=== PATIENT | female | born 1965 | race Caucasian/White ===

== ENCOUNTER 2018-08-29 08:05 | Day surgery (SDC) | payer OTHER ==
--- OUTSIDE RECORDS SUMMARY | 2018-08-29 08:08 | XMS REPORT ---
:1965 [facility] Address [address] [place] [address] Care Team Providers Name Role Phone Unavailable Unavailable Unavailable Problems This patient has no known problems. Allergies, Adverse Reactions, Alerts This patient has no known allergies or adverse reactions. Medications This patient has no known medications.
--- OUTSIDE RECORDS SUMMARY | 2018-08-29 08:09 | XMS REPORT ---
:1965 Author Organization [employer] Care Team Providers Name Role Phone BryantPoli Provider Role Unavailable Allergies, Adverse Reactions, Alerts Substance Reaction Event Type PCN Info Not Available Drug Allergy Iodine Info Not Available Drug Allergy Clarithromycin Info Not Available Drug Allergy Ampicillin Info Not Available Drug Allergy Problems Problem Type Condition Code Onset Dates Condition Status Problem Primary osteoarthritis of left hip M16.12 Active Problem Primary osteoarthritis of right M17.11 Active knee Assessment Primary osteoarthritis of left hip M16.12 Active Assessment Primary osteoarthritis of right M17.11 Active knee Assessment Pain of left hip joint M25.552 Active Assessment Pain, joint, knee, right M25.561 Active Medications Medication Code Code Instructions Start End Status Dosage System Date Date Lisinopril ND 66742645171 5 MG Orally Mar 04, Active 1 tablet Once a day 2018 Metformin HCl ND 27974763110 500 MG Orally Mar 04, Active 1 tablet Once a day 2019 with a meal baclofen ND 61581103757 10mg PO TID Mar 04, Active / tab 2019 T[address]enol [address] [facility] 36712541875 300-30 MG Active 1 tablet as Codeine #3 Orally every 6 needed hrs Levothyroxine NDC 10969998228 75 MCG Orally Mar 04, Active 1 tablet on Sodium Once a day 2019 an empty stomach in the morning Xultophy ND 35890214055 100-3.6 Mar 04, Active as directed UNIT-MG/ML 2019 Subcutaneous VESIcare ND 44919566446 5 MG Orally Mar 04, Active 1 tablet Once a day 2019 Mobic ND 78081608672 7.5 MG Orally Mar 24, Apr 23, Active 1 tablet Once a day 2018 2019 Duloxetine HCl ND 55327079452 60 MG Orally Mar 04, Active 1 capsule Once a day 2019 Gabapentin NDC 49383341168 600 MG Orally Mar 04, Active 1 tablet Once a day 2019 Levothyroxine NDC 42933285164 75 MCG Orally Mar 04, Active 1 tablet on Sodium Once a day 2019 an empty stomach in the morning Ibuprofen ND 96717036340 800 MG Orally Mar 04, Active 1 tablet po Three times a 2019 prn pain day Simvastatin ND 40884248046 40 MG Orally Mar 04, Active 1 tablet in Once a day 2018 the evening Results No Known Results Summary Purpose eClinicalWorks Submission
--- OUTSIDE RECORDS SUMMARY | 2018-08-29 08:09 | XMS REPORT ---
:1965 Author Organization [employer] Care Team Providers Name Role Phone Poli Bryant Provider Role Unavailable Allergies, Adverse Reactions, Alerts Substance Reaction Event Type PCN Info Not Available Drug Allergy Iodine Info Not Available Drug Allergy Clarithromycin Info Not Available Drug Allergy Ampicillin Info Not Available Drug Allergy Problems Problem Type Condition Code Onset Dates Condition Status Assessment Pain, joint, shoulder, left M25.512 Active Assessment Other closed nondisplaced fracture S42.295A Active of proximal end of left humerus, initial encounter Medications Medication Code Code Instructions Start End Status Dosage System Date Date baclofen ND 04446811303 10mg PO TID Mar 04, Active 03/02 tab 2019 Tylenol with ND 46654013129 300-30 MG Mar 04, Active 1 tablet as Codeine #3 Orally every 6 2019 needed hrs Levothyroxine NDC 15997554515 75 MCG Orally Mar 04, Active 1 tablet on Sodium Once a day 2019 an empty stomach in the morning Simvastatin NDC 86235744452 40 MG Orally Mar 04, Active 1 tablet in Once a day 2019 the evening Levothyroxine NDC 90461187144 75 MCG Orally Mar 04, Active 1 tablet on Sodium Once a day 2019 an empty stomach in the morning Metformin HCl ND 93317111830 500 MG Orally Mar 04, Active 1 tablet Once a day 2019 with a meal Duloxetine HCl ND 77289982798 60 MG Orally Mar 04, Active 1 capsule Once a day 2019 Ibuprofen ND 86525656477 800 MG Orally Mar 04, Active 1 tablet po Three times a 2019 prn pain day Gabapentin NDC 67083413383 600 MG Orally Mar 04, Active 1 tablet Once a day 2019 VESIcare NDC 92155042332 5 MG Orally Mar 04, Active 1 tablet Once a day 2019 Xultophy ND 81852113262 100-3.6 Mar 04, Active as directed UNIT-MG/ML 2018 Subcutaneous Lisinopril NDC 46952444666 5 MG Orally Mar 04, Active 1 tablet Once a day 2019 Results No Known Results Summary Purpose eClinicalWorks Submission
--- OUTSIDE RECORDS SUMMARY | 2018-08-29 08:09 | XMS REPORT ---
:1965 Author Organization [employer] Care Team Providers Name Role Phone Poli Bryant Provider Role Unavailable Allergies No Known Allergies Problems No Known Problems Medications No Known Medications Results No Known Results Summary Purpose eClinicalWorks Submission
--- OUTSIDE RECORDS SUMMARY | 2018-08-29 08:09 | XMS REPORT ---
[...] osteoarthritis of right M17.11 Active knee Assessment Other nondisplaced fracture of S42.295D Active upper end of left humerus, subsequent encounter for fracture with routine healing Assessment Pain in joint of left shoulder M25.512 Active Assessment Primary osteoarthritis of right M17.11 Active knee Medications Medication Code Code Instructions Start End Status Dosage System Date Date Levothyroxine [facility] 13976166806 75 MCG Orally Mar 04, Active 1 tablet on Sodium Once a day 2019 an empty stomach in the morning baclofen ND 53393013338 10mg PO TID Mar 04, Active 1/2 tab 2019 Lisinopril ND 56776804856 5 MG Orally Mar 04, Active 1 tablet Once a day 2019 Xultophy ND 74894385782 100-3.6 Mar 04, Active as directed UNIT-MG/ML 2019 Subcutaneous Ibuprofen ND 81490640621 800 MG Orally Mar 04, Active 1 tablet po Three times a 2019 prn pain day Gabapentin ND 05365682253 600 MG Orally Mar 04, Active 1 tablet Once a day 2019 Metformin HCl ND 75093110783 500 MG Orally Mar 04, Active 1 tablet Once a day 2019 with a meal Simvastatin ND 89011601399 40 MG Orally Mar 04, Active 1 tablet in Once a day 2019 the evening VESIcare ND 31024571715 5 MG Orally Mar 04, Active 1 tablet Once a day 2019 Duloxetine HCl ND 74099757004 60 MG Orally Mar 04, Active 1 capsule Once a day 2019 Results No Known Results Summary Purpose eClinicalWorks Submission
--- OUTSIDE RECORDS SUMMARY | 2018-08-29 08:09 | XMS REPORT ---
[...] M16.12 Active Problem Primary osteoarthritis of right knee M17.11 Active Assessment Primary osteoarthritis of right knee M17.11 Active Medications Medication Code Code Instructions Start End Date Status Dosage System Date Mobic [facility] 16496668759 7.5 MG Orally April Active 1 tablet Once a day 2018 Gabapentin ND 29407923071 600 MG Orally Mar 04, Active 1 tablet Once a day 2018 Levothyroxine ND 23054427086 75 MCG Orally Mar 04, Active 1 tablet Sodium Once a day 2019 on an empty stomach in the morning Lisinopril ND 07145469520 5 MG Orally Mar 04, Active 1 tablet Once a day 2019 baclofen ND 47736469030 10mg PO TID Mar 04, Active 1/2 tab 2019 Duloxetine HCl ND 93842498998 60 MG Orally Mar 04, Active 1 capsule Once a day 2018 VESIcare ND 43193639056 5 MG Orally Mar 04, Active 1 tablet Once a day 2019 Simvastatin ND 69266267844 40 MG Orally Mar 04, Active 1 tablet Once a day 2019 in the evening Metformin HCl ND 96854088128 500 MG Orally Mar 04, Active 1 tablet Once a day 2019 with a meal Xultophy ND 94097842550 100-3.6 Mar 04, Active as UNIT-MG/ML 2019 directed Subcutaneous Ibuprofen ND 93750392059 800 MG Orally Mar 04, Active 1 tablet Three times a 2019 po prn day pain Results No Known Results Summary Purpose eClinicalWorks Submission
--- OUTSIDE RECORDS SUMMARY | 2018-08-29 08:09 | XMS REPORT ---
[...] Start End Status Dosage System Date Date Gabapentin ND 98418746191 600 MG Orally Mar 04, Active 1 tablet Once a day 2018 Duloxetine HCl ND 17412166323 60 MG Orally Mar 04, Active 1 capsule Once a day 2019 VESIcare ND 41477554417 5 MG Orally Mar 04, Active 1 tablet Once a day 2019 Simvastatin ND 32698171609 40 MG Orally Mar 04, Active 1 tablet in Once a day 2019 the evening Levothyroxine ND 40732779638 75 MCG Orally Mar 04, Active 1 tablet on Sodium Once a day 2019 an empty stomach in the morning Ibuprofen ND 81222257541 800 MG Orally Mar 04, Active 1 tablet po Three times a 2019 prn pain day Xultophy [facility] 01967085243 100-3.6 Mar 04, Active as directed UNIT-MG/ML 2019 Subcutaneous Lisinopril ND 97069114219 5 MG Orally Mar 04, Active 1 tablet Once a day 2019 Metformin HCl ND 47404185665 500 MG Orally Mar 04, Active 1 tablet Once a day 2019 with a meal baclofen ND 88288400213 10mg PO TID Mar 04, Active 03/02 tab 2019 Results No Known Results Summary Purpose eClinicalWorks Submission
--- OUTSIDE RECORDS SUMMARY | 2018-08-29 08:09 | XMS REPORT ---
[...] Status Dosage System Date Date Lisinopril ND 66650007374 5 MG Orally Mar 04, Active 1 tablet Once a day 2018 Levothyroxine NDC 48822505900 75 MCG Orally Mar 04, Active 1 tablet on Sodium Once a day 2019 an empty stomach in the morning VESIcare ND 79457303674 5 MG Orally Mar 04, Active 1 tablet Once a day 2018 Xultophy ND 10252815864 100-3.6 Mar 04, Active as directed UNIT-MG/ML 2018 Subcutaneous Duloxetine HCl ND 03741094910 60 MG Orally Mar 04, Active 1 capsule Once a day 2018 Levothyroxine NDC 16578559395 75 MCG Orally Mar 04, Active 1 tablet on Sodium Once a day 2019 an empty stomach in the morning Ibuprofen NDC 22106547727 800 MG Orally Mar 04, Active 1 tablet po Three times a 2019 prn pain day Metformin HCl ND 36279069540 500 MG Orally Mar 04, Active 1 tablet Once a day 2019 with a meal Simvastatin NDC 52011904560 40 MG Orally Mar 04, Active 1 tablet in Once a day 2019 the evening Mobic ND 52764329850 7.5 MG Orally Mar 24, Apr 23, Active 1 tablet Once a day 2018 2019 Tylenol with ND 15649712121 300-30 MG Active 1 tablet as Codeine #3 Orally every 6 needed hrs baclofen ND 03600354737 10mg PO TID Mar 04, Active 1/2 tab 2019 Gabapentin ND 28818157463 600 MG Orally Mar 04, Active 1 tablet Once a day 2018 Results No Known Results Summary Purpose eClinicalWorks Submission
--- OUTSIDE RECORDS SUMMARY | 2018-08-29 08:09 | XMS REPORT ---
:1965 Author Organization [employer]ClinicalWorks Care Team Providers Name Role Phone Poli Bryant Provider Role Unavailable Allergies No Known Allergies Problems Problem Type Condition Code Onset Dates Condition Status Problem Primary osteoarthritis of left hip M16.12 Active Problem Primary osteoarthritis of right knee M17.11 Active Medications No Known Medications Results No Known Results Summary Purpose eClinicalWorks Submission
[2018-08-29] MEDS ORDERED: NA CHLORIDE 0.9% 1,000 ML ONE (08:47)
[2018-08-29] MEDS ORDERED: PROPOFOL 200 MG/20 ML VIAL IV ONE ×2 (09:09→10:58)
[2018-08-29] MEDS ORDERED: FENTANYL CITR 100 MCG/2 ML ONE ×2 (09:11→10:58)
[2018-08-29] MEDS ORDERED: MIDAZOLAM HCL 2 MG/2 ML INJ ONE (09:12)
[2018-08-29] MEDS ORDERED: LIDOCAINE 2% MPF 5 ML VIAL ONE (09:12)
[2018-08-29] MEDS ORDERED: BUPIVACA 0.5%/EPI 0.0005%/PF 10 ML VIAL ONE ×2 (09:13→10:49)
[2018-08-29] MEDS ORDERED: ONDANSETRON 4 MG/2 ML VIAL ONE ×2 (09:14→11:41)
[2018-08-29] MEDS ORDERED: SUCCINYLCHOLINE 20 MG/ML (10 ML) IV ONE (10:50)
[2018-08-29] MEDS ORDERED: ROCURONIUM 50 MG/5 ML VIAL IV ONE (10:58)
[2018-08-29] MEDS ORDERED: LIDOCAINE 1% MPF 5 ML VIAL ONE (10:58)
--- NOTE | 2018-08-29 11:26 | P.OP ---
Preoperative diagnosis: Right Posterior leg skin lesion Postoperative diagnosis: Right Posterior leg skin lesion Primary procedure: Excision of Right Posterior leg skin lesion Anesthesia: MAC + Local Estimated blood loss: <2cc Specimen: Pedunculated Right Posterior leg skin lesion Findings: pedunculated skin lesion - single feeding vessel Complications: None Transferred to: Recovery Room Condition: Good
[2018-08-29] MEDS ORDERED: NS 0.9% VIAL 10 ML ONE (11:31)
[2018-08-29] MEDS ORDERED: Phenylephrine HCl 10 MG/ML 1 ML VIAL ONE (11:31)
[2018-08-29] MEDS ORDERED: KETOROLAC 30 MG/ML INJ ONE (11:39)
--- NOTE | 2018-08-29 14:49 | OP ---
Date of Procedure: 08/29/2018 Surgeon: Josh Drummond MD, Preoperative Diagnosis: Right posterior skin like lesion. Postoperative Diagnosis: Right posterior skin like lesion. Procedure Performed: Excision of right posterior skin like lesion. Anesthesia: MAC plus local 0.5% Marcaine with epinephrine. Estimated Blood Loss: 2 cc. Specimen: Pedunculated right posterior skin leg lesion. Findings: As above. Specimen: Consistent with specimen with single feeding vessel. Complications: None. Disposition: Transferred to recovery room in good condition. Procedure In Detail: After informed consent was obtained, the patient was brought to the operating r oom, prepped and draped in the usual sterile fashion. After adequate anesthesia was achieved, an are a of the right posterior calf was anesthetized with 0.5% Marcaine with epinephrine. A scalpel was th en used to take the pedunculated lesion off the posterior calf area down through the skin. This was sent off for pathologic examination. The stalk was examined and had a single large feeding vessel wi th no other abnormalities grossly. I then used electrocautery to achieve hemostasis of the area and irrigated the skin and wound copiously and closed with an interrupted cam and sterile dressing wa s placed over top. The patient tolerated the procedure well without evidence of complication and tra nsferred to PACU in good condition. All counts were correct at the end of the case. LATOYA/MELISSA Voice ID: [id number] Report ID: [id number]
[2018-08-31 16:49] VITALS: BP 122/90; TEMP 98; O2SAT 93
== END 2018-08-29 13:16 | disposition home or self-care (01) ==
LOC: OR 08:05
PROVIDERS: ATTEND Surgery
PROC: 0JBN0ZZ Excision of Right Lower Leg Subcutaneous Tissue and Fascia, Open Approach (ICD-10-PCS; principal; 2018-08-29 09:15)
DX: R22.9 Localized swelling, mass and lump, unspecified (principal); E11.9 Type 2 diabetes mellitus without complications; I10 Essential (primary) hypertension; G47.33 Obstructive sleep apnea (adult) (pediatric); E78.5 Hyperlipidemia, unspecified; E03.9 Hypothyroidism, unspecified; I73.9 Peripheral vascular disease, unspecified; E66.01 Morbid (severe) obesity due to excess calories; Z68.43 Body mass index [BMI] 50.0-59.9, adult; F17.210 Nicotine dependence, cigarettes, uncomplicated; Z88.0 Allergy status to penicillin; Z88.3 Allergy status to other anti-infective agents; Z82.49 Family history of ischemic heart disease and other diseases of the circulatory system; Z83.3 Family history of diabetes mellitus
CPT/HCPCS: 82962 ×2; 88304; 11404; J2704; J0330; J2370; J3010; J7030; J2405; 88305; J2250

== ENCOUNTER 2018-12-24 19:45 | Emergency (ER) | payer OTHER ==
[2018-12-24] MEDS ORDERED: NA CHLORIDE 0.9% 1,000 ML ONE (20:45)
[2018-12-24 21:15] LABS: Absolute Lymphocytes (CBC) 1.7 K/uL (0.7-4.9); Basophils % 0.2 % (0-1.3); Hematocrit 44.3 % (36.0-45.0); Lymphocytes % 16.6 % (15.3-44.8); MPV 8.9 fL (7.6-11.3); RBC Red Blood Cell Count 5.09 M/uL (3.86-4.86)
[2018-12-24 21:20] LABS: Potassium 4.1 mmol/L (3.5-5.1)
--- NOTE | 2018-12-24 21:41 | ER ---
Nurse's Notes [facility] Name: Homa Delgado Age: 53 yrs Sex: Female : 1965 Arrival Date: 12/24/2018 Time: 19:48 Bed 7 Private MD: Biju Clark R Diagnosis: Pain in left leg Presentation: 12/24 20:01 Presenting complaint: Patient states: "I have had cellulitis before, but this pain jd3 feels similar to what my arm felt like when I had a blood clot in my arm.". Transition of care: patient was not received from another setting of care. Onset of symptoms was December 24, 2018. Risk Assessment: Do you want to hurt yourself or someone else? Patient reports no desire to harm self or others. Initial Sepsis Screen: Does the patient meet any 2 criteria? No. Patient's initial sepsis screen is negative. Does the patient have a suspected source of infection? No. Patient's initial sepsis screen is negative. Care prior to arrival: None. 20:01 Method Of Arrival: Wheelchair jd3 20:01 Acuity: IVANA 3 jd3 PUBLIC FINANCE SPECIALIST: 22:05 LMP N/A - Hysterectomy jd3 Historical: - Allergies: 20:08 Clindamycin; jd3 20:08 Ampicillin; jd3 - Home Meds: 20:08 gabapentin oral oral [Active]; metformin Oral [Active]; levothyroxine oral [Active]; jd3 Simvastatin Oral [Active]; diclofenac oral oral [Active]; Lisinopril Oral [Active]; - PMHx: 20:08 nerve damage; Thyroid problem; Diabetes - NIDDM; Hypertension; High Cholesterol; jd3 - PSHx: 20:08 Hysterectomy; Tonsillectomy; jd3 - Immunization history:: Adult Immunizations up to date. - Social history:: Smoking status: Patient uses tobacco products, smokes one pack cigarettes per day. - Ebola Screening: : Patient negative for fever greater than or equal to 101.5 degrees Fahrenheit, and additional compatible Ebola Virus Disease symptoms. Screenin:10 Abuse screen: Denies threats or abuse. Nutritional screening: No deficits noted. jd3 Tuberculosis screening: No symptoms or risk factors identified. Fall Risk Ambulatory Aid- None/Bed Rest/Nurse Assist (0 pts). Gait- Normal/Bed Rest/Wheelchair (0 pts) Mental Status- Oriented to own ability (0 pts). Total Eugene Fall Scale indicates No Risk (0-24 pts). Assessment: 20:08 General: Appears in no apparent distress. uncomfortable, Behavior is calm, cooperative, jd3 appropriate for age. Pain: Complains of pain in left jones Quality of pain is described as aching, pressure. Neuro: Level of Consciousness is awake, alert, obeys commands, Oriented to person, place, time, situation. Cardiovascular: Denies chest pain, Capillary refill < 3 seconds Patient's skin is warm and dry. Respiratory: Airway is patent Respiratory effort is even, unlabored, Respiratory pattern is regular, symmetrical, Denies cough, shortness of breath. GI: No signs and/or symptoms were reported involving the gastrointestinal system. : No signs and/or symptoms were reported regarding the genitourinary system. EENT: No signs and/or symptoms were reported regarding the EENT system. Derm: Skin is intact, Skin is dry, Skin is normal, Skin temperature is warm redness noted to left lower leg. pt reported swelling to left lower leg prior to arrival. Musculoskeletal: Circulation, motion, and sensation intact. Range of motion: limited in left leg. 22:06 Reassessment: Patient appears in no apparent distress at this time. Patient and/or jd3 family updated on plan of care and expected duration. Pain level reassessed. Patient is alert, oriented x 3, equal unlabored respirations, skin warm/dry/pink. assisted to vehicle. Patient states feeling better. Vital Signs: 20:00 BP 133 / 87; Pulse 111; Resp 18; Temp 97.8(TE); Pulse Ox 99% on R/A; Weight 149.69 kg ar5 (R); Height 5 ft. 4 in. (162.56 cm) (R); Pain 8/10; 21:30 BP 125 / 73; Pulse 89; Resp 17 S; Pulse Ox 98% on R/A; jd3 20:00 Body Mass Index 56.64 (149.69 kg, 162.56 cm) ar5 ED Course: 19:48 Patient arrived in ED. es 19:50 Biju Clark MD is Private Physician. es 19:50 Araceli Tan FNP-C is PHCP. snw 19:50 Omer Bell MD is Attending Physician. snw 20:01 Johnny Nicholson, RN is Primary Nurse. jd3 20:02 Triage completed. jd3 20:08 Arm band placed on. jd3 20:10 Patient has correct armband on for positive identification. Bed in low position. Call jd3 light in reach. Side rails up X 1. 20:52 Inserted saline lock: 20 gauge in left antecubital area, using aseptic technique. Blood jd3 collected. 21:25 Extremity Venous Unilateral Ltd In Process Unspecified. EDMS 21:40 Biju Clark MD is Referral Physician. snw 22:02 No provider procedures requiring assistance completed. IV discontinued, intact, jd3 bleeding controlled, No redness/swelling at site. Pressure dressing applied. Administered Medications: 21:01 Drug: NS 0.9% 1000 ml Route: IV; Rate: 1 bolus; Site: left antecubital; jd3 22:01 Follow up: Response: No adverse reaction; IV Status: Completed infusion; IV Intake: jd3 1000ml Intake: 22:01 IV: 1000ml; Total: 1000ml. jd3 Outcome: 21:40 Discharge ordered by . snw 22:04 Discharged to home via wheelchair. jd3 22:04 Condition: stable 22:04 Discharge instructions given to patient, Instructed on discharge instructions, follow up and referral plans. medication usage, Demonstrated understanding of instructions, follow-up care, medications, Prescriptions given X 1. 22:07 Patient left the ED. jd3 Signatures: Dispatcher [employer] EDSD Araceli Tan FNP-C SECURITY AND COMPLIANCE PROJECT MANAGER-CsnPebbles Guerrero Jonathon, RN RN jd3 Corrine Fry ar5
--- NOTE | 2018-12-24 21:41 | EDPHYS ---
Physician Documentation [facility] Name: Homa Delgado Age: 53 yrs Sex: Female : 1965 Arrival Date: 12/24/2018 Time: 19:48 Bed 7 Private MD: Biju Clark R ED Physician Omer Bell HPI: 12/24 20:44 This 53 yrs old Female presents to ER via Wheelchair with complaints of Leg snw Pain. 20:44 The patient presents with pain, that is acute, tenderness. The complaints affect the snw lateral aspect of left calf, left quadriceps and left jones. Context: The problem was sustained at home, resulted from an unknown cause, the patient can fully bear weight, the patient is able to ambulate. Onset: The symptoms/episode began/occurred suddenly, 2 day(s) ago, and became persistent. Treatment prior to arrival includes: heating pad. Severity of symptoms: At their worst the symptoms were moderate. The patient has experienced a previous episode, to left arm. BAKER PIE: 22:05 LMP N/A - Hysterectomy jd3 Historical: - Allergies: 20:08 Clindamycin; jd3 20:08 Ampicillin; jd3 - Home Meds: 20:08 gabapentin oral oral [Active]; metformin Oral [Active]; levothyroxine oral [Active]; jd3 Simvastatin Oral [Active]; diclofenac oral oral [Active]; Lisinopril Oral [Active]; - PMHx: 20:08 nerve damage; Thyroid problem; Diabetes - NIDDM; Hypertension; High Cholesterol; jd3 - PSHx: 20:08 Hysterectomy; Tonsillectomy; jd3 - Immunization history:: Adult Immunizations up to date. - Social history:: Smoking status: Patient uses tobacco products, smokes one pack cigarettes per day. - Ebola Screening: : Patient negative for fever greater than or equal to 101.5 degrees Fahrenheit, and additional compatible Ebola Virus Disease symptoms. ROS: 20:42 Constitutional: Negative for fever, chills, and weight loss, Eyes: Negative for injury, snw pain, redness, and discharge, ENT: Negative for injury, pain, and discharge, Neck: Negative for injury, pain, and swelling, Cardiovascular: Negative for chest pain, palpitations, and edema, Respiratory: Negative for shortness of breath, cough, wheezing, and pleuritic chest pain, Abdomen/GI: Negative for abdominal pain, nausea, vomiting, diarrhea, and constipation, Back: Negative for injury and pain, : Negative for injury, bleeding, discharge, and swelling, Skin: Negative for injury, rash, and discoloration, Neuro: Negative for headache, weakness, numbness, tingling, and seizure, Psych: Negative for depression, anxiety, suicide ideation, homicidal ideation, and hallucinations. 20:42 MS/extremity: Positive for pain, paresthesias, of the lateral aspect of left calf, left quadriceps and left jones, Pt states her leg feels similar to her arm when she had a clot in it post a picc line. Exam: 20:39 Constitutional: This is an obese, well nourished patient who is awake, alert, and in snw no acute distress. Head/Face: Normocephalic, atraumatic. Eyes: Pupils equal round and reactive to light, extra-ocular motions intact. Lids and lashes normal. Conjunctiva and sclera are non-icteric and not injected. Cornea within normal limits. Periorbital areas with no swelling, redness, or edema. ENT: Nares patent. No nasal discharge, no septal abnormalities noted. Tympanic membranes are normal and external auditory canals are clear. Oropharynx with no redness, swelling, or masses, exudates, or evidence of obstruction, uvula midline. Mucous membranes moist. Neck: Trachea midline, no thyromegaly or masses palpated, and no cervical lymphadenopathy. Supple, full range of motion without nuchal rigidity, or vertebral point tenderness. No Meningismus. Chest/axilla: Normal chest wall appearance and motion. Nontender with no deformity. No lesions are appreciated. Cardiovascular: Regular rate and rhythm with a normal S1 and S2. No gallops, murmurs, or rubs. Normal PMI, no JVD. No pulse deficits. Respiratory: Lungs have equal breath sounds bilaterally, clear to auscultation and percussion. No rales, rhonchi or wheezes noted. No increased work of breathing, no retractions or nasal flaring. Abdomen/GI: Soft, non-tender, with normal bowel sounds. No distension or tympany. No guarding or rebound. No evidence of tenderness throughout. Back: No spinal tenderness. No costovertebral tenderness. Full range of motion. Neuro: Awake and alert, GCS 15, oriented to person, place, time, and situation. Cranial nerves II-XII grossly intact. Motor strength 5/5 in all extremities. Sensory grossly intact. Cerebellar exam normal. Normal gait. Psych: Awake, alert, with orientation to person, place and time. Behavior, mood, and affect are within normal limits. 20:39 Musculoskeletal/extremity: Extremities: grossly normal except: pulses present and equal, bilateral lower extremities with dusky, tight, scabbed skin, ROM: no acute changes, Circulation is intact in all extremities. the lateral aspect of left calf, left quadriceps and left jones Tingling of extremity. numbness. 20:39 Skin: Appearance: Color: dusky, Temperature: cool, Moisture: dry, very dry skin with crusty texture. Vital Signs: 20:00 BP 133 / 87; Pulse 111; Resp 18; Temp 97.8(TE); Pulse Ox 99% on R/A; Weight 149.69 kg ar5 (R); Height 5 ft. 4 in. (162.56 cm) (R); Pain 8/10; 21:30 BP 125 / 73; Pulse 89; Resp 17 S; Pulse Ox 98% on R/A; jd3 20:00 Body Mass Index 56.64 (149.69 kg, 162.56 cm) ar5 MDM: 19:55 Patient medically screened. hortensia 21:42 Data reviewed: vital signs, nurses notes. Data interpreted: Pulse oximetry: on room air snw is 99 %. Interpretation: normal. Counseling: I had a detailed discussion with the patient and/or guardian regarding: the historical points, exam findings, and any diagnostic results supporting the discharge/admit diagnosis, the presence of at least one elevated blood pressure reading (>120/80) during this emergency department visit, lab results, radiology results, the need for outpatient follow up, for definitive care, to return to the emergency department if symptoms worsen or persist or if there are any questions or concerns that arise at home. Special discussion: I have referred the patient to see his PCP for further evaluation of high blood pressure. Based on the history and exam findings, there is no indication for further emergent testing or inpatient evaluation. I discussed with the patient/guardian the need to see the primary care provider for further evaluation of the symptoms. 12/24 20:38 Order name: CBC with Diff; Complete Time: 21:21 snw 12/24 20:38 Order name: Chem 7; Complete Time: 21:21 snw 12/24 20:38 Order name: Blood Culture Adult (2) snw 12/24 20:38 Order name: US Extremity Venous Unilateral Ltd snw 12/24 21:10 Order name: Glucose, Ancillary Testing; Complete Time: 21:21 EDMS 12/24 20:38 Order name: FSBS; Complete Time: 21:01 snw Administered Medications: 21:01 Drug: NS 0.9% 1000 ml Route: IV; Rate: 1 bolus; Site: left antecubital; jd3 22:01 Follow up: Response: No adverse reaction; IV Status: Completed infusion; IV Intake: jd3 1000ml Disposition: 12/24/18 21:40 Discharged to Home. Impression: Pain in left leg. - Condition is Stable. - Discharge Instructions: Musculoskeletal Pain, Heat Therapy. - Prescriptions for Diclofenac Sodium 75 mg Oral Tablet Sustained Release - take 1 tablet by ORAL route 2 times per day; 30 tablet. - Medication Reconciliation Form, Thank You Letter, Antibiotic Education, Prescription Opioid Use form. - Follow up: Biju Clark MD; When: 2 - 3 days; Reason: Recheck today's complaints, Continuance of care, Re-evaluation by your physician. Follow up: Emergency Department; When: As needed; Reason: Worsening of condition. Addendum: 12/26/2018 08:55 Co-signature as Attending Physician, Omer Bell MD I agree with the assessment and c brewer plan of care. Signatures: Dispatcher [employer] Omer Denney MD MD cha Therrien, Shelly, SPOT MACHINE OPERATOR-C SPOT MACHINE OPERATOR-Johnny Mccullough, RN RN jd3 Corrections: (The following items were deleted from the chart) 12/24 22:07 21:40 12/24/2018 21:40 Discharged to Home. Impression: Pain in left leg. Condition is jd3 Stable. Forms are Medication Reconciliation Form, Thank You Letter, Antibiotic Education, Prescription Opioid Use. Follow up: Biju Clark; When: 2 - 3 days; Reason: Recheck today's complaints, Continuance of care, Re-evaluation by your physician. Follow up: Emergency Department; When: As needed; Reason: Worsening of condition. snw
[2018-12-24 22:13] VITALS: TEMP 97.8
[2018-12-24 22:14] VITALS: BP 125/73; O2SAT 98
--- NOTE | 2018-12-25 10:58 | RAD REPORT ---
EXAM DESCRIPTION: US - Extremity Venous Uni Ltd - 12/24/2018 9:25 pm CLINICAL HISTORY: Pain;Numbness/tingling Leg swelling and edema. COMPARISON: EXT VENOUS W COMPRESSION PAUL dated 01/24/2011 FINDINGS: Left lower extremity venous system was interrogated with Doppler technique. Normal flow, c ompressibility and augmentation was noted. There is no DVT present. IMPRESSION: No evidence of left lower extremity deep venous thrombosis.
== END 2018-12-24 22:07 | disposition home or self-care (01) ==
LOC: ER 19:45
DX: M79.605 Pain in left leg (principal); I10 Essential (primary) hypertension; E11.9 Type 2 diabetes mellitus without complications; E07.9 Disorder of thyroid, unspecified; F17.210 Nicotine dependence, cigarettes, uncomplicated; Z88.3 Allergy status to other anti-infective agents
CPT/HCPCS: 87040 ×2; 85025; 80048; 36415; 82947; 93971; 96360; 99284; J7030

== ENCOUNTER 2022-07-10 20:16 | Emergency (ER) | payer OTHER ==
--- OUTSIDE RECORDS SUMMARY | 2022-07-10 20:24 | XMS REPORT | Continuity of Care Document ---
:1965 Author Organization [facility] t Address [address] [place] [address] [address] [place] [address] Care Team Providers Name Role Phone Javad De Oliveira Primary Care Physician Bui_Q Attending Clinician Unavailable [email or web address] Attending Clinician Unavailable Juani Hernández MD Attending Clinician Rosendo Attending Clinician Unavailable HERBER PADILLA Attending Clinician Unavailable Doctor Unassigned, Adwolf Attending Clinician Unavailable KELSIE SHUKLA Attending Clinician Unavailable Faraz Sawant Attending Clinician Oren Ponce MD Attending Clinician OREN PONCE Attending Clinician Unavailable BHAVESH HORVATH Attending Clinician Unavailable Bui_Q Admitting Clinician Unavailable [email or web address] Admitting Clinician Unavailable Rosendo Admitting Clinician Unavailable KELSIE SHUKLA Admitting Clinician Unavailable Payers Payer Name Policy Type Policy Number Effective Date Expiration Date Kiara card [employer] [id number] 2017 MEDICARE 00:00:00 CIGNA [facility] [id number] 2017 2022 00:00:00 00:00:00 [facility] [id number] (MEDICARE 00:00:00 REPLACEMENT/ADVANTA GE - HMO) [facility] [id number] 2017 (HMO) 00:00:00 Problems Condition Condition Condition Status Onset Resolution Last Treating Co mments Source Name Details Category Date Date Treatment Clinician Date 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 00:00: Pr actic disorder Disorder 00 e Opioid Opioid Problem Active [place] dependence Dependence 1-04 Fa isi 00:00: Practic 00 e Long-term Long-term Problem Active Chuy lopez current Current 1-04 Family use of Use of 00:00: Practic insulin Insulin 00 e Type 2 Type 2 Problem Active [facility] diabetes Diabetes 6-03 Family mellitus Mellitus 00:00: Practi c 00 e Multiple Multiple Problem Active [facility] complicati Complicati 3-11 Fa isi ons due to ons Due to 00:00: Pr actic type 2 Type 2 00 e diabetes Diabetes mellitus Mellitus Diabetes Diabetes Problem Active [facility] mellitus Mellitus 2-22 Family 00:00: Practic 00 e Hyperlipid Hyperlipid Problem Active [facility] emia due emia Due 1-18 Family to type 2 to Type 2 00:00: Prac tic diabetes Diabetes 00 e mellitus Mellitus Type 2 Type 2 Problem Active [facility] diabetes Diabetes 1-18 Family mellitus Mellitus 00:00: Practi c with with 00 e peripheral Peripheral angiopathy Angiopathy Tobacco Tobacco Problem Active 2019-03 [place] dependence Dependence 1-24 Fa isi syndrome Syndrome 00:00: Practi c 00 e Peripheral Peripheral Problem Active 2019-03 [place] vascular Vascular 1-24 Family disease Disease 00:00: Practic 00 e Chronic Chronic Problem Active 2019-03 [facility] obstructiv Obstructiv 1-24 Fa isi e lung e Lung 00:00: Practic disease Disease 00 e Urinary Urinary Problem Active 2019-03 [facility] incontinen Incontinen 1-24 Fa isi ce ce 00:00: Practic 00 e Venous Venous Problem Active [facility] insufficie Insufficie 8-20 Fa isi ncy of leg ncy of Leg 00:00: Pr actic 00 e Morbid Morbid Problem Active [facility] obesity Obesity 8-19 Family 00:00: Practic 00 e Chronic Chronic Problem Active [facility] kidney Kidney 5-28 Family disease Disease 00:00: Practic due to Due to 00 e hypertensi Hypertensi on on Chronic Chronic Problem Active [facility] kidney Kidney 5-28 Family disease Disease 00:00: Practic due to Due to 00 e type 2 Type 2 diabetes Diabetes mellitus Mellitus Chronic Chronic Problem Active [facility] kidney Kidney 3-22 Family disease Disease 00:00: Practic stage 3 Stage 3 00 e Hypothyroi Hypothyroi Problem Active 2018-03 [facility] dism dism 2-12 Family 00:00: Practic 00 e Neuropathy Neuropathy Problem Active 2018-03 [place] [facility] due to Due to 2-12 Family diabetes Diabetes 00:00: Practi c mellitus Mellitus 00 e Vitamin D Vitamin D Problem Active 2018-03 Chuy john deficiency Deficiency 2-12 Fa isi 00:00: Practic 00 e Dyslipidem Dyslipidem Problem Active 2018-03 [facility] ia ia 2-12 Family 00:00: Practic 00 e Obstructiv Obstructiv Problem Active 2018-03 [facility] e sleep e Sleep 2-12 Family apnea Apnea 00:00: Practic syndrome Syndrome 00 e Osteoarthr Osteoarthr Problem Active 2018-03 [facility] itis itis 2-12 Family 00:00: Practic 00 e Sciatica Sciatica Problem Active 2018-03 [place] ge 2-12 Family 00:00: Practic 00 e Endometria Endometria Disease Active U nivers l cancer l cancer 07-27 ity of 00:00: [place] [facility] S/P S/P Disease Active Univers MAHAD-BSO MAHAD-BSO 07-27 ity of 00:00: [place] [facility] Wound Wound Disease Active Univers drainage drainage 07-24 ity of 00:00: [place] [facility] Adnexal Adnexal Disease Active Univers mass mass 4-20 ity of 00:00: [place] [facility] Essential Essential Disease Active Uni vers hypertensi hypertensi 4-20 it y of on on 00:00: [place] [facility] Hypertensi Hypertensi Disease Active U nivers on on 03-26 ity of 00:00: [place] [facility] Type II or Type II or Disease Active U nivers unspecifie unspecifie 03-26 it y of d type d type 00:00: [place] diabetes diabetes 00 Medica l mellitus mellitus Branch with with unspecifie unspecifie d d complicati complicati on, on, uncontroll uncontroll ed ed Lymphedema Lymphedema Disease Active U nivers 03-26 ity of 00:00: [place] [facility] Hypothyroi Hypothyroi Disease Active U nivers dism dism 03-26 ity of 00:: Medical Branch Peripheral Peripheral Disease Active U nivers vascular vascular 03-26 ity of disease disease 00:00: Medical Branch ELLEN favor ELLEN favor Disease Active U nivers benign benign 03-26 ity of 00:00: Medical Branch Smoking Smoking Disease Active Univers addiction addiction 03-26 ity of 00:00: Medical Branch Morbid Morbid Disease Active Univers obesity obesity 03-26 ity of with BMI with BMI 00:00: [place] of of 00 Medical 50.0-59.9, 50.0-59.9, Br anch adult adult Menorrhagi Menorrhagi Disease Active U nivers a a 03-26 ity of 00:00: [place] [facility] Primary Primary Problem Active Common osteoarthr osteoarthr Sp teresa itis of itis of - [facility] left hip left hip [facility] Primary Primary Problem Active Common osteoarthr osteoarthr Sp teresa itis of itis of - [facility] right knee right knee [facility] Follow up Follow up Diagnosis Active [facility] Allergies, Adverse Reactions, Alerts Allergy Allergy Status Severity Reaction(s) Onset Inactive Treating Comm ents Source Name Type Date Date Clinician Penicill Propensi Active Unknown - Uni vers ins ty to See comments 09-24 ity of adverse 00:00: [place] reaction 00 Medical s Branch Penicill Propensi Active Unknown - Uni vers ins ty to See comments 09-24 ity of adverse 00:00: [place] reaction 00 Medical s Branch PENICILL Drug Active Unknown-Cmnt Un tereso INS Class 7 ity of 00:00: [place] [facility] Iodine Propensi Active Rash Reports Univers ty to 1-26 breaking ity of adverse 00:00: out in a [place] reaction 00 rash Medical s to after Branch drug last CT when she was given IV contrast IODINE DRUG Active Rash Univers INGREDI 03-26 ity of 00:00: [place] 00 Medical Branch Ampicill Propensi Active Rash Univer s in ty to 03-23 ity of adverse 00:00: [place] reaction 00 Medical s to Branch drug Clarithr Propensi Active Rash Univer s omycin ty to 03-23 ity of adverse 00:00: [place] reaction 00 Medical s to Branch drug AMPICILL DRUG Active Med Rash Univers IN INGREDI 03-23 ity of 00:00: [place] 00 Medical Branch CLARITHR DRUG Active Med Rash Univers OMYCIN INGREDI 03-23 ity of 00:00: [place] [facility] Clarithr Allergy Active Rash [place] omycin to 03-23 Health substanc 00:00: e 00 Penicill Allergy Active Rash Other [place] ins to 05-17 reaction( Health substanc 00:00: s): e 00 Unknown - See commentsD costa migrated from Endgame on 06/29/14. Originall y documente d as AMPICILLI N.Data migrated from Endgame on 06/29/14. Originall y documente d as AMPICILLI N.Data migrated from Endgame on 06/29/14. Originall y documente d as AMPICILLI N. PCN Adverse Active Info Not Common Reaction Available [facility] Iodine Adverse Active Info Not Common Reaction Available [facility] Ampicill Allergy Active Hives [place] in to Family substanc Practic e e Clindamy Allergy Active Hives [place] golden to Family substanc Practic e e Iodine Allergy Active Rash [place] to Family substanc Practic e e Ampicill Adverse Active Info Not Commo n in Reaction Available [facility] Clarithr Adverse Active Info Not Commo n omycin Reaction Available [facility] Social History Social Habit Start Date Stop Date Quantity Comments Source History of tobacco Passive smoker [facility] use Exposure to 2022-03-20 2022-03-30 Not sure [facility] SARS-CoV-2 (event) 00:00:00 13:37:00 Cigarettes smoked 2022-03-30 2022-03-30 [facility] current (pack per 00:00:00 00:00:00 day) - Reported Tobacco use and 2022-03-30 2022-03-30 Smokeless [facility] exposure 00:00:00 00:00:00 tobacco non-user Alcohol intake 2022-03-30 2022-03-30 [facility] 00:00:00 00:00:00 non-drinker (finding) Tobacco Comment 2014-07-27 2014-07-27 6-7 daily Universit y of 00:00:00 00:00:00 [facility] Sex Assigned At [birth year] [facility] 00:00:00 00:00:00 Smoking Status Start Date Stop Date Source Heavy Tobacco Smoker [facility] Smokes tobacco daily 2022-03-30 00:00:00 [facility] Medications Ordered Filled Start Stop Current Ordering Indication Dosage Frequency Signature Comments Components Source Medication Medication Date Date Medication? Clinician (SIG) Name Name valsartan-h Yes valsartan U T ydroCHLOROt 1-30 320 [facility] hiazide 14:26: mg-hydroch (Diovan-HCT 14 lorothiazi ) 320-25 MG de 25 mg tablet tablet atorvastati Yes atorvastat [place] n (Lipitor) 1-30 in 20 mg [facility] 20 MG 14:26: tablet tablet 13 DULoxetine Yes duloxetine U T (Cymbalta) 1-30 [address] 14:26: capsule,de capsule 13 layed release gabapentin Yes gabapentin U T (Neurontin) 1-30 600 mg Health 600 MG 14:26: tablet tablet 13 TAKE 1 TABLET BY MOUTH THREE TIMES DAILY gabapentin Yes gabapentin U T (Neurontin) 1-30 300 mg Health 300 MG 14:26: capsule capsule 13 insulin Yes Humulin R UT regular 1-30 U-500 Health (HumuLIN R 14:26: (Conc) U-500 13 Insulin KWIKPEN) Kwikpen 500 UNIT/ML 500 CONCENTRATE unit/mL (3 D injection mL) subcutaneo us GIve 80units before breakfast and dinner and increase as directed: TDD 250 levothyroxi Yes levothyrox [place] ne 1-30 ine 100 Health (Synthroid, 14:26: mcg tablet Levoxyl) 13 100 MCG tablet meloxicam Yes meloxicam [facility] (Mobic) 15 1-30 15 mg Health MG tablet 14:26: tablet 13 metFORMIN Yes metformin [facility] (Glucophage 1-30 500 mg Health ) 500 MG 14:26: tablet tablet 13 Ozempic, 2 Yes [facility] MG/DOSE, 8 1-17 Health MG/3ML 00:00: solution 00 pen-injecto r meloxicam 2020-03- No [id number] 15mg Take 1 U nivers 15 mg 04-09 tablet by ity of tablet 00:00: 05:59 mouth [place] 00 :00 daily for Medical 30 days. [place] meloxicam 2020-03- No [id number] 15mg Take 1 U nivers 15 mg 04-09 tablet by ity of tablet 00:00: 05:59 mouth [place] 00 :00 daily for Medical 30 days. [place] Levothyroxi Levothyroxi 2018- Yes Josh 1 tablet Common ne Sodium ne Sodium 03-04 [place] on an S pirit 00:00: empty - [facility] [address] [facility] Simvastatin Simvastatin 2018- Yes Josh 1 tablet Common 03-04 [facility] in the Spirit 00:00: evening - [facility] 00 [facility] Metformin Metformin 2018- Yes Josh 1 tablet Common HCl HCl 03-04 [facility] with a Spirit 00:00: meal - [facility] 00 [facility] Duloxetine Duloxetine 2018- Yes Josh 1 capsule Common HCl HCl 03-04 [facility] Spirit 00:00: - [facility] 00 [facility] Ibuprofen Ibuprofen 2018-0 Yes Josh 1 tablet Common 04 [facility] po prn Spirit 00:00: pain - [facility] 00 [facility] Gabapentin Gabapentin 2018- Yes Josh 1 tablet Common 03-04 [facility] Spirit 00:00: - [facility] 00 [facility] VESIcare VESIcare 2018-0 Yes Josh 1 tablet C ommon 04 [place] Spirit 00:00: - [facility] 00 [facility] Xultophy Xultophy 2018-0 Yes Josh as Commo n 03-04 [facility] directed Spirit 00:00: - [facility] 00 [facility] Lisinopril Lisinopril 2018-0 Yes Josh 1 tablet Common 1-04 [facility] Spirit 00:00: - [facility] 00 [facility] ibuprofen 2017- Yes 800mg Take 1 Unive rs 800 mg 2-20 tablet by ity of tablet 00:00: mouth [place] 00 every 6 Medical (six) Branch hours as needed for Pain (scale 4-6). ibuprofen 2017-03 Yes 800mg Take 1 Unive rs 800 mg 2-20 tablet by ity of tablet 00:00: mouth [place] 00 every 6 Medical (six) Branch hours as needed for Pain (scale 4-6). ibuprofen 2017-03 Yes 800mg Take 1 Unive rs 800 mg 2-20 tablet by ity of tablet 00:00: mouth [place] 00 every 6 Medical (six) Branch hours as needed for Pain (scale 4-6). ibuprofen 2017-03 Yes 800mg Take 1 Unive rs 800 mg 2-20 tablet by ity of tablet 00:00: mouth [place] 00 every 6 Medical (six) Branch hours as needed for Pain (scale 4-6). ibuprofen 2017-03 Yes 800mg Take 1 Unive rs 800 mg 2-20 tablet by ity of tablet 00:00: mouth [place] 00 every 6 Medical (six) Branch hours as needed for Pain (scale 4-6). ibuprofen 2017-03 Yes 800mg Take 1 Unive rs 800 mg 2-20 tablet by ity of tablet 00:00: mouth [place] 00 every 6 Medical (six) Branch hours as needed for Pain (scale 4-6). ibuprofen 2017-03 Yes 800mg Take 1 Unive rs 800 mg 2-20 tablet by ity of tablet 00:00: mouth [place] 00 every 6 Medical (six) Branch hours as needed for Pain (scale 4-6). ibuprofen 2017-03 Yes 800mg Take 1 Unive rs 800 mg 2-20 tablet by ity of tablet 00:00: mouth [place] 00 every 6 Medical (six) Branch hours as needed for Pain (scale 4-6). gabapentin Yes [id number] 600mg Take 600 Univers (NEURONTIN) 8-13 mg by ity of 300 mg 08:49: mouth 3 [place] capsule 01 (three) Medical times Branch daily. metFORMIN 2017- Yes [id number] 500mg Take 500 Univers (GLUCOPHAGE 8-13 mg by ity of ) 500 mg 08:49: mouth 2 [place] tablet (two) Medical times Branch daily. simvastatin Yes [id number] 40mg Take 40 mg Univers (ZOCOR) 40 8-13 by mouth ity o f mg tablet 08:49: at [place] bedtime. Medical Branch baclofen Yes 10mg Take 10 mg Uni vers (LIORESAL) 8-13 by mouth 2 ity of 10 mg 08:49: (two) [place] tablet times Medical daily. Branch levothyroxi Yes 75ug Take 75 Uni vers ne 8-13 mcg by ity of (SYNTHROID) 08:49: mouth [place] 75 mcg 01 every Medical tablet morning. Branch lisinopril Yes 5mg Take 5 mg Un tereso 5 mg tablet 8-13 by mouth ity of 08:49: daily. [place] [facility] solifenacin Yes 5mg Take 5 mg U nivers (VESICARE) 8-13 by mouth ity o f 5 mg tablet 08:49: daily. [place] [facility] insulin Yes 46U inject 46 Unive rs degludec-li 8-13 Units ity of raglutide 08:49: under the [place] as (XULTOPHY 01 skin Medical 100/3.6) daily. Branch 100 unit-3.6 mg /mL (3 mL) InPn gabapentin Yes [id number] 600mg Take 600 Univers (NEURONTIN) 8-13 mg by ity of 300 mg 08:49: mouth 3 [place] capsule (three) Medical times Branch daily. metFORMIN Yes [id number] 500mg Take 500 Univers (GLUCOPHAGE 8-13 mg by ity of ) 500 mg 08:49: mouth 2 [place] tablet (two) Medical times Branch daily. simvastatin Yes [id number] 40mg Take 40 mg Univers (ZOCOR) 40 8-13 by mouth ity o f mg tablet 08:49: at [place] bedtime. Medical Branch baclofen Yes 10mg Take 10 mg Uni vers (LIORESAL) 8-13 by mouth 2 ity of 10 mg 08:49: (two) [place] tablet times Medical daily. Branch levothyroxi Yes 75ug Take 75 Uni vers ne 8-13 mcg by ity of (SYNTHROID) 08:49: mouth [place] 75 mcg 01 every Medical tablet morning. Branch lisinopril 0 Yes 5mg Take 5 mg Un tereso 5 mg tablet 8-13 by mouth ity of 08:49: daily. Medical Branch solifenacin 2017-0 Yes 5mg Take 5 mg U nivers (VESICARE) 8-13 by mouth ity o f 5 mg tablet 08:49: daily. [facility] Medical Branch insulin 0 Yes 46U inject 46 Unive rs degludec-li 8-13 Units ity of raglutide 08:49: under the [place] as (XU skin Medical 100/3.6) daily. Branch 100 unit-3.6 mg /mL (3 mL) InPn gabapentin 2017-0 Yes [id number] 600mg Take 600 Univers (NEURONTIN) 8-13 mg by ity of 300 mg 08:49: mouth 3 [place] capsule 01 (three) Medical times Branch daily. metFORMIN 2017- Yes [id number] 500mg Take 500 Univers (GLUCOPHAGE 8-13 mg by ity of ) 500 mg 08:49: mouth 2 [place] tablet 01 (two) Medical times Branch daily. simvastatin 0 Yes [id number] 40mg Take 40 mg Univers (ZOCOR) 40 8-13 by mouth ity o f mg tablet 08:49: at [place] 01 bedtime. Medical Branch baclofen 0 Yes 10mg Take 10 mg Uni vers (LIORESAL) 8-13 by mouth 2 ity of 10 mg 08:49: (two) [place] tablet 01 times Medical daily. Branch levothyroxi 0 Yes 75ug Take 75 Uni vers ne 8-13 mcg by ity of (SYNTHROID) 08:49: mouth [place] 75 mcg 01 every Medical tablet morning. Branch lisinopril 0 Yes 5mg Take 5 mg Un tereso 5 mg tablet 8-13 by mouth ity of 08:49: daily. Medical Branch solifenacin 2017-0 Yes 5mg Take 5 mg U nivers (VESICARE) 8-13 by mouth ity o f 5 mg tablet 08:49: [facility]. [facility] insulin 2017-0 Yes 46U inject 46 Unive rs degludec-li 8-13 Units ity of raglutide 08:49: under the [place] as (XULTOPH skin Medical 100/3.6) daily. Branch 100 unit-3.6 mg /mL (3 mL) InPn gabapentin 2018-0 Yes [id number] 600mg Take 600 Univers (NEURONTIN) 8-13 mg by ity of 300 mg 08:49: mouth 3 [place] capsule (three) Medical times Branch daily. metFORMIN 2018- Yes [id number] 500mg Take 500 Univers (GLUCOPHAGE 8-13 mg by ity of ) 500 mg 08:49: mouth 2 [place] tablet (two) Medical times Branch daily. simvastatin 2017- Yes [id number] 40mg Take 40 mg Univers (ZOCOR) 40 8-13 by mouth ity o f mg tablet 08:49: at [place] bedtime. Medical Branch baclofen 2017-0 Yes 10mg Take 10 mg Uni vers (LIORESAL) 8-13 by mouth 2 ity of 10 mg 08:49: (two) [place] tablet 01 times Medical daily. Branch levothyroxi 0 Yes 75ug Take 75 Uni vers ne 8-13 mcg by ity of (SYNTHROID) 08:49: mouth [place] 75 mcg 01 every Medical tablet morning. Branch lisinopril 0 Yes 5mg Take 5 mg Un tereso 5 mg tablet 8-13 by mouth ity of 08:49: daily. [address] Branch solifenacin 0 Yes 5mg Take 5 mg U nivers (VESICARE) 8-13 by mouth ity o f 5 mg tablet 08:49: daily. [place] [address] Medical Branch insulin 0 Yes 46U inject 46 Unive rs degludec-li 8-13 Units ity of raglutide 08:49: under the [place] as (XULTOPHY skin Medical 100/3.6) daily. Branch 100 unit-3.6 mg /mL (3 mL) InPn gabapentin 2018-0 Yes [id number] 600mg Take 600 Univers (NEURONTIN) 8-13 mg by ity of 300 mg 08:49: mouth 3 [place] capsule (three) Medical times Branch daily. metFORMIN 2018- Yes [id number] 500mg Take 500 Univers (GLUCOPHAGE 8-13 mg by ity of ) 500 mg 08:49: mouth 2 [place] tablet (two) Medical times Branch daily. simvastatin 2018- Yes [id number] 40mg Take 40 mg Univers (ZOCOR) 40 8-13 by mouth ity o f mg tablet 08:49: at [place] bedtime. Medical Branch baclofen Yes 10mg Take 10 mg Uni vers (LIORESAL) 8-13 by mouth 2 ity of 10 mg 08:49: (two) [place] tablet 01 times Medical daily. Branch levothyroxi Yes 75ug Take 75 Uni vers ne 8-13 mcg by ity of (SYNTHROID) 08:49: mouth [place] 75 mcg 01 every Medical tablet morning. Branch lisinopril Yes 5mg Take 5 mg Un tereso 5 mg tablet 8-13 by mouth ity of 08:49: daily. [place] [facility] solifenacin 0 Yes 5mg Take 5 mg U nivers (VESICARE) 8-13 by mouth ity o f 5 mg tablet 08:49: daily. [place] insulin Yes 46U inject 46 Unive rs degludec-li 8-13 Units ity of raglutide 08:49: under the [place] as (XULTOPHY 01 skin Medical 100/3.6) daily. Branch 100 unit-3.6 mg /mL (3 mL) InPn gabapentin 2017- Yes [id number] 600mg Take 600 Univers (NEURONTIN) 8-13 mg by ity of 300 mg 08:49: mouth 3 [place] capsule 01 (three) Medical times Branch daily. metFORMIN 2018 Yes [id number] 500mg Take 500 Univers (GLUCOPHAGE 8-13 mg by ity of ) 500 mg 08:49: mouth 2 [place] tablet 01 (two) Medical times Branch daily. simvastatin 2018- Yes [id number] 40mg Take 40 mg Univers (ZOCOR) 40 8-13 by mouth ity o f mg tablet 08:49: at [place] bedtime. Medical Branch baclofen Yes 10mg Take 10 mg Uni vers (LIORESAL) 8-13 by mouth 2 ity of 10 mg 08:49: (two) [place] tablet 01 times Medical daily. Branch levothyroxi Yes 75ug Take 75 Uni vers ne 8-13 mcg by ity of (SYNTHROID) 08:49: mouth [place] 75 mcg 01 every Medical tablet morning. Branch lisinopril Yes 5mg Take 5 mg Un tereso 5 mg tablet 8-13 by mouth ity of 08:49: daily. [place] [facility] Branch solifenacin Yes 5mg Take 5 mg U nivers (VESICARE) 8-13 by mouth ity o f 5 mg tablet 08:49: daily. [facility] s Medical Branch insulin Yes 46U inject 46 Unive rs degludec-li 8-13 Units ity of raglutide 08:49: under the [place] as (XULTOPH skin Medical 100/3.6) daily. Branch 100 unit-3.6 mg /mL (3 mL) InPn gabapentin Yes [id number] 600mg Take 600 Univers (NEURONTIN) 8-13 mg by ity of 300 mg 08:49: mouth 3 [place] capsule (three) Medical times Branch daily. metFORMIN Yes [id number] 500mg Take 500 Univers (GLUCOPHAGE 8-13 mg by ity of ) 500 mg 08:49: mouth 2 [place] tablet (two) Medical times Branch daily. simvastatin Yes [id number] 40mg Take 40 mg Univers (ZOCOR) 40 8-13 by mouth ity o f mg tablet 08:49: at [place] bedtime. Medical Branch baclofen Yes 10mg Take 10 mg Uni vers (LIORESAL) 8-13 by mouth 2 ity of 10 mg 08:49: (two) [place] tablet 01 times Medical daily. Branch levothyroxi Yes 75ug Take 75 Uni vers ne 8-13 mcg by ity of (SYNTHROID) 08:49: mouth [place] 75 mcg 01 every Medical tablet morning. Branch lisinopril Yes 5mg Take 5 mg Un tereso 5 mg tablet 8-13 by mouth ity of 08:49: daily. [place] [facility] Branch solifenacin Yes 5mg Take 5 mg U nivers (VESICARE) 8-13 by mouth ity o f 5 mg tablet 08:49: daily. [facility] Branch insulin 0 Yes 46U inject 46 Unive rs degludec-li 8-13 Units ity of raglutide 08:49: under the [place] as (XULTOPHY skin Medical 100/3.6) daily. Branch 100 unit-3.6 mg /mL (3 mL) InPn gabapentin Yes [id number] 600mg Take 600 Univers (NEURONTIN) 8-13 mg by ity of 300 mg 08:49: mouth 3 [place] capsule (three) Medical times Branch daily. metFORMIN Yes [id number] 500mg Take 500 Univers (GLUCOPHAGE 8-13 mg by ity of ) 500 mg 08:49: mouth 2 [place] tablet 01 (two) Medical times Branch daily. simvastatin Yes [id number] 40mg Take 40 mg Univers (ZOCOR) 40 8-13 by mouth ity o f mg tablet 08:49: at [place] bedtime. Medical Branch baclofen Yes 10mg Take 10 mg Uni vers (LIORESAL) 8-13 by mouth 2 ity of 10 mg 08:49: (two) [place] tablet times Medical daily. Branch levothyroxi Yes 75ug Take 75 Uni vers ne 8-13 mcg by ity of (SYNTHROID) 08:49: mouth [place] 75 mcg 01 every Medical tablet morning. Branch lisinopril Yes 5mg Take 5 mg Un tereso 5 mg tablet 8-13 by mouth ity of 08:49: daily. [address] Branch solifenacin Yes 5mg Take 5 mg U nivers (VESICARE) 8-13 by mouth ity o f 5 mg tablet 08:49: daily. [place] insulin Yes 46U inject 46 Unive rs degludec-li 8-13 Units ity of raglutide 08:49: under the [place] as (XULTOPHY 01 skin Medical 100/3.6) daily. Branch 100 unit-3.6 mg /mL (3 mL) InPn DULoxetine 2016-03 Yes 60mg Take 60 mg U nivers 60 mg 0-06 by mouth ity of capsule 00:00: daily. [place] [facility] DULoxetine 2016-03 Yes 60mg Take 60 mg U nivers 60 mg 0-06 by mouth ity of capsule 00:00: daily. [place] [facility] Branch DULoxetine 2016-03 Yes 60mg Take 60 mg U nivers 60 mg 0-06 by mouth ity of capsule 00:00: daily. [place] [facility] DULoxetine 2016-03 Yes 60mg Take 60 mg U nivers 60 mg 0-06 by mouth ity of capsule 00:00: daily. [address] DULoxetine 2016-03 Yes 60mg Take 60 mg U nivers 60 mg 0-06 by mouth ity of capsule 00:00: daily. [address] DULoxetine 2016-03 Yes 60mg Take 60 mg U nivers 60 mg 0-06 by mouth ity of capsule 00:00: daily. [address] DULoxetine 2016-03 Yes 60mg Take 60 mg U nivers 60 mg 0-06 by mouth ity of capsule 00:00: daily. [address] DULoxetine 2016-03 Yes 60mg Take 60 mg U nivers 60 mg 0-06 by mouth ity of capsule 00:00: daily. [address] glipizide glipizide No glipizide [facility] ER 10 mg ER 10 mg ER 10 mg Fam al[place] tablet, tablet, tablet, Practi c extended extended extended e release 24 release 24 release 24 hr Take 1 hr Take 1 hr Take 1 tablet tablet tablet twice a day twice a day twice a by oral by oral day by route with route with oral route meals. meals. with meals. Humulin R Humulin R No Humulin R [facility] U-500 U-500 U-500 Family (Conc) (Conc) (Conc) Practic Insulin Insulin Insulin e Kwikpen 500 Kwikpen 500 Kwikpen unit/mL (3 unit/mL (3 500 mL) mL) unit/mL (3 subcutaneou subcutaneou mL) s INJECT 40 s INJECT 40 subcutaneo UNITS UNITS us INJECT SUBCUTANEOU SUBCUTANEOU 40 UNITS SLY BEFORE SLY BEFORE SUBCUTANEO BREAKFAST BREAKFAST USLY AND DINNER. AND DINNER. BEFORE INCREASE INCREASE BREAKFAST DIRECTED. DIRECTED. AND TOTAL DAILY TOTAL DAILY DINNER. DOSE 200 DOSE 200 INCREASE UNITS UNITS DIRECTED. TOTAL DAILY DOSE 200 UNITS ketorolac ketorolac No ketorolac [facility] 10 mg 10 mg 10 mg Family tablet TAKE tablet TAKE tablet Practic 1 TABLET BY 1 TABLET BY TAKE 1 e MOUTH EVERY MOUTH EVERY TABLET BY 6 HOURS 6 HOURS MOUTH WITH FOOD WITH FOOD EVERY 6 NEEDED NEEDED HOURS WITH FOR PAIN FOR PAIN FOOD (SCALE (SCALE NEEDED FOR 7-10) FOR 5 7-10) FOR 5 PAIN DAYS. DON T DAYS. DON T (SCALE MIX WITH MIX WITH 7-10) FOR IBUPROFEN,A IBUPROFEN,A 5 DAYS. DVIL, DVIL, DON T MIX ALEVE, OR ALEVE, OR WITH MOTRIN MOTRIN IBUPROFEN, ADVIL, ALEVE, OR MOTRIN levothyroxi levothyroxi No levothyrox [facility] ne 100 mcg ne 100 mcg ine 100 Family tablet Take tablet Take mcg tablet Practic 1 tablet 1 tablet Take 1 e every day every day tablet by oral by oral every day route. route. by oral route. meloxicam meloxicam meloxicam [facility] 15 mg 15 mg 15 mg Family tablet Take tablet Take tablet Practic 1 tablet 1 tablet Take 1 e every day every day tablet by oral by oral every day route as route as by oral needed. needed. route as needed. metformin metformin No metformin [facility] ER 500 mg ER 500 mg ER 500 mg Family tablet,exte tablet,exte tablet,ext Practic nded nded ended e release 24 release 24 release 24 hr hr hr Ozempic 1 Ozempic 1 No Ozempic 1 [facility] mg/dose (4 mg/dose (4 mg/dose (4 Family mg/3 mL) mg/3 mL) mg/3 mL) Pra ctic subcutaneou subcutaneou subcutaneo e s pen s pen us pen injector injector injector INJECT 1 MG INJECT 1 MG INJECT 1 SUBCUTANEOU SUBCUTANEOU MG SLY ONCE A SLY ONCE A SUBCUTANEO WEEK WEEK USLY ONCE A WEEK prednisone prednisone No prednisone [facility] 50 mg 50 mg 50 mg Family tablet TAKE tablet TAKE tablet Practic 1 TABLET BY 1 TABLET BY TAKE 1 e MOUTH ONCE MOUTH ONCE TABLET BY DAILY FOR 5 DAILY FOR 5 MOUTH ONCE DAYS DAYS DAILY FOR 5 DAYS Toujeo Max Toujeo Max No Toujeo Max [facility] U-300 U-300 U-300 [facility] SoloStar SoloStar SoloStar Pra ctic 300 unit/mL 300 unit/mL 300 e (3 mL) (3 mL) unit/mL (3 subcutaneou subcutaneou mL) s insulin s insulin subcutaneo pen Give pen Give us insulin 100 units 100 units pen Give in AM and in AM and 100 units increase as increase as in AM and directed: directed: increase TDD 120 TDD 120 as directed: TDD 120 valsartan valsartan No valsartan [facility] 320 320 320 Family mg-hydrochl mg-hydrochl mg-hydroch Practic orothiazide orothiazide lorothiazi e 25 mg 25 mg de 25 mg tablet Take tablet Take tablet 1 tablet 1 tablet Take 1 every day every day tablet by oral by oral every day route. route. by oral route. albuterol albuterol No 2puff(s Q4H albuterol [place] sulfate HFA sulfate HFA ) sulfate Family 90 90 HFA 90 Practic mcg/actuati mcg/actuati mcg/actuat e on aerosol on aerosol ion inhaler inhaler aerosol Inhale 2 Inhale 2 inhaler puffs every puffs every Inhale 2 4 hours by 4 hours by puffs inhalation inhalation every 4 route as route as hours by needed. needed. inhalation route as needed. atorvastati atorvastati No atorvastat [facility] n 20 mg n 20 mg in 20 mg Famil y tablet TAKE tablet TAKE tablet Practic 1 TABLET BY 1 TABLET BY TAKE 1 e MOUTH ONCE MOUTH ONCE TABLET BY DAILY DAILY MOUTH ONCE DAILY BD Lexy 2nd BD Lexy 2nd No BD Lexy [place] Gen Pen Gen Pen 2nd Gen Family Needle 32 Needle 32 Pen Needle Practic gauge x gauge x 32 gauge x e " USE 1 " USE 1 " USE PEN NEEDLE PEN NEEDLE 1 PEN TWICE DAILY TWICE DAILY NEEDLE TWICE DAILY ciprofloxac [facility]ac [facility] in 500 mg in 500 mg golden 500 mg Family tablet TAKE tablet TAKE tablet Practic 1 TABLET BY 1 TABLET BY TAKE 1 e MOUTH EVERY MOUTH EVERY TABLET BY 12 HOURS 12 HOURS MOUTH FOR 7 DAYS FOR 7 DAYS EVERY 12 HOURS FOR 7 DAYS clotrimazol clotrimazol No clotrimazo [facility] e-betametha e-betametha le-betamet Family sone 1 sone 1 hasone 1 Practic %-0.05 % %-0.05 % %-0.05 % e topical topical topical cream APPLY cream APPLY cream TO THE TO THE APPLY TO AFFECTED AFFECTED THE AND AND AFFECTED SURROUNDING SURROUNDING AND AREAS OF AREAS OF SURROUNDIN SKIN BY SKIN BY G AREAS OF TOPICAL TOPICAL SKIN BY ROUTE 2 ROUTE 2 TOPICAL TIMES PER TIMES PER ROUTE 2 DAY DAY TIMES PER DAY cyclobenzap cyclobenzap No cyclobenza [facility] rine 5 mg rine 5 mg latosha 5 mg Family tablet TAKE tablet TAKE tablet Practic 1 TABLET BY 1 TABLET BY TAKE 1 e MOUTH TWICE MOUTH TWICE TABLET BY DAILY DAILY MOUTH NEEDED FOR NEEDED FOR TWICE MUSCLE MUSCLE DAILY SPASM FOR 2 SPASM FOR 2 NEEDED FOR DAYS DAYS MUSCLE SPASM FOR 2 DAYS duloxetine duloxetine No 1capsul Q1D duloxetine [facility] 60 mg 60 mg e(s) 60 mg Family capsule,del capsule,del capsule,de Practic ayed ayed layed e release release release Take 1 Take 1 Take 1 capsule capsule capsule every day every day every day by oral by oral by oral route. route. route. FreeStyle FreeStyle No FreeStyle [facility] Lancets 28 Lancets 28 Lancets 28 Family gauge USE A gauge USE A gauge USE Practic LANCET TO LANCET TO A LANCET e CHECK CHECK TO CHECK GLUCOSE GLUCOSE GLUCOSE ONCE DAILY ONCE DAILY ONCE DAILY . ROTATE . ROTATE . ROTATE BETWEEN BETWEEN BETWEEN FASTING FASTING FASTING BREAKFAST BREAKFAST BREAKFAST LUNCH LUNCH LUNCH DINNER DINNER DINNER FreeStyle FreeStyle No FreeStyle [facility] Lite Meter Lite Meter Lite Meter Family kit USE TO kit USE TO kit USE TO Practic CHECK SUGAR CHECK SUGAR CHECK e ONCE DAILY. ONCE DAILY. SUGAR ONCE ROTATE ROTATE DAILY. BETWEEN BETWEEN ROTATE FASTING FASTING BETWEEN BREAKFAST BREAKFAST FASTING LUNCH LUNCH BREAKFAST DINNER. DINNER. LUNCH DINNER. FreeStyle FreeStyle No FreeStyle [facility] Lite Strips Lite Strips Lite F amily USE A STRIP USE A STRIP Strips USE Practic TO CHECK TO CHECK A STRIP TO e GLUCOSE GLUCOSE CHECK THREE TIMES THREE TIMES GLUCOSE DAILY DAILY THREE TIMES DAILY gabapentin gabapentin No gabapentin [facility] 300 mg 300 mg 300 mg Family capsule capsule capsule Practi c TAKE 1 TAKE 1 TAKE 1 e CAPSULE BY CAPSULE BY CAPSULE BY MOUTH THREE MOUTH THREE MOUTH TIMES DAILY TIMES DAILY THREE TIMES DAILY gabapentin gabapentin No gabapentin [facility] 600 mg 600 mg 600 mg Family tablet TAKE tablet TAKE tablet Practic 1 TABLET BY 1 TABLET BY TAKE 1 e MOUTH THREE MOUTH THREE TABLET BY TIMES DAILY TIMES DAILY MOUTH THREE TIMES DAILY glipizide glipizide No glipizide [facility] ER 10 mg ER 10 mg ER 10 mg Fam [place] tablet, tablet, tablet, Practi c extended extended extended e release 24 release 24 release 24 hr Take 1 hr Take 1 hr Take 1 tablet tablet tablet twice a day twice a day twice a by oral by oral day by route with route with oral route meals. meals. with meals. Humulin R Humulin R No Humulin R [facility] U-500 U-500 U-500 Family (Conc) (Conc) (Conc) Practic Insulin Insulin Insulin e Kwikpen 500 Kwikpen 500 Kwikpen unit/mL (3 unit/mL (3 500 mL) mL) unit/mL (3 subcutaneou subcutaneou mL) s INJECT 40 s INJECT 40 subcutaneo UNITS UNITS us INJECT SUBCUTANEOU SUBCUTANEOU 40 UNITS SLY BEFORE SLY BEFORE SUBCUTANEO BREAKFAST BREAKFAST USLY AND DINNER. AND DINNER. BEFORE INCREASE INCREASE BREAKFAST DIRECTED. DIRECTED. AND TOTAL DAILY TOTAL DAILY DINNER. DOSE 200 DOSE 200 INCREASE UNITS UNITS DIRECTED. TOTAL DAILY DOSE 200 UNITS hydrocodone hydrocodone No 1 Q8H hydrocodon [facility] 5 5 e 5 Family mg-acetamin mg-acetamin mg-acetami Practic ophen 325 ophen 325 nophen 325 e mg tablet mg tablet mg tablet Take 1 Take 1 Take 1 tablet tablet tablet every 8 every 8 every 8 hours by hours by hours by oral route oral route oral route as needed. as needed. as needed. ketorolac ketorolac ketorolac [facility] 10 mg 10 mg 10 mg Family tablet TAKE tablet TAKE tablet Practic 1 TABLET BY 1 TABLET BY TAKE 1 e MOUTH EVERY MOUTH EVERY TABLET BY 6 HOURS 6 HOURS MOUTH WITH FOOD WITH FOOD EVERY 6 NEEDED NEEDED HOURS WITH FOR PAIN FOR PAIN FOOD (SCALE (SCALE NEEDED FOR 7-10) FOR 5 7-10) FOR 5 PAIN DAYS. DON T DAYS. DON T (SCALE MIX WITH MIX WITH 7-10) FOR IBUPROFEN,A IBUPROFEN,A 5 DAYS. DVIL, DVIL, DON T MIX ALEVE, OR ALEVE, OR WITH MOTRIN MOTRIN IBUPROFEN, ADVIL, ALEVE, OR MOTRIN levothyroxi levothyroxi No levothyrox [facility] ne 100 mcg ne 100 mcg ine 100 Family tablet Take tablet Take mcg tablet Practic 1 tablet 1 tablet Take 1 e every day every day tablet by oral by oral every day route. route. by oral route. meloxicam meloxicam meloxicam [facility] 15 mg 15 mg 15 mg Family tablet Take tablet Take tablet Practic 1 tablet 1 tablet Take 1 e every day every day tablet by oral by oral every day route as route as by oral needed. needed. route as needed. metformin metformin No metformin [facility] ER 500 mg ER 500 mg ER 500 mg Family tablet,exte tablet,exte tablet,ext Practic nded nded ended e release 24 release 24 release 24 hr hr hr Ozempic 1 Ozempic 1 No Ozempic 1 [place] mg/dose (4 mg/dose (4 mg/dose (4 Family mg/3 mL) mg/3 mL) mg/3 mL) Pra ctic subcutaneou subcutaneou subcutaneo e s pen s pen us pen injector injector injector INJECT 1 MG INJECT 1 MG INJECT 1 SUBCUTANEOU SUBCUTANEOU MG SLY ONCE A SLY ONCE A SUBCUTANEO WEEK WEEK USLY ONCE A WEEK prednisone prednisone No prednisone [place] 50 mg 50 mg 50 mg Family tablet TAKE tablet TAKE tablet Practic 1 TABLET BY 1 TABLET BY TAKE 1 e MOUTH ONCE MOUTH ONCE TABLET BY DAILY FOR 5 DAILY FOR 5 MOUTH ONCE DAYS DAYS DAILY FOR 5 DAYS Toujeo Max Toujeo Max No Toujeo Max [facility] U-300 U-300 U-300 Family SoloStar SoloStar SoloStar Pra ctic 300 unit/mL 300 unit/mL 300 e (3 mL) (3 mL) unit/mL (3 subcutaneou subcutaneou mL) s insulin s insulin subcutaneo pen Give pen Give us insulin 100 units 100 units pen Give in AM and in AM and 100 units increase as increase as in AM and directed: directed: increase TDD 120 TDD 120 as directed: TDD 120 valsartan valsartan No valsartan [facility] 320 320 320 Family mg-hydrochl mg-hydrochl mg-hydroch Practic orothiazide orothiazide lorothiazi e 25 mg 25 mg de 25 mg tablet Take tablet Take tablet 1 tablet 1 tablet Take 1 every day every day tablet by oral by oral every day route. route. by oral route. albuterol albuterol No 2puff(s Q4H albuterol [place] sulfate HFA sulfate HFA ) sulfate Family 90 90 HFA 90 Practic mcg/actuati mcg/actuati mcg/actuat e on aerosol on aerosol ion inhaler inhaler aerosol Inhale 2 Inhale 2 inhaler puffs every puffs every Inhale 2 4 hours by 4 hours by puffs inhalation inhalation every 4 route as route as hours by needed. needed. inhalation route as needed. atorvastati atorvastati No atorvastat [facility] n 20 mg n 20 mg in 20 mg Famil y tablet TAKE tablet TAKE tablet Practic 1 TABLET BY 1 TABLET BY TAKE 1 e MOUTH ONCE MOUTH ONCE TABLET BY DAILY DAILY MOUTH ONCE DAILY BD Lexy 2nd BD Lexy 2nd No BD Lexy [place] Gen Pen Gen Pen 2nd Gen Family Needle 32 Needle 32 Pen Needle Practic gauge x gauge x 32 gauge x e " USE 1 " USE 1 " USE PEN NEEDLE PEN NEEDLE 1 PEN TWICE DAILY TWICE DAILY NEEDLE TWICE DAILY ciprofloxac c[facility] in 500 mg in 500 mg golden 500 mg Family tablet TAKE tablet TAKE tablet Practic 1 TABLET BY 1 TABLET BY TAKE 1 e MOUTH EVERY MOUTH EVERY TABLET BY 12 HOURS 12 HOURS MOUTH FOR 7 DAYS FOR 7 DAYS EVERY 12 HOURS FOR 7 DAYS clotrimazol clotrimazol No clotrimazo [facility] e-betametha e-betametha le-betamet Family sone 1 sone 1 hasone 1 Practic %-0.05 % %-0.05 % %-0.05 % e topical topical topical cream APPLY cream APPLY cream TO THE TO THE APPLY TO AFFECTED AFFECTED THE AND AND AFFECTED SURROUNDING SURROUNDING AND AREAS OF AREAS OF SURROUNDIN SKIN BY SKIN BY G AREAS OF TOPICAL TOPICAL SKIN BY ROUTE 2 ROUTE 2 TOPICAL TIMES PER TIMES PER ROUTE 2 DAY DAY TIMES PER DAY cyclobenzap cyclobenzap No cyclobenza [facility] rine 5 mg rine 5 mg latosha 5 mg Family tablet TAKE tablet TAKE tablet Practic 1 TABLET BY 1 TABLET BY TAKE 1 e MOUTH TWICE MOUTH TWICE TABLET BY DAILY DAILY MOUTH NEEDED FOR NEEDED FOR TWICE MUSCLE MUSCLE DAILY SPASM FOR 2 SPASM FOR 2 NEEDED FOR DAYS DAYS MUSCLE SPASM FOR 2 DAYS duloxetine duloxetine No 1capsul Q1D duloxetine [facility] 60 mg 60 mg e(s) 60 mg Family capsule,del capsule,del capsule,de Practic ayed ayed layed e release release release Take 1 Take 1 Take 1 capsule capsule capsule every day every day every day by oral by oral by oral route. route. route. FreeStyle FreeStyle No FreeStyle [facility] Lancets 28 Lancets 28 Lancets 28 Family gauge USE A gauge USE A gauge USE Practic LANCET TO LANCET TO A LANCET e CHECK CHECK TO CHECK GLUCOSE GLUCOSE GLUCOSE ONCE DAILY ONCE DAILY ONCE DAILY . ROTATE . ROTATE . ROTATE BETWEEN BETWEEN BETWEEN FASTING FASTING FASTING BREAKFAST BREAKFAST BREAKFAST LUNCH LUNCH LUNCH DINNER DINNER DINNER FreeStyle FreeStyle No FreeStyle [place] Lite Meter Lite Meter Lite Meter Family kit USE TO kit USE TO kit USE TO Practic CHECK SUGAR CHECK SUGAR CHECK e ONCE DAILY. ONCE DAILY. SUGAR ONCE ROTATE ROTATE DAILY. BETWEEN BETWEEN ROTATE FASTING FASTING BETWEEN BREAKFAST BREAKFAST FASTING LUNCH LUNCH BREAKFAST DINNER. DINNER. LUNCH DINNER. FreeStyle FreeStyle No FreeStyle [facility] Lite Strips Lite Strips Lite F amily USE A STRIP USE A STRIP Strips USE Practic TO CHECK TO CHECK A STRIP TO e GLUCOSE GLUCOSE CHECK THREE TIMES THREE TIMES GLUCOSE DAILY DAILY THREE TIMES DAILY gabapentin gabapentin No gabapentin [facility] 300 mg 300 mg 300 mg Family capsule capsule capsule Practi c TAKE 1 TAKE 1 TAKE 1 e CAPSULE BY CAPSULE BY CAPSULE BY MOUTH THREE MOUTH THREE MOUTH TIMES DAILY TIMES DAILY THREE TIMES DAILY gabapentin gabapentin No gabapentin [facility] 600 mg 600 mg 600 mg Family tablet TAKE tablet TAKE tablet Practic 1 TABLET BY 1 TABLET BY TAKE 1 e MOUTH THREE MOUTH THREE TABLET BY TIMES DAILY TIMES DAILY MOUTH THREE TIMES DAILY glipizide glipizide No glipizide [facility] ER 10 mg ER 10 mg ER 10 mg Fam al[place] tablet, tablet, tablet, Practi c extended extended extended e release 24 release 24 release 24 hr Take 1 hr Take 1 hr Take 1 tablet tablet tablet twice a day twice a day twice a by oral by oral day by route with route with oral route meals. meals. with meals. Humulin R Humulin R No Humulin R [facility] U-500 U-500 U-500 [facility] (Conc) (Conc) (Conc) Practic Insulin Insulin Insulin e Kwikpen 500 Kwikpen 500 Kwikpen unit/mL (3 unit/mL (3 500 mL) mL) unit/mL (3 subcutaneou subcutaneou mL) s INJECT 40 s INJECT 40 subcutaneo UNITS UNITS us INJECT SUBCUTANEOU SUBCUTANEOU 40 UNITS SLY BEFORE SLY BEFORE SUBCUTANEO BREAKFAST BREAKFAST USLY AND DINNER. AND DINNER. BEFORE INCREASE INCREASE BREAKFAST DIRECTED. DIRECTED. AND TOTAL DAILY TOTAL DAILY DINNER. DOSE 200 DOSE 200 INCREASE UNITS UNITS DIRECTED. TOTAL DAILY DOSE 200 UNITS hydrocodone hydrocodone No 1 Q8H hydrocodon [facility] 5 5 e 5 Family mg-acetamin mg-acetamin mg-acetami Practic ophen 325 ophen 325 nophen 325 e mg tablet mg tablet mg tablet Take 1 Take 1 Take 1 tablet tablet tablet every 8 every 8 every 8 hours by hours by hours by oral route oral route oral route as needed. as needed. as needed. ketorolac ketorolac No ketorolac [facility] 10 mg 10 mg 10 mg Family tablet TAKE tablet TAKE tablet Practic 1 TABLET BY 1 TABLET BY TAKE 1 e MOUTH EVERY MOUTH EVERY TABLET BY 6 HOURS 6 HOURS MOUTH WITH FOOD WITH FOOD EVERY 6 NEEDED NEEDED HOURS WITH FOR PAIN FOR PAIN FOOD (SCALE (SCALE NEEDED FOR 7-10) FOR 5 7-10) FOR 5 PAIN DAYS. DON T DAYS. DON T (SCALE MIX WITH MIX WITH 7-10) FOR IBUPROFEN,A IBUPROFEN,A 5 DAYS. DVIL, DVIL, DON T MIX ALEVE, OR ALEVE, OR WITH MOTRIN MOTRIN IBUPROFEN, ADVIL, ALEVE, OR MOTRIN levothyroxi levothyroxi No levothyrox [facility] ne 100 mcg ne 100 mcg ine 100 Family tablet Take tablet Take mcg tablet Practic 1 tablet 1 tablet Take 1 e every day every day tablet by oral by oral every day route. route. by oral route. meloxicam meloxicam meloxicam [facility] 15 mg 15 mg 15 mg Family tablet Take tablet Take tablet Practic 1 tablet 1 tablet Take 1 e every day every day tablet by oral by oral every day route as route as by oral needed. needed. route as needed. metformin metformin No metformin [facility] ER 500 mg ER 500 mg ER 500 mg Family tablet,exte tablet,exte tablet,ext Practic nded nded ended e release 24 release 24 release 24 hr hr hr Ozempic 1 Ozempic 1 No Ozempic 1 [facility] mg/dose (4 mg/dose (4 mg/dose (4 Family mg/3 mL) mg/3 mL) mg/3 mL) Pra ctic subcutaneou subcutaneou subcutaneo e s pen s pen us pen injector injector injector INJECT 1 MG INJECT 1 MG INJECT 1 SUBCUTANEOU SUBCUTANEOU MG SLY ONCE A SLY ONCE A SUBCUTANEO WEEK WEEK USLY ONCE A WEEK prednisone prednisone No prednisone [facility] 50 mg 50 mg 50 mg Family tablet TAKE tablet TAKE tablet Practic 1 TABLET BY 1 TABLET BY TAKE 1 e MOUTH ONCE MOUTH ONCE TABLET BY DAILY FOR 5 DAILY FOR 5 MOUTH ONCE DAYS DAYS DAILY FOR 5 DAYS Toujeo Max Toujeo Max No Toujeo Max [facility] U-300 U-300 U-300 Family SoloStar SoloStar SoloStar Pra ctic 300 unit/mL 300 unit/mL 300 e (3 mL) (3 mL) unit/mL (3 subcutaneou subcutaneou mL) s insulin s insulin subcutaneo pen Give pen Give us insulin 100 units 100 units pen Give in AM and in AM and 100 units increase as increase as in AM and directed: directed: increase TDD 120 TDD 120 as directed: TDD 120 valsartan valsartan No valsartan [facility] 320 320 320 Family mg-hydrochl mg-hydrochl mg-hydroch Practic orothiazide orothiazide lorothiazi e 25 mg 25 mg de 25 mg tablet Take tablet Take tablet 1 tablet 1 tablet Take 1 every day every day tablet by oral by oral every day route. route. by oral route. albuterol albuterol No albuterol [place] sulfate HFA sulfate HFA sulfate Family 90 90 HFA 90 Practic mcg/actuati mcg/actuati mcg/actuat e on aerosol on aerosol ion inhaler inhaler aerosol Inhale 2 Inhale 2 inhaler puffs every puffs every Inhale 2 4 hours by 4 hours by puffs inhalation inhalation every 4 route as route as hours by needed. needed. inhalation route as needed. atorvastati atorvastati No atorvastat [facility] n 20 mg n 20 mg in 20 mg Famil y tablet TAKE tablet TAKE tablet Practic 1 TABLET BY 1 TABLET BY TAKE 1 e MOUTH ONCE MOUTH ONCE TABLET BY DAILY DAILY MOUTH ONCE DAILY BD Lexy 2nd BD Lexy 2nd No BD Lexy [place] Gen Pen Gen Pen 2nd Gen Family Needle 32 Needle 32 Pen Needle Practic gauge x gauge x 32 gauge x e " USE 1 " USE 1 " USE PEN NEEDLE PEN NEEDLE 1 PEN TWICE DAILY TWICE DAILY NEEDLE TWICE DAILY ciprofloxac ciprofloxac No ciprofloxa [facility] in 500 mg in 500 mg golden 500 mg Family tablet TAKE tablet TAKE tablet Practic 1 TABLET BY 1 TABLET BY TAKE 1 e MOUTH EVERY MOUTH EVERY TABLET BY 12 HOURS 12 HOURS MOUTH FOR 7 DAYS FOR 7 DAYS EVERY 12 HOURS FOR 7 DAYS clotrimazol clotrimazol No clotrimazo [facility] e-betametha e-betametha le-betamet Family sone 1 sone 1 hasone 1 Practic %-0.05 % %-0.05 % %-0.05 % e topical topical topical cream APPLY cream APPLY cream TO THE TO THE APPLY TO AFFECTED AFFECTED THE AND AND AFFECTED SURROUNDING SURROUNDING AND AREAS OF AREAS OF SURROUNDIN SKIN BY SKIN BY G AREAS OF TOPICAL TOPICAL SKIN BY ROUTE 2 ROUTE 2 TOPICAL TIMES PER TIMES PER ROUTE 2 DAY DAY TIMES PER DAY cyclobenzap cyclobenzap No cyclobenza [facility] rine 5 mg rine 5 mg latosha 5 mg Family tablet TAKE tablet TAKE tablet Practic 1 TABLET BY 1 TABLET BY TAKE 1 e MOUTH TWICE MOUTH TWICE TABLET BY DAILY DAILY MOUTH NEEDED FOR NEEDED FOR TWICE MUSCLE MUSCLE DAILY SPASM FOR 2 SPASM FOR 2 NEEDED FOR DAYS DAYS MUSCLE SPASM FOR 2 DAYS duloxetine duloxetine No duloxetine [facility] 60 mg 60 mg 60 mg Family capsule,del capsule,del capsule,de Practic ayed ayed layed e release release release Take 1 Take 1 Take 1 capsule capsule capsule every day every day every day by oral by oral by oral route. route. route. FreeStyle FreeStyle No FreeStyle [facility] Lancets 28 Lancets 28 Lancets 28 Family gauge USE A gauge USE A gauge USE Practic LANCET TO LANCET TO A LANCET e CHECK CHECK TO CHECK GLUCOSE GLUCOSE GLUCOSE ONCE DAILY ONCE DAILY ONCE DAILY . ROTATE . ROTATE . ROTATE BETWEEN BETWEEN BETWEEN FASTING FASTING FASTING BREAKFAST BREAKFAST BREAKFAST LUNCH LUNCH LUNCH DINNER DINNER DINNER FreeStyle FreeStyle No FreeStyle [facility] Lite Meter Lite Meter Lite Meter Family kit USE TO kit USE TO kit USE TO Practic CHECK SUGAR CHECK SUGAR CHECK e ONCE DAILY. ONCE DAILY. SUGAR ONCE ROTATE ROTATE DAILY. BETWEEN BETWEEN ROTATE FASTING FASTING BETWEEN BREAKFAST BREAKFAST FASTING LUNCH LUNCH BREAKFAST DINNER. DINNER. LUNCH DINNER. FreeStyle FreeStyle No FreeStyle [facility] Lite Strips Lite Strips Lite F amily USE A STRIP USE A STRIP Strips USE Practic TO CHECK TO CHECK A STRIP TO e GLUCOSE GLUCOSE CHECK THREE TIMES THREE TIMES GLUCOSE DAILY DAILY THREE TIMES DAILY gabapentin gabapentin No gabapentin [facility] 300 mg 300 mg 300 mg Family capsule capsule capsule Practi c TAKE 1 TAKE 1 TAKE 1 e CAPSULE BY CAPSULE BY CAPSULE BY MOUTH THREE MOUTH THREE MOUTH TIMES DAILY TIMES DAILY THREE TIMES DAILY gabapentin gabapentin No gabapentin [facility] 600 mg 600 mg 600 mg Family tablet TAKE tablet TAKE tablet Practic 1 TABLET BY 1 TABLET BY TAKE 1 e MOUTH THREE MOUTH THREE TABLET BY TIMES DAILY TIMES DAILY MOUTH THREE TIMES DAILY glipizide glipizide No glipizide [facility] ER 10 mg ER 10 mg ER 10 mg Fam alton tablet, tablet, tablet, Practi c extended extended extended e release 24 release 24 release 24 hr Take 1 hr Take 1 hr Take 1 tablet tablet tablet twice a day twice a day twice a by oral by oral day by route with route with oral route meals. meals. with meals. Humulin R Humulin R No Humulin R [facility] U-500 U-500 U-500 Family (Conc) (Conc) (Conc) Practic Insulin Insulin Insulin e Kwikpen 500 Kwikpen 500 Kwikpen unit/mL (3 unit/mL (3 500 mL) mL) unit/mL (3 subcutaneou subcutaneou mL) s GIve s GIve subcutaneo 80units 80units us GIve before before 80units breakfast breakfast before and dinner and dinner breakfast and and and dinner increase as increase as and directed: directed: increase TDD 250 TDD 250 as directed: TDD 250 hydrocodone hydrocodone No hydrocodon [facility] 5 5 e 5 Family mg-acetamin mg-acetamin mg-acetami Practic ophen 325 ophen 325 nophen 325 e mg tablet mg tablet mg tablet Take 1 Take 1 Take 1 tablet tablet tablet every 8 every 8 every 8 hours by hours by hours by oral route oral route oral route as needed. as needed. as needed. ketorolac ketorolac No ketorolac [facility] 10 mg 10 mg 10 mg Family tablet TAKE tablet TAKE tablet Practic 1 TABLET BY 1 TABLET BY TAKE 1 e MOUTH EVERY MOUTH EVERY TABLET BY 6 HOURS 6 HOURS MOUTH WITH FOOD WITH FOOD EVERY 6 NEEDED NEEDED HOURS WITH FOR PAIN FOR PAIN FOOD (SCALE (SCALE NEEDED FOR 7-10) FOR 5 7-10) FOR 5 PAIN DAYS. DON T DAYS. DON T (SCALE MIX WITH MIX WITH 7-10) FOR IBUPROFEN,A IBUPROFEN,A 5 DAYS. DVIL, DVIL, DON T MIX ALEVE, OR ALEVE, OR WITH MOTRIN MOTRIN IBUPROFEN, ADVIL, ALEVE, OR MOTRIN levothyroxi levothyroxi No levothyrox [facility] ne 100 mcg ne 100 mcg ine 100 Family tablet Take tablet Take mcg tablet Practic 1 tablet 1 tablet Take 1 e every day every day tablet by oral by oral every day route. route. by oral route. meloxicam meloxicam No meloxicam [facility] 15 mg 15 mg 15 mg Family tablet Take tablet Take tablet Practic 1 tablet 1 tablet Take 1 e every day every day tablet by oral by oral every day route as route as by oral needed. needed. route as needed. metformin metformin No 2 Q1D metformin [place] ER 500 mg ER 500 mg ER 500 mg Family 24 hr 24 hr 24 hr Practic tablet,exte tablet,exte tablet,ext e nded nded ended release release release Take 2 Take 2 Take 2 tablets tablets tablets every day every day every day by oral by oral by oral route at route at route at dinner for dinner for dinner for 90 days. 90 days. 90 days. metformin metformin No metformin [place] ER 500 mg ER 500 mg ER 500 mg Family tablet,exte tablet,exte tablet,ext Practic nded nded ended e release 24 release 24 release 24 hr hr hr Ozempic 2 Ozempic 2 No 2mg Q1W Ozempic 2 [facility] mg/dose (8 mg/dose (8 mg/dose (8 Family mg/3 mL) mg/3 mL) mg/3 mL) Pra ctic subcutaneou subcutaneou subcutaneo e s pen s pen us pen injector injector injector Inject 2 mg Inject 2 mg Inject 2 every week every week mg every by by week by subcutaneou subcutaneou subcutaneo s route for s route for us route 30 days. 30 days. for 30 days. prednisone prednisone No prednisone [facility] 50 mg 50 mg 50 mg Family tablet TAKE tablet TAKE tablet Practic 1 TABLET BY 1 TABLET BY TAKE 1 e MOUTH ONCE MOUTH ONCE TABLET BY DAILY FOR 5 DAILY FOR 5 MOUTH ONCE DAYS DAYS DAILY FOR 5 DAYS Toujeo Max [facility] U-300 U-300 Family SoloStar SoloStar SoloStar Pra ctic 300 unit/mL 300 unit/mL 300 e (3 mL) (3 mL) unit/mL (3 subcutaneou subcutaneou mL) s insulin s insulin subcutaneo pen Give pen Give us insulin 100 units 100 units pen Give in AM and in AM and 100 units increase as increase as in AM and directed: directed: increase TDD 120 TDD 120 as directed: TDD 120 valsartan valsartan No valsartan [facility] 320 320 320 Family mg-hydrochl mg-hydrochl mg-hydroch Practic orothiazide orothiazide lorothiazi e 25 mg 25 mg de 25 mg tablet Take tablet Take tablet 1 tablet 1 tablet Take 1 every day every day tablet by oral by oral every day route. route. by oral route. albuterol albuterol No albuterol [facility] sulfate HFA sulfate HFA sulfate Family 90 90 HFA 90 Practic mcg/actuati mcg/actuati mcg/actuat e on aerosol on aerosol ion inhaler inhaler aerosol Inhale 2 Inhale 2 inhaler puffs every puffs every Inhale 2 4 hours by 4 hours by puffs inhalation inhalation every 4 route as route as hours by needed. needed. inhalation route as needed. atorvastati atorvastati No atorvastat [facility] n 20 mg n 20 mg in 20 mg Famil y tablet TAKE tablet TAKE tablet Practic 1 TABLET BY 1 TABLET BY TAKE 1 e MOUTH ONCE MOUTH ONCE TABLET BY DAILY DAILY MOUTH ONCE DAILY azelastine azelastine No 2spray( BID azelastine [facility] 137 mcg 137 mcg s) 137 mcg Family (0.1 %) (0.1 %) (0.1 %) Practi c nasal spray nasal spray nasal e aerosol aerosol spray [place] 2 [place] 2 aerosol sprays sprays [place] 2 twice a day twice a day sprays by by twice a intranasal intranasal day by route as route as intranasal needed. needed. route as needed. BD Lexy 2nd BD Lexy 2nd No BD Lexy [place] Gen Pen Gen Pen 2nd Gen Family Needle 32 Needle 32 Pen Needle Practic gauge x gauge x 32 gauge x e " USE 1 " USE 1 " USE PEN NEEDLE PEN NEEDLE 1 PEN TWICE DAILY TWICE DAILY NEEDLE TWICE DAILY clotrimazol clotrimazol No clotrimazo [facility] e-betametha e-betametha le-betamet Family sone 1 sone 1 hasone 1 Practic %-0.05 % %-0.05 % %-0.05 % e topical topical topical cream APPLY cream APPLY cream TO THE TO THE APPLY TO AFFECTED AFFECTED THE AND AND AFFECTED SURROUNDING SURROUNDING AND AREAS OF AREAS OF SURROUNDIN SKIN BY SKIN BY G AREAS OF TOPICAL TOPICAL SKIN BY ROUTE 2 ROUTE 2 TOPICAL TIMES PER TIMES PER ROUTE 2 DAY DAY TIMES PER DAY duloxetine duloxetine No 1capsul Q1D duloxetine [facility] 60 mg 60 mg e(s) 60 mg Family capsule,del capsule,del capsule,de Practic ayed ayed layed e release release release Take 1 Take 1 Take 1 capsule capsule capsule every day every day every day by oral by oral by oral route. route. route. fluticasone fluticasone No 2spray( Q1D fluticason [place] propionate propionate s) e Fam alton 50 50 propionate Practic mcg/actuati mcg/actuati 50 e on nasal on nasal mcg/actuat spray,suspe spray,suspe ion nasal nsion [place] nsion [place] spray,susp 2 sprays 2 sprays ension every day every day [place] 2 by by sprays intranasal intranasal every day route as route as by needed. needed. intranasal route as needed. FreeStyle FreeStyle No FreeStyle [facility] Lancets 28 Lancets 28 Lancets 28 Family gauge USE A gauge USE A gauge USE Practic LANCET TO LANCET TO A LANCET e CHECK CHECK TO CHECK GLUCOSE GLUCOSE GLUCOSE ONCE DAILY ONCE DAILY ONCE DAILY . ROTATE . ROTATE . ROTATE BETWEEN BETWEEN BETWEEN FASTING FASTING FASTING BREAKFAST BREAKFAST BREAKFAST LUNCH LUNCH LUNCH DINNER DINNER DINNER FreeStyle FreeStyle No FreeStyle [facility] Lite Meter Lite Meter Lite Meter Family kit USE TO kit USE TO kit USE TO Practic CHECK SUGAR CHECK SUGAR CHECK e ONCE DAILY. ONCE DAILY. SUGAR ONCE ROTATE ROTATE DAILY. BETWEEN BETWEEN ROTATE FASTING FASTING BETWEEN BREAKFAST BREAKFAST FASTING LUNCH LUNCH BREAKFAST DINNER. DINNER. LUNCH DINNER. FreeStyle FreeStyle No FreeStyle [facility] Lite Strips Lite Strips Lite F amily USE A STRIP USE A STRIP Strips USE Practic TO CHECK TO CHECK A STRIP TO e GLUCOSE GLUCOSE CHECK THREE TIMES THREE TIMES GLUCOSE DAILY DAILY THREE TIMES DAILY gabapentin gabapentin No gabapentin [facility] 300 mg 300 mg 300 mg [facility] capsule capsule capsule Practi c TAKE 1 TAKE 1 TAKE 1 e CAPSULE BY CAPSULE BY CAPSULE BY MOUTH THREE MOUTH THREE MOUTH TIMES DAILY TIMES DAILY THREE TIMES DAILY gabapentin gabapentin No gabapentin [facility] 600 mg 600 mg 600 mg Family tablet TAKE tablet TAKE tablet Pract[facility] 1 TABLET BY 1 TABLET BY TAKE 1 e MOUTH THREE MOUTH THREE TABLET BY TIMES DAILY TIMES DAILY MOUTH THREE TIMES DAILY glipizide glipizide No glipizide [facility] ER 10 mg ER 10 mg ER 10 mg Fam alton tablet, tablet, tablet, Practi c extended extended extended e release 24 release 24 release 24 hr Take 1 hr Take 1 hr Take 1 tablet tablet tablet twice a day twice a day twice a by oral by oral day by route with route with oral route meals. meals. with meals. Humulin R Humulin R No Humulin R [facility] U-500 U-500 U-500 Family (Conc) (Conc) (Conc) Pract[facility] Insulin Insulin Insulin e Kwikpen 500 Kwikpen 500 Kwikpen unit/mL (3 unit/mL (3 500 mL) mL) unit/mL (3 subcutaneou subcutaneou mL) s GIve s GIve subcutaneo 80units 80units us GIve before before 80units breakfast breakfast before and dinner and dinner breakfast and and and dinner increase as increase as and directed: directed: increase TDD 250 TDD 250 as directed: TDD 250 hydrocodone hydrocodone No 1 Q8H hydrocodon [facility] 5 5 e 5 Family mg-acetamin mg-acetamin mg-acetami Practic ophen 325 ophen 325 nophen 325 e mg tablet mg tablet mg tablet Take 1 Take 1 Take 1 tablet tablet tablet every 8 every 8 every 8 hours by hours by hours by oral route oral route oral route as needed. as needed. as needed. ketorolac ketorolac No ketorolac [facility] 10 mg 10 mg 10 mg Family tablet TAKE tablet TAKE tablet Pract[facility] 1 TABLET BY 1 TABLET BY TAKE 1 e MOUTH EVERY MOUTH EVERY TABLET BY 6 HOURS 6 HOURS MOUTH WITH FOOD WITH FOOD EVERY 6 NEEDED NEEDED HOURS WITH FOR PAIN FOR PAIN FOOD (SCALE (SCALE NEEDED FOR 7-10) FOR 5 7-10) FOR 5 PAIN DAYS. DON T DAYS. DON T (SCALE MIX WITH MIX WITH 7-10) FOR IBUPROFEN,A IBUPROFEN,A 5 DAYS. DVIL, DVIL, DON T MIX ALEVE, OR ALEVE, OR WITH MOTRIN MOTRIN IBUPROFEN, ADVIL, ALEVE, OR MOTRIN levothyroxi levothyroxi No 1 Q1D levothyrox [facility] ne 100 mcg ne 100 mcg ine 100 Family tablet Take tablet Take mcg tablet Pract[facility] 1 tablet 1 tablet Take 1 e every day every day tablet by oral by oral every day route. route. by oral route. metformin metformin No 2 Q1D metformin [facility] ER 500 mg ER 500 mg ER 500 mg Family 24 hr 24 hr 24 hr Pract[facility] tablet,exte tablet,exte tablet,ext e nded nded ended release release release Take 2 Take 2 Take 2 tablets tablets tablets every day every day every day by oral by oral by oral route at route at route at dinner for dinner for dinner for 90 days. 90 days. 90 days. metformin metformin No metformin [facility] ER 500 mg ER 500 mg ER 500 mg Family tablet,exte tablet,exte tablet,ext Practic nded nded ended e release 24 release 24 release 24 hr TAKE 2 hr TAKE 2 hr TAKE 2 TABLETS BY TABLETS BY TABLETS BY MOUTH ONCE MOUTH ONCE MOUTH ONCE DAILY WITH DAILY WITH DAILY WITH SUPPER SUPPER SUPPER Ozempic 2 Ozempic 2 No Ozempic 2 [place] mg/dose (8 mg/dose (8 mg/dose (8 Family mg/3 mL) mg/3 mL) mg/3 mL) Pra ctic subcutaneou subcutaneou subcutaneo e s pen s pen us pen injector injector injector Inject 2 mg Inject 2 mg Inject 2 every week every week mg every by by week by subcutaneou subcutaneou subcutaneo s route for s route for us route 30 days. 30 days. for 30 days. promethazin promethazin No 5mL Q8H promethazi [facility] e-DM 6.25 e-DM 6.25 ne-DM 6.25 Family mg-15 mg/5 mg-15 mg/5 mg-15 mg/5 Practic mL oral mL oral mL oral e syrup Take syrup Take syrup Take 5 mL every 5 mL every 5 mL every 8 hours by 8 hours by 8 hours by oral route oral route oral route as needed. as needed. as needed. prn cough prn cough prn cough Toujeo Max Toujeo Max No Toujeo [facility] U-300 U-300 U-300 Family SoloStar SoloStar SoloStar Pra ctic 300 unit/mL 300 unit/mL 300 e (3 mL) (3 mL) unit/mL (3 subcutaneou subcutaneou mL) s insulin s insulin subcutaneo pen Give pen Give us insulin 100 units 100 units pen Give in AM and in AM and 100 units increase as increase as in AM and directed: directed: increase TDD 120 TDD 120 as directed: TDD 120 valsartan valsartan No 1 Q1D valsartan [facility] 320 320 320 Family mg-hydrochl mg-hydrochl mg-hydroch Practic orothiazide orothiazide lorothiazi e 25 mg 25 mg de 25 mg tablet Take tablet Take tablet 1 tablet 1 tablet Take 1 every day every day tablet by oral by oral every day route. route. by oral route. albuterol albuterol No albuterol [facility] sulfate HFA sulfate HFA sulfate Family 90 90 HFA 90 Practic mcg/actuati mcg/actuati mcg/actuat e on aerosol on aerosol ion inhaler inhaler aerosol Inhale 2 Inhale 2 inhaler puffs every puffs every Inhale 2 4 hours by 4 hours by puffs inhalation inhalation every 4 route as route as hours by needed. needed. inhalation route as needed. atorvastati atorvastati No atorvastat [facility] n 20 mg n 20 mg in 20 mg Famil y tablet TAKE tablet TAKE tablet Pract[facility] 1 TABLET BY 1 TABLET BY TAKE 1 e MOUTH ONCE MOUTH ONCE TABLET BY DAILY DAILY MOUTH ONCE DAILY azelastine azelastine No azelastine [facility] 137 mcg 137 mcg 137 mcg Family (0.1 %) (0.1 %) (0.1 %) Practi c nasal spray nasal spray nasal e aerosol aerosol spray [place] 2 [place] 2 aerosol sprays sprays [place] 2 twice a day twice a day sprays by by twice a intranasal intranasal day by route as route as intranasal needed. needed. route as needed. BD Lexy 2nd BD Lexy 2nd No BD Lexy [facility] Gen Pen Gen Pen 2nd Gen Family Needle 32 Needle 32 Pen Needle Practic gauge x gauge x 32 gauge x e " USE 1 " USE 1 " USE PEN NEEDLE PEN NEEDLE 1 PEN TWICE DAILY TWICE DAILY NEEDLE TWICE DAILY benzonatate benzonatate No 2capsul TID benzonatat [facility] 100 mg 100 mg e(s) e 100 mg Family capsule capsule capsule Practi c Take 2 Take 2 Take 2 e capsules 3 capsules 3 capsules 3 times a day times a day times a by oral by oral day by route as route as oral route needed. needed. as needed. clotrimazol clotrimazol No clotrimazo [facility] e-betametha e-betametha le-betamet Family sone 1 sone 1 hasone 1 Practic %-0.05 % %-0.05 % %-0.05 % e topical topical topical cream APPLY cream APPLY cream TO THE TO THE APPLY TO AFFECTED AFFECTED THE AND AND AFFECTED SURROUNDING SURROUNDING AND AREAS OF AREAS OF SURROUNDIN SKIN BY SKIN BY G AREAS OF TOPICAL TOPICAL SKIN BY ROUTE 2 ROUTE 2 TOPICAL TIMES PER TIMES PER ROUTE 2 DAY DAY TIMES PER DAY doxycycline doxycycline No 1capsul BID doxycyclin [facility] hyclate 100 hyclate 100 e(s) e hyclate Family mg capsule mg capsule 100 mg P ractic Take 1 Take 1 capsule e capsule capsule Take 1 twice a day twice a day capsule by oral by oral twice a route. route. day by oral route. duloxetine duloxetine No 1capsul Q1D duloxetine [facility] 60 mg 60 mg e(s) 60 mg Family capsule,del capsule,del capsule,de Practic ayed ayed layed e release release release Take 1 Take 1 Take 1 capsule capsule capsule every day every day every day by oral by oral by oral route. route. route. fluticasone fluticasone No fluticason [place] propionate propionate e Fam alton 50 50 propionate Practic mcg/actuati mcg/actuati 50 e on nasal on nasal mcg/actuat spray,suspe spray,suspe ion nasal nsion [place] nsion [place] spray,susp 2 sprays 2 sprays ension every day every day [place] 2 by by sprays intranasal intranasal every day route as route as by needed. needed. intranasal route as needed. FreeStyle FreeStyle No FreeStyle [facility] Lancets 28 Lancets 28 Lancets 28 Family gauge USE A gauge USE A gauge USE Practic LANCET TO LANCET TO A LANCET e CHECK CHECK TO CHECK GLUCOSE GLUCOSE GLUCOSE ONCE DAILY ONCE DAILY ONCE DAILY . ROTATE . ROTATE . ROTATE BETWEEN BETWEEN BETWEEN FASTING FASTING FASTING BREAKFAST BREAKFAST BREAKFAST LUNCH LUNCH LUNCH DINNER DINNER DINNER FreeStyle FreeStyle No FreeStyle [place] Lite Meter Lite Meter Lite Meter Family kit USE TO kit USE TO kit USE TO Practic CHECK SUGAR CHECK SUGAR CHECK e ONCE DAILY. ONCE DAILY. SUGAR ONCE ROTATE ROTATE DAILY. BETWEEN BETWEEN ROTATE FASTING FASTING BETWEEN BREAKFAST BREAKFAST FASTING LUNCH LUNCH BREAKFAST DINNER. DINNER. LUNCH DINNER. FreeStyle FreeStyle No FreeStyle [facility] Lite Strips Lite Strips Lite F amily USE A STRIP USE A STRIP Strips USE Practic TO CHECK TO CHECK A STRIP TO e GLUCOSE GLUCOSE CHECK THREE TIMES THREE TIMES GLUCOSE DAILY DAILY THREE TIMES DAILY gabapentin gabapentin No gabapentin [facility] 300 mg 300 mg 300 mg Family capsule capsule capsule Practi c TAKE 1 TAKE 1 TAKE 1 e CAPSULE BY CAPSULE BY CAPSULE BY MOUTH THREE MOUTH THREE MOUTH TIMES DAILY TIMES DAILY THREE TIMES DAILY gabapentin gabapentin No gabapentin [facility] 600 mg 600 mg 600 mg Family tablet TAKE tablet TAKE tablet [facility] 1 TABLET BY 1 TABLET BY TAKE 1 e MOUTH THREE MOUTH THREE TABLET BY TIMES DAILY TIMES DAILY MOUTH THREE TIMES DAILY glipizide glipizide No glipizide [facility] ER 10 mg ER 10 mg ER 10 mg Fam alton tablet, tablet, tablet, Practi c extended extended extended e release 24 release 24 release 24 hr Take 1 hr Take 1 hr Take 1 tablet tablet tablet twice a day twice a day twice a by oral by oral day by route with route with oral route meals. meals. with meals. Humulin R Humulin R No Humulin R [facility] U-500 U-500 U-500 Family (Conc) (Conc) (Conc) [facility] Insulin Insulin Insulin e Kwikpen 500 Kwikpen 500 Kwikpen unit/mL (3 unit/mL (3 500 mL) mL) unit/mL (3 subcutaneou subcutaneou mL) s GIVE 80 s GIVE 80 subcutaneo UNITS UNITS us GIVE 80 BEFORE BEFORE UNITS BREAKFAST BREAKFAST BEFORE AND DINNER AND DINNER BREAKFAST AND AND AND DINNER INCREASE INCREASE AND DIRECTED. DIRECTED. INCREASE TOTAL DAILY TOTAL DAILY DOSE 250 DOSE 250 DIRECTED. TOTAL DAILY DOSE 250 hydrocodone hydrocodone No 1 Q8H hydrocodon [facility] 5 5 e 5 Family mg-acetamin mg-acetamin mg-acetami Practic ophen 325 ophen 325 nophen 325 e mg tablet mg tablet mg tablet Take 1 Take 1 Take 1 tablet tablet tablet every 8 every 8 every 8 hours by hours by hours by oral route oral route oral route as needed. as needed. as needed. ketorolac ketorolac No ketorolac [facility] 10 mg 10 mg 10 mg Family tablet TAKE tablet TAKE tablet Pract[facility] 1 TABLET BY 1 TABLET BY TAKE 1 e MOUTH EVERY MOUTH EVERY TABLET BY 6 HOURS 6 HOURS MOUTH WITH FOOD WITH FOOD EVERY 6 NEEDED NEEDED HOURS WITH FOR PAIN FOR PAIN FOOD (SCALE (SCALE NEEDED FOR 7-10) FOR 5 7-10) FOR 5 PAIN DAYS. DON T DAYS. DON T (SCALE MIX WITH MIX WITH 7-10) FOR IBUPROFEN,A IBUPROFEN,A 5 DAYS. DVIL, DVIL, DON T MIX ALEVE, OR ALEVE, OR WITH MOTRIN MOTRIN IBUPROFEN, ADVIL, ALEVE, OR MOTRIN levothyroxi levothyroxi No levothyrox [facility] ne 100 mcg ne 100 mcg ine 100 Family tablet TAKE tablet TAKE mcg tablet [facility] 1 TABLET BY 1 TABLET BY TAKE 1 e MOUTH ONCE MOUTH ONCE TABLET BY DAILY DAILY MOUTH ONCE DAILY meloxicam meloxicam No meloxicam [facility] 15 mg 15 mg 15 mg Family tablet TAKE tablet TAKE tablet [facility] 1 TABLET BY 1 TABLET BY TAKE 1 e MOUTH ONCE MOUTH ONCE TABLET BY DAILY DAILY MOUTH ONCE NEEDED NEEDED DAILY NEEDED metformin metformin No 2 Q1D metformin [place] ER 500 mg ER 500 mg ER 500 mg Family 24 hr 24 hr 24 hr Practic tablet,exte tablet,exte tablet,ext e nded nded ended release release release Take 2 Take 2 Take 2 tablets tablets tablets every day every day every day by oral by oral by oral route at route at route at dinner for dinner for dinner for 90 days. 90 days. 90 days. metformin metformin No metformin [place] ER 500 mg ER 500 mg ER 500 mg Family tablet,exte tablet,exte tablet,ext Practic nded nded ended e release 24 release 24 release 24 hr TAKE 2 hr TAKE 2 hr TAKE 2 TABLETS BY TABLETS BY TABLETS BY MOUTH ONCE MOUTH ONCE MOUTH ONCE DAILY WITH DAILY WITH DAILY WITH SUPPER SUPPER SUPPER Ozempic 2 Ozempic 2 No Ozempic 2 [facility] mg/dose (8 mg/dose (8 mg/dose (8 Family mg/3 mL) mg/3 mL) mg/3 mL) Pra ctic subcutaneou subcutaneou subcutaneo e s pen s pen us pen injector injector injector Inject 2 mg Inject 2 mg Inject 2 every week every week mg every by by week by subcutaneou subcutaneou subcutaneo s route for s route for us route 30 days. 30 days. for 30 days. prednisone prednisone No prednisone [facility] 20 mg 20 mg 20 mg Family tablet Take tablet Take tablet Practic as directed as directed Take as e on COPD on COPD directed Action Action on COPD Plan. Take Plan. Take Action 2 tablets 2 tablets Plan. Take by mouth by mouth 2 tablets every every by mouth morning for morning for every 5 days. 5 days. morning COPD RESCUE COPD RESCUE for 5 PACK: Start PACK: Start days. COPD taking if taking if RESCUE your your PACK: coughing coughing Start and and taking if shortness shortness your of breath of breath coughing get worse, get worse, and or you or you shortness start start of breath coughing up coughing up get worse, yellow or yellow or or you green green start phlegm phlegm coughing up yellow or green phlegm promethazin promethazin No 5mL Q8H promethazi [facility] e-DM 6.25 e-DM 6.25 ne-DM 6.25 Family mg-15 mg/5 mg-15 mg/5 mg-15 mg/5 Practic mL oral mL oral mL oral e syrup Take syrup Take syrup Take 5 mL every 5 mL every 5 mL every 8 hours by 8 hours by 8 hours by oral route oral route oral route as needed. as needed. as needed. prn cough prn cough prn cough Toujeo Max Toujeo Max No Toujeo Max [facility] U-300 U-300 U-300 Family SoloStar SoloStar SoloStar Pra ctic 300 unit/mL 300 unit/mL 300 e (3 mL) (3 mL) unit/mL (3 subcutaneou subcutaneou mL) s insulin s insulin subcutaneo pen Give pen Give us insulin 100 units 100 units pen Give in AM and in AM and 100 units increase as increase as in AM and directed: directed: increase TDD 120 TDD 120 as directed: TDD 120 Trelegy Trelegy No 1puff(s Q1D Trelegy Chuy john Ellipta 100 Ellipta 100 ) Ellipta Family mcg-62.5 mcg-62.5 100 Practic mcg-25 mcg mcg-25 mcg mcg-62.5 e powder for powder for mcg-25 mcg inhalation inhalation powder for Inhale 1 Inhale 1 inhalation puff every puff every Inhale 1 day by day by puff every inhalation inhalation day by route. route. inhalation route. valsartan valsartan No valsartan [facility] 320 320 320 Family mg-hydrochl mg-hydrochl mg-hydroch Practic orothiazide orothiazide lorothiazi e 25 mg 25 mg de 25 mg tablet Take tablet Take tablet 1 tablet 1 tablet Take 1 every day every day tablet by oral by oral every day route. route. by oral route. albuterol albuterol No albuterol [place] sulfate HFA sulfate HFA sulfate Family 90 90 HFA 90 Practic mcg/actuati mcg/actuati mcg/actuat e on aerosol on aerosol ion inhaler inhaler aerosol Inhale 2 Inhale 2 inhaler puffs every puffs every Inhale 2 4 hours by 4 hours by puffs inhalation inhalation every 4 route as route as hours by needed. needed. inhalation route as needed. atorvastati atorvastati No atorvastat [facility] n 20 mg n 20 mg in 20 mg Famil y tablet TAKE tablet TAKE tablet Practic 1 TABLET BY 1 TABLET BY TAKE 1 e MOUTH ONCE MOUTH ONCE TABLET BY DAILY DAILY MOUTH ONCE DAILY BD Lexy 2nd BD Lexy 2nd No BD Lexy [place] Gen Pen Gen Pen 2nd Gen Family Needle 32 Needle 32 Pen Needle Practic gauge x gauge x 32 gauge x e " USE 1 " USE 1 " USE PEN NEEDLE PEN NEEDLE 1 PEN TWICE DAILY TWICE DAILY NEEDLE TWICE DAILY clotrimazol clotrimazol No clotrimazo [facility] e-betametha e-betametha le-betamet Family sone 1 sone 1 hasone 1 Practic %-0.05 % %-0.05 % %-0.05 % e topical topical topical cream APPLY cream APPLY cream TO THE TO THE APPLY TO AFFECTED AFFECTED THE AND AND AFFECTED SURROUNDING SURROUNDING AND AREAS OF AREAS OF SURROUNDIN SKIN BY SKIN BY G AREAS OF TOPICAL TOPICAL SKIN BY ROUTE 2 ROUTE 2 TOPICAL TIMES PER TIMES PER ROUTE 2 DAY DAY TIMES PER DAY duloxetine duloxetine No 1capsul Q1D duloxetine [facility] 60 mg 60 mg e(s) 60 mg Family capsule,del capsule,del capsule,de Practic ayed ayed layed e release release release Take 1 Take 1 Take 1 capsule capsule capsule every day every day every day by oral by oral by oral route for route for route for 90 days. 90 days. 90 days. FreeStyle FreeStyle No FreeStyle [facility] Lancets 28 Lancets 28 Lancets 28 Family gauge USE A gauge USE A gauge USE Practic LANCET TO LANCET TO A LANCET e CHECK CHECK TO CHECK GLUCOSE GLUCOSE GLUCOSE ONCE DAILY ONCE DAILY ONCE DAILY . ROTATE . ROTATE . ROTATE BETWEEN BETWEEN BETWEEN FASTING FASTING FASTING BREAKFAST BREAKFAST BREAKFAST LUNCH LUNCH LUNCH DINNER DINNER DINNER FreeStyle FreeStyle No FreeStyle [place] Lite Meter Lite Meter Lite Meter Family kit USE TO kit USE TO kit USE TO Practic CHECK SUGAR CHECK SUGAR CHECK e ONCE DAILY. ONCE DAILY. SUGAR ONCE ROTATE ROTATE DAILY. BETWEEN BETWEEN ROTATE FASTING FASTING BETWEEN BREAKFAST BREAKFAST FASTING LUNCH LUNCH BREAKFAST DINNER. DINNER. LUNCH DINNER. FreeStyle FreeStyle No FreeStyle [place] Lite Strips Lite Strips Lite F amily use to use to Strips use Pract ic check blood check blood to check e sugars sugars blood three times three times sugars a day a day three times a day gabapentin gabapentin No gabapentin [facility] 300 mg 300 mg 300 mg Family capsule capsule capsule Practi c TAKE 1 TAKE 1 TAKE 1 e CAPSULE BY CAPSULE BY CAPSULE BY MOUTH THREE MOUTH THREE MOUTH TIMES DAILY TIMES DAILY THREE TIMES DAILY gabapentin gabapentin No gabapentin [facility] 600 mg 600 mg 600 mg Family tablet TAKE tablet TAKE tablet Practic 1 TABLET BY 1 TABLET BY TAKE 1 e MOUTH THREE MOUTH THREE TABLET BY TIMES DAILY TIMES DAILY MOUTH THREE TIMES DAILY glipizide glipizide No glipizide [facility] ER 10 mg ER 10 mg ER 10 mg Fam alton tablet, tablet, tablet, Practi c extended extended extended e release 24 release 24 release 24 hr Take 1 hr Take 1 hr Take 1 tablet tablet tablet twice a day twice a day twice a by oral by oral day by route with route with oral route meals. meals. with meals. Humulin R Humulin R No Humulin R [facility] U-500 U-500 U-500 [facility] (Conc) (Conc) (Conc) Practic Insulin Insulin Insulin e Kwikpen 500 Kwikpen 500 Kwikpen unit/mL (3 unit/mL (3 500 mL) mL) unit/mL (3 subcutaneou subcutaneou mL) s GIve s GIve subcutaneo 40units 40units us GIve before before 40units breakfast breakfast before and dinner and dinner breakfast and and and dinner increase as increase as and directed: directed: increase TDD 200 TDD 200 as directed: TDD 200 levothyroxi levothyroxi No 1 Q1D levothyrox [facility] ne 100 mcg ne 100 mcg ine 100 Family tablet Take tablet Take mcg tablet Practic 1 tablet 1 tablet Take 1 e every day every day tablet by oral by oral every day route. route. by oral route. meloxicam meloxicam No 1 Q1D meloxicam [facility] 15 mg 15 mg 15 mg Family tablet Take tablet Take tablet Practic 1 tablet 1 tablet Take 1 e every day every day tablet by oral by oral every day route as route as by oral needed. needed. route as needed. metformin metformin No 2 Q1D metformin [facility] ER 500 mg ER 500 mg ER 500 mg Family 24 hr 24 hr 24 hr Practic tablet,exte tablet,exte tablet,ext e nded nded ended release release release Take 2 Take 2 Take 2 tablets tablets tablets every day every day every day by oral by oral by oral route at route at route at dinner. dinner. dinner. Ozempic 1 Ozempic 1 No Ozempic 1 [facility] mg/dose (4 mg/dose (4 mg/dose (4 Family mg/3 mL) mg/3 mL) mg/3 mL) Pra ctic subcutaneou subcutaneou subcutaneo e s pen s pen us pen injector injector injector Inject 1 mg Inject 1 mg Inject 1 every week every week mg every by by week by subcutaneou subcutaneou subcutaneo s route for s route for us route 30 days. 30 days. for 30 days. Santyl 250 Santyl 250 No Santyl 250 [facility] unit/gram unit/gram unit/gram Family topical topical topical Practi c ointment ointment ointment e APPLY APPLY APPLY OINTMENT OINTMENT OINTMENT TOPICALLY TOPICALLY TOPICALLY TO AFFECTED TO AFFECTED TO AREA ONCE AREA ONCE AFFECTED DAILY DAILY AREA ONCE DAILY Toujemyrna Borden Toujeo Max No Toulakhwinder [facility] U-300 U-300 U-300 Family SoloStar SoloStar SoloStar Pra ctic 300 unit/mL 300 unit/mL 300 e (3 mL) (3 mL) unit/mL (3 subcutaneou subcutaneou mL) s insulin s insulin subcutaneo pen Give pen Give us insulin 100 units 100 units pen Give in AM and in AM and 100 units increase as increase as in AM and directed: directed: increase TDD 120 TDD 120 as directed: TDD 120 valsartan valsartan No valsartan [facility] 320 320 320 Family mg-hydrochl mg-hydrochl mg-hydroch Practic orothiazide orothiazide lorothiazi e 25 mg 25 mg de 25 mg tablet Take tablet Take tablet 1 tablet 1 tablet Take 1 every day every day tablet by oral by oral every day route. route. by oral route. albuterol albuterol No albuterol [facility] sulfate HFA sulfate HFA sulfate Family 90 90 HFA 90 Practic mcg/actuati mcg/actuati mcg/actuat e on aerosol on aerosol ion inhaler inhaler aerosol Inhale 2 Inhale 2 inhaler puffs every puffs every Inhale 2 4 hours by 4 hours by puffs inhalation inhalation every 4 route as route as hours by needed. needed. inhalation route as needed. atorvastati atorvastati No atorvastat [facility] n 20 mg n 20 mg in 20 mg Famil y tablet TAKE tablet TAKE tablet Practic 1 TABLET BY 1 TABLET BY TAKE 1 e MOUTH ONCE MOUTH ONCE TABLET BY DAILY DAILY MOUTH ONCE DAILY BD Lexy 2nd BD Lexy 2nd No BD Lexy [place] Gen Pen Gen Pen 2nd Gen Family Needle 32 Needle 32 Pen Needle Practic gauge x gauge x 32 gauge x e " USE 1 " USE 1 " USE PEN NEEDLE PEN NEEDLE 1 PEN TWICE DAILY TWICE DAILY NEEDLE TWICE DAILY clotrimazol clotrimazol No clotrimazo [facility] e-betametha e-betametha le-betamet Family sone 1 sone 1 hasone 1 Practic %-0.05 % %-0.05 % %-0.05 % e topical topical topical cream APPLY cream APPLY cream TO THE TO THE APPLY TO AFFECTED AFFECTED THE AND AND AFFECTED SURROUNDING SURROUNDING AND AREAS OF AREAS OF SURROUNDIN SKIN BY SKIN BY G AREAS OF TOPICAL TOPICAL SKIN BY ROUTE 2 ROUTE 2 TOPICAL TIMES PER TIMES PER ROUTE 2 DAY DAY TIMES PER DAY duloxetine duloxetine No duloxetine [facility] 60 mg 60 mg 60 mg Family capsule,del capsule,del capsule,de Practic ayed ayed layed e release release release Take 1 Take 1 Take 1 capsule capsule capsule every day every day every day by oral by oral by oral route for route for route for 90 days. 90 days. 90 days. Euthyrox Euthyrox No Euthyrox [facility] john 100 mcg 100 mcg 100 mcg Family tablet Take tablet Take tablet Practic 1 tablet 1 tablet Take 1 e every day every day tablet by oral by oral every day route. route. by oral route. FreeStyle FreeStyle No FreeStyle [facility] Lancets 28 Lancets 28 Lancets 28 Family gauge USE A gauge USE A gauge USE Practic LANCET TO LANCET TO A LANCET e CHECK CHECK TO CHECK GLUCOSE GLUCOSE GLUCOSE ONCE DAILY ONCE DAILY ONCE DAILY . ROTATE . ROTATE . ROTATE BETWEEN BETWEEN BETWEEN FASTING FASTING FASTING BREAKFAST BREAKFAST BREAKFAST LUNCH LUNCH LUNCH DINNER DINNER DINNER FreeStyle FreeStyle No FreeStyle [place] Lite Meter Lite Meter Lite Meter Family kit USE TO kit USE TO kit USE TO Practic CHECK SUGAR CHECK SUGAR CHECK e ONCE DAILY. ONCE DAILY. SUGAR ONCE ROTATE ROTATE DAILY. BETWEEN BETWEEN ROTATE FASTING FASTING BETWEEN BREAKFAST BREAKFAST FASTING LUNCH LUNCH BREAKFAST DINNER. DINNER. LUNCH DINNER. FreeStyle FreeStyle No FreeStyle [facility] Lite Strips Lite Strips Lite F amily USE A STRIP USE A STRIP Strips USE Practic TO CHECK TO CHECK A STRIP TO e GLUCOSE GLUCOSE CHECK THREE TIMES THREE TIMES GLUCOSE DAILY DAILY THREE TIMES DAILY gabapentin gabapentin No gabapentin [facility] 300 mg 300 mg 300 mg Family capsule capsule capsule Practi c TAKE 1 TAKE 1 TAKE 1 e CAPSULE BY CAPSULE BY CAPSULE BY MOUTH THREE MOUTH THREE MOUTH TIMES DAILY TIMES DAILY THREE TIMES DAILY gabapentin gabapentin No gabapentin [facility] 600 mg 600 mg 600 mg Family tablet TAKE tablet TAKE tablet Practic 1 TABLET BY 1 TABLET BY TAKE 1 e MOUTH THREE MOUTH THREE TABLET BY TIMES DAILY TIMES DAILY MOUTH THREE TIMES DAILY glipizide glipizide No glipizide [facility] ER 10 mg ER 10 mg ER 10 mg Fam alton tablet, tablet, tablet, Practi c extended extended extended e release 24 release 24 release 24 hr Take 1 hr Take 1 hr Take 1 tablet tablet tablet twice a day twice a day twice a by oral by oral day by route with route with oral route meals. meals. with meals. Humulin R Humulin R No Humulin R [facility] U-500 U-500 U-500 [facility] (Conc) (Conc) (Conc) Practic Insulin Insulin Insulin e Kwikpen 500 Kwikpen 500 Kwikpen unit/mL (3 unit/mL (3 500 mL) mL) unit/mL (3 subcutaneou subcutaneou mL) s INJECT 40 s INJECT 40 subcutaneo UNITS UNITS us INJECT SUBCUTANEOU SUBCUTANEOU 40 UNITS SLY BEFORE SLY BEFORE SUBCUTANEO BREAKFAST BREAKFAST USLY AND DINNER. AND DINNER. BEFORE INCREASE INCREASE BREAKFAST DIRECTED. DIRECTED. AND TOTAL DAILY TOTAL DAILY DINNER. DOSE 200 DOSE 200 INCREASE UNITS UNITS DIRECTED. TOTAL DAILY DOSE 200 UNITS meloxicam meloxicam No meloxicam [facility] 15 mg 15 mg 15 mg [facility] tablet Take tablet Take tablet Practic 1 tablet 1 tablet Take 1 e every day every day tablet by oral by oral every day route as route as by oral needed. needed. route as needed. metformin metformin No 2 Q1D metformin [facility] ER 500 mg ER 500 mg ER 500 mg [facility] 24 hr 24 hr 24 hr Practic tablet,exte tablet,exte tablet,ext e nded nded ended release release release Take 2 Take 2 Take 2 tablets tablets tablets every day every day every day by oral by oral by oral route at route at route at dinner. dinner. dinner. Ozempic 1 Ozempic 1 No Ozempic 1 [facility] mg/dose (4 mg/dose (4 mg/dose (4 Family mg/3 mL) mg/3 mL) mg/3 mL) Pra ctic subcutaneou subcutaneou subcutaneo e s pen s pen us pen injector injector injector Inject 1 mg Inject 1 mg Inject 1 every week every week mg every by by week by subcutaneou subcutaneou subcutaneo s route for s route for us route 30 days. 30 days. for 30 days. Santyl 250 Santyl 250 No Santyl 250 [facility] unit/gram unit/gram unit/gram Family topical topical topical Practi c ointment ointment ointment e APPLY APPLY APPLY OINTMENT OINTMENT OINTMENT TOPICALLY TOPICALLY TOPICALLY TO AFFECTED TO AFFECTED TO AREA ONCE AREA ONCE AFFECTED DAILY DAILY AREA ONCE DAILY Toulakhwinder Borden Toulakhwinder Max No Toulakhwinder Max [facility] U-300 U-300 U-300 Family SoloStar SoloStar SoloStar Pra ctic 300 unit/mL 300 unit/mL 300 e (3 mL) (3 mL) unit/mL (3 subcutaneou subcutaneou mL) s insulin s insulin subcutaneo pen Give pen Give us insulin 100 units 100 units pen Give in AM and in AM and 100 units increase as increase as in AM and directed: directed: increase TDD 120 TDD 120 as directed: TDD 120 valsartan valsartan No valsartan [facility] 320 320 320 Family mg-hydrochl mg-hydrochl mg-hydroch Practic orothiazide orothiazide lorothiazi e 25 mg 25 mg de 25 mg tablet Take tablet Take tablet 1 tablet 1 tablet Take 1 every day every day tablet by oral by oral every day route. route. by oral route. albuterol albuterol No 2puff(s Q4H albuterol [facility] sulfate HFA sulfate HFA ) sulfate Family 90 90 HFA 90 Practic mcg/actuati mcg/actuati mcg/actuat e on aerosol on aerosol ion inhaler inhaler aerosol Inhale 2 Inhale 2 inhaler puffs every puffs every Inhale 2 4 hours by 4 hours by puffs inhalation inhalation every 4 route as route as hours by needed. needed. inhalation route as needed. atorvastati atorvastati No atorvastat [facility] n 20 mg n 20 mg in 20 mg Famil y tablet TAKE tablet TAKE tablet Practic 1 TABLET BY 1 TABLET BY TAKE 1 e MOUTH ONCE MOUTH ONCE TABLET BY DAILY DAILY MOUTH ONCE DAILY BD Lexy 2nd BD Lexy 2nd No BD Lexy [place] Gen Pen Gen Pen 2nd Gen Family Needle 32 Needle 32 Pen Needle Practic gauge x gauge x 32 gauge x e " USE 1 " USE 1 " USE PEN NEEDLE PEN NEEDLE 1 PEN TWICE DAILY TWICE DAILY NEEDLE TWICE DAILY clotrimazol clotrimazol No clotrimazo [facility] e-betametha e-betametha le-betamet Family sone 1 sone 1 hasone 1 Practic %-0.05 % %-0.05 % %-0.05 % e topical topical topical cream APPLY cream APPLY cream TO THE TO THE APPLY TO AFFECTED AFFECTED THE AND AND AFFECTED SURROUNDING SURROUNDING AND AREAS OF AREAS OF SURROUNDIN SKIN BY SKIN BY G AREAS OF TOPICAL TOPICAL SKIN BY ROUTE 2 ROUTE 2 TOPICAL TIMES PER TIMES PER ROUTE 2 DAY DAY TIMES PER DAY duloxetine duloxetine No 1capsul Q1D duloxetine [facility] 60 mg 60 mg e(s) 60 mg Family capsule,del capsule,del capsule,de Practic ayed ayed layed e release release release Take 1 Take 1 Take 1 capsule capsule capsule every day every day every day by oral by oral by oral route. route. route. FreeStyle FreeStyle No FreeStyle [facility] Lancets 28 Lancets 28 Lancets 28 Family gauge USE A gauge USE A gauge USE Practic LANCET TO LANCET TO A LANCET e CHECK CHECK TO CHECK GLUCOSE GLUCOSE GLUCOSE ONCE DAILY ONCE DAILY ONCE DAILY . ROTATE . ROTATE . ROTATE BETWEEN BETWEEN BETWEEN FASTING FASTING FASTING BREAKFAST BREAKFAST BREAKFAST LUNCH LUNCH LUNCH DINNER DINNER DINNER FreeStyle FreeStyle No FreeStyle [place] Lite Meter Lite Meter Lite Meter Family kit USE TO kit USE TO kit USE TO Practic CHECK SUGAR CHECK SUGAR CHECK e ONCE DAILY. ONCE DAILY. SUGAR ONCE ROTATE ROTATE DAILY. BETWEEN BETWEEN ROTATE FASTING FASTING BETWEEN BREAKFAST BREAKFAST FASTING LUNCH LUNCH BREAKFAST DINNER. DINNER. LUNCH DINNER. FreeStyle FreeStyle No FreeStyle [facility] Lite Strips Lite Strips Lite F amily USE A STRIP USE A STRIP Strips USE Practic TO CHECK TO CHECK A STRIP TO e GLUCOSE GLUCOSE CHECK THREE TIMES THREE TIMES GLUCOSE DAILY DAILY THREE TIMES DAILY gabapentin gabapentin No gabapentin [facility] 300 mg 300 mg 300 mg Family capsule capsule capsule Practi c TAKE 1 TAKE 1 TAKE 1 e CAPSULE BY CAPSULE BY CAPSULE BY MOUTH THREE MOUTH THREE MOUTH TIMES DAILY TIMES DAILY THREE TIMES DAILY gabapentin gabapentin No gabapentin [facility] 600 mg 600 mg 600 mg Family tablet TAKE tablet TAKE tablet Practic 1 TABLET BY 1 TABLET BY TAKE 1 e MOUTH THREE MOUTH THREE TABLET BY TIMES DAILY TIMES DAILY MOUTH THREE TIMES DAILY glipizide glipizide No glipizide [facility] ER 10 mg ER 10 mg ER 10 mg Fam alton tablet, tablet, tablet, Practi c extended extended extended e release 24 release 24 release 24 hr Take 1 hr Take 1 hr Take 1 tablet tablet tablet twice a day twice a day twice a by oral by oral day by route with route with oral route meals. meals. with meals. Humulin R Humulin R No Humulin R [facility] U-500 U-500 U-500 [facility] ([facility]c) (Conc) (Conc) Practic Insulin Insulin Insulin e Kwikpen 500 Kwikpen 500 Kwikpen unit/mL (3 unit/mL (3 500 mL) mL) unit/mL (3 subcutaneou subcutaneou mL) s INJECT 40 s INJECT 40 subcutaneo UNITS UNITS us INJECT SUBCUTANEOU SUBCUTANEOU 40 UNITS SLY BEFORE SLY BEFORE SUBCUTANEO BREAKFAST BREAKFAST USLY AND DINNER. AND DINNER. BEFORE INCREASE INCREASE BREAKFAST DIRECTED. DIRECTED. AND TOTAL DAILY TOTAL DAILY DINNER. DOSE 200 DOSE 200 INCREASE UNITS UNITS DIRECTED. TOTAL DAILY DOSE 200 UNITS levothyroxi levothyroxi No 1 Q1D levothyrox [facility] ne 100 mcg ne 100 mcg ine 100 Family tablet Take tablet Take mcg tablet Practic 1 tablet 1 tablet Take 1 e every day every day tablet by oral by oral every day route. route. by oral route. meloxicam meloxicam No 1 Q1D meloxicam [facility] 15 mg 15 mg 15 mg Family tablet Take tablet Take tablet Practic 1 tablet 1 tablet Take 1 e every day every day tablet by oral by oral every day route as route as by oral needed. needed. route as needed. metformin metformin No metformin [facility] ER 500 mg ER 500 mg ER 500 mg Family tablet,exte tablet,exte tablet,ext Practic nded nded ended e release 24 release 24 release 24 hr hr hr Ozempic 1 Ozempic 1 No Ozempic 1 [facility] mg/dose (4 mg/dose (4 mg/dose (4 Family mg/3 mL) mg/3 mL) mg/3 mL) Pra ctic subcutaneou subcutaneou subcutaneo e s pen s pen us pen injector injector injector Inject 1 mg Inject 1 mg Inject 1 every week every week mg every by by week by subcutaneou subcutaneou subcutaneo s route for s route for us route 30 days. 30 days. for 30 days. Toujeo Max Toujeo Max No Toulakhwinder Max [facility] U-300 U-300 U-300 Family SoloStar SoloStar SoloStar Pra ctic 300 unit/mL 300 unit/mL 300 e (3 mL) (3 mL) unit/mL (3 subcutaneou subcutaneou mL) s insulin s insulin subcutaneo pen Give pen Give us insulin 100 units 100 units pen Give in AM and in AM and 100 units increase as increase as in AM and directed: directed: increase TDD 120 TDD 120 as directed: TDD 120 valsartan valsartan No 1 Q1D valsartan [facility] 320 320 320 Family mg-hydrochl mg-hydrochl mg-hydroch Practic orothiazide orothiazide lorothiazi e 25 mg 25 mg de 25 mg tablet Take tablet Take tablet 1 tablet 1 tablet Take 1 every day every day tablet by oral by oral every day route. route. by oral route. albuterol albuterol No albuterol [facility] sulfate HFA sulfate HFA sulfate Family 90 90 HFA 90 Practic mcg/actuati mcg/actuati mcg/actuat e on aerosol on aerosol ion inhaler inhaler aerosol Inhale 2 Inhale 2 inhaler puffs every puffs every Inhale 2 4 hours by 4 hours by puffs inhalation inhalation every 4 route as route as hours by needed. needed. inhalation route as needed. atorvastati atorvastati No atorvastat [facility] n 20 mg n 20 mg in 20 mg Famil y tablet TAKE tablet TAKE tablet Practic 1 TABLET BY 1 TABLET BY TAKE 1 e MOUTH ONCE MOUTH ONCE TABLET BY DAILY DAILY MOUTH ONCE DAILY BD Lexy 2nd BD Lexy 2nd No BD Lexy [place] Gen Pen Gen Pen 2nd Gen Family Needle 32 Needle 32 Pen Needle Practic gauge x gauge x 32 gauge x e 5/32" USE 1 " USE 1 " USE PEN NEEDLE PEN NEEDLE 1 PEN TWICE DAILY TWICE DAILY NEEDLE TWICE DAILY ciprofloxac ciprofloxac No ciprofloxa [facility] in 500 mg in 500 mg golden 500 mg Family tablet TAKE tablet TAKE tablet Practic 1 TABLET BY 1 TABLET BY TAKE 1 e MOUTH EVERY MOUTH EVERY TABLET BY 12 HOURS 12 HOURS MOUTH FOR 7 DAYS FOR 7 DAYS EVERY 12 HOURS FOR 7 DAYS clotrimazol clotrimazol No clotrimazo [facility] e-betametha e-betametha le-betamet Family sone 1 sone 1 hasone 1 Practic %-0.05 % %-0.05 % %-0.05 % e topical topical topical cream APPLY cream APPLY cream TO THE TO THE APPLY TO AFFECTED AFFECTED THE AND AND AFFECTED SURROUNDING SURROUNDING AND AREAS OF AREAS OF SURROUNDIN SKIN BY SKIN BY G AREAS OF TOPICAL TOPICAL SKIN BY ROUTE 2 ROUTE 2 TOPICAL TIMES PER TIMES PER ROUTE 2 DAY DAY TIMES PER DAY cyclobenzap cyclobenzap No cyclobenza [facility] rine 5 mg rine 5 mg latosha 5 mg Family tablet TAKE tablet TAKE tablet Practic 1 TABLET BY 1 TABLET BY TAKE 1 e MOUTH TWICE MOUTH TWICE TABLET BY DAILY DAILY MOUTH NEEDED FOR NEEDED FOR TWICE MUSCLE MUSCLE DAILY SPASM FOR 2 SPASM FOR 2 NEEDED FOR DAYS DAYS MUSCLE SPASM FOR 2 DAYS duloxetine duloxetine No 1capsul Q1D duloxetine [facility] 60 mg 60 mg e(s) 60 mg Family capsule,del capsule,del capsule,de Practic ayed ayed layed e release release release Take 1 Take 1 Take 1 capsule capsule capsule every day every day every day by oral by oral by oral route. route. route. FreeStyle FreeStyle No FreeStyle [facility] Lancets 28 Lancets 28 Lancets 28 Family gauge USE A gauge USE A gauge USE Practic LANCET TO LANCET TO A LANCET e CHECK CHECK TO CHECK GLUCOSE GLUCOSE GLUCOSE ONCE DAILY ONCE DAILY ONCE DAILY . ROTATE . ROTATE . ROTATE BETWEEN BETWEEN BETWEEN FASTING FASTING FASTING BREAKFAST BREAKFAST BREAKFAST LUNCH LUNCH LUNCH DINNER DINNER DINNER FreeStyle FreeStyle No FreeStyle [facility] Lite Meter Lite Meter Lite Meter Family kit USE TO kit USE TO kit USE TO Practic CHECK SUGAR CHECK SUGAR CHECK e ONCE DAILY. ONCE DAILY. SUGAR ONCE ROTATE ROTATE DAILY. BETWEEN BETWEEN ROTATE FASTING FASTING BETWEEN BREAKFAST BREAKFAST FASTING LUNCH LUNCH BREAKFAST DINNER. DINNER. LUNCH DINNER. FreeStyle FreeStyle No FreeStyle [facility] Lite Strips Lite Strips Lite F amily USE A STRIP USE A STRIP Strips USE Practic TO CHECK TO CHECK A STRIP TO e GLUCOSE GLUCOSE CHECK THREE TIMES THREE TIMES GLUCOSE DAILY DAILY THREE TIMES DAILY gabapentin gabapentin No gabapentin [facility] 300 mg 300 mg 300 mg Family capsule capsule capsule Practi c TAKE 1 TAKE 1 TAKE 1 e CAPSULE BY CAPSULE BY CAPSULE BY MOUTH THREE MOUTH THREE MOUTH TIMES DAILY TIMES DAILY THREE TIMES DAILY gabapentin gabapentin No gabapentin [facility] 600 mg 600 mg 600 mg Family tablet TAKE tablet TAKE tablet Practic 1 TABLET BY 1 TABLET BY TAKE 1 e MOUTH THREE MOUTH THREE TABLET BY TIMES DAILY TIMES DAILY MOUTH THREE TIMES DAILY Immunizations Ordered Immunization Filled Immunization Date Status Commen ts Source Name Name influenza, influenza, 2022-01-07 Completed [facility] recombinant, recombinant, 14:19:00 Practice quadrIvalent,injectab quadrIvalent,injectab le, preservative free le, preservative free influenza, influenza, 2022-01-07 Completed [facility] recombinant, recombinant, 14:19:00 Practice quadrIvalent,injectab quadrIvalent,injectab le, preservative free le, preservative free influenza, influenza, 2022-01-07 Completed [facility] recombinant, recombinant, 14:19:00 Practice quadrIvalent,injectab quadrIvalent,injectab le, preservative free le, preservative free influenza, influenza, 2022-01-07 Completed [facility] recombinant, recombinant, 14:19:00 Practice quadrIvalent,injectab quadrIvalent,injectab le, preservative free le, preservative free influenza, influenza, 2022-01-07 Completed [facility] recombinant, recombinant, 14:19:00 Practice quadrIvalent,injectab quadrIvalent,injectab le, preservative free le, preservative free influenza, influenza, 2022-01-07 Completed [facility] recombinant, recombinant, 14:19:00 Practice quadrIvalent,injectab quadrIvalent,injectab le, preservative free le, preservative free Pneumococcal Pneumococcal 2021-07-11 Completed [facility] conjugate PCV20, conjugate PCV20, 14:16:00 Pr actice polysaccharide [id number] polysaccharide [id number] conjugate, adjuvant, conjugate, adjuvant, PF PF Pneumococcal Pneumococcal 2021-07-11 [facility] conjugate PCV20, conjugate PCV20, 14:16:00 Pr actice polysaccharide [id number] polysaccharide [id number] conjugate, adjuvant, conjugate, adjuvant, PF PF Pneumococcal Pneumococcal 2021-07-11 Completed [facility] isi conjugate PCV20, conjugate PCV20, 14:16:00 Pr actice polysaccharide [id number] polysaccharide [id number] conjugate, adjuvant, conjugate, adjuvant, PF PF Pneumococcal Pneumococcal 2021-07-11 Completed [facility] conjugate PCV20, conjugate PCV20, 14:16:00 Pr actice polysaccharide [id number] polysaccharide [id number] conjugate, adjuvant, conjugate, adjuvant, PF PF Pneumococcal Pneumococcal 2021-07-11 Completed [facility] isi conjugate PCV20, conjugate PCV20, 14:16:00 Pr actice polysaccharide [id number] polysaccharide [id number] conjugate, adjuvant, conjugate, adjuvant, PF PF Pneumococcal Pneumococcal 2021-07-11 Completed [facility] conjugate PCV20, conjugate PCV20, 14:16:00 Pr actice polysaccharide [id number] polysaccharide [id number] conjugate, adjuvant, conjugate, adjuvant, PF PF Pneumococcal Pneumococcal 2021-07-11 Completed [facility] conjugate PCV20, conjugate PCV20, 14:16:00 Pr actice polysaccharide [id number] polysaccharide [id number] conjugate, adjuvant, conjugate, adjuvant, PF PF Pneumococcal Pneumococcal 2021-07-11 Completed [facility] conjugate PCV20, conjugate PCV20, 14:16:00 Pr actice polysaccharide [id number] polysaccharide [id number] conjugate, adjuvant, conjugate, adjuvant, PF PF Pneumococcal Pneumococcal 2021-07-11 Completed [facility] conjugate PCV20, conjugate PCV20, 14:16:00 Pr actice polysaccharide [id number] polysaccharide [id number] conjugate, adjuvant, conjugate, adjuvant, PF PF influenza, influenza, 2021-01-07 Completed [facility] recombinant, recombinant, 17:20:00 Practice quadrIvalent,injectab quadrIvalent,injectab le, preservative free le, preservative free influenza, influenza, 2021-01-07 Completed [facility] recombinant, recombinant, 17:20:00 Practice quadrIvalent,injectab quadrIvalent,injectab le, preservative free le, preservative free influenza, influenza, 2021-01-07 Completed [facility] recombinant, recombinant, 17:20:00 Practice quadrIvalent,injectab quadrIvalent,injectab le, preservative free le, preservative free influenza, influenza, 2021-01-07 Completed [facility] recombinant, recombinant, 17:20:00 Practice quadrIvalent,injectab quadrIvalent,injectab le, preservative free le, preservative free influenza, influenza, 2021-01-07 Completed [facility] recombinant, recombinant, 17:20:00 Practice quadrIvalent,injectab quadrIvalent,injectab le, preservative free le, preservative free influenza, influenza, 2021-01-07 Completed [facility] recombinant, recombinant, 17:20:00 Practice quadrIvalent,injectab quadrIvalent,injectab le, preservative free le, preservative free influenza, influenza, 2021-01-07 Completed [facility] recombinant, recombinant, 17:20:00 Practice quadrIvalent,injectab quadrIvalent,injectab le, preservative free le, preservative free influenza, influenza, 2021-01-07 Completed [facility] recombinant, recombinant, 17:20:00 Practice quadrIvalent,injectab quadrIvalent,injectab le, preservative free le, preservative free influenza, influenza, 2021-01-07 Completed [facility] recombinant, recombinant, 17:20:00 Practice quadrIvalent,injectab quadrIvalent,injectab le, preservative free le, preservative free Non-US Vaccine Non-US Vaccine 2020-10-24 Completed [facility] COVID-19 PS COVID-19 PS 00:00:00 Practice (EpiVacCorona) (EpiVacCorona) Non-US Vaccine Non-US Vaccine 2020-10-24 Completed [facility] COVID-19 PS COVID-19 PS 00:00:00 Practice (EpiVacCorona) (EpiVacCorona) Non-US Vaccine Non-US Vaccine 2020-10-24 Completed [facility] COVID-19 PS COVID-19 PS 00:00:00 Practice (EpiVacCorona) (EpiVacCorona) Non-US Vaccine Non-US Vaccine 2020-10-24 Completed [facility] COVID-19 PS COVID-19 PS 00:00:00 Practice (EpiVacCorona) (EpiVacCorona) Non-US Vaccine Non-US Vaccine 2020-10-24 Completed [facility] COVID-19 PS COVID-19 PS 00:00:00 Practice (EpiVacCorona) (EpiVacCorona) Non-US Vaccine Non-US Vaccine 2020-10-24 Completed [facility] COVID-19 PS COVID-19 PS 00:00:00 Practice (EpiVacCorona) (EpiVacCorona) Non-US Vaccine Non-US Vaccine 2020-10-24 Completed [facility] COVID-19 PS COVID-19 PS 00:00:00 Practice (EpiVacCorona) (EpiVacCorona) Non-US Vaccine Non-US Vaccine 2020-10-24 Completed [facility] COVID-19 PS COVID-19 PS 00:00:00 Practice (EpiVacCorona) (EpiVacCorona) Non-US Vaccine Non-US Vaccine 2020-10-24 Completed [facility] COVID-19 PS COVID-19 PS 00:00:00 Practice (EpiVacCorona) (EpiVacCorona) COVID-19, mRNA, COVID-19, mRNA, 2020-10-21 Completed [facility] LNP-S, PF, 30 mcg/0.3 LNP-S, PF, 30 mcg/0.3 00:00:00 Practice mL dose mL dose (Pfizer-BioNTech) - (Pfizer-BioNTech) - ML ML COVID-19, mRNA, COVID-19, mRNA, 2020-10-21 Completed [facility], PF, 30 mcg/0.3 LNP-S, PF, 30 mcg/0.3 00:00:00 Practice mL dose mL dose (Pfizer-BioNTech) - (Pfizer-BioNTech) - ML ML COVID-19, mRNA, COVID-19, mRNA, 2020-10-21 Completed [facility] L[facility], PF, 30 mcg/0.3 LNP-S, PF, 30 mcg/0.3 00:00:00 Practice mL dose mL dose (Pfizer-BioNTech) - (Pfizer-BioNTech) - ML ML COVID-19, mRNA, COVID-19, mRNA, 2020-10-21 Completed [facility], PF, 30 mcg/0.3 LNP-S, PF, 30 mcg/0.3 00:00:00 Practice mL dose mL dose (Pfizer-BioNTech) - (Pfizer-BioNTech) - ML ML COVID-19, mRNA, COVID-19, mRNA, 2020-10-21 Completed [facility], PF, 30 mcg/0.3 LNP-S, PF, 30 mcg/0.3 00:00:00 Practice mL dose mL dose (Pfizer-BioNTech) - (Pfizer-BioNTech) - ML ML COVID-19, mRNA, COVID-19, mRNA, 2020-10-21 Completed [facility], PF, 30 mcg/0.3 LNP-S, PF, 30 mcg/0.3 00:00:00 Practice mL dose mL dose (Pfizer-BioNTech) - (Pfizer-BioNTech) - ML ML COVID-19, mRNA, COVID-19, mRNA, 2020-10-21 Completed [facility], PF, 30 mcg/0.3 LNP-S, PF, 30 mcg/0.3 00:00:00 Practice mL dose mL dose (Pfizer-BioNTech) - (Pfizer-BioNTech) - ML ML COVID-19, mRNA, COVID-19, mRNA, 2020-09-30 Completed [facility] LNP-[facility], PF, 30 mcg/0.3 LNP-S, PF, 30 mcg/0.3 00:00:00 Practice mL dose mL dose (Pfizer-BioNTech) - (Pfizer-BioNTech) - ML ML COVID-19, mRNA, COVID-19, mRNA, 2020-09-30 Completed [facility] LNP-[facility], PF, 30 mcg/0.3 LNP-S, PF, 30 mcg/0.3 00:00:00 Practice mL dose mL dose (Pfizer-BioNTech) - (Pfizer-BioNTech) - ML ML COVID-19, mRNA, COVID-19, mRNA, 2020-09-30 Completed [facility] LNP-[facility], PF, 30 mcg/0.3 LNP-S, PF, 30 mcg/0.3 00:00:00 Practice mL dose mL dose (Pfizer-BioNTech) - (Pfizer-BioNTech) - ML ML COVID-19, mRNA, COVID-19, mRNA, 2020-09-30 Completed [facility] LNP-[facility], PF, 30 mcg/0.3 LNP-S, PF, 30 mcg/0.3 00:00:00 Practice mL dose mL dose (Pfizer-BioNTech) - (Pfizer-BioNTech) - ML ML COVID-19, mRNA, COVID-19, mRNA, 2020-09-30 Completed [facility] LNP-S, PF, 30 mcg/0.3 LNP-S, PF, 30 mcg/0.3 00:00:00 Practice mL dose mL dose (Pfizer-BioNTech) - (Pfizer-BioNTech) - ML ML COVID-19, mRNA, COVID-19, mRNA, 2020-09-30 Completed [facility] L[facility], PF, 30 mcg/0.3 LNP-S, PF, 30 mcg/0.3 00:00:00 Practice mL dose mL dose (Pfizer-BioNTech) - (Pfizer-BioNTech) - ML ML COVID-19, mRNA, COVID-19, mRNA, 2020-09-30 Completed [facility] L[facility], PF, 30 mcg/0.3 LNP-S, PF, 30 mcg/0.3 00:00:00 Practice mL dose mL dose (Pfizer-BioNTech) - (Pfizer-BioNTech) - ML ML COVID-19, mRNA, COVID-19, mRNA, 2020-09-29 Completed [facility] LNP-S, PF, 100 LNP-S, PF, 100 00:00:00 Practi ce mcg/0.5 mL dose mcg/0.5 mL dose (Moderna) (Moderna) COVID-19, mRNA, COVID-19, mRNA, 2020-09-29 Completed [facility], PF, 100 LNP-S, PF, 100 00:00:00 Practi ce mcg/0.5 mL dose mcg/0.5 mL dose (Moderna) (Moderna) influenza, influenza, 2020-07-01 Completed [facility] injectable, injectable, 00:00:00 Practice quadrivalent quadrivalent influenza, influenza, 2020-07-01 Completed [facility] injectable, injectable, 00:00:00 Practice quadrivalent quadrivalent influenza, influenza, 2020-07-01 Completed [facility] injectable, injectable, 00:00:00 Practice quadrivalent quadrivalent influenza, influenza, 2020-07-01 Completed [facility] injectable, injectable, 00:00:00 Practice quadrivalent quadrivalent influenza, influenza, 2020-07-01 Completed [facility] injectable, injectable, 00:00:00 Practice quadrivalent quadrivalent influenza, influenza, 2020-07-01 Completed [facility] injectable, injectable, 00:00:00 Practice quadrivalent quadrivalent influenza, influenza, 2020-07-01 Completed [facility] injectable, injectable, 00:00:00 Practice quadrivalent quadrivalent influenza, influenza, 2020-07-01 Completed [facility] injectable, injectable, 00:00:00 Practice quadrivalent quadrivalent influenza, influenza, 2020-07-01 Completed [facility] injectable, injectable, 00:00:00 Practice quadrivalent quadrivalent influenza, influenza, 2020-01-23 Completed [facility] recombinant, recombinant, 20:07:17 Practice quadrIvalent,injectab quadrIvalent,injectab le, preservative free le, preservative free influenza, influenza, 2020-01-23 Completed [facility] recombinant, recombinant, 20:07:17 Practice quadrIvalent,injectab quadrIvalent,injectab le, preservative free le, preservative free influenza, influenza, 2020-01-23 Completed [facility] recombinant, recombinant, 20:07:17 Practice quadrIvalent,injectab quadrIvalent,injectab le, preservative free le, preservative free influenza, influenza, 2020-01-23 Completed [facility] recombinant, recombinant, 20:07:17 Practice quadrIvalent,injectab quadrIvalent,injectab le, preservative free le, preservative free influenza, influenza, 2020-01-23 Completed [facility] recombinant, recombinant, 20:07:17 Practice quadrIvalent,injectab quadrIvalent,injectab le, preservative free le, preservative free influenza, influenza, 2020-01-23 Completed [facility] recombinant, recombinant, 20:07:17 Practice quadrIvalent,injectab quadrIvalent,injectab le, preservative free le, preservative free influenza, influenza, 2020-01-23 Completed [facility] recombinant, recombinant, 20:07:17 Practice quadrIvalent,injectab quadrIvalent,injectab le, preservative free le, preservative free influenza, influenza, 2020-01-23 Completed [facility] recombinant, recombinant, 20:07:17 Practice quadrIvalent,injectab quadrIvalent,injectab le, preservative free le, preservative free influenza, influenza, 2020-01-23 Completed [facility] recombinant, recombinant, 20:07:17 Practice quadrIvalent,injectab quadrIvalent,injectab le, preservative free le, preservative free influenza, influenza, 2019-01-17 Completed [facility] injectable, injectable, 00:00:00 Practice quadrivalent quadrivalent influenza, influenza, 2019-01-17 Completed [facility] injectable, injectable, 00:00:00 Practice quadrivalent quadrivalent influenza, influenza, 2019-01-17 Completed [facility] injectable, injectable, 00:00:00 Practice quadrivalent quadrivalent influenza, influenza, 2019-01-17 Completed [facility] injectable, injectable, 00:00:00 Practice quadrivalent quadrivalent influenza, influenza, 2019-01-17 Completed [facility] injectable, injectable, 00:00:00 Practice quadrivalent quadrivalent influenza, influenza, 2019-01-17 Completed [facility] injectable, injectable, 00:00:00 Practice quadrivalent quadrivalent influenza, influenza, 2019-01-17 Completed [facility] injectable, injectable, 00:00:00 Practice quadrivalent quadrivalent influenza, influenza, 2019-01-17 Completed [facility] injectable, injectable, 00:00:00 Practice quadrivalent quadrivalent influenza, influenza, 2019-01-17 Completed [facility] injectable, injectable, 00:00:00 Practice quadrivalent quadrivalent pneumococcal pneumococcal 2013-03-01 Completed [facility] isi polysaccharide PPV23 polysaccharide PPV23 00:00:00 Practice pneumococcal pneumococcal 2013-03-01 Completed [facility] isi polysaccharide PPV23 polysaccharide PPV23 00:00:00 Practice pneumococcal pneumococcal 2013-03-01 Completed [facility] isi polysaccharide PPV23 polysaccharide PPV23 00:00:00 Practice pneumococcal pneumococcal 2013-03-01 Completed [facility] isi polysaccharide PPV23 polysaccharide PPV23 00:00:00 Practice pneumococcal pneumococcal 2013-03-01 Completed [facility] isi polysaccharide PPV23 polysaccharide PPV23 00:00:00 Practice pneumococcal pneumococcal 2013-03-01 Completed [facility] isi polysaccharide PPV23 polysaccharide PPV23 00:00:00 Practice pneumococcal pneumococcal 2013-03-01 Completed [facility] isi polysaccharide PPV23 polysaccharide PPV23 00:00:00 Practice pneumococcal pneumococcal 2013-03-01 Completed [facility] isi polysaccharide PPV23 polysaccharide PPV23 00:00:00 Practice pneumococcal pneumococcal 2013-03-01 Completed [facility] isi polysaccharide PPV23 polysaccharide PPV23 00:00:00 Practice Vital Signs Vital Name Observation Time Observation Value Comments Source BP Diastolic 2022-05-27 00:00:00 77 mm[Hg] [facility] Height 2022-05-27 00:00:00 63 [in_i] [facility] BP Systolic 2022-05-27 00:00:00 137 mm[Hg] [facility] BP Diastolic 2022-04-13 00:00:00 84 mm[Hg] [facility] Height 2022-04-13 00:00:00 63 [in_i] [facility] BP Systolic 2022-04-13 00:00:00 149 mm[Hg] [facility] Body height 2022-03-30 20:03:00 [facility] weight 2022-03-30 20:03:00 142[facility]429 [facility] BMI 2022-03-30 20:03:00 55.62 kg[facility]2 [facility] BP Diastolic 2022-03-17 00:00:00 79 mm[Hg] [facility] Height 2022-03-17 00:00:00 63 [in_i] [facility] BMI (Body Mass 2022-03-17 00:00:00 55.3 kg/m2 [facility] Index[facility] Practice BP Systolic 2022-03-17 00:00:00 124 mm[Hg] [facility] Body Weight 2022-03-17 00:00:00 312 [lb_av] [facility] BP Diastolic 2022-03-04 00:00:00 68 mm[Hg] [facility] Height 2022-03-04 00:00:00 63 [in_i] [facility] BMI (Body Mass 2022-03-04 00:00:00 54 kg/m2 [facility] Index[facility] Practice BP Systolic 2022-03-04 00:00:00 126 mm[Hg] [facility] Body Weight 2022-03-04 00:00:00 305 [lb_av] [facility] BP Diastolic 2022-03-03 00:00:00 77 mm[Hg] [facility] Height 2022-03-03 00:00:00 63 [in_i] [facility] BMI (Body Mass 2022-03-03 00:00:00 54 kg/m2 [facility] Index[facility] Practice BP Systolic 2022-03-03 00:00:00 139 mm[Hg] [facility] Body Weight 2022-03-03 00:00:00 305 [lb_av] [facility] BP Diastolic 2022-01-07 00:00:00 80 mm[Hg] [facility] Height 2022-01-07 00:00:00 63 [in_i] [facility] BMI (Body Mass 2022-01-07 00:00:00 53.8 kg/m2 [facility] Index) Practice BP Systolic 2022-01-07 00:00:00 138 mm[Hg] [facility] Body Weight 2022-01-07 00:00:00 303.8 [lb_av] [facility] BP Diastolic 2021-12-12 00:00:00 79 mm[Hg] [facility] Height 2021-12-12 00:00:00 63 [in_i] [facility] BMI (Body Mass 2021-12-12 00:00:00 53.1 kg/m2 [facility] Practice BP Systolic 2021-12-12 00:00:00 131 mm[Hg] [facility] Body Weight 2021-12-12 00:00:00 300 [lb_av] [facility] BP Diastolic 2021-11-11 00:00:00 77 mm[Hg] [facility] Height 2021-11-11 00:00:00 63 [in_i] [facility] BMI (Body Mass 2021-11-11 00:00:00 54.6 kg/m2 [facility] Index) Practice BP Systolic 2021-11-11 00:00:00 115 mm[Hg] [facility] Body Weight 2021-11-11 00:00:00 308 [lb_av] [facility] BP Diastolic 2021-10-13 00:00:00 81 mm[Hg] [facility] Height 2021-10-13 00:00:00 63 [in_i] [facility] BMI (Body Mass 2021-10-13 00:00:00 54.6 kg/m2 [facility] Index[facility] Practice BP Systolic 2021-10-13 00:00:00 161 mm[Hg] [facility] Body Weight 2021-10-13 00:00:00 308.2 [lb_av] [facility] BP Diastolic 2021-08-13 00:00:00 84 mm[Hg] [facility] Height 2021-08-13 00:00:00 63 [in_i] [facility] BMI (Body Mass 2021-08-13 00:00:00 53.6 kg/m2 [facility] Index[facility] Practice BP Systolic 2021-08-13 00:00:00 128 mm[Hg] [facility] Body Weight 2021-08-13 00:00:00 302.8 [lb_av] [facility] BP Diastolic 2021-07-11 00:00:00 81 mm[Hg] [facility] Height 2021-07-11 00:00:00 63 [in_i] [facility] BMI (Body Mass 2021-07-11 00:00:00 53.4 kg/m2 [facility] Practice BP Systolic 2021-07-11 00:00:00 151 mm[Hg] [facility] Body Weight 2021-07-11 00:00:00 301.6 [lb_av] [facility] BP Diastolic 2021-06-17 00:00:00 90 mm[Hg] [facility] Height 2021-06-17 00:00:00 63 [in_i] [facility] BMI (Body Mass 2021-06-17 00:00:00 53.4 kg/m2 [facility] Index[facility] Practice BP Systolic 2021-06-17 00:00:00 149 mm[Hg] [facility] Body Weight 2021-06-17 00:00:00 301.6 [lb_av] [facility] BP Diastolic 2021-06-03 00:00:00 68 mm[Hg] [facility] Height 2021-06-03 00:00:00 63 [in_i] [facility] BMI (Body Mass 2021-06-03 00:00:00 53 kg/m2 [facility] Index[facility] BP Systolic 2021-06-03 00:00:00 109 mm[Hg] [facility] Body Weight 2021-06-03 00:00:00 299 [lb_av] [facility] BP Diastolic 2021-04-21 00:00:00 66 mm[Hg] [facility] Height 2021-04-21 00:00:00 63 [in_i] [facility] BMI (Body Mass 2021-04-21 00:00:00 53.7 kg/m2 [facility] Index[facility] Practice BP Systolic 2021-04-21 00:00:00 119 mm[Hg] [facility] Body Weight 2021-04-21 00:00:00 303 [lb_av] [facility] BP Diastolic 2021-04-14 00:00:00 85 mm[Hg] [facility] Height 2021-04-14 00:00:00 63 [in_i] [facility] BMI (Body Mass 2021-04-14 00:00:00 54.6 kg/m2 [facility] Practice BP Systolic 2021-04-14 00:00:00 162 mm[Hg] [facility] Body Weight 2021-04-14 00:00:00 308 [lb_av] [facility] Systolic blood 2021-02-06 16:46:00 129 mm[Hg] [facility] Diastolic blood 2021-02-06 16:46:00 69 mm[Hg] [facility] Heart rate 2021-02-06 16:46:00 80 /min [facility] Respiratory rate 2021-02-06 16:46:00 18 /[facility] 2021-02-06 16:46:00 160 cm [facility] Body weight 2021-02-06 16:46:00 139.254 kg [facility] BMI 2021-02-06 16:46:00 54.38 kg/m2 [facility] Height 2021-01-07 00:00:00 63 [in_i] [facility] BMI (Body Mass 2021-01-07 00:00:00 54 kg/m2 [facility] Body Weight 2021-01-07 00:00:00 305 [lb_av] [facility] BP Diastolic 2020-11-21 00:00:00 60 mm[Hg] [facility] Height 2020-11-21 00:00:00 63 [in_i] [facility] BMI (Body Mass 2020-11-21 00:00:00 54.4 kg/m2 [facility] BP Systolic 2020-11-21 00:00:00 116 mm[Hg] [facility] Body Weight 2020-11-21 00:00:00 307.2 [lb_av] [facility] BP Diastolic 2020-10-15 00:00:00 73 mm[Hg] [facility] Height 2020-10-15 00:00:00 63 [in_i] [facility] BMI (Body Mass 2020-10-15 00:00:00 54.9 kg/m2 [facility] BP Systolic 2020-10-15 00:00:00 120 mm[Hg] [facility] Body Weight 2020-10-15 00:00:00 310 [lb_av] [facility] BP Diastolic 2020-08-29 00:00:00 75 mm[Hg] [facility] Height 2020-08-29 00:00:00 63 [in_i] [facility] BMI (Body Mass 2020-08-29 00:00:00 54.9 kg/m2 [facility] BP Systolic 2020-08-29 00:00:00 126 mm[Hg] [facility] Body Weight 2020-08-29 00:00:00 310.2 [lb_av] [facility] BP Diastolic 2020-08-01 00:00:00 57 mm[Hg] [facility] Height 2020-08-01 00:00:00 63 [in_i] [facility] BMI (Body Mass 2020-08-01 00:00:00 56.8 kg/m2 [facility] Index) Practice BP Systolic 2020-08-01 00:00:00 101 mm[Hg] [facility] Body Weight 2020-08-01 00:00:00 320.4 [lb_av] [facility] BP Diastolic 2020-07-16 00:00:00 85 mm[Hg] [facility] Height 2020-07-16 00:00:00 63 [in_i] [facility] BMI (Body Mass 2020-07-16 00:00:00 55.8 kg/m2 [facility] Index) Practice BP Systolic 2020-07-16 00:00:00 129 mm[Hg] [facility] Body Weight 2020-07-16 00:00:00 315 [lb_av] [facility] BP Diastolic 2020-04-22 00:00:00 68 mm[Hg] [facility] Height 2020-04-22 00:00:00 63 [in_i] [facility] BMI (Body Mass 2020-04-22 00:00:00 60.9 kg/m2 [facility] Index) Practice BP Systolic 2020-04-22 00:00:00 104 mm[Hg] [facility] Body Weight 2020-04-22 00:00:00 344 [lb_av] [facility] BP Diastolic 2020-01-23 00:00:00 77 mm[Hg] [facility] Height 2020-01-23 00:00:00 63 [in_i] [facility] BMI (Body Mass 2020-01-23 00:00:00 60.2 kg/m2 [facility] Index) Practice BP Systolic 2020-01-23 00:00:00 115 mm[Hg] [facility] Body Weight 2020-01-23 00:00:00 340 [lb_av] [facility] Height 2019-10-19 00:00:00 63 [in_i] [facility] Height 2019-10-13 00:00:00 63 [in_i] [facility] BMI (Body Mass 2019-10-13 00:00:00 60.2 kg/m2 [facility] Body Weight 2019-10-13 00:00:00 340 [lb_av] [facility] Height 2019-07-07 00:00:00 63 [in_i] [facility] BMI (Body Mass 2019-07-07 00:00:00 58.8 kg/m2 [facility] Body Weight 2019-07-07 00:00:00 332 [lb_av] [facility] BP Diastolic 2019-04-10 00:00:00 67 mm[Hg] [facility] Height 2019-04-10 00:00:00 63 [in_i] [facility] BMI (Body Mass 2019-04-10 00:00:00 58.9 kg/m2 [facility] BP Systolic 2019-04-10 00:00:00 101 mm[Hg] [facility] Body Weight 2019-04-10 00:00:00 332.6 [lb_av] [facility] BP Diastolic 2019-02-09 00:00:00 83 mm[Hg] [facility] Height 2019-02-09 00:00:00 63 [in_i] [facility] BMI (Body Mass 2019-02-09 00:00:00 58.2 kg/m2 [facility] Index) Practice BP Systolic 2019-02-09 00:00:00 130 mm[Hg] [facility] Body Weight 2019-02-09 00:00:00 328.6 [lb_av] [facility] Procedures Procedure Date / Time Performing Clinician Source Performed LDCT, chest, for lung 2022-03-04 00:00:00 [facility] cancer screening Practice LDCT, chest, for lung 2022-01-07 00:00:00 [facility] cancer screening Practice MAMMO, screening, 2021-07-11 00:00:00 [facility] Norma zuñiga, bilateral Practice EXTERNAL PROVIDER 2021-07-08 05:01:00 Doctor Unassigned, No [facility] [place] RECORDS Name [facility] PHYSICIAN ORDERS 2021-06-26 05:01:00 Doctor Unassigned, No [facility] [place] Name [facility] PHYSICIAN ORDERS 2021-05-23 05:01:00 Doctor Unassigned, No [facility] [place] Name [facility] PHYSICIAN ORDERS 2021-05-02 06:01:00 Doctor Unassigned, No [facility] [place] Name [facility] REFERRAL- 2021-04-17 06:01:00 Doctor Unassigned, No [facility] [place] REQUEST/RESPONSE Name [facility] REFERRAL- 2021-03-06 06:01:00 Doctor Unassigned, No [facility] [place] REQUEST/RESPONSE Name [facility] REFERRAL- 2021-02-12 06:01:00 Doctor Unassigned, No [facility] [place] REQUEST/RESPONSE Name [facility] X-RAY OF SHOULDER 2 VIEW 2020-10-15 00:00:00 [facility] US, duplex, venous, 2020-10-15 00:00:00 [facility] upper extremity, Practice unilateral ANKLE BRACHIAL INDEX 2020-01-23 00:00:00 [facility] DONE ON BOTH LEGS WITH Practice QUANTAFLO MACHINE WITH PATIENT AT REST X-RAY HIP UNLIATERAL 2020-01-23 00:00:00 [facility] (2-3 VIEWS) Practice X-RAY OF CHEST 2 VIEW 2020-01-23 00:00:00 [facility] MAMMO, screening, 2020-01-23 00:00:00 [facility] Norma zuñiga, bilateral Practice ankle brachial index 2019-07-07 00:00:00 [facility] Practice MAMMO, screening, 2019-02-09 00:00:00 [facility] Norma isimelissa zuñiga, bilateral Practice Tonsillectomy [facility] Hysterectomy (Total) [facility]ton [facility] Plan of Care Planned Activity Planned Date Details Comments Source Diagnostic Test Pending 2022-04-13 drug screen, 14 [facility] 00:[facility] drugs Practice (detectimed), urine [code = drug screen, 14 drugs (detectimed), urine] Diagnostic Test Pending 2022-04-13 CBC w/ auto diff [facility] 00:00:00 [code = CBC w/ Practice auto diff] Diagnostic Test Pending 2022-04-13 CMP, serum or [facility] 00:00:00 plasma [code = Practice CMP, serum or plasma] Diagnostic Test Pending 2022-04-13 lipid panel, [facility] 00:00:00 serum [code = Practice lipid panel, serum] Diagnostic Test Pending 2022-04-13 TSH, serum or [facility] 00:00:00 plasma [code = Practice TSH, serum or plasma] Diagnostic Test Pending 2022-04-13 microalbumin/crea [facility] 00:00:00 tinine, mass Practice ratio, urine [code = microalbumin/crea tinine, mass ratio, urine] Future Scheduled Test 1. Your CT chest Vi mary anne Velasquez does not show any Practice acute or serious findings. [code = 1. Your CT chest does not show any acute or serious findings.] Future Appointment 2022-07-14 Javad Nguyeni, [id number] [facility] 10:15:[address] [facility] [address], [place] [address] Instructions [facility] Encounters Start End Encounter Admission Attending Care Care Encounter Source Date/Time Date/Time Type Type Clinicians Facility Department ID 2022-07-09 Outpatient [facility] [id number] Common 11:32:00 [id number] [facility] 2022-06-25 Outpatient [facility] [id number] Common 09:53:01 [id number] [facility] 2022-04-01 Outpatient [facility] [id number] [place] 08:54:[id number] [facility] 2022-03-30 Outpatient [facility] [id number] [place] 13:40:56 [id number] Health 2022-03-27 Outpatient [facility] [id number] [place] 06:52:49 [id number] Health 2022-03-13 Outpatient [facility] [id number] [place] 14:33:52 [id number] Health 2022-03-10 Outpatient [facility] [id number] [place] 08:46:26 [id number] Health 2022-06-29 2022-06-29 Outpatient Bui_Q VFP VFP [id number] [facility] 00:00:00 00:00:00 [id number] Family Practic e 2022-06-22 2022-06-22 Outpatient Bui_Q_WAGDN VFP VFP [id number] [facility] 00:00:00 00:00:00 U [id number] Family Practic e 2022-06-22 2022-06-22 Outpatient Bui_Q_WAGDN VFP VFP [id number] [facility] 00:00:00 00:00:00 U [id number] Family Practic e 2022-06-03 2022-06-03 Outpatient Bui_Q VFP VFP [id number] [facility] 00:00:00 00:00:00 [id number] Family Practic e 2022-06-03 2022-06-03 Outpatient Bui_Q VFP VFP [id number] [facility] 00:00:00 00:00:00 [id number] Family Practic e 2022-06-03 2022-06-03 Outpatient Bui_Q VFP VFP [id number] [facility] [facility] 00:[facility]:00 00:00:00 43276 Family Practic e 2022-05-27 2022-05-27 Outpatient Bui_Q VFP VFP [id number] [facility] 00:00:00 00:00:00 85151 Family Practic e 2022-05-27 2022-05-27 Javad Owens VFP [place] - [id number] [facility] 00:00:00 00:00:00 MD Yennifer: [facility] Famil y 87018 Medical - Pract[place] c [place] [address], [place] [address], [place] [address] , Ph. 2022-05-23 2022-05-23 Outpatient Bui_Q VFP VFP [id number] [facility] 00:00:00 00:00:00 64572 Family Practic e 2022-05-04 2022-05-04 Outpatient Bui_Q VFP VFP [id number] [facility] 00:00:00 00:00:00 26737 Family Practic e 2022-05-04 2022-05-04 Outpatient Bui_Q VFP VFP [id number] [facility] 00:00:00 00:00:00 12725 Family Practic e 2022-05-04 2022-05-04 Outpatient Bui_Q VFP VFP [id number] [facility] 00:00:00 00:00:00 47416 Family Practic e 2022-04-13 2022-04-13 Javad Owens VFP [place] - [id number] [facility] 00:00:00 00:00:00 MD Yennifer: [facility] Famil y 32006 Medical - Pract[place] c [place] _TIAN_Pedro Luis Millanmelissa, [place] [address], [place] [address] , Ph. 2022-04-09 2022-04-09 Outpatient Bui_Q VFP VFP [id number] [facility] 00:00:00 00:00:00 57105 Family Practic e 2022-04-09 2022-04-09 Outpatient Bui_Q VFP VFP [id number] [facility] 00:00:00 00:00:00 01499 Family Practic e 2022-03-30 2022-03-30 Outpatient [facility] [id number] [place] 14:00:00 15:06:08 Health 2022-03-30 2022-03-30 Office Betty [facility] 1.2.840.114 [id number] [place] 14:00:00 15:05:14 Visit Juani KRAUS [id number] H [facility] MEDICAL [id number] [id number] [id number] 2022-03-17 2022-03-17 David VFP [place] - [id number] V illage 00:00:00 00:00:00 [facility] Family Arguelles Medical - Practi c MD: [id number] [place] - e [place] VM_HOU_Fabianod [place] [address], [place] [address] , Ph. 2022-03-16 2022-03-16 Outpatient FOG_Taba_Ho AOSM AOSM [id number] Na 00:00:00 00:00:00 Kourtney [id number] Orthop e dic Sports Medicin e 2022-03-05 2022-03-05 Outpatient Bui_Q VFP VFP [id number] [facility] 00:00:00 00:00:00 20724 Family Practic e 2022-03-05 2022-03-05 Outpatient Bui_Q VFP VFP [id number] [facility] 00:00:00 00:00:00 52916 Family Practic e 2022-03-04 2022-03-04 Javad Owens VFP [place] - [id number] [address] [place] [address] 00:00:00 00:00:00 MD Yennifer: [facility] F[facility] y 10793 Medical - Pracbrad c [place] VM_ELIESERU_[address], [place] [address], [place] [address] , Ph. 2022-03-03 2022-03-03 Michelle VFP [place] - [id number] [facility] 00:00:00 00:00:00 Pema Ruvalcaba Famil y STONECUTTER HAND: 61172 Medical - Prac tic [place] VM_ELIESERU_[address], [place] [address], [place] [address] , Ph. 2022-03-01 2022-03-01 Emergency E AZNAUROVA-A MHBL MHBL [id number] MHBL 14:52:00 20:29:00 HERBER FREDERICK 2022-02-26 2022-02-26 Outpatient Bui_Q VFP VFP [id number] [facility] 00:00:00 00:00:00 00385 Family Practic e 2022-02-26 2022-02-26 Outpatient Bui_Q VFP VFP [id number] [facility] 00:00:00 00:00:00 59614 Family Practic e 2022-02-04 2022-02-04 Outpatient Bui_Q_WAGDN VFP VFP [id number] [facility] 00:00:00 00:00:00 U 85888 Family Practic e 2022-02-04 2022-02-04 Outpatient Bui_Q_WAGDN VFP VFP [id number] [facility] 00:00:00 00:00:00 U 71369 Family Practic e 2022-02-04 2022-02-04 Outpatient Bui_Q_WAGDN VFP VFP [id number] [facility] 00:00:00 00:00:00 U 94454 Family Practic e 2022-02-04 2022-02-04 Outpatient Bui_Q_WAGDN VFP VFP [id number] [facility] 00:00:00 00:00:00 U 36769 Family Practic e 2022-02-04 2022-02-04 Outpatient Bui_Q_WAGDN VFP VFP [id number] [facility] 00:00:00 00:00:00 U 86020 Family Practic e 2022-01-14 2022-01-14 Outpatient Bui_Q VFP VFP [id number] [facility] 00:00:00 00:00:00 80962 Family Practic e 2022-01-07 2022-01-07 Outpatient Bui_Q_WAGDN VFP VFP [id number] [facility] 00:00:00 00:00:00 U 77081 Family Practic e 2022-01-07 2022-01-07 Javad Owens VFP [place] - [id number] [facility] 00:00:00 00:00:00 MD Yennifer: [facility] Famil y 84213 Faisal huerta [place] VM_TIAN_Pedro Luis Calderon, [place] [address], [place] [address] , Ph. 2021-12-12 2021-12-12 David VFP [place] - [id number] V illage 00:00:00 00:00:00 [facility] BlaneFaisal MD: [id number] [place] - e [place] VM_HOU_Shad [place] [address], [place] [address] , Ph. 2021-11-26 2021-11-26 Outpatient Bui_Q VFP VFP [id number] [facility] 00:00:00 00:00:00 88842 Family Practic e 2021-11-11 2021-11-11 David VFP [place] - [id number] V illage 00:00:00 00:00:00 [facility] Faisal Goldberg MD: [id number] ODALYS_TIAN_Pedro Luis e [place] [facility], [facility] [address], [place] [address] , Ph. 2021-10-30 2021-10-30 Outpatient Bui_Q VFP VFP [id number] [facility] 00:00:00 00:00:00 94944 Family Practic e 2021-10-14 2021-10-14 Outpatient Bui_Q_WAGDN VFP VFP [id number] [facility] 00:00:00 00:00:00 U 16575 Family Practic e 2021-10-13 2021-10-13 Outpatient Bui_Q VFP VFP [id number] [facility] 00:00:00 00:00:00 55537 Family Practic e 2021-10-13 2021-10-13 Javad Owens VFP [place] - [id number] [facility] 00:00:00 00:00:00 MD Yennifer: Pema Nafisa torres [address] Faisal Keane VM_HOU_Shad e [facility], [address], [place] [address] , Ph. 2021-09-20 2021-09-20 Outpatient Bui_Q VFP VFP [id number] [facility] 00:00:00 00:00:00 65001 Family Practic e 2021-09-01 2021-09-01 Outpatient Bui_Q_WAGDN VFP VFP [id number] [facility] 00:00:00 00:00:00 U 23371 Family Practic e 2021-08-13 2021-08-13 Outpatient Bui_Q VFP VFP [id number] [facility] 01:59:00 01:59:00 75716 Family Practic e 2021-08-13 2021-08-13 David VFP [place] - [id number] V illage 00:00:00 00:00:00 [facility] Family Blane, Medical - Pracbrad huerta MD: 27239 VM_HOU_Shad e Shadow [facility], [address], [place] [address] , Ph. 2021-08-01 2021-08-01 Outpatient Bui_Q VFP VFP [id number]- [id number] [facility] 02:53:00 02:53:00 41154 Family Practic e 2021-07-30 2021-07-30 Outpatient Bui_Q_WAGDN VFP VFP [id number] [facility] 08:20:00 08:20:00 U 00523 Family Practic e 2021-07-30 2021-07-30 Outpatient Bui_Q_WAGDN VFP VFP [id number] [facility] 08:20:00 08:20:00 U 76760 Family Practic e 2021-07-21 2021-07-21 Outpatient Bui_Q VFP VFP [id number] [facility] 02:33:00 02:33:00 93572 Family Practic e 2021-07-11 2021-07-11 Outpatient Bui_Q VFP VFP [id number] [facility] 05:47:00 05:47:00 62304 Family Practic e 2021-07-11 2021-07-11 Javad Owens VFP [place] - [id number] [facility] 00:00:00 00:00:00 MD Yennifer: [facility] Famil y 55808 Medical - Bob huerta [place] VM_HOU_Shad [place] [facility], [address], [place] [address] , Ph. 2021-07-08 2021-07-08 Orders Doctor BALDWIN 1.2.840.114 [id number] Univers 00:00:00 00:00:00 Only Unassigned, KEVIN [id number] [place] [facility] 4.2.7.2.686 Allan as [phone] [facility] [address] 2021-07-02 2021-07-02 Outpatient Bui_Q VFP VFP [id number] [facility] 02:15:00 02:15:00 Family Practic e 2021-06-30 2021-06-30 Outpatient Bui_Q_WAGDN VFP VFP [id number] [facility] 07:47:00 07:47:00 U Family Practic e 2021-06-30 2021-06-30 Outpatient Bui_Q_WAGDN VFP VFP [id number] [facility] 07:47:00 07:47:00 U Family Practic e 2021-06-26 2021-06-26 Orders Doctor DENNY 1.2.840.[id number] [place] [address] 00:00:00 00:00:00 Only Unassigned, KEVIN [id number] [place] [facility] [id number] Allan as [phone] [address] 2021-06-23 2021-06-23 Outpatient Bui_Q VFP VFP [id number]- [facility] 02:03:00 02:03:00 49462 Family Practic e 2021-06-21 2021-06-21 Outpatient Bui_Q VFP VFP [id number]- [facility] 01:19:00 01:19:00 51839 Family Practic e 2021-06-19 2021-06-19 Kimberlyn [facility] [place] - [id number] [facility] 00:00:00 00:00:00 Shiber: [facility] 9055 Stephania Medical - Prac tic [facility], VM_HOU_Care e [address], [place] [address] , Ph. 2021-06-17 2021-06-17 Outpatient Bui_Q VFP VFP [id number] [facility] 04:26:00 04:26:00 84893 Family Practic e 2021-06-17 2021-06-17 Michelle [facility] [place] - [id number] [facility] 00:00:00 00:00:00 Jordon, [facility] Famil y STONECUTTER HAND: 68791 Medical - Prac tic [place] VM_HOU_Shad [place] [facility], [address], [place] [address] , Ph. 2021-06-16 2021-06-16 Kimberlyn VFP [place] - [id number] [facility] 00:00:00 00:00:00 Shiber: [facility] 9055 Stephania Medical - Prac [facility], VM_HOU_Care e [address], [place] [address] , Ph. 2021-06-09 2021-06-12 Inpatient E GAYLA, [facility] MED [address] [facility] 17:09:00 17:30:00 SARALEVAR 2021-06-12 2021-06-12 Outpatient Bui_Q_WAGDN VFP VFP [id number] [facility] 11:31:00 11:31:00 U 13294 Family Practic e 2021-06-12 2021-06-12 Outpatient Bui_Q VFP VFP [id number] [facility] 04:21:00 04:21:00 82913 Family Practic e 2021-06-03 2021-06-03 Outpatient Bui_Q VFP VFP [id number] [facility] 05:42:00 05:42:00 02200 Family Practic e 2021-06-03 2021-06-03 David VFP [place] - [id number] V illage 00:00:00 00:00:00 Dilramses [facility] Family Blane Medical - Pracbrad huerta MD: 73559 VM_HOU_Shad e [place] [facility], [address], [place] [address] , Ph. 2021-05-30 2021-05-30 Outpatient Bui_Q VFP VFP [id number] [facility] 11:16:00 11:16:00 96889 Family Practic e 2021-05-30 2021-05-30 Outpatient Bui_Q_WAGDN VFP VFP [id number] [facility] 11:16:00 11:16:00 U 69254 Family Practic e 2021-05-23 2021-05-23 Orders Doctor BALDWIN 1.2.840.114 [id number] Univers 00:00:00 00:00:00 Only Unassigned, KEVIN 350.1.13.10 ity of [facility] 4.2.7.2.686 Allan as [phone] [address] 2021-05-02 2021-05-02 Orders Doctor DENNY 1.2.840.114 [id number] Univers 00:00:00 00:00:00 Only Unassigned, KEVIN 350.1.13.10 ity of [facility] 4.2.7.2.686 Allan as [phone] [address] 2021-04-23 2021-04-23 Outpatient Bui_Q VFP VFP [id number] [facility] 01:43:00 01:43:00 Family Practic e 2021-04-21 2021-04-21 Outpatient Bui_Q VFP VFP [id number] [facility] 11:27:00 11:27:00 Family Practic e 2021-04-21 2021-04-21 David VFP [place] - [id number] V illage 00:00:00 00:00:00 [facility] Family Arguelles Medical - Practi deanna STILL: 15830 VM_HOU_Shaneisha e [place] [facility], [address], [place] [address] , Ph. 2021-04-17 2021-04-17 Orders Doctor DENNY Friend2.840.114 [id number] Univers 00:00:00 00:00:00 Only Unassigned, KEVIN 350.1.13.10 ity of [facility] 4.2.7.2.686 Allan as [phone] [address] 2021-04-16 2021-04-16 Outpatient Bui_Q VFP VFP [id number] [facility] 12:34:00 12:34:00 72067 Family Practic e 2021-04-15 2021-04-15 Outpatient Bui_Q VFP VFP [id number] [facility] 02:31:00 02:31:00 35959 Family Practic e 2021-04-14 2021-04-14 Outpatient Bui_Q VFP VFP [id number] [facility] 11:58:00 11:58:00 36939 Family Practic e 2021-04-14 2021-04-14 Javad Owens [facility] [place] - [id number] 4 Village 00:00:00 00:00:00 MD Yennifer: [facility] y 6122 Medical - Practi [facility], [place] [address], ([facility]) [place] [address] , Ph. 2021-03-06 2021-03-06 Orders Doctor DENNY 1.2.840.114 [id number] [facility] 00:00:00 00:00:00 Only Unassigned, KEVIN 350.1.13.10 ity of [facility] 4.2.7.2.686 Allan as [phone] [address] 2021-02-15 2021-02-15 [facility] [id number] 10:53:00 10:53:00 70026 Family Practic e 2021-02-15 2021-02-15 Outpatient Bui_Q VFP [facility] [id number] [facility] 10:53:00 10:53:00 35702 Family Practic e 2021-02-12 2021-02-12 Orders Doctor DENNY 1.2.840.114 [id number] Univers 00:00:00 00:00:00 Only Unassigned, KEVIN 350.1.13.10 ity of [facility] 4.2.7.2.686 Allan as [phone] [address] 2021-02-10 2021-02-10 Outpatient [facility]DN [facility] [id number] [facility] 11:28:00 11:28:00 U 43614 Family Practic e 2021-02-10 2021-02-10 Outpatient Bui_Q_WAGDN VFP [facility] [id number] [facility] 11:28:00 11:28:00 U 77200 Family Practic e 2021-02-06 2021-02-06 Office Faraz Mccarthy [facility] 1.2.840.114 [id number] [facility] 10:33:27 11:48:59 Visit Oren Ponce [facility] 350.1.13.10 ity of [place] [id number] Allan as WILMAN?BLEA [phone] Dc marcela HOPSON [address] [place] [address] MEDICAL OFFICE [facility] 2021-02-06 2021-02-06 Outpatient Armando PONCE, [facility] [id number] Univers 10:30:00 11:48:59 OREN melissa [facility] 2021-02-06 2021-02-06 Outpatient Armando PONCE [facility] [id number] Univers 10:30:00 10:30:00 OREN [facility] 2021-01-31 2021-01-31 Outpatient Bui_Q_WAGDN VFP VFP [id number] [facility] 08:53:00 08:53:00 U 61608 Family Practic e 2021-01-14 2021-01-14 Orders Doctor DENNY 1.2.840.114 [id number] Univers 00:00:00 00:00:00 Only Unassigned, KEVIN 350.1.13.[address] [place] [facility] [id number] Allan as [id number] [address] 2021-01-07 2021-01-07 Outpatient Bui_Q VFP VFP [id number] [facility] 01:09:00 01:09:00 43848 Family Practic e 2021-01-07 2021-01-07 Javad Owens P [place] - [id number] [address] [place] [address] 00:00:00 00:00:00 MD Yennifer: [facility] Famil y [address] [address], ([place] [address] , Ph. 2020-12-11 2020-12-11 Outpatient Bui_Q_WAG VFP VFP [id number] [facility] 01:03:00 01:03:00 25416 Family Practic e 2020-12-06 2020-12-06 Outpatient Bui_Q_WAG VFP VFP [id number] [facility] 05:07:00 05:07:00 79986 Family Practic e 2020-11-21 2020-11-21 Outpatient Bui_Q VFP VFP [id number] [facility] 03:22:00 03:22:00 91125 Family Practic e 2020-11-21 2020-11-21 David VFP [place] - [id number] V illage 00:00:00 00:00:00 Leora [facility] Family Blane Medical - Pracbrad huerta MD: 05549 VM_HOU_Fabianoneisha e [place] ow [facility], [facility] [address], [place] [address] , Ph. 2020-11-12 2020-11-12 Outpatient Bui_Q_WAG VFP VFP [id number] [facility] 02:36:00 02:36:00 14422 Family Practic e 2020-10-19 2020-10-19 Outpatient Bui_Q VFP VFP [id number] Village 05:18:00 05:18:00 77481 Family Practic e 2020-10-19 2020-10-19 Outpatient Bui_Q VFP VFP [id number] [place] 05:18:00 05:18:00 61525 Family Practic e 2020-10-19 2020-10-19 Outpatient Bui_Q VFP VFP [id number] [facility] 05:18:00 05:18:00 72501 Family Practic e 2020-10-19 2020-10-19 Outpatient Bui_Q VFP VFP [id number] [place] 05:18:00 05:18:00 68331 Family Practic e 2020-10-15 2020-10-15 Outpatient Bui_Q_WAG VFP VFP [id number] [place] 01:23:00 01:23:00 42237 Family Practic e 2020-10-15 2020-10-15 Javad Owens VFP [place] - [id number] 7 [facility] 00:00:00 00:00:00 MD Yennifer: [facility] Famil y 6122 Medical - Pracbrad huerta [place] VM_HOU_East e , [facility], ([facility]) [place] [address] , Ph. 2020-09-20 2020-09-20 Outpatient Bui_Q VFP VFP [id number] [facility] 02:01:00 02:01:00 38233 Family Practic e 2020-09-20 2020-09-20 Outpatient Bui_Q VFP VFP [id number] [facility] 02:01:00 02:01:00 63025 Family Practic e 2020-08-31 2020-08-31 Outpatient Bui_Q VFP VFP [id number] [facility] 04:58:00 04:58:00 06489 Family Practic e 2020-08-29 2020-08-29 Outpatient Bui_Q VFP VFP [id number] [facility] 03:22:00 03:22:00 74003 Family Practic e 2020-08-29 2020-08-29 David VFP [place] - [id number] V illage 00:00:00 00:00:00 [facility] Family ArguellesFaisal - Pracbrad huerta MD: 61470 Shaw delgado [facility], [facility] [address], [place] [address] , Ph. 2020-08-12 2020-08-12 Outpatient Bui_Q_WAG VFP VFP [id number] [facility] 10:00:00 10:00:00 59543 Family Practic e 2020-08-06 2020-08-06 Outpatient Bui_Q_WAG VFP VFP [id number] [facility] 06:29:00 06:29:00 13875 Family Practic e 2020-08-01 2020-08-01 Outpatient Bui_Q VFP VFP [id number] [facility] 03:51:00 03:51:00 18240 Family Practic e 2020-08-01 2020-08-01 David VFP [place] - [id number] V illage 00:00:00 00:00:00 [facility] Family ArguellesFaisal - Pracbrad huerta MD: 35930 Shaw delgado [facility], [address], [place] [address] , Ph. 2020-07-31 2020-07-31 Outpatient Bui_Q VFP VFP [id number] [facility] 03:24:00 03:24:00 47224 Family Practic e 2020-07-22 2020-07-22 Outpatient Bui_Q_WAG VFP VFP [id number] [facility] 07:15:00 07:15:00 04290 Family Practic e 2020-07-22 2020-07-22 Outpatient Bui_Q_WAG VFP VFP [id number] [facility] 07:15:00 07:15:00 34672 Family Practic e 2020-07-20 2020-07-20 Outpatient Bui_Q_WAG VFP VFP [id number] [id number] [facility] 02:21:00 02:21:00 [id number] Family Practic e 2020-07-16 2020-07-16 Outpatient Bui_Q_WAG VFP VFP [id number] [id number] [facility] 02:14:00 02:14:00 49443 Family Practic e 2020-07-16 2020-07-16 Javad Owens VFP [place] - [id number] [address] [place] [address] 00:00:00 00:00:00 MD Yennifer: [facility] [address] [place] [address] - [place] [address], ([facility]) [place] [address] , Ph. 2020-07-15 2020-07-15 Outpatient Bui_Q_WAG VFP VFP [id number] [facility] 05:51:00 05:51:00 08171 Family Practic e 2020-05-14 2020-05-14 Emergency E [facility] BL 14:15:00 15:40:00 BHAVESH 2020-05-02 2020-05-02 Outpatient Bui_Q_WAG VFP VFP [id number] [facility] 12:12:00 12:12:00 54518 Family Practic e 2020-05-02 2020-05-02 Outpatient Bui_Q_WAG VFP VFP [id number] [facility] 12:12:00 12:12:00 77802 Family Practic e 2020-05-02 2020-05-02 Outpatient VFP VFP [id number] [facility] 12:12:00 12:12:00 71198 Family Practic e 2020-04-22 2020-04-22 Outpatient Bui_Q_WAG VFP VFP [id number] [facility] 08:16:00 08:16:00 16824 Family Practic e 2020-04-22 2020-04-22 Javad Owens VFP [place] - [id number] 2 Village 00:00:00 00:00:00 MD Yennifer: [facility] Nafisa y 6122 Medical [facility] [place] [address], ([facility]) [place] [address] , Ph. 2020-02-27 2020-02-27 Outpatient Bui_Q_WAG VFP VFP [id number] [facility] 09:37:00 09:37:00 21090 Family Practic e 2020-02-27 2020-02-27 Outpatient Bui_Q_WAG VFP VFP [id number] [facility] 09:37:00 09:37:00 63807 Family Practic e 2020-02-27 2020-02-27 Outpatient Bui_Q_WAG VFP VFP [id number] [facility] 09:37:00 09:37:00 51069 Family Practic e 2020-02-27 2020-02-27 Outpatient VFP VFP [id number] [facility] 09:37:00 09:37:00 64374 Family Practic e 2020-02-27 2020-02-27 Outpatient VFP VFP [id number] [facility] 09:37:00 09:37:00 53303 Family Practic e 2020-02-27 2020-02-27 Outpatient Bui_Q_WAG VFP VFP [id number] 2-202 [facility] 09:37:00 09:37:00 52505 Family Practic e 2020-01-23 2020-01-23 Outpatient Bui_Q_WAG VFP VFP [id number] 2-202 [facility] 05:44:00 05:44:00 31192 Family Practic e 2020-01-23 2020-01-23 Outpatient Bui_Q_WAG VFP VFP [id number] 2-202 [facility] 05:44:00 05:44:00 49863 Family Practic e 2020-01-23 2020-01-23 Outpatient Bui_Q_WAG VFP VFP [id number] 2-202 [facility] 05:44:00 05:44:00 22562 Family Practic e 2020-01-23 2020-01-23 Outpatient Bui_Q_WAG VFP VFP [id number] 2-202 [facility] 05:44:00 05:44:00 52013 Family Practic e 2020-01-23 2020-01-23 Outpatient Bui_Q_WAG VFP VFP [id number] [facility] 05:44:00 05:44:00 96015 Family Practic e 2020-01-23 2020-01-23 Javad Owens VFP [place] - [id number] 4 [facility] 00:00:00 00:00:00 MD Yennifer: [facility] y [address] ([place] [address] , Ph. 2019-12-14 2019-12-14 Outpatient Bui_Q_WAG VFP VFP [id number] [facility] 10:19:00 10:19:00 54142 Family Practic e 2019-12-14 2019-12-14 Outpatient Bui_Q_WAG VFP VFP [id number] [facility] 10:19:00 10:19:00 81069 Family Practic e 2019-10-25 2019-10-25 Outpatient Bui_Q_WAG VFP VFP [id number] [facility] 02:17:00 02:17:00 89872 Family Practic e 2019-10-25 2019-10-25 Outpatient Bui_Q_WAG VFP VFP [id number] [facility] 02:17:00 02:17:00 29994 Family Practic e 2019-10-19 2019-10-19 Outpatient Bui_Q_WAG VFP VFP [id number] [facility] 12:37:00 12:37:00 27327 Family Practic e 2019-10-19 2019-10-19 Javad Owens VFP [place] - [id number] 0 [facility] 00:00:00 00:00:00 MD Yennifer: [facility] y [address] ([place] [address] , Ph. 2019-10-18 2019-10-18 Outpatient Bui_Q_WAG VFP VFP [id number] [facility] 09:32:00 09:32:00 59249 Family Practic e 2019-10-13 2019-10-13 Outpatient Bui_Q_WAG VFP VFP [id number] 04:23:00 04:23:00 76078 Family Practic e 2019-10-13 2019-10-13 Porchae B VFP [place] - [id number] [facility] 00:00:00 00:00:00 Fitzpatrick, [facility] Famil y STONECUTTER HAND: 6122 Medical - Pract [place] [address] [address], ([place] [address] , Ph. 2019-07-26 2019-07-26 Outpatient Bui_Q_WAG VFP VFP [id number] [place] [address] 02:06:00 02:06:00 26942 Family Practic e 2019-07-07 2019-07-07 Outpatient Bui_Q_WAG VFP VFP [id number] 11:49:00 11:49:00 98472 Family Practic e 2019-07-07 2019-07-07 Outpatient VFP VFP [id number] 11:49:00 11:49:00 [id number] Family Practic e 2019-07-07 2019-07-07 Outpatient Bui_Q_WAG VFP VFP [id number] [place] [address] 11:49:00 11:49:00 [id number] Family Practic e 2019-07-07 2019-07-07 Javad Owens VFP [place] - [id number] [address] [place] [address] 00:00:00 00:00:00 MD Yennifer: [facility] [address] [address], ([facility]) [place] [address] , Ph. 2019-05-18 2019-05-18 Outpatient Bui_Q_WAG VFP VFP [id number] [place] [address] 03:23:00 03:23:00 [id number] Family Practic e 2019-04-14 2019-04-14 Outpatient Bui_Q_WAG VFP VFP [id number] [place] [address] 02:34:00 02:34:00 [id number] Family Practic e 2019-04-14 2019-04-14 Outpatient Bui_Q_WAG VFP VFP [id number] [facility] 02:34:00 02:34:00 [id number] Family Practic e 2019-04-14 2019-04-14 Outpatient VFP VFP [id number] [facility] 02:34:00 02:34:00 [id number] Family Practic e 2019-04-14 2019-04-14 Outpatient Bui_Q_WAG VFP VFP [id number] 2202 [facility] 02:34:00 02:34:00 [id number] Family Practic e 2019-04-11 2019-04-11 Outpatient Bui_Q_WAG VFP VFP [id number] 2202 [facility] 08:37:00 08:37:00 [id number] Family Practic e 2019-04-10 2019-04-10 Outpatient Bui_Q_WAG VFP VFP [id number] [facility] 03:30:00 03:30:00 [id number] Family Practic e 2019-04-10 2019-04-10 Javad Owens VFP [place] - [id number] [facility] 00:00:00 00:00:00 MD Yennifer: [facility]amil y [address] [address], ([facility]) [place] [address] , Ph. 2019-03-08 2019-03-08 Outpatient VFP VFP [id number] [facility] 12:08:00 12:08:00 [id number] Family Practic e 2019-02-09 2019-02-09 Javad Owens VFP [place] - [id number] [facility] 00:00:00 00:00:00 MD Yennifer: [facility] Famil y [address] [address], ([facility]) [place] [address] , Ph. 2018-09-27 2018-09-27 Outpatient Wenceslao Ramirez 26 [id number] [address] 09:45:00 09:45:00 t Specialty/U Sp teresa Specialty rology - [facility] 2018-09-13 2018-09-13 Outpatient Wenceslao Billyt 26 [id number] Common 10:00:00 10:00:00 t Specialty/U Sp teresa Specialty rology - [facility] 2018-08-22 2018-08-22 Outpatient [facility] [place] [id number] Common 10:45:00 10:45:00 t Specialty/U Sp teresa Specialty rology - [facility] 2018-05-17 2018-05-17 [facility] [id number] Common 13:30:00 13:30:00 t Bone Bone and Spiri t and Joint Joint - [facility] 2018-05-02 2018-05-02 [facility] [id number] Common 13:30:00 13:30:00 t Bone Bone and Spiri t and Joint Joint - [facility] 2018-04-29 2018-04-29 Outpatient [place] [place] [id number] Common 09:58:00 09:58:00 t Bone Bone and Spiri t and Joint Joint - [facility] 2018-04-25 2018-04-25 [facility] [id number] Common 13:30:00 13:30:00 t Bone Bone and Spiri t and Joint Joint - [facility] 2018-04-14 2018-04-14 [facility] [place] [id number] Common 10:00:00 10:00:00 t Bone Bone and Spiri t and Joint Joint - [facility] 2018-03-29 2018-03-29 [facility] [place] [id number] Common 14:29:00 14:29:00 t Bone Bone and Spiri t and Joint Joint - [facility] 2018-03-24 2018-03-24 [facility] [place] [id number] Common 14:30:00 14:30:00 t Bone Bone and Spiri t and Joint Joint - [facility] 2018-03-04 2018-03-04 [facility] [id number] Common 08:00:00 08:00:00 t Bone Bone and Spiri t and Joint Joint - [facility] Results Test Description Test Time Test Comments Results Result Comments Source Hemoglobin A1c measurement device panel 2022-03-17 09:51:47 Test Item Value Reference Range Interpretation Comme nts Hemoglobin A1c/Hemoglobin.total in Blood (test code = 4548-4) 9.7 % 5.7-6.4 [facility] [id number] 09:51:47 Test Item Value Reference Range Interpretation Comments Hemoglobin A1c/Hemoglobin.total in 9.7 % 5.7-6.4 Blood (test code = 4548-4) [facility] [Mass/volume] in Capillary [id number] 09:47:09 Test Item Value Reference Range Interpretation Comments Blood Glucose: mg/dl (test code = Blood 244 Glucose: mg/dl) [facility] [Mass/volume] in Capillary [id number] 09:47:09 Test Item Value Reference Range Interpretation Comments Blood Glucose: mg/dl (test code = Blood 244 Glucose: mg/dl) [facility]inal[facility] macro (dipstick) panel - [id number] 16:16:56 Test Item Value Reference Range Interpretation Comments Interpretation UA test Automated performed using: (test device/analyzer code = Interpretation UA (00585,QW) test performed using:) Interpretation Color Yellow (test code = Interpretation Color) Interpretation Clarity Clear (test code = Interpretation Clarity) Interpretation Glucose 250 (mg/dL) (test code = Interpretation Glucose (mg/dL)) Interpretation Bilirubin Negative (test code = Interpretation Bilirubin) Interpretation Ketone Negative (mg/dL) (test code = Interpretation Ketone (mg/dL)) Interpretation Specific 1.025 Virgie (test code = Interpretation Specific Virgie) Interpretation Occult Negative Blood (test code = Interpretation Occult Blood) Interpretation pH (test 6.5 code = Interpretation pH) Interpretation Protein Negative (test code = Interpretation Protein) Interpretation 0.2 Urobilinogen (test code = Interpretation Urobilinogen) Interpretation Nitrites Negative (test code = Interpretation Nitrites) Interpretation Leukocytes Negative (test code = Interpretation Leukocytes) [facility] macro (dipstick) panel - [id number] 16:16:56 Test Item Value Reference Range Interpretation Comments Interpretation UA test Automated performed using: (test device/analyzer code = Interpretation UA (67065,QW) test performed using:) Interpretation Color Yellow (test code = Interpretation Color) Interpretation Clarity Clear (test code = Interpretation Clarity) Interpretation Glucose 250 (mg/dL) (test code = Interpretation Glucose (mg/dL)) Interpretation Bilirubin Negative (test code = Interpretation Bilirubin) Interpretation Ketone Negative (mg/dL) (test code = Interpretation Ketone (mg/dL)) Interpretation Specific 1.025 Virgie (test code = Interpretation Specific Virgie) Interpretation Occult Negative Blood (test code = Interpretation Occult Blood) Interpretation pH (test 6.5 code = Interpretation pH) Interpretation Protein Negative (test code = Interpretation Protein) Interpretation 0.2 Urobilinogen (test code = Interpretation Urobilinogen) Interpretation Nitrites Negative (test code = Interpretation Nitrites) Interpretation Leukocytes Negative (test code = Interpretation Leukocytes) [facility] Campusalys macro (dipstick) panel - [id number] 16:16:56 Test Item Value Reference Range Interpretation Comments Interpretation UA test Automated performed using: (test device/analyzer code = Interpretation UA ([id number],QW) test performed using:) Interpretation Color Yellow (test code = Interpretation Color) Interpretation Clarity Clear (test code = Interpretation Clarity) Interpretation Glucose 250 (mg/dL) (test code = Interpretation Glucose (mg/dL)) Interpretation Bilirubin Negative (test code = Interpretation Bilirubin) Interpretation Ketone Negative (mg/dL) (test code = Interpretation Ketone (mg/dL)) Interpretation Specific 1.025 Virgie (test code = Interpretation Specific Virgie) Interpretation Occult Negative Blood (test code = Interpretation Occult Blood) Interpretation pH (test 6.5 code = Interpretation pH) Interpretation Protein Negative (test code = Interpretation Protein) Interpretation 0.2 Urobilinogen (test code = Interpretation Urobilinogen) Interpretation Nitrites Negative (test code = Interpretation Nitrites) Interpretation Leukocytes Negative (test code = Interpretation Leukocytes) [facility] macro (dipstick) panel - [id number] 16:16:56 Test Item Value Reference Range Interpretation Comments Interpretation UA test Automated performed using: (test device/analyzer code = Interpretation UA (36087,QW) test performed using:) Interpretation Color Yellow (test code = Interpretation Color) Interpretation Clarity Clear (test code = Interpretation Clarity) Interpretation Glucose 250 (mg/dL) (test code = Interpretation Glucose (mg/dL)) Interpretation Bilirubin Negative (test code = Interpretation Bilirubin) Interpretation Ketone Negative (mg/dL) (test code = Interpretation Ketone (mg/dL)) Interpretation Specific 1.025 Virgie (test code = Interpretation Specific Virgie) Interpretation Occult Negative Blood (test code = Interpretation Occult Blood) Interpretation pH (test 6.5 code = Interpretation pH) Interpretation Protein Negative (test code = Interpretation Protein) Interpretation 0.2 Urobilinogen (test code = Interpretation Urobilinogen) Interpretation Nitrites Negative (test code = Interpretation Nitrites) Interpretation Leukocytes Negative (test code = Interpretation Leukocytes) [facility]Glucose [Mass/volume] in Capillary [id number] 10:50:51 Test Item Value Reference Range Interpretation Comments Blood Glucose: mg/dl (test code = Blood 147 Glucose: mg/dl) [facility] [Mass/volume] in Capillary [id number] 10:50:51 Test Item Value Reference Range Interpretation Comments Blood Glucose: mg/dl (test code = Blood 147 Glucose: mg/dl) [facility] OrleansHemoglobin A1c measurement device [id number] 10:29:20 Test Item Value Reference Range Interpretation Comments Hemoglobin A1c/Hemoglobin.total in 9.0 % 5.7-6.4 Blood (test code = 4548-4) [facility] A1c measurement device [id number] 11:59:36 Test Item Value Reference Range Interpretation Comments Hemoglobin A1C Fingerstick: (test code 8.6 = Hemoglobin A1C Fingerstick:) [facility]Gl[facility] [Mass/volume] in Capillary [id number] 11:54:04 Test Item Value Reference Range Interpretation Comments Blood Glucose: mg/dl (test code = Blood 134 Glucose: mg/dl) [facility]Urinalysis macro (dipstick) panel - [id number] 15:27:00 Test Item Value Reference Range Interpretation Comments Color Color (test code = Color light yellow Color) Color Appearance (test code = clear Color Appearance) Color Glucose (test code = Color negative Glucose) Color Bilirubin (test code = negative Color Bilirubin) Color Ketones (test code = Color negative Ketones) Color Specific Virgie (test 1.020 code = Color Specific Virgie) Color Blood (test code = Color trace Blood) Color PH (test code = Color PH) 6.0 Color Protein (test code = Color negative Protein) Color Urobilinogen (test code = 0.2 Color Urobilinogen) Color Nitrites (test code = negative Color Nitrites) Color Leukocytes (test code = negative Color Leukocytes) [facility] PracticeUrinalysis macro (dipstick) panel - [id number] 15:27:00 Test Item Value Reference Range Interpretation Comments Color Color (test code = Color light yellow Color) Color Appearance (test code = clear Color Appearance) Color Glucose (test code = Color negative Glucose) Color Bilirubin (test code = negative Color Bilirubin) Color Ketones (test code = Color negative Ketones) Color Specific Virgie (test 1.020 code = Color Specific Virgie) Color Blood (test code = Color trace Blood) Color PH (test code = Color PH) 6.0 Color Protein (test code = Color negative Protein) Color Urobilinogen (test code = 0.2 Color Urobilinogen) Color Nitrites (test code = negative Color Nitrites) Color Leukocytes (test code = negative Color Leukocytes) [facility]Glucose [Mass/volume] in Capillary [id number] 15:29:53 Test Item Value Reference Range Interpretation Comments Blood Glucose: mg/dl (test code = Blood 152 Glucose: mg/dl) [facility] [Mass/volume] in Capillary [id number] 15:29:53 Test Item Value Reference Range Interpretation Comments Blood Glucose: mg/dl (test code = Blood 152 Glucose: mg/dl) [facility]Gl[facility] [Mass/volume] in Capillary [id number] 15:29:53 Test Item Value Reference Range Interpretation Comments Blood Glucose: mg/dl (test code = Blood 152 Glucose: mg/dl) [facility]Gl[facility] [Mass/volume] in Capillary [id number] 15:29:53 Test Item Value Reference Range Interpretation Comments Blood Glucose: mg/dl (test code = Blood 152 Glucose: mg/dl) [facility] PracticeGlucose [Mass/volume] in Capillary [id number] 15:29:53 Test Item Value Reference Range Interpretation Comments Blood Glucose: mg/dl (test code = Blood 152 Glucose: mg/dl) [facility] [Mass/volume] in Capillary [id number] 09:13:06 Test Item Value Reference Range Interpretation Comments Blood Glucose: mg/dl (test code = Blood 283 Glucose: mg/dl) [facility] OrleansC peptide [Mass/volume] in Serum or [id number] 15:51:00 Test Item Value Reference Range Interpretation Comments C-peptide (test code = C-peptide) 5.24 NG/mL 0.80-3.85 H [facility] Practicediabetes panel, [id number] 15:51:00 Test Item Value Reference Range Interpretation Comments glutamic acid decarboxylase 65 Ab (test <5 <5 code = glutamic acid decarboxylase 65 Ab) ia-2 antibody (test code = ia-2 <5.4 <5.4 antibody) insulin autoantibody (test code = <0.4 <0.4 insulin autoantibody) [facility]C peptide [Mass/volume] in Serum or [id number] 15:51:00 Test Item Value Reference Range Interpretation Comments C-peptide (test code = C-peptide) 5.24 NG/mL 0.80-3.85 H [facility] Practicediabetes panel, [id number] 15:51:00 Test Item Value Reference Range Interpretation Comments glutamic acid decarboxylase 65 Ab (test <5 <5 code = glutamic acid decarboxylase 65 Ab) ia-2 antibody (test code = ia-2 <5.4 <5.4 antibody) insulin autoantibody (test code = <0.4 <0.4 insulin autoantibody) [facility]
[2022-07-10] MEDS ORDERED: HYDROCODONE/APAP 5/325 MG TAB ONE (20:52)
[2022-07-10] MEDS ORDERED: dexAMETHasone 10 MG/ML VIAL ONE (20:52)
[2022-07-10] MEDS ORDERED: KETOROLAC 30 MG/ML INJ ONE (20:53)
--- NOTE | 2022-07-10 21:11 | RAD REPORT ---
EXAM DESCRIPTION: CT - [id number] - 07/10/2022 8:52 pm CLINICAL HISTORY: Trauma, head and neck injury. PAIN COMPARISON: <Comparisons> TECHNIQUE: Axial 5 mm thick images of the head were obtained. Axial 2 mm thick images of the cervical spine were obtained with sagittal and coronal reconstruction images generated and reviewed. All CT scans are performed using dose optimization technique as appropriate and may include automated exposure control or mA/KV adjustment according to patient size. FINDINGS: CT HEAD WITHOUT CONTRAST: No acute hemorrhage, hydrocephalus or extra-axial collection is identified.No areas of brain edema or midline shift. The paranasal sinuses and mastoids are clear.The calvarium is intact. CT CERVICAL SPINE WITHOUT CONTRAST: No fracture or subluxation.Mild lower cervical degenerative changes.No prevertebral soft tissues swel ling is identified. IMPRESSION: No acute intracranial or cervical spine findings.
--- NOTE | 2022-07-10 22:05 | ER ---
Nurse's Notes [facility] Name: Homa Delgado Age: 56 yrs Sex: Female : 1965 Arrival Date: 07/10/2022 Time: 20:16 Bed 20 Private MD: Diagnosis: Cervical disc disorder with radiculopathy, unspecified cervical region Presentation: 07/10 20:21 Chief complaint: Patient states: "I'm having really bad pain that starts in my neck on vc1 the left side and goes all the way down my arm to my elbow. I put some stuff like bengay on there and take ibuprofen and it feels better for a little bit but then it comes back. I've also been getting really bad headaches.". Coronavirus screen: Vaccine status: Patient reports receiving the 2nd dose of the covid vaccine. [employer] Client denies travel out of the [place] in the last 14 days. At this time, the client does not indicate any symptoms associated with coronavirus-19. Ebola Screen: Patient negative for fever greater than or equal to 101.5 degrees Fahrenheit, and additional compatible Ebola Virus Disease symptoms Patient denies exposure to infectious person. Patient denies travel to an Ebola-affected area in the 21 days before illness onset. No symptoms or risks identified at this time. Initial Sepsis Screen: Does the patient meet any 2 criteria? No. Patient's initial sepsis screen is negative. Does the patient have a suspected source of infection? No. Patient's initial sepsis screen is negative. Risk Assessment: Do you want to hurt yourself or someone else? Patient reports no desire to harm self or others. Onset of symptoms was July 10, 2022. 20:21 Method Of Arrival: Wheelchair vc1 20:21 Acuity: IVANA 4 vc1 Triage Assessment: 20:27 General: Appears in no apparent distress. uncomfortable, obese, Behavior is calm, vc1 cooperative, appropriate for age. Pain: Complains of pain in left sternocleidomastoid Pain radiates to anterior aspect of left shoulder, left bicep and left antecubital area. EENT: No deficits noted. No signs and/or symptoms were reported regarding the EENT system. Neuro: Level of Consciousness is awake, alert, obeys commands, Oriented to person, place, time, situation, Appropriate for age. Cardiovascular: No deficits noted. Respiratory: Airway is patent Respiratory effort is even, unlabored, Respiratory pattern is regular, symmetrical. GI: No deficits noted. No signs and/or symptoms were reported involving the gastrointestinal system. : No deficits noted. No signs and/or symptoms were reported regarding the genitourinary system. Derm: No deficits noted. No signs and/or symptoms reported regarding the dermatologic system. Musculoskeletal: Reports pain in left arm and left sternocleidomastoid. Historical: - Allergies: 20:26 Ampicillin; vc1 20:26 Clindamycin; vc1 - PMHx: 20:26 Diabetes - NIDDM; High Cholesterol; Hypertension; Nerve damage; Thyroid problem; vc1 - PSHx: 20:26 None; vc1 - Immunization history:: Client reports receiving the 2nd dose of the Covid vaccine. - Social history:: Smoking status: Patient reports the use of cigarette tobacco products, smokes one pack cigarettes per day. - Family history:: not pertinent. - Hospitalizations: : No recent hospitalization is reported. Screenin:27 Abuse screen: Denies threats or abuse. Nutritional screening: No deficits noted. vc1 Tuberculosis screening: No symptoms or risk factors identified. 22:17 [facility] ED Fall Risk Assessment (Adult) History of falling in the last 3 months, aa9 including since admission No falls in past 3 months (0 pts) Confusion or Disorientation No (0 pts) Intoxicated or Sedated No (0 pts) Impaired Gait Yes (1 pt) Mobility Assist Device Used Yes (1 pt) Altered Elimination No (0 pt) Score/Fall Risk Level 3 or more points = High Risk Oriented to surroundings, Maintained a safe environment, Educated pt \\T\\ family on fall prevention, incl call for assistance when getting out of bed. Assessment: 21:00 Neuro: Level of Consciousness is awake, alert, obeys commands, Oriented to person, aa9 place, time, situation, Electro Mechanical Engineer are equal bilaterally Speech is normal. Respiratory: Airway is patent Respiratory effort is even, unlabored. 21:00 General: Appears in no apparent distress. uncomfortable, obese, unkempt, Behavior is aa9 calm, cooperative. Cardiovascular: Patient's skin is warm and dry. 21:59 Reassessment: Patient appears in no apparent distress at this time. Kwaku Galarza at bedside.aa9 22:17 Reassessment: Patient appears in no apparent distress at this time. Patient and/or aa9 family updated on plan of care and expected duration. Pain level reassessed. Patient is alert, oriented x 3, equal unlabored respirations, skin warm/dry/pink. Patient states symptoms have improved. Vital Signs: 20:21 BP 121 / 66; Pulse 85; Resp 18; Temp 98; Pulse Ox 95% on R/A; Weight 144.24 kg; Height vc1 5 ft. 3 in. ; Pain 8/10; 21:00 BP 127 / 57; Pulse 91; Resp 16 S; Pulse Ox 94% on R/A; aa9 22:17 BP 128 / 68; Pulse 89; Resp 19; Temp 98.5; Pulse Ox 97% on R/A; aa9 20:21 Body Mass Index 56.33 (144.24 kg, 160.02 cm) vc1 20:21 Pain Scale: Adult vc1 20:21 pt is a smoker vc1 ED Course: 20:18 Patient arrived in ED. es 20:23 Luis Ames MD is Attending Physician. rn 20:26 Triage completed. vc1 20:27 Arm band placed on right wrist. vc1 20:33 Parvin Brooks, BETZAIDA is Primary Nurse. aa9 20:44 Inserted saline lock: 20 gauge in right antecubital area, using aseptic technique. aa9 20:54 CT Head C Spine In Process Unspecified. EDMS 21:14 Patient has correct armband on for positive identification. Bed in low position. Call aa9 light in reach. Side rails up X2. Pulse ox on. NIBP on. 22:17 No provider procedures requiring assistance completed. IV discontinued, intact, aa9 bleeding controlled, No redness/swelling at site. Pressure dressing applied. Administered Medications: 21:03 Drug: Decadron - Dexamethasone IVP 10 mg Route: IVP; Site: right antecubital; aa9 21:27 Follow up: Response: No adverse reaction aa9 21:06 Drug: Ketorolac IVP 15 mg Route: IVP; Site: right antecubital; aa9 21:27 Follow up: Response: No adverse reaction aa9 21:06 Drug: HYDROcodone-acetaminophen PO 5 mg-325 mg 1 tabs Route: PO; aa9 21:27 Follow up: Response: No adverse reaction aa9 Medication: 20:29 VIS not applicable for this client. vc1 Outcome: 22:05 Discharge ordered by . rn 22:17 Discharged to home via wheelchair. aa9 22:17 Condition: stable 22:17 Discharge instructions given to patient, Instructed on discharge instructions, follow up and referral plans. medication usage, Demonstrated understanding of instructions, follow-up care, medications, Prescriptions given X 3. 22:18 Patient left the ED. aa9 Signatures: Dispatcher [employer] Jules Roman, MD MD rn Calcote, Vanessa, RN RN vc1 Parvin Brooks RN RN aa9
--- NOTE | 2022-07-10 22:05 | EDPHYS ---
Physician Documentation [facility] Name: Homa Delgado Age: 56 yrs Sex: Female : 1965 Arrival Date: 07/10/2022 Time: 20:16 Bed 20 Private MD: ED Physician Luis Ames HPI: 07/10 20:52 This 56 yrs old Female presents to ER via Wheelchair with complaints of Neck Pain, rn <24hrs Old, Arm Pain. 20:52 The patient or guardian complains of pain, that is acute. The symptoms are located at rn the cervical spine. Onset: The symptoms/episode began/occurred 3 day(s) ago. Associated signs and symptoms: Pertinent positives: tingling, in the left arm, Pertinent negatives: fever, bladder incontinence, bowel incontinence, weakness. The pain radiates to the left arm. Modifying factors: The symptoms are alleviated by nothing. the symptoms are aggravated by nothing. Severity of symptoms: At their worst the symptoms were moderate, in the emergency department the symptoms are unchanged. The patient has not experienced similar symptoms in the past. The patient has not recently seen a physician. Pt reports neck pain for 3 days, no direct trauma, radiates to left upper arm. No weakness. Just recently started using wheelchair 1 month ago and getting used to it. NO chest pain/sob/abd pain. Has chronic back/hip/knee problems. . Historical: - Allergies: 20:26 Ampicillin; vc1 20:26 Clindamycin; vc1 - PMHx: 20:26 Diabetes - NIDDM; High Cholesterol; Hypertension; Nerve damage; Thyroid problem; vc1 - PSHx: 20:26 None; vc1 - Immunization history:: Client reports receiving the 2nd dose of the Covid vaccine. - Social history:: Smoking status: Patient reports the use of cigarette tobacco products, smokes one pack cigarettes per day. - Family history:: not pertinent. - Hospitalizations: : No recent hospitalization is reported. ROS: 20:52 Constitutional: Negative for fever, chills, and weight loss, Neck: + neck pain, rn negative for injury Cardiovascular: Negative for chest pain, palpitations, and edema, Respiratory: Negative for shortness of breath, cough, wheezing, and pleuritic chest pain, Abdomen/GI: Negative for abdominal pain, nausea, vomiting, diarrhea, and constipation, Back: Negative for injury and pain, MS/Extremity: Negative for injury and deformity, Skin: Negative for injury, rash, and discoloration, Neuro: Negative for headache, weakness, and seizure. Exam: 20:52 Constitutional: This is a well developed, well nourished patient who is awake, alert, rn and in no acute distress. Head/Face: Normocephalic, atraumatic. Neck: Mild pericervical surface tenderness, no focal bony tenderness, no crepitus, no mass Cardiovascular: Regular rate and rhythm. No pulse deficits. Skin: Warm, dry MS/ Extremity: Pulses equal, no cyanosis. Neurovascular intact. Full, normal range of motion. Equal circumference. Neuro: Awake and alert, GCS 15, oriented to person, place, time, and situation. Cranial nerves II-XII grossly intact. Motor strength 5/5 in all extremities. Sensory grossly intact. 22:37 ECG was reviewed by the Attending Physician. rn Vital Signs: 20:21 BP 121 / 66; Pulse 85; Resp 18; Temp 98; Pulse Ox 95% on R/A; Weight 144.24 kg; Height vc1 5 ft. 3 in. ; Pain 8/10; 21:00 BP 127 / 57; Pulse 91; Resp 16 S; Pulse Ox 94% on R/A; aa9 22:17 BP 128 / 68; Pulse 89; Resp 19; Temp 98.5; Pulse Ox 97% on R/A; aa9 20:21 Body Mass Index 56.33 (144.24 kg, 160.02 cm) vc1 20:21 Pain Scale: Adult vc1 20:21 pt is a smoker vc1 MDM: 20:23 Patient medically screened. rn 22:04 Differential diagnosis: arthritis, Cervical Disc Herniation Cervical Discogenic Pain rn Cervical Facet Syndrome Cervical Raiculopathy cervical strain, Spondylolisthesis Spondylosis subluxation, torticollis. Data reviewed: vital signs, nurses notes, radiologic studies, CT scan, and as a result, I will discharge patient. Counseling: I had a detailed discussion with the patient and/or guardian regarding: the historical points, exam findings, and any diagnostic results supporting the discharge/admit diagnosis, radiology results, the need for outpatient follow up, to return to the emergency department if symptoms worsen or persist or if there are any questions or concerns that arise at home. Response to treatment: the patient's symptoms have mildly improved after treatment, and as a result, I will discharge patient. Special discussion: I discussed with the patient/guardian in detail that at this point there is no indication for admission to the hospital. It is understood, however, that if the symptoms persist or worsen the patient needs to return immediately for re-evaluation. Further emergent ED testing is not indicated at this point in time. I discussed with the patient/guardian in detail the need to arrange with the PCP or specialist further outpatient testing, MRI, Based on the history and exam findings, there is no indication for further emergent testing or inpatient evaluation. I discussed with the patient/guardian the need to see the primary care provider for further evaluation of the symptoms. 07/10 20:32 Order name: CT Head C Spine; Complete Time: 21:14 rn 07/10 21:14 Order name: EKG; Complete Time: 21:15 rn 07/10 20:32 Order name: IV Start; Complete Time: 20:44 rn 07/10 21:14 Order name: EKG - Nurse/Tech; Complete Time: 21:27 rn EC:37 Rate is 89 beats/min. Rhythm is regular. QRS [place] is Normal. [place] interval is normal. QRS rn interval is normal. QT interval is normal. No Q waves. T waves are Normal. No ST changes noted. Clinical impression: Normal ECG. Interpreted by me. Reviewed by me. Administered Medications: 21:03 Drug: Decadron - Dexamethasone IVP 10 mg Route: IVP; Site: right antecubital; aa9 21:27 Follow up: Response: No adverse reaction aa9 21:06 Drug: Ketorolac IVP 15 mg Route: IVP; Site: right antecubital; aa9 21:27 Follow up: Response: No adverse reaction aa9 21:06 Drug: HYDROcodone-acetaminophen PO 5 mg-325 mg 1 tabs Route: PO; aa9 21:27 Follow up: Response: No adverse reaction aa9 Disposition Summary: 07/10/22 22:05 Discharge Ordered Location: Home rn Problem: new rn Symptoms: have improved rn Condition: Stable rn Diagnosis - Cervical disc disorder with radiculopathy, unspecified cervical region rn Followup: rn - With: Private Physician - When: As needed - Reason: Recheck today's complaints, Re-evaluation by your physician Discharge Instructions: - Discharge Summary Sheet rn - Cervical Radiculopathy rn Forms: - Medication Reconciliation Form rn - Thank You Letter rn - Antibiotic internet project manager - Prescription Opioid Use rn Prescriptions: - Tramadol 50 mg Oral Tablet - take 1 tablet by ORAL route every 8-10 hours as needed; 12 tablet; Refills: 0, rn Product Selection Permitted - Medrol (Maurice) 4 mg Oral Tablets, Dose Pack - take 1 tablet by ORAL route as directed - follow package instructions; 1 rn packet; Refills: 0, Product Selection Permitted - Cyclobenzaprine 5 mg Oral Tablet - take 1 tablet by ORAL route 3 times per day As needed; 15 tablet; Refills: 0, rn Product Selection Permitted Signatures: Dispatcher [employer] EDLuis Nava MD MD rn Calcote, Vanessa RN RN vc1 Parvin Brooks, RN RN aa9
[2022-07-10 22:45] VITALS: BP 128/68; TEMP 98.5; O2SAT 97
--- NOTE | 2022-07-12 14:46 | EKG ---
Test Date: 2022-07-10 Test Time: 21:23:07 [place] Machine: Benny MEASUREMENT RESULTS: Intervals: Rate: 89 KS: 144 QRSD: 86 QT: 376 QTc: 457 [place]: P: 74 KS: 144 QRS: 39 T: 86 INTERPRETIVE STATEMENTS: Normal sinus rhythm Normal ECG No previous ECG available for comparison Electronically Signed On 07-12-22 14:43:47 CDT by Ken Iqbal
== END 2022-07-10 22:18 | disposition home or self-care (01) ==
LOC: ER 20:16
DX: M50.10 Cervical disc disorder with radiculopathy, unspecified cervical region (principal); M79.602 Pain in left arm; F17.210 Nicotine dependence, cigarettes, uncomplicated; Z88.1 Allergy status to other antibiotic agents
CPT/HCPCS: 93005; 70450; 72125; 96375; 96374; 99284; J1100

== ENCOUNTER 2023-01-31 20:23 | Emergency (ER) | payer OTHER ==
--- OUTSIDE RECORDS SUMMARY | 2023-01-31 20:32 | XMS REPORT | Continuity of Care Document ---
:1965 Author Organization [facility] t Address [address] [place] [address] [address] [place] [address] Care Team Providers Name Role Phone Javad De Oliveira Primary Care Physician Jojo Attending Clinician Unavailable Sadaf Attending Clinician Unavailable Juani Hernández MD Attending Clinician Rosendo Attending Clinician Unavailable Doctor Unassigned, [place] Attending Clinician Unavailable Faraz Sawant Attending Clinician Oren Ponce MD Attending Clinician OREN PONCE Attending Clinician Unavailable Jojo Admitting Clinician Unavailable Sadaf Admitting Clinician Unavailable Rosendo Admitting Clinician Unavailable Payers Payer Name Policy Type Policy Number Effective Date Expiration Date Kiara card [facility] [id number] 2017 MEDICARE 00:00:00 [facility] [id number] 2017 2022 00:00:00 00:00:00 [id number] (MEDICARE 00:00:00 REPLACEMENT/ADVANTA GE - HMO) [facility] [id number] 2017 (HMO) 00:00:00 Problems Condition Condition Condition Status Onset Resolution Last Treating Co mments Source Name Details Category Date Date Treatment Clinician Date 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 00:00: Pr actic disorder Disorder 00 e Opioid Opioid Problem Active [facility] dependence Dependence 1-04 Fa isi 00:00: Practic 00 e Long-term Long-term Problem Active Chuy lopez current Current 1-04 Family use of Use of 00:00: Practic insulin Insulin 00 e Type 2 Type 2 Problem Active [facility] diabetes Diabetes 6-03 Family mellitus Mellitus [...] Mellitus Type 2 Type 2 Problem Active [facility] diabetes Diabetes 1-18 Family mellitus Mellitus 00:00: Practi c with with 00 e peripheral Peripheral angiopathy Angiopathy Tobacco Tobacco Problem Active 2019-03 [place] dependence Dependence 1-24 Fa isi syndrome Syndrome 00:00: Practi c 00 e Peripheral Peripheral Problem Active 2019-03 [place] vascular Vascular 1-24 Family disease Disease 00:00: Practic 00 e Chronic Chronic Problem Active 2019-03 [facility] obstructiv Obstructiv 1-24 Fa isi e lung e Lung 00:00: Practic disease Disease 00 e Urinary Urinary Problem Active 2019-03 [facility] incontinen Incontinen 1-24 Fa isi ce ce 00:00: Practic 00 e Venous Venous Problem Active [facility] insufficie Insufficie 8-20 Fa isi ncy of leg ncy of Leg 00:00: Pr actic 00 e Morbid Morbid Problem Active [facility] obesity Obesity 8-19 Family 00:00: Practic 00 e Chronic Chronic Problem Active [facility] kidney Kidney 5-28 Family disease Disease 00:00: Practic due to Due to 00 e hypertensi Hypertensi on on Chronic Chronic Problem Active [facility] kidney Kidney 5-28 Family disease Disease 00:00: Practic due to Due to 00 e type 2 Type 2 diabetes Diabetes mellitus Mellitus Chronic Chronic Problem Active [facility] kidney Kidney 3-22 Family disease Disease [...] 00 e Endometria Endometria Disease Active U nivevy l cancer l cancer 07-27 ity of 00:00: [place] [facility] S/P S/P Disease Active Univers MAHAD-BSO MAHAD-BSO - ity of 00:00: [place] [facility] Wound Wound Disease Active Univers drainage drainage - ity of 00:00: [place] [facility] Adnexal Adnexal Disease Active Univers mass mass 4-20 ity of 00:00: [place] [facility] Essential Essential Disease Active Uni vers hypertensi hypertensi 4-20 it y of on on 00:00: [place] [facility] Hypertensi Hypertensi Disease Active U tomyers on on 03-26 ity of 00:00: Medical Branch Type II or Type II or Disease Active U nivers unspecifie unspecifie 03-26 it y of d type d type 00:00: diabetes diabetes 00 Medica l mellitus mellitus Branch with with unspecifie unspecifie d d complicati complicati on, on, uncontroll uncontroll ed ed Lymphedema Lymphedema Disease Active U nivers 03-26 ity of 00:00: Medical Branch Hypothyroi Hypothyroi Disease Active U [...] nivers a a 03-26 ity of 00:00: Medical Branch [id number] Primary Problem Commo n osteoarthr Spirit itis of - [facility] left hip [facility] [id number] [place] [id number] osteoarthr Spirit itis of - [facility] right knee [facility] Allergies, Adverse Reactions, Alerts Allergy Allergy Status Severity Reaction(s) Onset Inactive Treating Comm ents Source Name Type Date Date Clinician Penicill Propensi Active Unknown - Uni vers ins ty to See comments 7- ity of adverse 00:00: [place] reaction Medical s Branch Penicill Propensi Active Unknown - Uni vers ins ty to See comments 7 ity of adverse 00:00: [place] reaction 00 Medical s Branch PENICILL Drug Active Unknown-Cmnt Un tereso INS Class 7- ity of 00:00: Medical Branch Iodine Propensi Active Rash Reports Univers ty to 1- breaking ity of adverse 00:00: out in a [place] reaction 00 rash Medical s to after Branch drug last CT when she was given IV contrast IODINE DRUG Active Rash Univers INGREDI 03-26 ity of 00:00: [place] [facility] Clarithr Allergy Active Rash [place] omycin to 03-23 Health substanc 00:00: e 00 Ampicill Propensi Active Rash Univer s in ty to 03-23 ity of adverse 00:00: [place] reaction 00 Medical s to Branch drug Clarithr Propensi Active Rash Univer s omycin ty to 03-23 ity of adverse 00:00: [place] reaction 00 Medical s to Branch drug AMPICILL DRUG Active Med Rash Univers IN INGREDI 03-23 ity of 00:00: [place] [facility] CLARITHR DRUG Active Med Rash Univers OMYCIN INGREDI 03-23 ity of 00:00: [place] 00 Medical Branch Penicill Allergy Active Rash Other [place] ins to 05-17 reaction( Health substanc 00:00: s): e 00 Unknown - See commentsD costa migrated from wiMAN on 06/29/14. Originall y documente d as AMPICILLI N.Data migrated from wiMAN on 06/29/14. Originall y documente d as AMPICILLI N.Data migrated from wiMAN on 06/29/14. Originall y documente d as AMPICILLI N. Ampicill Allergy Active [place]ives [place] in to Family substanc Practic e e Clindamy Allergy Active Hives [place] golden to Family substanc Practic e e Iodine Allergy Active Rash [place] to Family substan Practic e e 0 Drug Active Unknown Common allergy [facility] 463 Drug Active Unknown Common allergy [facility] ampicill ampicill Active Unknown Commo n in in [facility] clarithr clarithr Active Unknown Commo n omycin omycin [facility] Social History Social Habit Start Date Stop Date Quantity Comments Source Sex Assigned At Common Sp teresa - [facility] History of Tobacco Common [facility] - Use [facility] Exposure to 2022-03-20 2022-03-30 Not sure [facility] SARS-CoV-2 (event) 00:00:00 13:37:00 Cigarettes smoked 2022-03-30 2022-03-30 [facility] current (pack per 00:00:00 00:00:00 day) - Reported Tobacco use and 2022-03-30 2022-03-30 Smokeless [facility] exposure 00:00:00 00:00:00 tobacco non-user Alcohol intake 2022-03-30 2022-03-30 Lifetime [facility] 00:00:00 00:00:00 non-drinker (finding) Tobacco Comment 2014-07-27 2014-07-27 6-7 daily Universit y of 00:00:00 00:00:00 [facility] Smoking Status Start Date Stop Date Source Heavy Tobacco Smoker [facility] Practice Never Smoker [facility] - [facility] Smokes tobacco daily 2022-03-30 00:00:00 [facility] Medications Ordered Filled Start Stop Current Ordering Indication Dosage Frequency Signature Comments Components Source Medication Medication Date Date Medication? Clinician (SIG) Name Name Synvisc Synvisc No 2mL Common 8-24 Spirit 00:00: [facility] Synvisc Synvisc No 2mL Common 8-17 Spirit 00:00: - [facility] Synvisc Synvisc No 2mL Common 8-10 Spirit 00:00: [facility] valsartan-h Yes valsartan U T ydroCHLOROt 1-30 320 Health hiazide 14:26: mg-hydroch (Diovan-HCT 14 lorothiazi ) 320-25 MG de 25 mg tablet tablet atorvastati Yes atorvastat [place] [facility] (Lipitor) 1-30 in 20 mg [facility] 20 MG 14:26: tablet tablet 13 [...] capsule capsule 13 insulin Yes Humulin R [place] regular 1-30 U-500 Health (HumuLIN R 14:26: [...] solution 00 pen-injecto r meloxicam 2020-03- No [id number] 15mg Take 1 U nivers 15 mg 04-09 tablet by ity of tablet 00:00: 05:59 mouth [place] 00 :00 daily for Medical 30 days. Branch meloxicam 2020-03- No [id number] 15mg Take 1 U nivers 15 mg 04-09 tablet by ity of tablet 00:00: 05:59 mouth [place] 00 :00 daily for Medical 30 days. Branch Hyalgan 20 Hyalgan 20 No 20mg C ommon mg mg 3-19 Spirit 00:00: - [facility] 00 [facility] Hyalgan 20 Hyalgan 20 No 20mg C ommon mg mg 3-04 Spirit 00:00: - [facility] 00 [facility] Hyalgan 20 Hyalgan 20 No 20mg C ommon mg mg 2-25 Spirit 00:00: - [facility]I 00 [facility] Levothyroxi Levothyroxi Yes Josh 1 tablet Common ne Sodium ne Sodium 03-04 [place] on an S pirit 00:00: empty - [facility]I [address] [facility] Simvastatin Simvastatin Yes Josh 1 tablet Common 03-04 [place] in the Spirit 00:00: evening - [facility] Metformin Metformin Yes Josh 1 tablet Common HCl HCl 03-04 [place] with a Spirit 00:00: meal - CHI 00 [facility] Duloxetine Duloxetine 2018-0 Yes Josh 1 capsule Common HCl HCl 03-04 [place] Spirit 00:00: - [facility]I 00 [facility] Ibuprofen Ibuprofen 2018-0 Yes Josh 1 tablet Common 03-04 [place]v po prn Spirit 00:00: pain - CHI 00 [facility] Gabapentin Gabapentin 2018-0 Yes Josh 1 tablet Common 03-04 [place] Spirit 00:00: - CHI 00 [facility] VESIcare VESIcare 2018-0 Yes Josh 1 tablet C ommon 03-04 [place]v Spirit 00:00: - CHI 00 [facility] Xultophy Xultophy 0 Yes Josh as Commo n 03-04 [place] directed Spirit 00:00: - CHI 00 [facility] Lisinopril Lisinopril 2018- Yes Josh 1 tablet Common 03-04 [place]acev Spirit 00:00: - [facility]I 00 [facility] Xultophy Xultophy 2018-0 No Xultophy 100-3.6 100-3.6 -04 100-3.6 UNIT-MG/ML UNIT-MG/ML 00:00: UNIT-MG/ML 00 Gabapentin Gabapentin 2018-0 No 1{table QD Gabapentin 600 MG 600 MG 03-04 t} 600 MG 00:00: 00 DULoxetine DULoxetine 2018- No 1{capsu QD DULoxetine HCl 60 MG HCl 60 MG 03-04 le} HCl 60 MG 00:00: 00 Simvastatin Simvastatin 2019-0 No 1{table QD Simvastati 40 MG 40 MG 03-04 t_in_ n 40 MG 00:00: e_eveni 00 ng} VESIcare 5 VESIcare 5 2019- No 1{table QD VESIcare 5 MG MG -04 t} MG 00:00: 00 Lisinopril Lisinopril 2019-0 No 1{table QD Lisinopril 5 MG 5 MG 03-04 t} 5 MG 00:00: 00 Levothyroxi Levothyroxi 2018-0 No QD Levothyrox ne Sodium ne Sodium 03-04 ine Sodium 75 MCG 75 MCG 00:00: 75 MCG 00 metFORMIN metFORMIN 2018- No 1{table QD metFORMIN HCl 500 MG HCl 500 MG 1-04 t_with_ HCl 500 MG 00:00: a_meal} 00 Ibuprofen Ibuprofen 2019-0 No TID Ibuprofen 800 MG 800 MG 1-04 800 MG 00:00: 00 ibuprofen 2018-1 Yes 800mg Take 1 Unive rs 800 mg 2-20 tablet by ity of tablet 00:00: mouth [place] 00 every 6 Medical (six) Branch hours as needed for Pain (scale 4-6). ibuprofen 2018- Yes 800mg Take 1 Unive rs 800 mg 2-20 tablet by ity of tablet 00:00: mouth [place] 00 every 6 Medical (six) Branch hours as needed for Pain (scale 4-6). ibuprofen 2017- Yes 800mg Take 1 Unive rs 800 mg 2-20 tablet by ity of tablet 00:00: mouth [place] 00 every 6 Medical (six) Branch hours as needed for Pain (scale 4-6). ibuprofen 2017- Yes 800mg Take 1 Unive rs 800 mg 2-20 tablet by ity of tablet 00:00: mouth [place] 00 every 6 Medical (six) Branch hours as needed for Pain (scale 4-6). ibuprofen 2017- Yes 800mg Take 1 Unive rs 800 mg 2-20 tablet by ity of tablet 00:00: mouth [place] 00 every 6 Medical (six) Branch hours as needed for Pain (scale 4-6). ibuprofen 2017- Yes 800mg Take 1 Unive rs 800 mg 2-20 tablet by ity of tablet 00:00: mouth [place] 00 every 6 Medical (six) Branch hours as needed for Pain (scale 4-6). ibuprofen 2017- Yes 800mg Take 1 Unive rs 800 mg 2-20 tablet by ity of tablet 00:00: mouth [place] 00 every 6 Medical (six) Branch hours as needed for Pain (scale 4-6). ibuprofen 2017- Yes 800mg Take 1 Unive rs 800 mg 2-20 tablet by ity of tablet 00:00: mouth [place] 00 every 6 Medical (six) Branch hours as needed for Pain (scale 4-6). gabapentin Yes [id number] 600mg Take 600 Univers (NEURONTIN) 8-13 mg by ity of 300 mg 08:49: mouth 3 [place] capsule 01 (three) Medical times Branch daily. metFORMIN Yes [id number] 500mg Take 500 Univers (GLUCOPHAGE 8-13 mg by ity of ) 500 mg 08:49: mouth 2 [place] tablet (two) Medical times Branch daily. simvastatin Yes [id number] 40mg Take 40 mg Univers (ZOCOR) 40 [...] 8-13 by mouth ity of 08:49: daily. [place] [facility] solifenacin Yes 5mg Take 5 mg U nivers (VESICARE) 8-13 by mouth ity o f 5 mg tablet 08:49: daily. [place] [facility] insulin Yes 46U inject 46 Unive rs degludec-li 8-13 Units ity of raglutide 08:49: under the [place] as (XULTOPHY 01 skin Medical 100/3.6) daily. Branch 100 unit-3.6 mg /mL (3 mL) InPn gabapentin Yes [id number] 600mg Take 600 Univers (NEURONTIN) 8-13 mg by ity of 300 mg 08:49: mouth 3 [place] capsule (three) Medical times Branch daily. metFORMIN Yes [id number] 500mg Take 500 Univers (GLUCOPHAGE 8-13 mg by ity of ) 500 mg 08:49: mouth 2 [place] tablet (two) Medical times Branch daily. simvastatin Yes [id number] 40mg Take 40 mg Univers (ZOCOR) 40 [...] 01 every Medical tablet morning. Branch lisinopril 2018-0 Yes 5mg Take 5 mg Un tereso 5 mg tablet 8-13 by mouth ity of 08:49: daily. [place] [facility] solifenacin 2017-0 Yes 5mg Take 5 mg U nivers (VESICARE) 8-13 by mouth ity o f 5 mg tablet 08:49: daily. [facility] s Medical Branch insulin 2017-0 Yes 46U inject 46 Unive rs degludec-li 8-13 Units ity of raglutide 08:49: under the [place] ( skin Medical 100/3.6) daily. Branch 100 unit-3.6 mg /mL (3 mL) InPn gabapentin 2017-0 Yes [id number] 600mg Take 600 Univers (NEURONTIN) 8-13 mg by ity of 300 mg 08:49: mouth 3 [place] capsule 01 (three) Medical times Branch daily. metFORMIN 2018-0 Yes [id number] 500mg Take 500 Univers (GLUCOPHAGE 8-13 mg by ity of ) 500 mg 08:49: mouth 2 [place] tablet 01 (two) Medical times Branch daily. simvastatin 2018-0 Yes [id number] 40mg Take 40 mg Univers (ZOCOR) 40 [...] 01 every Medical tablet morning. Branch lisinopril 2017-0 Yes 5mg Take 5 mg Un tereso 5 mg tablet 8-13 by mouth ity of 08:49: daily. [place] [facility] solifenacin 2017-0 Yes 5mg Take 5 mg U nivers (VESICARE) 8-13 by mouth ity o f 5 mg tablet 08:49: daily. [place] [facility] insulin 2017-0 Yes 46U inject 46 Unive rs degludec-li 8-13 Units ity of raglutide 08:49: under the [place] (XULTOPHY skin Medical 100/3.6) daily. Branch 100 unit-3.6 mg /mL (3 mL) InPn gabapentin 2018- Yes [id number] 600mg Take 600 Univers (NEURONTIN) 8-13 mg by ity of 300 mg 08:49: mouth 3 [place] capsule (three) Medical times Branch daily. metFORMIN 2017- Yes [id number] 500mg Take 500 Univers (GLUCOPHAGE 8-13 mg by ity of ) 500 mg 08:49: mouth 2 [place] tablet (two) Medical times Branch daily. simvastatin 2017- Yes [id number] 40mg Take 40 mg Univers (ZOCOR) 40 [...] 8-13 by mouth ity of 08:49: daily. [address] Branch solifenacin 0 Yes 5mg Take 5 mg U nivers (VESICARE) 8-13 by mouth ity o f 5 mg tablet 08:49: daily. [place] [address] Medical Branch insulin Yes 46U inject 46 Unive rs degludec-li 8-13 Units ity of raglutide 08:49: under the [place] (XULTOPH skin Medical 100/3.6) daily. Branch 100 unit-3.6 mg /mL (3 mL) InPn gabapentin 2018- Yes [id number] 600mg Take 600 Univers (NEURONTIN) 8-13 mg by ity of 300 mg 08:49: mouth 3 [place] capsule (three) Medical times Branch daily. metFORMIN 2017- Yes [id number] 500mg Take 500 Univers (GLUCOPHAGE 8-13 mg by ity of ) 500 mg 08:49: mouth 2 [place] tablet (two) Medical times Branch daily. simvastatin 2017- Yes [id number] 40mg Take 40 mg Univers (ZOCOR) 40 [...] 8-13 by mouth ity of 08:49: daily. [place] [facility] solifenacin 2017-0 Yes 5mg Take 5 mg U nivers (VESICARE) 8-13 by mouth ity o f 5 mg tablet 08:49: daily. [place] insulin Yes 46U inject 46 Unive rs degludec-li 8-13 Units ity of raglutide 08:49: under the [place] (XULTOPHY 01 skin Medical 100/3.6) daily. Branch 100 unit-3.6 mg /mL (3 mL) InPn gabapentin 2017- Yes [id number] 600mg Take 600 Univers (NEURONTIN) 8-13 mg by ity of 300 mg 08:49: mouth 3 [place] capsule 01 (three) Medical times Branch daily. metFORMIN 2017- Yes [id number] 500mg Take 500 Univers (GLUCOPHAGE 8-13 mg by ity of ) 500 mg 08:49: mouth 2 [place] tablet 01 (two) Medical times Branch daily. simvastatin 2018- Yes [id number] 40mg Take 40 mg Univers (ZOCOR) 40 [...] 8-13 by mouth ity of 08:49: daily. [facility] Branch solifenacin Yes 5mg Take 5 mg U nivers (VESICARE) 8-13 by mouth ity o f 5 mg tablet 08:49: daily. [facility] Medical Branch insulin Yes 46U inject 46 Unive rs degludec-li 8-13 Units ity of raglutide 08:49: under the [place] (XULTOPHY skin Medical 100/3.6) daily. Branch 100 unit-3.6 mg /mL (3 mL) InPn gabapentin Yes [id number] 600mg Take 600 Univers (NEURONTIN) 8-13 mg by ity of 300 mg 08:49: mouth 3 [place] capsule (three) Medical times Branch daily. metFORMIN Yes [id number] 500mg Take 500 Univers (GLUCOPHAGE 8-13 mg by ity of ) 500 mg 08:49: mouth 2 [place] tablet (two) Medical times Branch daily. simvastatin Yes [id number] 40mg Take 40 mg Univers (ZOCOR) 40 [...] 8-13 by mouth ity of 08:49: daily. [place] [facility] solifenacin Yes 5mg Take 5 mg U nivers (VESICARE) 8-13 by mouth ity o f 5 mg tablet 08:49: daily. [facility] Branch insulin Yes 46U inject 46 Unive rs degludec-li 8-13 Units ity of raglutide 08:49: under the [place] as (XULTOPHY skin Medical 100/3.6) daily. Branch 100 unit-3.6 mg /mL (3 mL) InPn gabapentin Yes [id number] 600mg Take 600 Univers (NEURONTIN) 8-13 mg by ity of 300 mg 08:49: mouth 3 [place] capsule (three) Medical times Branch daily. metFORMIN Yes [id number] 500mg Take 500 Univers (GLUCOPHAGE 8-13 mg by ity of ) 500 mg 08:49: mouth 2 [place] tablet 01 (two) Medical times Branch daily. simvastatin Yes [id number] 40mg Take 40 mg Univers (ZOCOR) 40 8-13 by mouth ity o f mg tablet 08:49: at [place] bedtime. Medical Branch baclofen Yes 10mg Take [...] 8-13 by mouth ity of 08:49: daily. [address] Branch solifenacin Yes 5mg Take 5 [...] by mouth ity of capsule 00:00: daily. [facility] Branch DULoxetine 2016-03 Yes 60mg Take 60 mg U nivers 60 mg 0-06 by mouth ity of capsule 00:00: daily. [facility] Branch DULoxetine 2016-03 Yes 60mg Take 60 mg U nivers 60 mg 0-06 by mouth ity of capsule 00:00: daily. [facility] Branch DULoxetine 2016-03 Yes 60mg Take 60 mg U nivers 60 mg 0-06 by mouth ity of capsule 00:00: daily. [address] DULoxetine 2016-03 Yes 60mg Take 60 mg U nivers 60 mg 0-06 by mouth ity of capsule 00:00: daily. [address] DULoxetine 2016-03 Yes 60mg Take 60 mg U nivers 60 mg 0-06 by mouth ity of capsule 00:00: daily. [address] DULoxetine 2016-03 Yes 60mg Take 60 mg U nivers 60 mg 0-06 by mouth ity of capsule 00:00: daily. [address] DULoxetine 2016-03 Yes 60mg Take 60 mg U nivers 60 mg 0-06 by mouth ity of capsule 00:00: daily. [address] albuterol albuterol No albuterol [place] sulfate HFA [...] route as needed. atorvastati atorvastati No atorvastat [facility] n 20 mg n 20 mg [...] NEEDLE TWICE DAILY clotrimazol clotrimazol No clotrimazo [facility] e-betametha e-betametha le-betamet Family sone 1 [...] DAY duloxetine duloxetine No 1capsul Q1D duloxetine [facility] 60 mg 60 mg e(s) 60 mg Family capsule,del capsule,del capsule,de Practic ayed ayed layed e release release release Take 1 Take 1 Take 1 capsule capsule capsule every day every day every day by oral by oral by oral route for route for route for 90 days. 90 days. 90 days. FreeStyle FreeStyle No FreeStyle [facility] Lancets 28 Lancets 28 Lancets 28 [...] DINNER. LUNCH DINNER. FreeStyle FreeStyle No FreeStyle [facility] Lite Strips Lite Strips Lite F amily use to use to Strips use Pract ic check blood check blood to check e sugars sugars blood three times three times sugars a day a day three times a day gabapentin gabapentin No gabapentin [facility] 300 mg 300 mg 300 mg Family capsule capsule capsule Practi c TAKE 1 TAKE 1 TAKE 1 e CAPSULE BY CAPSULE BY CAPSULE BY MOUTH THREE MOUTH THREE MOUTH TIMES DAILY TIMES DAILY THREE TIMES DAILY gabapentin gabapentin No gabapentin [facility] 600 mg 600 mg 600 mg Family tablet TAKE tablet TAKE tablet Practic 1 TABLET BY 1 TABLET BY TAKE 1 e MOUTH THREE MOUTH THREE TABLET BY TIMES DAILY TIMES DAILY MOUTH THREE TIMES DAILY glipizide glipizide No glipizide [facility] ER 10 mg ER 10 mg [...] Humulin R Humulin R No Humulin R [facility] U-500 U-500 U-500 [facility] (Conc) (Conc) (Conc) Practic Insulin Insulin Insulin [...] 200 levothyroxi levothyroxi No 1 Q1D levothyrox [facility] ne 100 mcg ne 100 mcg ine 100 Family tablet Take tablet Take mcg tablet Practic 1 tablet 1 tablet Take 1 e every day every day tablet by oral by oral every day route. route. by oral route. meloxicam meloxicam No 1 Q1D meloxicam [facility] 15 mg 15 mg 15 mg Family tablet Take tablet Take tablet Practic 1 tablet 1 tablet Take 1 e every day every day tablet by oral by oral every day route as route as by oral needed. needed. route as needed. metformin metformin No 2 Q1D metformin [facility] ER 500 mg ER 500 mg [...] Ozempic 1 Ozempic 1 No Ozempic 1 [facility] mg/dose (4 mg/dose (4 mg/dose (4 [...] Santyl 250 Santyl 250 No Santyl 250 [facility] unit/gram unit/gram unit/gram Family topical topical topical Practi c ointment ointment ointment e APPLY APPLY APPLY OINTMENT OINTMENT OINTMENT TOPICALLY TOPICALLY TOPICALLY TO AFFECTED TO AFFECTED TO AREA ONCE AREA ONCE AFFECTED DAILY DAILY AREA ONCE DAILY [facility] Totip [facility] U-300 U-300 U-300 Family SoloStar SoloStar SoloStar [...] directed: TDD 120 valsartan valsartan No valsartan [facility] 320 320 320 Family mg-hydrochl mg-hydrochl mg-hydroch Practic orothiazide orothiazide lorothiazi e 25 mg 25 mg de 25 mg tablet Take tablet Take tablet 1 tablet 1 tablet Take 1 every day every day tablet by oral by oral every day route. route. by oral route. albuterol albuterol No albuterol [facility] sulfate HFA sulfate HFA sulfate Family 90 90 HFA 90 Practic mcg/actuati mcg/actuati mcg/actuat e on aerosol on aerosol ion inhaler inhaler aerosol Inhale 2 Inhale 2 inhaler puffs every puffs every Inhale 2 4 hours by 4 hours by puffs inhalation inhalation every 4 route as route as hours by needed. needed. inhalation route as needed. atorvastati atorvastati No atorvastat [facility] n 20 mg n 20 mg [...] NEEDLE TWICE DAILY clotrimazol clotrimazol No clotrimazo [facility] e-betametha e-betametha le-betamet Family sone 1 [...] DAY DAY TIMES PER DAY duloxetine duloxetine duloxetine [facility] 60 mg 60 mg 60 mg [...] by oral route. FreeStyle FreeStyle No FreeStyle [facility] Lancets 28 Lancets 28 Lancets 28 Family gauge USE A gauge USE A gauge USE Practic LANCET TO LANCET TO A LANCET e CHECK CHECK TO CHECK GLUCOSE GLUCOSE GLUCOSE ONCE DAILY ONCE DAILY ONCE DAILY . ROTATE . ROTATE . ROTATE BETWEEN BETWEEN BETWEEN FASTING FASTING FASTING BREAKFAST BREAKFAST BREAKFAST LUNCH LUNCH LUNCH DINNER DINNER DINNER FreeStyle FreeStyle No FreeStyle [facility] Lite Meter Lite Meter Lite Meter Family kit USE TO kit USE TO kit USE TO Practic CHECK SUGAR CHECK SUGAR CHECK e ONCE DAILY. ONCE DAILY. SUGAR ONCE ROTATE ROTATE DAILY. BETWEEN BETWEEN ROTATE FASTING FASTING BETWEEN BREAKFAST BREAKFAST FASTING LUNCH LUNCH BREAKFAST DINNER. DINNER. LUNCH DINNER. FreeStyle FreeStyle No FreeStyle [facility] Lite Strips Lite Strips Lite F amily USE A STRIP USE A STRIP Strips USE Practic TO CHECK TO CHECK A STRIP TO e GLUCOSE GLUCOSE CHECK THREE TIMES THREE TIMES GLUCOSE DAILY DAILY THREE TIMES DAILY gabapentin gabapentin No gabapentin [facility] [facility] 300 mg 300 mg 300 mg Family capsule capsule capsule Practi c TAKE 1 TAKE 1 TAKE 1 e CAPSULE BY CAPSULE BY CAPSULE BY MOUTH THREE MOUTH THREE MOUTH TIMES DAILY TIMES DAILY THREE TIMES DAILY gabapentin gabapentin No gabapentin [facility] 600 mg 600 mg 600 mg Family tablet TAKE tablet TAKE tablet Practic 1 TABLET BY 1 TABLET BY TAKE 1 e MOUTH THREE MOUTH THREE TABLET BY TIMES DAILY TIMES DAILY MOUTH THREE TIMES DAILY glipizide glipizide No glipizide [facility] ER 10 mg ER 10 mg [...] Humulin R Humulin R No Humulin R [facility] U-500 U-500 U-500 Family (Conc) (Conc) [...] DOSE 200 UNITS meloxicam meloxicam No meloxicam [facility] 15 mg 15 mg 15 mg Family tablet Take tablet Take tablet Practic 1 tablet 1 tablet Take 1 e every day every day tablet by oral by oral every day route as route as by oral needed. needed. route as needed. metformin metformin No 2 Q1D metformin [facility] ER 500 mg ER 500 mg ER 500 mg [facility] 24 hr 24 hr 24 hr Practic tablet,exte tablet,exte tablet,ext e nded nded ended release release release Take 2 Take 2 Take 2 tablets tablets tablets every day every day every day by oral by oral by oral route at route at route at dinner. dinner. dinner. Ozempic 1 Ozempic 1 No Ozempic 1 [facility] mg/dose (4 mg/dose (4 mg/dose (4 [...] ONCE AFFECTED DAILY DAILY AREA ONCE DAILY Toujeo Max Toujeo Max No Toujeo Max [facility] U-300 U-300 U-300 Family SoloStar SoloStar [...] directed: TDD 120 valsartan valsartan No valsartan [facility] 320 320 320 Family mg-hydrochl mg-hydrochl [...] route as needed. atorvastati atorvastati No atorvastat [facility] n 20 mg n 20 mg in 20 mg Famil y tablet TAKE tablet TAKE tablet Practic 1 TABLET BY 1 TABLET BY TAKE 1 e MOUTH ONCE MOUTH ONCE TABLET BY DAILY DAILY MOUTH ONCE DAILY BD Leyx 2nd BD Lexy 2nd No BD Lexy [place] Gen Pen Gen Pen 2nd Gen Family Needle 32 Needle 32 Pen Needle Practic gauge x gauge x 32 gauge x e " USE 1 " USE 1 " USE PEN NEEDLE PEN NEEDLE 1 PEN TWICE DAILY TWICE DAILY NEEDLE TWICE DAILY clotrimazol clotrimazol No clotrimazo [facility] e-betametha e-betametha le-betamet Family sone 1 [...] DAY duloxetine duloxetine No 1capsul Q1D duloxetine [facility] 60 mg 60 mg e(s) 60 mg Family capsule,del capsule,del capsule,de Practic ayed ayed layed e release release release Take 1 Take 1 Take 1 capsule capsule capsule every day every day every day by oral by oral by oral route. route. route. FreeStyle FreeStyle No FreeStyle [facility] Lancets 28 Lancets 28 Lancets 28 Family gauge USE A gauge USE A gauge USE Practic LANCET TO LANCET TO A LANCET e CHECK CHECK TO CHECK GLUCOSE GLUCOSE GLUCOSE ONCE DAILY ONCE DAILY ONCE DAILY . ROTATE . ROTATE . ROTATE BETWEEN BETWEEN BETWEEN FASTING FASTING FASTING BREAKFAST BREAKFAST BREAKFAST LUNCH LUNCH LUNCH DINNER DINNER DINNER FreeStyle FreeStyle No FreeStyle [facility] Lite Meter Lite Meter Lite Meter Family kit USE TO kit USE TO kit USE TO Practic CHECK SUGAR CHECK SUGAR CHECK e ONCE DAILY. ONCE DAILY. SUGAR ONCE ROTATE ROTATE DAILY. BETWEEN BETWEEN ROTATE FASTING FASTING BETWEEN BREAKFAST BREAKFAST FASTING LUNCH LUNCH BREAKFAST DINNER. DINNER. LUNCH DINNER. FreeStyle FreeStyle No FreeStyle [facility] Lite Strips Lite Strips Lite F amily USE A STRIP USE A STRIP Strips USE Practic TO CHECK TO CHECK A STRIP TO e GLUCOSE GLUCOSE CHECK THREE TIMES THREE TIMES GLUCOSE DAILY DAILY THREE TIMES DAILY gabapentin gabapentin No gabapentin [facility] 300 mg 300 mg 300 mg Family capsule capsule capsule Practi c TAKE 1 TAKE 1 TAKE 1 e CAPSULE BY CAPSULE BY CAPSULE BY MOUTH THREE MOUTH THREE MOUTH TIMES DAILY TIMES DAILY THREE TIMES DAILY gabapentin gabapentin No gabapentin [facility] 600 mg 600 mg 600 mg Family tablet TAKE tablet TAKE tablet Practic 1 TABLET BY 1 TABLET BY TAKE 1 e MOUTH THREE MOUTH THREE TABLET BY TIMES DAILY TIMES DAILY MOUTH THREE TIMES DAILY glipizide glipizide No glipizide [facility] ER 10 mg ER 10 mg [...] Humulin R Humulin R No Humulin R [facility] U-500 U-500 U-500 [facility] (Conc) (Conc) (Conc) Practic Insulin Insulin Insulin [...] UNITS levothyroxi levothyroxi No 1 Q1D levothyrox [facility] ne 100 mcg ne 100 mcg ine 100 Family tablet Take tablet Take mcg tablet Practic 1 tablet 1 tablet Take 1 e every day every day tablet by oral by oral every day route. route. by oral route. meloxicam meloxicam No 1 Q1D meloxicam [facility] 15 mg 15 mg 15 mg Family tablet Take tablet Take tablet Practic 1 tablet 1 tablet Take 1 e every day every day tablet by oral by oral every day route as route as by oral needed. needed. route as needed. metformin metformin No metformin [facility] ER 500 mg ER 500 mg ER 500 mg Family tablet,exte tablet,exte tablet,ext Practic nded nded ended e release 24 release 24 release 24 hr hr hr Ozempic 1 Ozempic 1 No Ozempic 1 [facility] mg/dose (4 mg/dose (4 mg/dose (4 [...] 30 days. Toujeo Max Toujeo Max No Toujeo Max [facility] U-300 U-300 U-300 Family SoloStar SoloStar [...] 120 valsartan valsartan No 1 Q1D valsartan [facility] 320 320 320 Family mg-hydrochl mg-hydrochl [...] needed. inhalation route as needed. atorvastati atorvastati atorvastat [facility] n 20 mg n 20 mg [...] TWICE DAILY NEEDLE TWICE DAILY [facility] in 500 mg in 500 mg golden 500 mg Family tablet TAKE tablet TAKE tablet Practic 1 TABLET BY 1 TABLET BY TAKE 1 e MOUTH EVERY MOUTH EVERY TABLET BY 12 HOURS 12 HOURS MOUTH FOR 7 DAYS FOR 7 DAYS EVERY 12 HOURS FOR 7 DAYS clotrimazol clotrimazol clotrimazo [facility] e-betametha e-betametha le-betamet Family sone 1 [...] TIMES PER DAY cyclobenzap cyclobenzap No cyclobenza [facility] rine 5 mg rine 5 mg [...] DAYS duloxetine duloxetine No 1capsul Q1D duloxetine [facility] 60 mg 60 mg e(s) 60 mg Family capsule,del capsule,del capsule,de Practic ayed ayed layed e release release release Take 1 Take 1 Take 1 capsule capsule capsule every day every day every day by oral by oral by oral route. route. route. FreeStyle FreeStyle No FreeStyle [facility] Lancets 28 Lancets 28 Lancets 28 Family gauge USE A gauge USE A gauge USE Practic LANCET TO LANCET TO A LANCET e CHECK CHECK TO CHECK GLUCOSE GLUCOSE GLUCOSE ONCE DAILY ONCE DAILY ONCE DAILY . ROTATE . ROTATE . ROTATE BETWEEN BETWEEN BETWEEN FASTING FASTING FASTING BREAKFAST BREAKFAST BREAKFAST LUNCH LUNCH LUNCH DINNER DINNER DINNER FreeStyle FreeStyle No FreeStyle [facility] Lite Meter Lite Meter Lite Meter Family kit USE TO kit USE TO kit USE TO Practic CHECK SUGAR CHECK SUGAR CHECK e ONCE DAILY. ONCE DAILY. SUGAR ONCE ROTATE ROTATE DAILY. BETWEEN BETWEEN ROTATE FASTING FASTING BETWEEN BREAKFAST BREAKFAST FASTING LUNCH LUNCH BREAKFAST DINNER. DINNER. LUNCH DINNER. FreeStyle FreeStyle No FreeStyle [facility] Lite Strips Lite Strips Lite F amily USE A STRIP USE A STRIP Strips USE Practic TO CHECK TO CHECK A STRIP TO e GLUCOSE GLUCOSE CHECK THREE TIMES THREE TIMES GLUCOSE DAILY DAILY THREE TIMES DAILY gabapentin gabapentin No gabapentin [facility] 300 mg 300 mg 300 mg Family capsule capsule capsule Practi c TAKE 1 TAKE 1 TAKE 1 e CAPSULE BY CAPSULE BY CAPSULE BY MOUTH THREE MOUTH THREE MOUTH TIMES DAILY TIMES DAILY THREE TIMES DAILY gabapentin gabapentin No gabapentin [facility] 600 mg 600 mg 600 mg Family tablet TAKE tablet TAKE tablet Practic 1 TABLET BY 1 TABLET BY TAKE 1 e MOUTH THREE MOUTH THREE TABLET BY TIMES DAILY TIMES DAILY MOUTH THREE TIMES DAILY glipizide glipizide No glipizide [facility] ER 10 mg ER 10 mg [...] Humulin R Humulin R No Humulin R [facility] U-500 U-500 U-500 Family (Conc) (Conc) [...] DOSE 200 UNITS ketorolac ketorolac No ketorolac [facility] 10 mg 10 mg 10 mg [...] ALEVE, OR MOTRIN levothyroxi levothyroxi No levothyrox [facility] ne 100 mcg ne 100 mcg ine 100 Family tablet Take tablet Take mcg tablet Practic 1 tablet 1 tablet Take 1 e every day every day tablet by oral by oral every day route. route. by oral route. meloxicam meloxicam meloxicam [facility] 15 mg 15 mg 15 mg Family tablet Take tablet Take tablet Practic 1 tablet 1 tablet Take 1 e every day every day tablet by oral by oral every day route as route as by oral needed. needed. route as needed. metformin metformin No metformin [facility] ER 500 mg ER 500 mg ER 500 mg Family tablet,exte tablet,exte tablet,ext Practic nded nded ended e release 24 release 24 release 24 hr hr hr Ozempic 1 Ozempic 1 No Ozempic 1 [facility] mg/dose (4 mg/dose (4 mg/dose (4 [...] ONCE DAYS DAYS DAILY FOR 5 DAYS Kelley Borden No Totip Borden [facility] U-300 U-300 U-300 Family SoloStar SoloStar [...] directed: TDD 120 valsartan valsartan No valsartan [facility] 320 320 320 Family mg-hydrochl mg-hydrochl [...] route as needed. atorvastati atorvastati No atorvastat [facility] n 20 mg n 20 mg [...] TWICE DAILY NEEDLE TWICE DAILY ciprofloxac ciprofloxac ciprofloxa [facility] in 500 mg in 500 mg golden 500 mg Family tablet TAKE tablet TAKE tablet Practic 1 TABLET BY 1 TABLET BY TAKE 1 e MOUTH EVERY MOUTH EVERY TABLET BY 12 HOURS 12 HOURS MOUTH FOR 7 DAYS FOR 7 DAYS EVERY 12 HOURS FOR 7 DAYS clotrimazol clotrimazol No clotrimazo [facility] e-betametha e-betametha le-betamet Family sone 1 [...] TIMES PER DAY cyclobenzap cyclobenzap No cyclobenza [place] rine 5 mg rine 5 mg latosha 5 mg Family tablet TAKE tablet TAKE tablet Practic 1 TABLET BY 1 TABLET BY TAKE 1 e MOUTH TWICE MOUTH TWICE TABLET BY DAILY DAILY MOUTH NEEDED FOR NEEDED FOR TWICE MUSCLE MUSCLE DAILY SPASM FOR 2 SPASM FOR 2 NEEDED FOR DAYS DAYS MUSCLE SPASM FOR 2 DAYS duloxetine duloxetine No 1capsul Q1D duloxetine [facility] 60 mg 60 mg e(s) 60 mg Family capsule,del capsule,del capsule,de Practic ayed ayed layed e release release release Take 1 Take 1 Take 1 capsule capsule capsule every day every day every day by oral by oral by oral route. route. route. FreeStyle FreeStyle No FreeStyle [facility] Lancets 28 Lancets 28 Lancets 28 [...] THREE TIMES DAILY gabapentin gabapentin No gabapentin [facility] 300 mg 300 mg 300 mg Family capsule capsule capsule Practi c TAKE 1 TAKE 1 TAKE 1 e CAPSULE BY CAPSULE BY CAPSULE BY MOUTH THREE MOUTH THREE MOUTH TIMES DAILY TIMES DAILY THREE TIMES DAILY gabapentin gabapentin No gabapentin [facility] 600 mg 600 mg 600 mg Family tablet TAKE tablet TAKE tablet Practic 1 TABLET BY 1 TABLET BY TAKE 1 e MOUTH THREE MOUTH THREE TABLET BY TIMES DAILY TIMES DAILY MOUTH THREE TIMES DAILY glipizide glipizide No glipizide [facility] ER 10 mg ER 10 mg [...] Humulin R Humulin R No Humulin R [facility] U-500 U-500 U-500 [facility] (Conc) (Conc) (Conc) Practic Insulin Insulin Insulin [...] UNITS hydrocodone hydrocodone No 1 Q8H hydrocodon [facility] 5 5 e 5 Family mg-acetamin mg-acetamin mg-acetami Practic ophen 325 ophen 325 nophen 325 e mg tablet mg tablet mg tablet Take 1 Take 1 Take 1 tablet tablet tablet every 8 every 8 every 8 hours by hours by hours by oral route oral route oral route as needed. as needed. as needed. ketorolac ketorolac No ketorolac [facility] 10 mg 10 mg 10 mg [...] ALEVE, OR MOTRIN levothyroxi levothyroxi No levothyrox [facility] ne 100 mcg ne 100 mcg ine 100 Family tablet Take tablet Take mcg tablet Practic 1 tablet 1 tablet Take 1 e every day every day tablet by oral by oral every day route. route. by oral route. meloxicam meloxicam No meloxicam [facility] 15 mg 15 mg 15 mg Family tablet Take tablet Take tablet Practic 1 tablet 1 tablet Take 1 e every day every day tablet by oral by oral every day route as route as by oral needed. needed. route as needed. metformin metformin No metformin [facility] ER 500 mg ER 500 mg ER 500 mg Family tablet,exte tablet,exte tablet,ext Practic nded nded ended e release 24 release 24 release 24 hr hr hr Ozempic 1 Ozempic 1 No Ozempic 1 [facility] mg/dose (4 mg/dose (4 mg/dose (4 Family mg/3 mL) mg/3 mL) mg/3 mL) Pra ctic subcutaneou subcutaneou subcutaneo e s pen s pen us pen injector injector injector INJECT 1 MG INJECT 1 MG INJECT 1 SUBCUTANEOU SUBCUTANEOU MG SLY ONCE A SLY ONCE A SUBCUTANEO WEEK WEEK USLY ONCE A WEEK prednisone prednisone No prednisone [facility] 50 mg 50 mg 50 mg Family tablet TAKE tablet TAKE tablet Practic 1 TABLET BY 1 TABLET BY TAKE 1 e MOUTH ONCE MOUTH ONCE TABLET BY DAILY FOR 5 DAILY FOR 5 MOUTH ONCE DAYS DAYS DAILY FOR 5 DAYS Toujeo Max Toujeo Max No Toujeo Max [facility] U-300 U-300 U-300 Family SoloStar SoloStar [...] directed: TDD 120 valsartan valsartan No valsartan [facility] 320 320 320 Family mg-hydrochl mg-hydrochl [...] needed. inhalation route as needed. atorvastati atorvastati atorvastat [facility] n 20 mg n 20 mg in 20 mg Famil y tablet TAKE tablet TAKE tablet Practic 1 TABLET BY 1 TABLET BY TAKE 1 e MOUTH ONCE MOUTH ONCE TABLET BY DAILY DAILY MOUTH ONCE DAILY BD Lexy 2nd BD Lexy 2nd No BD Lexy [facility] Gen Pen Gen Pen 2nd Gen Family Needle 32 Needle 32 Pen Needle Practic gauge x gauge x 32 gauge x e " USE 1 " USE 1 " USE PEN NEEDLE PEN NEEDLE 1 PEN TWICE DAILY TWICE DAILY NEEDLE TWICE DAILY [facility]floxac [facility] in 500 mg in 500 mg golden 500 mg Family tablet TAKE tablet TAKE tablet Practic 1 TABLET BY 1 TABLET BY TAKE 1 e MOUTH EVERY MOUTH EVERY TABLET BY 12 HOURS 12 HOURS MOUTH FOR 7 DAYS FOR 7 DAYS EVERY 12 HOURS FOR 7 DAYS clotrimazol clotrimazol clotrimazo [facility] e-betametha e-betametha le-betamet Family sone 1 [...] TIMES PER DAY cyclobenzap cyclobenzap No cyclobenza [facility] rine 5 mg rine 5 mg [...] DAYS duloxetine duloxetine No 1capsul Q1D duloxetine [facility] 60 mg 60 mg e(s) 60 mg Family capsule,del capsule,del capsule,de Practic ayed ayed layed e release release release Take 1 Take 1 Take 1 capsule capsule capsule every day every day every day by oral by oral by oral route. route. route. FreeStyle FreeStyle No FreeStyle [facility] Lancets 28 Lancets 28 Lancets 28 Family gauge USE A gauge USE A gauge USE Practic LANCET TO LANCET TO A LANCET e CHECK CHECK TO CHECK GLUCOSE GLUCOSE GLUCOSE ONCE DAILY ONCE DAILY ONCE DAILY . ROTATE . ROTATE . ROTATE BETWEEN BETWEEN BETWEEN FASTING FASTING FASTING BREAKFAST BREAKFAST BREAKFAST LUNCH LUNCH LUNCH DINNER DINNER DINNER FreeStyle FreeStyle No FreeStyle [facility] Lite Meter Lite Meter Lite Meter Family kit USE TO kit USE TO kit USE TO Practic CHECK SUGAR CHECK SUGAR CHECK e ONCE DAILY. ONCE DAILY. SUGAR ONCE ROTATE ROTATE DAILY. BETWEEN BETWEEN ROTATE FASTING FASTING BETWEEN BREAKFAST BREAKFAST FASTING LUNCH LUNCH BREAKFAST DINNER. DINNER. LUNCH DINNER. FreeStyle FreeStyle No FreeStyle [facility] Lite Strips Lite Strips Lite F amily USE A STRIP USE A STRIP Strips USE Practic TO CHECK TO CHECK A STRIP TO e GLUCOSE GLUCOSE CHECK THREE TIMES THREE TIMES GLUCOSE DAILY DAILY THREE TIMES DAILY gabapentin gabapentin No gabapentin [facility] 300 mg 300 mg 300 mg Family capsule capsule capsule Practi c TAKE 1 TAKE 1 TAKE 1 e CAPSULE BY CAPSULE BY CAPSULE BY MOUTH THREE MOUTH THREE MOUTH TIMES DAILY TIMES DAILY THREE TIMES DAILY gabapentin gabapentin No gabapentin [facility] 600 mg 600 mg 600 mg Family tablet TAKE tablet TAKE tablet Practic 1 TABLET BY 1 TABLET BY TAKE 1 e MOUTH THREE MOUTH THREE TABLET BY TIMES DAILY TIMES DAILY MOUTH THREE TIMES DAILY glipizide glipizide No glipizide [facility] ER 10 mg ER 10 mg [...] Humulin R Humulin R No Humulin R [facility] U-500 U-500 U-500 Family (Conc) (Conc) [...] UNITS hydrocodone hydrocodone No 1 Q8H hydrocodon [facility] 5 5 e 5 Family mg-acetamin mg-acetamin mg-acetami Practic ophen 325 ophen 325 nophen 325 e mg tablet mg tablet mg tablet Take 1 Take 1 Take 1 tablet tablet tablet every 8 every 8 every 8 hours by hours by hours by oral route oral route oral route as needed. as needed. as needed. ketorolac ketorolac ketorolac [facility] 10 mg 10 mg 10 mg [...] ALEVE, OR MOTRIN levothyroxi levothyroxi No levothyrox [facility] ne 100 mcg ne 100 mcg ine 100 Family tablet Take tablet Take mcg tablet Practic 1 tablet 1 tablet Take 1 e every day every day tablet by oral by oral every day route. route. by oral route. meloxicam meloxicam meloxicam [facility] 15 mg 15 mg 15 mg Family tablet Take tablet Take tablet Practic 1 tablet 1 tablet Take 1 e every day every day tablet by oral by oral every day route as route as by oral needed. needed. route as needed. metformin metformin No metformin [facility] ER 500 mg ER 500 mg ER 500 mg Family tablet,exte tablet,exte tablet,ext Practic nded nded ended e release 24 release 24 release 24 hr hr hr Ozempic 1 Ozempic 1 No Ozempic 1 [facility] mg/dose (4 mg/dose (4 mg/dose (4 [...] Toujeo Max Toujeo Max No Toujeo Max [facility] U-300 U-300 U-300 Family SoloStar SoloStar [...] directed: TDD 120 valsartan valsartan No valsartan [facility] 320 320 320 Family mg-hydrochl mg-hydrochl [...] route as needed. atorvastati atorvastati No atorvastat [facility] n 20 mg n 20 mg [...] NEEDLE TWICE DAILY ciprofloxac ciprofloxac No ciprofloxa [facility] in 500 mg in 500 mg golden 500 mg Family tablet TAKE tablet TAKE tablet Practic 1 TABLET BY 1 TABLET BY TAKE 1 e MOUTH EVERY MOUTH EVERY TABLET BY 12 HOURS 12 HOURS MOUTH FOR 7 DAYS FOR 7 DAYS EVERY 12 HOURS FOR 7 DAYS clotrimazol clotrimazol No clotrimazo [facility] e-betametha e-betametha le-betamet Family sone 1 [...] TIMES PER DAY cyclobenzap cyclobenzap No cyclobenza [facility] rine 5 mg rine 5 mg latosha 5 mg Family tablet TAKE tablet TAKE tablet Practic 1 TABLET BY 1 TABLET BY TAKE 1 e MOUTH TWICE MOUTH TWICE TABLET BY DAILY DAILY MOUTH NEEDED FOR NEEDED FOR TWICE MUSCLE MUSCLE DAILY SPASM FOR 2 SPASM FOR 2 NEEDED FOR DAYS DAYS MUSCLE SPASM FOR 2 DAYS duloxetine duloxetine duloxetine [facility] 60 mg 60 mg 60 mg Family capsule,del capsule,del capsule,de Practic ayed ayed layed e release release release Take 1 Take 1 Take 1 capsule capsule capsule every day every day every day by oral by oral by oral route. route. route. FreeStyle FreeStyle No FreeStyle [facility] Lancets 28 Lancets 28 Lancets 28 Family gauge USE A gauge USE A gauge USE Practic LANCET TO LANCET TO A LANCET e CHECK CHECK TO CHECK GLUCOSE GLUCOSE GLUCOSE ONCE DAILY ONCE DAILY ONCE DAILY . ROTATE . ROTATE . ROTATE BETWEEN BETWEEN BETWEEN FASTING FASTING FASTING BREAKFAST BREAKFAST BREAKFAST LUNCH LUNCH LUNCH DINNER DINNER DINNER FreeStyle FreeStyle No FreeStyle [facility] Lite Meter Lite Meter Lite Meter Family kit USE TO kit USE TO kit USE TO Practic CHECK SUGAR CHECK SUGAR CHECK e ONCE DAILY. ONCE DAILY. SUGAR ONCE ROTATE ROTATE DAILY. BETWEEN BETWEEN ROTATE FASTING FASTING BETWEEN BREAKFAST BREAKFAST FASTING LUNCH LUNCH BREAKFAST DINNER. DINNER. LUNCH DINNER. FreeStyle FreeStyle No FreeStyle [facility] Lite Strips Lite Strips Lite F amily USE A STRIP USE A STRIP Strips USE Practic TO CHECK TO CHECK A STRIP TO e GLUCOSE GLUCOSE CHECK THREE TIMES THREE TIMES GLUCOSE DAILY DAILY THREE TIMES DAILY gabapentin gabapentin No gabapentin [facility] 300 mg 300 mg 300 mg Family capsule capsule capsule Practi c TAKE 1 TAKE 1 TAKE 1 e CAPSULE BY CAPSULE BY CAPSULE BY MOUTH THREE MOUTH THREE MOUTH TIMES DAILY TIMES DAILY THREE TIMES DAILY gabapentin gabapentin No gabapentin [facility] 600 mg 600 mg 600 mg Family tablet TAKE tablet TAKE tablet Practic 1 TABLET BY 1 TABLET BY TAKE 1 e MOUTH THREE MOUTH THREE TABLET BY TIMES DAILY TIMES DAILY MOUTH THREE TIMES DAILY glipizide glipizide No glipizide [facility] ER 10 mg ER 10 mg [...] Humulin R Humulin R No Humulin R [facility] U-500 U-500 U-500 [facility] (Conc) (Conc) (Conc) Practic Insulin Insulin Insulin [...] directed: TDD 250 hydrocodone hydrocodone No hydrocodon [facility] 5 5 e 5 Family mg-acetamin mg-acetamin mg-acetami Practic ophen 325 ophen 325 nophen 325 e mg tablet mg tablet mg tablet Take 1 Take 1 Take 1 tablet tablet tablet every 8 every 8 every 8 hours by hours by hours by oral route oral route oral route as needed. as needed. as needed. ketorolac ketorolac No ketorolac [facility] 10 mg 10 mg 10 mg [...] ALEVE, OR MOTRIN levothyroxi levothyroxi No levothyrox [facility] ne 100 mcg ne 100 mcg ine 100 Family tablet Take tablet Take mcg tablet Practic 1 tablet 1 tablet Take 1 e every day every day tablet by oral by oral every day route. route. by oral route. meloxicam meloxicam No meloxicam [facility] 15 mg 15 mg 15 mg Family tablet Take tablet Take tablet Practic 1 tablet 1 tablet Take 1 e every day every day tablet by oral by oral every day route as route as by oral needed. needed. route as needed. metformin metformin No 2 Q1D metformin [facility] ER 500 mg ER 500 mg [...] days. 90 days. metformin metformin No metformin [facility] ER 500 mg ER 500 mg ER 500 mg Family tablet,exte tablet,exte tablet,ext Practic nded nded ended e release 24 release 24 release 24 hr hr hr Ozempic 2 Ozempic 2 No 2mg Q1W Ozempic 2 [facility] mg/dose (8 mg/dose (8 mg/dose (8 Family [...] for 30 days. prednisone prednisone No prednisone [facility] 50 mg 50 mg 50 mg Family tablet TAKE tablet TAKE tablet Practic 1 TABLET BY 1 TABLET BY TAKE 1 e MOUTH ONCE MOUTH ONCE TABLET BY DAILY FOR 5 DAILY FOR 5 MOUTH ONCE DAYS DAYS DAILY FOR 5 DAYS Kelley Borden No Kelley Mcadams U-300 U-300 U-300 Family SoloStar SoloStar SoloStar [...] directed: TDD 120 valsartan valsartan No valsartan [facility] 320 320 320 Family mg-hydrochl mg-hydrochl mg-hydroch Practic orothiazide orothiazide lorothiazi e 25 mg 25 mg de 25 mg tablet Take tablet Take tablet 1 tablet 1 tablet Take 1 every day every day tablet by oral by oral every day route. route. by oral route. albuterol albuterol No albuterol [facility] sulfate HFA sulfate HFA sulfate Family 90 90 HFA 90 Practic mcg/actuati mcg/actuati mcg/actuat e on aerosol on aerosol ion inhaler inhaler aerosol Inhale 2 Inhale 2 inhaler puffs every puffs every Inhale 2 4 hours by 4 hours by puffs inhalation inhalation every 4 route as route as hours by needed. needed. inhalation route as needed. atorvastati atorvastati No atorvastat [facility] n 20 mg n 20 mg in 20 mg Famil y tablet TAKE tablet TAKE tablet Practic 1 TABLET BY 1 TABLET BY TAKE 1 e MOUTH ONCE MOUTH ONCE TABLET BY DAILY DAILY MOUTH ONCE DAILY azelastine azelastine No 2spray( BID azelastine [facility] 137 mcg 137 mcg s) 137 mcg Family (0.1 %) (0.1 %) (0.1 %) Practi c nasal spray nasal spray nasal e aerosol aerosol spray [place] 2 [place] 2 aerosol sprays sprays [place] 2 twice a day twice a day [...] NEEDLE TWICE DAILY clotrimazol clotrimazol No clotrimazo [facility] e-betametha e-betametha le-betamet Family sone 1 [...] DAY duloxetine duloxetine No 1capsul Q1D duloxetine [facility] 60 mg 60 mg e(s) 60 mg Family capsule,del capsule,del capsule,de Practic ayed ayed layed e release release release Take 1 Take 1 Take 1 capsule capsule capsule every day every day every day by oral by oral by oral route. route. route. fluticasone fluticasone No 2spray( Q1D fluticason [place] propionate propionate s) e Fam laton 50 50 propionate Practic mcg/actuati mcg/actuati 50 e on nasal on nasal mcg/actuat spray,suspe spray,suspe ion nasal nsion [place] nsion [place] spray,susp 2 sprays 2 sprays ension every day every day [place] 2 by by sprays intranasal intranasal every day route as route as by needed. needed. intranasal route as needed. FreeStyle FreeStyle No FreeStyle [facility] Lancets 28 Lancets 28 Lancets 28 [...] DINNER. LUNCH DINNER. FreeStyle FreeStyle No FreeStyle [facility] Lite Strips Lite Strips Lite F amily USE A STRIP USE A STRIP Strips USE Practic TO CHECK TO CHECK A STRIP TO e GLUCOSE GLUCOSE CHECK THREE TIMES THREE TIMES GLUCOSE DAILY DAILY THREE TIMES DAILY gabapentin gabapentin No gabapentin [facility] 300 mg 300 mg 300 mg Family capsule capsule capsule Practi c TAKE 1 TAKE 1 TAKE 1 e CAPSULE BY CAPSULE BY CAPSULE BY MOUTH THREE MOUTH THREE MOUTH TIMES DAILY TIMES DAILY THREE TIMES DAILY gabapentin gabapentin No gabapentin [facility] 600 mg 600 mg 600 mg Family tablet TAKE tablet TAKE tablet Practic 1 TABLET BY 1 TABLET BY TAKE 1 e MOUTH THREE MOUTH THREE TABLET BY TIMES DAILY TIMES DAILY MOUTH THREE TIMES DAILY glipizide glipizide No glipizide [facility] ER 10 mg ER 10 mg [...] Humulin R Humulin R No Humulin R [facility] U-500 U-500 U-500 Family (Conc) (Conc) [...] 250 hydrocodone hydrocodone No 1 Q8H hydrocodon [facility] 5 5 e 5 Family mg-acetamin mg-acetamin mg-acetami Practic ophen 325 ophen 325 nophen 325 e mg tablet mg tablet mg tablet Take 1 Take 1 Take 1 tablet tablet tablet every 8 every 8 every 8 hours by hours by hours by oral route oral route oral route as needed. as needed. as needed. ketorolac ketorolac No ketorolac [facility] 10 mg 10 mg 10 mg [...] MOTRIN levothyroxi levothyroxi No 1 Q1D levothyrox [facility] ne 100 mcg ne 100 mcg ine 100 Family tablet Take tablet Take mcg tablet Practic 1 tablet 1 tablet Take 1 e every day every day tablet by oral by oral every day route. route. by oral route. metformin metformin No 2 Q1D metformin [facility] ER 500 mg ER 500 mg [...] days. 90 days. metformin metformin No metformin [facility] ER 500 mg ER 500 mg ER 500 mg Family tablet,exte tablet,exte tablet,ext Practic nded nded ended e release 24 release 24 release 24 hr TAKE 2 hr TAKE 2 hr TAKE 2 TABLETS BY TABLETS BY TABLETS BY MOUTH ONCE MOUTH ONCE MOUTH ONCE DAILY WITH DAILY WITH DAILY WITH SUPPER SUPPER SUPPER Ozempic 2 Ozempic 2 No Ozempic 2 [facility] mg/dose (8 mg/dose (8 mg/dose (8 Family [...] days. promethazin promethazin No 5mL Q8H promethazi [facility] e-DM 6.25 e-DM 6.25 ne-DM 6.25 [...] needed. prn cough prn cough prn cough Jeffuliliano Michi Borden No Jeffulakhwinder Borden [facility] U-300 U-300 U-300 Family SoloStar SoloStar [...] 120 valsartan valsartan No 1 Q1D valsartan [facility] 320 320 320 Family mg-hydrochl mg-hydrochl [...] route as needed. atorvastati atorvastati No atorvastat [facility] n 20 mg n 20 mg in 20 mg Famil y tablet TAKE tablet TAKE tablet Practic 1 TABLET BY 1 TABLET BY TAKE 1 e MOUTH ONCE MOUTH ONCE TABLET BY DAILY DAILY MOUTH ONCE DAILY azelastine azelastine No azelastine [facility] 137 mcg 137 mcg 137 mcg Family (0.1 %) (0.1 %) (0.1 %) Practi c nasal spray nasal spray nasal e aerosol aerosol spray [place] 2 [place] 2 aerosol sprays sprays [place] 2 twice a day twice a day [...] DAILY benzonatate benzonatate No 2capsul TID benzonatat [facility] 100 mg 100 mg e(s) e 100 mg Family capsule capsule capsule Practi c Take 2 Take 2 Take 2 e capsules 3 capsules 3 capsules 3 times a day times a day times a by oral by oral day by route as route as oral route needed. needed. as needed. clotrimazol clotrimazol No clotrimazo [facility] e-betametha e-betametha le-betamet Family sone 1 [...] DAY doxycycline doxycycline No 1capsul BID doxycyclin [facility] hyclate 100 hyclate 100 e(s) e hyclate Family mg capsule mg capsule 100 mg P ractic Take 1 Take 1 capsule e capsule capsule Take 1 twice a day twice a day capsule by oral by oral twice a route. route. day by oral route. duloxetine duloxetine No 1capsul Q1D duloxetine [facility] 60 mg 60 mg e(s) 60 mg Family capsule,del capsule,del capsule,de Practic ayed ayed layed e release release release Take 1 Take 1 Take 1 capsule capsule capsule every day every day every day by oral by oral by oral route. route. route. fluticasone fluticasone No fluticason [facility] propionate propionate e Fam alton 50 50 propionate Practic mcg/actuati mcg/actuati 50 e on nasal on nasal mcg/actuat spray,suspe spray,suspe ion nasal nsion [place] nsion [place] spray,susp 2 sprays 2 sprays ension every day every day [place] 2 by by sprays intranasal intranasal every day route as route as by needed. needed. intranasal route as needed. FreeStyle FreeStyle No FreeStyle [facility] Lancets 28 Lancets 28 Lancets 28 [...] THREE TIMES DAILY gabapentin gabapentin No gabapentin [facility] 300 mg 300 mg 300 mg Family capsule capsule capsule Practi c TAKE 1 TAKE 1 TAKE 1 e CAPSULE BY CAPSULE BY CAPSULE BY MOUTH THREE MOUTH THREE MOUTH TIMES DAILY TIMES DAILY THREE TIMES DAILY gabapentin gabapentin No gabapentin [facility] 600 mg 600 mg 600 mg Family tablet TAKE tablet TAKE tablet Practic 1 TABLET BY 1 TABLET BY TAKE 1 e MOUTH THREE MOUTH THREE TABLET BY TIMES DAILY TIMES DAILY MOUTH THREE TIMES DAILY glipizide glipizide No glipizide [facility] ER 10 mg ER 10 mg [...] Humulin R Humulin R No Humulin R [facility] U-500 U-500 U-500 Family (Conc) (Conc) [...] 250 hydrocodone hydrocodone No 1 Q8H hydrocodon [facility] 5 5 e 5 Family mg-acetamin mg-acetamin mg-acetami Practic ophen 325 ophen 325 nophen 325 e mg tablet mg tablet mg tablet Take 1 Take 1 Take 1 tablet tablet tablet every 8 every 8 every 8 hours by hours by hours by oral route oral route oral route as needed. as needed. as needed. ketorolac ketorolac No ketorolac [facility] 10 mg 10 mg 10 mg [...] ALEVE, OR MOTRIN levothyroxi levothyroxi No levothyrox [facility] ne 100 mcg ne 100 mcg ine 100 Family tablet TAKE tablet TAKE mcg tablet Practic 1 TABLET BY 1 TABLET BY TAKE 1 e MOUTH ONCE MOUTH ONCE TABLET BY DAILY DAILY MOUTH ONCE DAILY meloxicam meloxicam meloxicam [facility] 15 mg 15 mg 15 mg Family tablet TAKE tablet TAKE tablet Practic 1 TABLET BY 1 TABLET BY TAKE 1 e MOUTH ONCE MOUTH ONCE TABLET BY DAILY DAILY MOUTH ONCE NEEDED NEEDED DAILY NEEDED metformin metformin No 2 Q1D metformin [facility] ER 500 mg ER 500 mg [...] for 30 days. prednisone prednisone No prednisone [place] 20 mg 20 mg 20 mg Family [...] green phlegm promethazin promethazin No 5mL Q8H [facility] e-DM 6.25 e-DM 6.25 ne-DM 6.25 [facility] mg-15 mg/5 mg-15 mg/5 mg-15 mg/5 Practic mL oral mL oral mL oral e syrup Take syrup Take syrup Take 5 mL every 5 mL every 5 mL every 8 hours by 8 hours by 8 hours by oral route oral route oral route as needed. as needed. as needed. prn cough prn cough prn cough [facility] No Toul[facility]hwinder [facility] U-300 U-300 U-300 [facility] SoloStar SoloStar SoloStar Pra ctic 300 unit/mL [...] route. inhalation route. valsartan valsartan No valsartan [facility] 320 320 320 Family mg-hydrochl mg-hydrochl mg-hydroch Practic orothiazide orothiazide lorothiazi e 25 mg 25 mg de 25 mg tablet Take tablet Take tablet 1 tablet 1 tablet Take 1 every day every day tablet by oral by oral every day route. route. by oral route. albuterol albuterol No albuterol [facility] sulfate HFA sulfate HFA sulfate Family 90 90 HFA 90 Practic mcg/actuati mcg/actuati mcg/actuat e on aerosol on aerosol ion inhaler inhaler aerosol Inhale 2 Inhale 2 inhaler puffs every puffs every Inhale 2 4 hours by 4 hours by puffs inhalation inhalation every 4 route as route as hours by needed. needed. inhalation route as needed. atorvastati atorvastati No atorvastat [facility] n 20 mg n 20 mg in 20 mg Famil y tablet TAKE tablet TAKE tablet Practic 1 TABLET BY 1 TABLET BY TAKE 1 e MOUTH ONCE MOUTH ONCE TABLET BY DAILY DAILY MOUTH ONCE DAILY azelastine azelastine No azelastine [facility] 137 mcg 137 mcg 137 mcg [facility] (0.1 %) (0.1 %) (0.1 %) Practi c nasal spray nasal spray nasal e aerosol aerosol spray [place] 2 [place] 2 aerosol sprays sprays [place] 2 twice a day twice a day sprays by by twice a intranasal intranasal day by route as route as intranasal needed. needed. route as needed. BD Lexy 2nd BD Lexy 2nd No BD Lexy [place] Gen Pen Gen Pen 2nd Gen Family Needle 32 Needle 32 Pen Needle Practic gauge x gauge x 32 gauge x e " USE A " USE A " USE PEN NEEDLE PEN NEEDLE A PEN DIRECTED DIRECTED NEEDLE ONCE DAILY ONCE DAILY DIRECTED ONCE DAILY clotrimazol clotrimazol No clotrimazo [facility] e-betametha e-betametha le-betamet Family sone 1 [...] TIMES PER DAY cyclobenzap cyclobenzap No cyclobenza [place] rine 5 mg rine 5 mg latosha 5 mg Family tablet TAKE tablet TAKE tablet Practic 1 TABLET BY 1 TABLET BY TAKE 1 e MOUTH THREE MOUTH THREE TABLET BY TIMES DAILY TIMES DAILY MOUTH NEEDED NEEDED THREE FOR MUSCLE FOR MUSCLE TIMES SPASM SPASM DAILY NEEDED FOR MUSCLE SPASM duloxetine duloxetine No 1capsul Q1D duloxetine [facility] 60 mg 60 mg e(s) 60 mg Family capsule,del capsule,del capsule,de Practic ayed ayed layed e release release release Take 1 Take 1 Take 1 capsule capsule capsule every day every day every day by oral by oral by oral route. route. route. fluticasone fluticasone No fluticason [facility] propionate propionate e Fam alton 50 50 propionate Practic mcg/actuati mcg/actuati 50 e on nasal on nasal mcg/actuat spray,suspe spray,suspe ion nasal nsion [place] nsion [place] spray,susp 2 sprays 2 sprays ension every day every day [place] 2 by by sprays intranasal intranasal every day route as route as by needed. needed. intranasal route as needed. FreeStyle FreeStyle No FreeStyle [facility] Lancets 28 Lancets 28 Lancets 28 [...] THREE TIMES DAILY gabapentin gabapentin No gabapentin [facility] 300 mg 300 mg 300 mg Family capsule capsule capsule Practi c TAKE 1 TAKE 1 TAKE 1 e CAPSULE BY CAPSULE BY CAPSULE BY MOUTH THREE MOUTH THREE MOUTH TIMES DAILY TIMES DAILY THREE TIMES DAILY gabapentin gabapentin No gabapentin [facility] 600 mg 600 mg 600 mg Family tablet TAKE tablet TAKE tablet Practic 1 TABLET BY 1 TABLET BY TAKE 1 e MOUTH THREE MOUTH THREE TABLET BY TIMES DAILY TIMES DAILY MOUTH THREE TIMES DAILY glipizide glipizide No glipizide [facility] ER 10 mg ER 10 mg [...] Humulin R Humulin R No Humulin R [facility] U-500 U-500 U-500 [facility] (Conc) (Conc) (Conc) Practic Insulin Insulin Insulin [...] 250 hydrocodone hydrocodone No 1 Q8H hydrocodon [facility] 5 5 e 5 Family mg-acetamin mg-acetamin mg-acetami Practic ophen 325 ophen 325 nophen 325 e mg tablet mg tablet mg tablet Take 1 Take 1 Take 1 tablet tablet tablet every 8 every 8 every 8 hours by hours by hours by oral route oral route oral route as needed. as needed. as needed. levothyroxi levothyroxi No 1 Q1D levothyrox [facility] ne 100 mcg ne 100 mcg ine 100 Family tablet Take tablet Take mcg tablet Practic 1 tablet 1 tablet Take 1 e every day every day tablet by oral by oral every day route. route. by oral route. meloxicam meloxicam meloxicam [facility] 15 mg 15 mg 15 mg Family tablet TAKE tablet TAKE tablet Practic 1 TABLET BY 1 TABLET BY TAKE 1 e MOUTH ONCE MOUTH ONCE TABLET BY DAILY DAILY MOUTH ONCE NEEDED NEEDED DAILY NEEDED metformin metformin No metformin [facility] ER 500 mg ER 500 mg ER 500 mg Family tablet,exte tablet,exte tablet,ext Practic nded nded ended e release 24 release 24 release 24 hr TAKE 2 hr TAKE 2 hr TAKE 2 TABLETS BY TABLETS BY TABLETS BY MOUTH ONCE MOUTH ONCE MOUTH ONCE DAILY WITH DAILY WITH DAILY WITH SUPPER SUPPER SUPPER methylpredn methylpredn No methylpred [facility] isolone 4 isolone 4 nisolone 4 Family mg tablets mg tablets mg tablets Practic in a dose in a dose in a dose e pack TAKE pack TAKE pack TAKE BY MOUTH BY MOUTH BY MOUTH DIRECTED ON DIRECTED ON INSIDE OF INSIDE OF DIRECTED PACKAGE PACKAGE ON INSIDE OF PACKAGE Ozempic 2 Ozempic 2 No Ozempic 2 [...] 30 days. 30 days. for 30 days. tramadol 50 tramadol 50 No tramadol [place] mg tablet mg tablet 50 mg Fami ly TAKE 1 TAKE 1 tablet Practic TABLET BY TABLET BY TAKE 1 e MOUTH EVERY MOUTH EVERY TABLET BY 8 TO 10 8 TO 10 MOUTH HOURS HOURS EVERY 8 TO NEEDED NEEDED 10 HOURS NEEDED Trelegy Trelegy No 1puff(s Q1D Trelegy Ch[facility] john Ellipta 100 Ellipta 100 ) Ellipta Family mcg-62.5 mcg-62.5 100 Practic mcg-25 mcg mcg-25 mcg mcg-62.5 e powder for powder for mcg-25 mcg inhalation inhalation powder for Inhale 1 Inhale 1 inhalation puff every puff every Inhale 1 day by day by puff every inhalation inhalation day by route. route. inhalation route. valsartan valsartan No 1 Q1D valsartan [facility] 320 320 320 Family mg-hydrochl mg-hydrochl mg-hydroch Practic orothiazide orothiazide lorothiazi e 25 mg 25 mg de 25 mg tablet Take tablet Take tablet 1 tablet 1 tablet Take 1 every day every day tablet by oral by oral every day route. route. by oral route. albuterol albuterol No albuterol [facility] sulfate HFA sulfate HFA sulfate Family 90 90 HFA 90 Practic mcg/actuati mcg/actuati mcg/actuat e on aerosol on aerosol ion inhaler inhaler aerosol Inhale 2 Inhale 2 inhaler puffs every puffs every Inhale 2 4 hours by 4 hours by puffs inhalation inhalation every 4 route as route as hours by needed. needed. inhalation route as needed. atorvastati atorvastati No atorvastat [facility] n 20 mg n 20 mg in 20 mg Famil y tablet TAKE tablet TAKE tablet Practic 1 TABLET BY 1 TABLET BY TAKE 1 e MOUTH ONCE MOUTH ONCE TABLET BY DAILY DAILY MOUTH ONCE DAILY azelastine azelastine No azelastine [facility] 137 mcg 137 mcg 137 mcg Family (0.1 %) (0.1 %) (0.1 %) Practi c nasal spray nasal spray nasal e aerosol aerosol spray [place] 2 [place] 2 aerosol sprays sprays [place] 2 twice a day twice a day sprays by by twice a intranasal intranasal day by route as route as intranasal needed. needed. route as needed. BD Lexy 2nd BD Lexy 2nd No BD Lexy [facility] Gen Pen Gen Pen 2nd Gen Family Needle 32 Needle 32 Pen Needle Practic gauge x gauge x 32 gauge x e 5/32" USE A 5/32" USE A 5/32" USE PEN NEEDLE PEN NEEDLE A PEN DIRECTED DIRECTED NEEDLE ONCE DAILY ONCE DAILY DIRECTED ONCE DAILY clotrimazol clotrimazol No clotrimazo [facility] e-betametha e-betametha le-betamet Family sone 1 [...] TIMES PER DAY cyclobenzap cyclobenzap No cyclobenza [facility] rine 5 mg rine 5 mg latosha 5 mg Family tablet TAKE tablet TAKE tablet Practic 1 TABLET BY 1 TABLET BY TAKE 1 e MOUTH THREE MOUTH THREE TABLET BY TIMES DAILY TIMES DAILY MOUTH NEEDED NEEDED THREE FOR MUSCLE FOR MUSCLE TIMES SPASM SPASM DAILY NEEDED FOR MUSCLE SPASM duloxetine duloxetine No 1capsul Q1D duloxetine [facility] 60 mg 60 mg e(s) 60 mg Family capsule,del capsule,del capsule,de Practic ayed ayed layed e release release release Take 1 Take 1 Take 1 capsule capsule capsule every day every day every day by oral by oral by oral route. route. route. fluticasone fluticasone No fluticason [facility] propionate propionate e Fam alton 50 50 propionate Practic mcg/actuati mcg/actuati 50 e on nasal on nasal mcg/actuat spray,suspe spray,suspe ion nasal nsion [place] nsion [place] spray,susp 2 sprays 2 sprays ension every day every day [place] 2 by by sprays intranasal intranasal every day route as route as by needed. needed. intranasal route as needed. FreeStyle FreeStyle No FreeStyle [facility] Lancets 28 Lancets 28 Lancets 28 Family gauge USE A gauge USE A gauge USE Practic LANCET TO LANCET TO A LANCET e CHECK CHECK TO CHECK GLUCOSE GLUCOSE GLUCOSE ONCE DAILY ONCE DAILY ONCE DAILY . ROTATE . ROTATE . ROTATE BETWEEN BETWEEN BETWEEN FASTING FASTING FASTING BREAKFAST BREAKFAST BREAKFAST LUNCH LUNCH LUNCH DINNER DINNER DINNER FreeStyle FreeStyle No FreeStyle [facility] Lite Meter Lite Meter Lite Meter Family kit USE TO kit USE TO kit USE TO Practic CHECK SUGAR CHECK SUGAR CHECK e ONCE DAILY. ONCE DAILY. SUGAR ONCE ROTATE ROTATE DAILY. BETWEEN BETWEEN ROTATE FASTING FASTING BETWEEN BREAKFAST BREAKFAST FASTING LUNCH LUNCH BREAKFAST DINNER. DINNER. LUNCH DINNER. FreeStyle FreeStyle No FreeStyle [facility] Lite Strips Lite Strips Lite F amily USE A STRIP USE A STRIP Strips USE Practic TO CHECK TO CHECK A STRIP TO e GLUCOSE GLUCOSE CHECK THREE TIMES THREE TIMES GLUCOSE DAILY DAILY THREE TIMES DAILY gabapentin gabapentin No gabapentin [facility] 300 mg 300 mg 300 mg Family capsule capsule capsule Practi c TAKE 1 TAKE 1 TAKE 1 e CAPSULE BY CAPSULE BY CAPSULE BY MOUTH THREE MOUTH THREE MOUTH TIMES DAILY TIMES DAILY THREE TIMES DAILY gabapentin gabapentin No gabapentin [facility] 600 mg 600 mg 600 mg Family tablet TAKE tablet TAKE tablet Practic 1 TABLET BY 1 TABLET BY TAKE 1 e MOUTH THREE MOUTH THREE TABLET BY TIMES DAILY TIMES DAILY MOUTH THREE TIMES DAILY glipizide glipizide No glipizide [facility] ER 10 mg ER 10 mg [...] Humulin R Humulin R No Humulin R [facility] U-500 U-500 U-500 [facility] (Conc) (Conc) (Conc) Practic Insulin Insulin Insulin [...] 250 hydrocodone hydrocodone No 1 Q8H hydrocodon [facility] 5 5 e 5 Family mg-acetamin mg-acetamin mg-acetami Practic ophen 325 ophen 325 nophen 325 e mg tablet mg tablet mg tablet Take 1 Take 1 Take 1 tablet tablet tablet every 8 every 8 every 8 hours by hours by hours by oral route oral route oral route as needed. as needed. as needed. levothyroxi levothyroxi No 1 Q1D levothyrox [facility] ne 100 mcg ne 100 mcg ine 100 Family tablet Take tablet Take mcg tablet Practic 1 tablet 1 tablet Take 1 e every day every day tablet by oral by oral every day route. route. by oral route. meloxicam meloxicam meloxicam [facility] 15 mg 15 mg 15 mg Family tablet TAKE tablet TAKE tablet Practic 1 TABLET BY 1 TABLET BY TAKE 1 e MOUTH ONCE MOUTH ONCE TABLET BY DAILY DAILY MOUTH ONCE NEEDED NEEDED DAILY NEEDED metformin metformin metformin [facility] ER 500 mg ER 500 mg ER 500 mg Family tablet,exte tablet,exte tablet,ext Practic nded nded ended e release 24 release 24 release 24 hr TAKE 2 hr TAKE 2 hr TAKE 2 TABLETS BY TABLETS BY TABLETS BY MOUTH ONCE MOUTH ONCE MOUTH ONCE DAILY WITH DAILY WITH DAILY WITH SUPPER SUPPER SUPPER methylpredn methylpredn No methylpred [facility] isolone 4 isolone 4 nisolone 4 Family mg tablets mg tablets mg tablets Practic in a dose in a dose in a dose e pack TAKE pack TAKE pack TAKE BY MOUTH BY MOUTH BY MOUTH DIRECTED ON DIRECTED ON INSIDE OF INSIDE OF DIRECTED PACKAGE PACKAGE ON INSIDE OF PACKAGE Ozempic 2 Ozempic 2 No Ozempic 2 [...] 30 days. 30 days. for 30 days. tramadol 50 tramadol 50 No tramadol [place] mg tablet mg tablet 50 mg Fami ly TAKE 1 TAKE 1 tablet Practic TABLET BY TABLET BY TAKE 1 e MOUTH EVERY MOUTH EVERY TABLET BY 8 TO 10 8 TO 10 MOUTH HOURS HOURS EVERY 8 TO NEEDED NEEDED 10 HOURS NEEDED Trelegy Trelegy No 1puff(s Q1D Trelegy [facility] j[facility] Ellipta 100 Ellipta 100 ) Ellipta Family mcg-62.5 mcg-62.5 100 Practic mcg-25 mcg mcg-25 mcg mcg-62.5 e powder for powder for mcg-25 mcg inhalation inhalation powder for Inhale 1 Inhale 1 inhalation puff every puff every Inhale 1 day by day by puff every inhalation inhalation day by route. route. inhalation route. valsartan valsartan No 1 Q1D valsartan [facility] 320 320 320 Family mg-hydrochl mg-hydrochl [...] route as needed. atorvastati atorvastati No atorvastat [facility] n 20 mg n 20 mg in 20 mg Famil y tablet TAKE tablet TAKE tablet Practic 1 TABLET BY 1 TABLET BY TAKE 1 e MOUTH ONCE MOUTH ONCE TABLET BY DAILY DAILY MOUTH ONCE DAILY azelastine azelastine No azelastine [facility] 137 mcg 137 mcg 137 mcg Family (0.1 %) (0.1 %) (0.1 %) Practi c nasal spray nasal spray nasal e aerosol aerosol spray [place] 2 [place] 2 aerosol sprays sprays [place] 2 twice a day twice a day sprays by by twice a intranasal intranasal day by route as route as intranasal needed. needed. route as needed. BD Lexy 2nd BD Lexy 2nd No BD Elxy [place] Gen Pen Gen Pen 2nd Gen Family Needle 32 Needle 32 Pen Needle Practic gauge x gauge x 32 gauge x e " USE " USE " USE DIRECTED DIRECTED TWICE DAILY TWICE DAILY DIRECTED TWICE DAILY clotrimazol clotrimazol No clotrimazo [facility] e-betametha e-betametha le-betamet Family sone 1 [...] TIMES PER DAY cyclobenzap cyclobenzap No cyclobenza [facility] rine 5 mg rine 5 mg latosha 5 mg Family tablet TAKE tablet TAKE tablet Practic 1 TABLET BY 1 TABLET BY TAKE 1 e MOUTH THREE MOUTH THREE TABLET BY TIMES DAILY TIMES DAILY MOUTH NEEDED NEEDED THREE FOR MUSCLE FOR MUSCLE TIMES SPASM SPASM DAILY NEEDED FOR MUSCLE SPASM dexamethaso dexamethaso No 1 dexamethas [facility] ne 1 mg ne 1 mg one 1 mg Famil y tablet Take tablet Take tablet Practic 1 tablet by 1 tablet by Take 1 e oral route oral route tablet by at bedtime at bedtime oral route for 1 day. for 1 day. at bedtime for 1 day. duloxetine duloxetine No duloxetine [facility] 60 mg 60 mg 60 mg Family capsule,del capsule,del capsule,de Practic ayed ayed layed e release release release TAKE 1 TAKE 1 TAKE 1 CAPSULE BY CAPSULE BY CAPSULE BY MOUTH ONCE MOUTH ONCE MOUTH ONCE DAILY DAILY DAILY [facility] propionate propionate e Fam al[facility] 50 50 propionate Practic mcg/actuati mcg/actuati 50 e on nasal on nasal mcg/actuat spray,suspe spray,suspe ion nasal nsion [place] nsion [place] spray,susp 2 sprays 2 sprays ension every day every day [place] 2 by by sprays intranasal intranasal every day route as route as by needed. needed. intranasal route as needed. FreeStyle FreeStyle No FreeStyle [facility] Lancets 28 Lancets 28 Lancets 28 Family gauge USE A gauge USE A gauge USE Practic LANCET TO LANCET TO A LANCET e CHECK CHECK TO CHECK GLUCOSE GLUCOSE GLUCOSE ONCE DAILY ONCE DAILY ONCE DAILY . ROTATE . ROTATE . ROTATE BETWEEN BETWEEN BETWEEN FASTING FASTING FASTING BREAKFAST BREAKFAST BREAKFAST LUNCH LUNCH LUNCH DINNER DINNER DINNER FreeStyle FreeStyle No FreeStyle [facility] Lite Meter Lite Meter Lite Meter Family kit USE TO kit USE TO kit USE TO Practic CHECK SUGAR CHECK SUGAR CHECK e ONCE DAILY. ONCE DAILY. SUGAR ONCE ROTATE ROTATE DAILY. BETWEEN BETWEEN ROTATE FASTING FASTING BETWEEN BREAKFAST BREAKFAST FASTING LUNCH LUNCH BREAKFAST DINNER. DINNER. LUNCH DINNER. FreeStyle FreeStyle No FreeStyle [facility] Lite Strips Lite Strips Lite F amily USE A STRIP USE A STRIP Strips USE Practic TO CHECK TO CHECK A STRIP TO e GLUCOSE GLUCOSE CHECK THREE TIMES THREE TIMES GLUCOSE DAILY DAILY THREE TIMES DAILY gabapentin gabapentin No gabapentin [facility] 300 mg 300 mg 300 mg [facility] capsule capsule capsule Practi c TAKE 1 TAKE 1 TAKE 1 e CAPSULE BY CAPSULE BY CAPSULE BY MOUTH THREE MOUTH THREE MOUTH TIMES DAILY TIMES DAILY THREE TIMES DAILY gabapentin gabapentin No gabapentin [facility] 600 mg 600 mg 600 mg Family tablet TAKE tablet TAKE tablet Practic 2 TABLETS 2 TABLETS TAKE 2 e BY MOUTH BY MOUTH TABLETS BY TWICE DAILY TWICE DAILY MOUTH TWICE DAILY glipizide glipizide No glipizide [facility] ER 10 mg ER 10 mg [...] Humulin R Humulin R No Humulin R [facility] U-500 U-500 U-500 [facility] (Conc) (Conc) (Conc) Practic Insulin Insulin Insulin e Kwikpen 500 Kwikpen 500 Kwikpen unit/mL (3 unit/mL (3 500 mL) mL) unit/mL (3 subcutaneou subcutaneou mL) s Give s Give subcutaneo 120units 120units us Give before before 120units breakfast breakfast before and 100 and 100 breakfast units units and 100 before before units dinner and dinner and before increase as increase as dinner and directed: directed: increase TDD 250 TDD 250 as directed: TDD 250 hydrocodone hydrocodone No hydrocodon [facility] 5 5 e 5 Family mg-acetamin mg-acetamin mg-acetami Practic ophen 325 ophen 325 nophen 325 e mg tablet mg tablet mg tablet TAKE 1 TAKE 1 TAKE 1 TABLET BY TABLET BY TABLET BY MOUTH EVERY MOUTH EVERY MOUTH 8 HOURS 8 HOURS EVERY 8 NEEDED NEEDED HOURS NEEDED levothyroxi levothyroxi No levothyrox [facility] ne 100 mcg ne 100 mcg ine 100 Family tablet TAKE tablet TAKE mcg tablet Practic 1 TABLET BY 1 TABLET BY TAKE 1 e MOUTH ONCE MOUTH ONCE TABLET BY DAILY DAILY MOUTH ONCE DAILY meloxicam meloxicam No meloxicam [facility] 15 mg 15 mg 15 mg [...] DAILY WITH DAILY WITH SUPPER SUPPER SUPPER methylpredn methylpredn No methylpred [facility] isolone 4 isolone 4 nisolone 4 Family mg tablets mg tablets mg tablets Practic in a dose in a dose in a dose e pack TAKE pack TAKE pack TAKE BY MOUTH BY MOUTH BY MOUTH DIRECTED ON DIRECTED ON INSIDE OF INSIDE OF DIRECTED PACKAGE PACKAGE ON INSIDE OF PACKAGE Ozempic 2 Ozempic 2 No 2mg Q1W [...] 30 days. 30 days. for 30 days. tramadol 50 tramadol 50 No tramadol [place] mg tablet mg tablet 50 mg Fami ly TAKE 1 TAKE 1 tablet Practic TABLET BY TABLET BY TAKE 1 e MOUTH EVERY MOUTH EVERY TABLET BY 8 TO 10 8 TO 10 MOUTH HOURS HOURS EVERY 8 TO NEEDED NEEDED 10 HOURS NEEDED Trelegy Trelegy No Trelegy [place] [facility] Ellipta 100 Ellipta 100 Ellipta Family mcg-62.5 mcg-62.5 100 Practic mcg-25 mcg mcg-25 mcg mcg-62.5 e powder for powder for mcg-25 mcg inhalation inhalation powder for INHALE 1 INHALE 1 inhalation PUFF BY PUFF BY INHALE 1 MOUTH ONCE MOUTH ONCE PUFF BY DAILY DAILY MOUTH ONCE DAILY valsartan valsartan No valsartan [facility] 320 320 320 Family mg-hydrochl mg-hydrochl mg-hydroch Practic orothiazide orothiazide lorothiazi e 25 mg 25 mg de 25 mg tablet TAKE tablet TAKE tablet 1 TABLET BY 1 TABLET BY TAKE 1 MOUTH ONCE MOUTH ONCE TABLET BY DAILY DAILY MOUTH ONCE DAILY albuterol albuterol No albuterol [facility] sulfate HFA sulfate HFA sulfate Family 90 90 HFA 90 Practic mcg/actuati mcg/actuati mcg/actuat e on aerosol on aerosol ion inhaler inhaler aerosol Inhale 2 Inhale 2 inhaler puffs every puffs every Inhale 2 4 hours by 4 hours by puffs inhalation inhalation every 4 route as route as hours by needed. needed. inhalation route as needed. atorvastati atorvastati No atorvastat [facility] n 20 mg n 20 mg in 20 mg Famil y tablet TAKE tablet TAKE tablet Practic 1 TABLET BY 1 TABLET BY TAKE 1 e MOUTH ONCE MOUTH ONCE TABLET BY DAILY DAILY MOUTH ONCE DAILY azelastine azelastine No azelastine [facility] 137 mcg 137 mcg 137 mcg Family (0.1 %) (0.1 %) (0.1 %) Practi c nasal spray nasal spray nasal e aerosol aerosol spray [place] 2 [place] 2 aerosol sprays sprays [place] 2 twice a day twice a day sprays by by twice a intranasal intranasal day by route as route as intranasal needed. needed. route as needed. BD Lexy 2nd BD Lexy 2nd No BD Lexy [place] Gen Pen Gen Pen 2nd Gen Family Needle 32 Needle 32 Pen Needle Practic gauge x gauge x 32 gauge x e " USE " USE " USE DIRECTED DIRECTED TWICE DAILY TWICE DAILY DIRECTED TWICE DAILY clotrimazol clotrimazol No clotrimazo [facility] e-betametha e-betametha le-betamet Family sone 1 [...] TIMES PER DAY cyclobenzap cyclobenzap No cyclobenza [facility] rine 5 mg rine 5 mg latosha 5 mg Family tablet TAKE tablet TAKE tablet Practic 1 TABLET BY 1 TABLET BY TAKE 1 e MOUTH THREE MOUTH THREE TABLET BY TIMES DAILY TIMES DAILY MOUTH NEEDED NEEDED THREE FOR MUSCLE FOR MUSCLE TIMES SPASM SPASM DAILY NEEDED FOR MUSCLE SPASM dexamethaso dexamethaso No dexamethas [facility] ne 1 mg ne 1 mg one 1 mg Famil y tablet TAKE tablet TAKE tablet Practic 1 TABLET BY 1 TABLET BY TAKE 1 e MOUTH AT MOUTH AT TABLET BY BEDTIME FOR BEDTIME FOR MOUTH AT 1 DAY 1 DAY BEDTIME FOR 1 DAY duloxetine duloxetine No 1capsul Q1D duloxetine [facility] 60 mg 60 mg e(s) 60 mg Family capsule,del capsule,del capsule,de Practic ayed ayed layed e release release release Take 1 Take 1 Take 1 capsule capsule capsule every day every day every day by oral by oral by oral route. route. route. fluticasone fluticasone fluticason [place] propionate propionate e Fam alton 50 50 propionate Practic mcg/actuati mcg/actuati 50 e on nasal on nasal mcg/actuat spray,suspe spray,suspe ion nasal nsion [place] nsion [place] spray,susp 2 sprays 2 sprays ension every day every day [place] 2 by by sprays intranasal intranasal every day route as route as by needed. needed. intranasal route as needed. FreeStyle FreeStyle No FreeStyle [facility] Lancets 28 Lancets 28 Lancets 28 Family gauge USE A gauge USE A gauge USE Practic LANCET TO LANCET TO A LANCET e CHECK CHECK TO CHECK GLUCOSE GLUCOSE GLUCOSE ONCE DAILY ONCE DAILY ONCE DAILY . ROTATE . ROTATE . ROTATE BETWEEN BETWEEN BETWEEN FASTING FASTING FASTING BREAKFAST BREAKFAST BREAKFAST LUNCH LUNCH LUNCH DINNER DINNER DINNER FreeStyle FreeStyle No FreeStyle [facility] Lite Meter Lite Meter Lite Meter Family kit USE TO kit USE TO kit USE TO Practic CHECK SUGAR CHECK SUGAR CHECK e ONCE DAILY. ONCE DAILY. SUGAR ONCE ROTATE ROTATE DAILY. BETWEEN BETWEEN ROTATE FASTING FASTING BETWEEN BREAKFAST BREAKFAST FASTING LUNCH LUNCH BREAKFAST DINNER. DINNER. LUNCH DINNER. FreeStyle FreeStyle No FreeStyle [facility] Lite Strips Lite Strips Lite F amily USE A STRIP USE A STRIP Strips USE Practic TO CHECK TO CHECK A STRIP TO e GLUCOSE GLUCOSE CHECK THREE TIMES THREE TIMES GLUCOSE DAILY DAILY THREE TIMES DAILY gabapentin gabapentin No gabapentin [facility] 300 mg 300 mg 300 mg [facility] capsule capsule capsule Practi c TAKE 1 TAKE 1 TAKE 1 e CAPSULE BY CAPSULE BY CAPSULE BY MOUTH THREE MOUTH THREE MOUTH TIMES DAILY TIMES DAILY THREE TIMES DAILY gabapentin gabapentin No gabapentin [facility] 600 mg 600 mg 600 mg [facility] tablet TAKE tablet TAKE tablet Practic 2 TABLETS 2 TABLETS TAKE 2 e BY MOUTH BY MOUTH TABLETS BY TWICE DAILY TWICE DAILY MOUTH TWICE DAILY glipizide glipizide No glipizide [facility] ER 10 mg ER 10 mg [...] Humulin R Humulin R No Humulin R [facility] U-500 U-500 U-500 [facility] (Conc) (Conc) (Conc) Practic Insulin Insulin Insulin e Kwikpen 500 Kwikpen 500 Kwikpen unit/mL (3 unit/mL (3 500 mL) mL) unit/mL (3 subcutaneou subcutaneou mL) s Give s Give subcutaneo 120units 120units us Give before before 120units breakfast breakfast before and 100 and 100 breakfast units units and 100 before before units dinner and dinner and before increase as increase as dinner and directed: directed: increase TDD 250 TDD 250 as directed: TDD 250 hydrocodone hydrocodone No 1 Q8H hydrocodon [facility] 5 5 e 5 Family mg-acetamin mg-acetamin mg-acetami Practic ophen 325 ophen 325 nophen 325 e mg tablet mg tablet mg tablet Take 1 Take 1 Take 1 tablet tablet tablet every 8 every 8 every 8 hours by hours by hours by oral route oral route oral route as needed. as needed. as needed. levothyroxi levothyroxi No 1 Q1D levothyrox [facility] ne 100 mcg ne 100 mcg ine 100 Family tablet Take tablet Take mcg tablet Practic 1 tablet 1 tablet Take 1 e every day every day tablet by oral by oral every day route. route. by oral route. meloxicam meloxicam No 1 Q1D meloxicam [facility] 15 mg 15 mg 15 mg Family tablet Take tablet Take tablet Practic 1 tablet 1 tablet Take 1 e every day every day tablet by oral by oral every day route as route as by oral needed. needed. route as needed. metformin metformin No 2 Q1D metformin [facility] ER 500 mg ER 500 mg [...] days. 90 days. metformin metformin No metformin [facility] ER 500 mg ER 500 mg ER 500 mg Family tablet,exte tablet,exte tablet,ext Practic nded nded ended e release 24 release 24 release 24 hr TAKE 2 hr TAKE 2 hr TAKE 2 TABLETS BY TABLETS BY TABLETS BY MOUTH ONCE MOUTH ONCE MOUTH ONCE DAILY WITH DAILY WITH DAILY WITH SUPPER SUPPER SUPPER methylpredn methylpredn No methylpred [facility] isolone 4 isolone 4 nisolone 4 Family mg tablets mg tablets mg tablets Practic in a dose in a dose in a dose e pack TAKE pack TAKE pack TAKE BY MOUTH BY MOUTH BY MOUTH DIRECTED ON DIRECTED ON INSIDE OF INSIDE OF DIRECTED PACKAGE PACKAGE ON INSIDE OF PACKAGE Ozempic 2 Ozempic 2 No Ozempic 2 [...] 30 days. 30 days. for 30 days. tramadol 50 tramadol 50 No tramadol [place] mg tablet mg tablet 50 mg Fami ly TAKE 1 TAKE 1 tablet Practic TABLET BY TABLET BY TAKE 1 e MOUTH EVERY MOUTH EVERY TABLET BY 8 TO 10 8 TO 10 MOUTH HOURS HOURS EVERY 8 TO NEEDED NEEDED 10 HOURS NEEDED Trelegy Trelegy No 1puff(s Q1D Trelegy [place] [facility] Ellipta 100 Ellipta 100 ) Ellipta Family mcg-62.5 mcg-62.5 100 Practic mcg-25 mcg mcg-25 mcg mcg-62.5 e powder for powder for mcg-25 mcg inhalation inhalation powder for Inhale 1 Inhale 1 inhalation puff every puff every Inhale 1 day by day by puff every inhalation inhalation day by route. route. inhalation route. valsartan valsartan No 1 Q1D valsartan [facility] 320 320 320 Family mg-hydrochl mg-hydrochl [...] route as needed. atorvastati atorvastati No atorvastat [place] n 20 mg n 20 mg in 20 mg Famil y tablet TAKE tablet TAKE tablet Practic 1 TABLET BY 1 TABLET BY TAKE 1 e MOUTH ONCE MOUTH ONCE TABLET BY DAILY DAILY MOUTH ONCE DAILY azelastine azelastine No azelastine [place] 137 mcg 137 mcg 137 mcg Family (0.1 %) (0.1 %) (0.1 %) Practi c nasal spray nasal spray nasal e aerosol aerosol spray [place] 2 [place] 2 aerosol sprays sprays [place] 2 twice a day twice a day sprays by by twice a intranasal intranasal day by route as route as intranasal needed. needed. route as needed. BD Lexy 2nd BD Leyx 2nd No BD Lexy [place] Gen Pen Gen Pen 2nd Gen Family Needle 32 Needle 32 Pen Needle Practic gauge x gauge x 32 gauge x e " USE " USE " USE DIRECTED DIRECTED TWICE DAILY TWICE DAILY DIRECTED TWICE DAILY clotrimazol clotrimazol No clotrimazo [facility] e-betametha e-betametha le-betamet Family sone 1 [...] TIMES PER DAY cyclobenzap cyclobenzap No cyclobenza [facility] rine 5 mg rine 5 mg latosha 5 mg Family tablet TAKE tablet TAKE tablet Practic 1 TABLET BY 1 TABLET BY TAKE 1 e MOUTH THREE MOUTH THREE TABLET BY TIMES DAILY TIMES DAILY MOUTH NEEDED NEEDED THREE FOR MUSCLE FOR MUSCLE TIMES SPASM SPASM DAILY NEEDED FOR MUSCLE SPASM dexamethaso dexamethaso No dexamethas [facility] ne 1 mg ne 1 mg one 1 mg Famil y tablet TAKE tablet TAKE tablet Practic 1 TABLET BY 1 TABLET BY TAKE 1 e MOUTH AT MOUTH AT TABLET BY BEDTIME FOR BEDTIME FOR MOUTH AT 1 DAY 1 DAY BEDTIME FOR 1 DAY duloxetine duloxetine duloxetine [facility] 60 mg 60 mg 60 mg Family capsule,del capsule,del capsule,de Practic ayed ayed layed e release release release TAKE 1 TAKE 1 TAKE 1 CAPSULE BY CAPSULE BY CAPSULE BY MOUTH ONCE MOUTH ONCE MOUTH ONCE DAILY DAILY DAILY fluticasone fluticasone fluticason [place] propionate propionate e Fam alton 50 50 propionate Practic mcg/actuati mcg/actuati 50 e on nasal on nasal mcg/actuat spray,suspe spray,suspe ion nasal nsion [place] nsion [place] spray,susp 2 sprays 2 sprays ension every day every day [place] 2 by by sprays intranasal intranasal every day route as route as by needed. needed. intranasal route as needed. FreeStyle FreeStyle No FreeStyle [facility] Lancets 28 Lancets 28 Lancets 28 Family gauge USE A gauge USE A gauge USE Practic LANCET TO LANCET TO A LANCET e CHECK CHECK TO CHECK GLUCOSE GLUCOSE GLUCOSE ONCE DAILY ONCE DAILY ONCE DAILY . ROTATE . ROTATE . ROTATE BETWEEN BETWEEN BETWEEN FASTING FASTING FASTING BREAKFAST BREAKFAST BREAKFAST LUNCH LUNCH LUNCH DINNER DINNER DINNER FreeStyle FreeStyle No FreeStyle [facility] Lite Meter Lite Meter Lite Meter Family kit USE TO kit USE TO kit USE TO Practic CHECK SUGAR CHECK SUGAR CHECK e ONCE DAILY. ONCE DAILY. SUGAR ONCE ROTATE ROTATE DAILY. BETWEEN BETWEEN ROTATE FASTING FASTING BETWEEN BREAKFAST BREAKFAST FASTING LUNCH LUNCH BREAKFAST DINNER. DINNER. LUNCH DINNER. FreeStyle FreeStyle No FreeStyle [facility] Lite Strips Lite Strips Lite F amily USE 1 STRIP USE 1 STRIP Strips USE Practic TO CHECK TO CHECK 1 STRIP TO e GLUCOSE GLUCOSE CHECK THREE TIMES THREE TIMES GLUCOSE DAILY DAILY THREE TIMES DAILY gabapentin gabapentin No gabapentin [facility] 300 mg 300 mg 300 mg [facility] capsule capsule capsule Practi c TAKE 1 TAKE 1 TAKE 1 e CAPSULE BY CAPSULE BY CAPSULE BY MOUTH THREE MOUTH THREE MOUTH TIMES DAILY TIMES DAILY THREE TIMES DAILY gabapentin gabapentin No gabapentin [facility] 600 mg 600 mg 600 mg [facility] tablet TAKE tablet TAKE tablet Practic 2 TABLETS 2 TABLETS TAKE 2 e BY MOUTH BY MOUTH TABLETS BY TWICE DAILY TWICE DAILY MOUTH TWICE DAILY glipizide glipizide No glipizide [facility] ER 10 mg ER 10 mg [...] Humulin R Humulin R No Humulin R [facility] U-500 U-500 U-500 [facility] (Conc) (Conc) (Conc) Practic Insulin Insulin Insulin e Kwikpen 500 Kwikpen 500 Kwikpen unit/mL (3 unit/mL (3 500 mL) mL) unit/mL (3 subcutaneou subcutaneou mL) s INJECT s INJECT subcutaneo 120 UNITS 120 UNITS us INJECT SUBCUTANEOU SUBCUTANEOU 120 UNITS SLY BEFORE SLY BEFORE SUBCUTANEO BREAKFAST BREAKFAST USLY AND 100 AND 100 BEFORE UNITS UNITS BREAKFAST BEFORE BEFORE AND 100 DINNER AND DINNER AND UNITS INCREASE INCREASE BEFORE DIRECTED. DIRECTED. DINNER AND TOTAL DAILY TOTAL DAILY INCREASE DOSE OF 250 DOSE OF 250 UNITS UNITS DIRECTED. TOTAL DAILY DOSE OF 250 UNITS hydrocodone hydrocodone No hydrocodon [facility] 5 5 e 5 Family mg-acetamin mg-acetamin mg-acetami Practic ophen 325 ophen 325 nophen 325 e mg tablet mg tablet mg tablet TAKE 1 TAKE 1 TAKE 1 TABLET BY TABLET BY TABLET BY MOUTH EVERY MOUTH EVERY MOUTH 8 HOURS 8 HOURS EVERY 8 NEEDED NEEDED HOURS NEEDED levothyroxi levothyroxi No levothyrox [facility] ne 100 mcg ne 100 mcg ine 100 Family tablet TAKE tablet TAKE mcg tablet Practic 1 TABLET BY 1 TABLET BY TAKE 1 e MOUTH ONCE MOUTH ONCE TABLET BY DAILY DAILY MOUTH ONCE DAILY meloxicam meloxicam No meloxicam [facility] 15 mg 15 mg 15 mg Family tablet TAKE tablet TAKE tablet Practic 1 TABLET BY 1 TABLET BY TAKE 1 e MOUTH ONCE MOUTH ONCE TABLET BY DAILY DAILY MOUTH ONCE NEEDED NEEDED DAILY NEEDED metformin metformin No 2 Q1D metformin [facility] ER 500 mg ER 500 mg [...] days. 90 days. metformin metformin No metformin [facility] ER 500 mg ER 500 mg [...] pen us pen injector injector injector INJECT 2 MG INJECT 2 MG INJECT 2 SUBCUTANEOU SUBCUTANEOU MG SLY ONCE A SLY ONCE A SUBCUTANEO WEEK WEEK USLY ONCE A WEEK tramadol 50 tramadol 50 No tramadol [place] mg tablet mg tablet 50 mg Fami ly TAKE 1 TAKE 1 tablet Practic TABLET BY TABLET BY TAKE 1 e MOUTH EVERY MOUTH EVERY TABLET BY 8 TO 10 8 TO 10 MOUTH HOURS HOURS EVERY 8 TO NEEDED NEEDED 10 HOURS NEEDED Trelegy Trelegy No 1puff(s Q1D Trelegy [place] [...] route. inhalation route. valsartan valsartan No valsartan [facility] 320 320 320 Family mg-hydrochl mg-hydrochl mg-hydroch Practic orothiazide orothiazide lorothiazi e 25 mg 25 mg de 25 mg tablet TAKE tablet TAKE tablet 1 TABLET BY 1 TABLET BY TAKE 1 MOUTH ONCE MOUTH ONCE TABLET BY DAILY DAILY MOUTH ONCE DAILY albuterol albuterol No albuterol [facility] sulfate HFA sulfate HFA sulfate Family 90 90 HFA 90 Practic mcg/actuati mcg/actuati mcg/actuat e on aerosol on aerosol ion inhaler inhaler aerosol Inhale 2 Inhale 2 inhaler puffs every puffs every Inhale 2 4 hours by 4 hours by puffs inhalation inhalation every 4 route as route as hours by needed. needed. inhalation route as needed. atorvastati atorvastati No atorvastat [facility] n 20 mg n 20 mg in 20 mg Famil y tablet TAKE tablet TAKE tablet Practic 1 TABLET BY 1 TABLET BY TAKE 1 e MOUTH ONCE MOUTH ONCE TABLET BY DAILY DAILY MOUTH ONCE DAILY azelastine azelastine No azelastine [facility] 137 mcg 137 mcg 137 mcg Family (0.1 %) (0.1 %) (0.1 %) Practi c nasal spray nasal spray nasal e aerosol aerosol spray [place] 2 [place] 2 aerosol sprays sprays [place] 2 twice a day twice a day sprays by by twice a intranasal intranasal day by route as route as intranasal needed. needed. route as needed. BD Lexy 2nd BD Lexy 2nd No BD Lexy [place] Gen Pen Gen Pen 2nd Gen Family Needle 32 Needle 32 Pen Needle Practic gauge x gauge x 32 gauge x e " USE " USE " USE DIRECTED DIRECTED TWICE DAILY TWICE DAILY DIRECTED TWICE DAILY clotrimazol clotrimazol No clotrimazo [facility] e-betametha e-betametha le-betamet Family sone 1 [...] TIMES PER DAY cyclobenzap cyclobenzap No cyclobenza [facility] rine 5 mg rine 5 mg latosha 5 mg Family tablet TAKE tablet TAKE tablet Practic 1 TABLET BY 1 TABLET BY TAKE 1 e MOUTH THREE MOUTH THREE TABLET BY TIMES DAILY TIMES DAILY MOUTH NEEDED NEEDED THREE FOR MUSCLE FOR MUSCLE TIMES SPASM SPASM DAILY NEEDED FOR MUSCLE SPASM dexamethaso dexamethaso No dexamethas [facility] ne 1 mg ne 1 mg one 1 mg Famil y tablet TAKE tablet TAKE tablet Practic 1 TABLET BY 1 TABLET BY TAKE 1 e MOUTH AT MOUTH AT TABLET BY BEDTIME FOR BEDTIME FOR MOUTH AT 1 DAY 1 DAY BEDTIME FOR 1 DAY duloxetine duloxetine No duloxetine [facility] 60 mg 60 mg 60 mg Family capsule,del capsule,del capsule,de Practic ayed ayed layed e release release release TAKE 1 TAKE 1 TAKE 1 CAPSULE BY CAPSULE BY CAPSULE BY MOUTH ONCE MOUTH ONCE MOUTH ONCE DAILY DAILY DAILY fluticasone fluticasone No fluticason [facility] propionate propionate e Fam alton 50 50 propionate Practic mcg/actuati mcg/actuati 50 e on nasal on nasal mcg/actuat spray,suspe spray,suspe ion nasal nsion [place] nsion [place] spray,susp 2 sprays 2 sprays ension every day every day [place] 2 by by sprays intranasal intranasal every day route as route as by needed. needed. intranasal route as needed. FreeStyle FreeStyle No FreeStyle [facility] Lancets 28 Lancets 28 Lancets 28 [...] DINNER. LUNCH DINNER. FreeStyle FreeStyle No FreeStyle [facility] Lite Strips Lite Strips Lite F amily USE 1 STRIP USE 1 STRIP Strips USE Practic TO CHECK TO CHECK 1 STRIP TO e GLUCOSE GLUCOSE CHECK THREE TIMES THREE TIMES GLUCOSE DAILY DAILY THREE TIMES DAILY gabapentin gabapentin No gabapentin [facility] 300 mg 300 mg 300 mg Family capsule capsule capsule Practi c TAKE 1 TAKE 1 TAKE 1 e CAPSULE BY CAPSULE BY CAPSULE BY MOUTH THREE MOUTH THREE MOUTH TIMES DAILY TIMES DAILY THREE TIMES DAILY gabapentin gabapentin No gabapentin [facility] 600 mg 600 mg 600 mg Family tablet TAKE tablet TAKE tablet Practic 2 TABLETS 2 TABLETS TAKE 2 e BY MOUTH BY MOUTH TABLETS BY TWICE DAILY TWICE DAILY MOUTH TWICE DAILY glipizide glipizide No glipizide [facility] ER 10 mg ER 10 mg [...] Humulin R Humulin R No Humulin R [facility] U-500 U-500 U-500 [facility] (Conc) (Conc) (Conc) Practic Insulin Insulin Insulin e Kwikpen 500 Kwikpen 500 Kwikpen unit/mL (3 unit/mL (3 500 mL) mL) unit/mL (3 subcutaneou subcutaneou mL) s INJECT s INJECT subcutaneo 120 UNITS 120 UNITS us INJECT SUBCUTANEOU SUBCUTANEOU 120 UNITS SLY BEFORE SLY BEFORE SUBCUTANEO BREAKFAST BREAKFAST USLY AND 100 AND 100 BEFORE UNITS UNITS BREAKFAST BEFORE BEFORE AND 100 DINNER AND DINNER AND UNITS INCREASE INCREASE BEFORE DIRECTED. DIRECTED. DINNER AND TOTAL DAILY TOTAL DAILY INCREASE DOSE OF 250 DOSE OF 250 UNITS UNITS DIRECTED. TOTAL DAILY DOSE OF 250 UNITS hydrocodone hydrocodone No hydrocodon [facility] 5 5 e 5 Family mg-acetamin mg-acetamin mg-acetami Practic ophen 325 ophen 325 nophen 325 e mg tablet mg tablet mg tablet TAKE 1 TAKE 1 TAKE 1 TABLET BY TABLET BY TABLET BY MOUTH EVERY MOUTH EVERY MOUTH 8 HOURS 8 HOURS EVERY 8 NEEDED NEEDED HOURS NEEDED levothyroxi levothyroxi No levothyrox [facility] ne 100 mcg ne 100 mcg ine 100 Family tablet TAKE tablet TAKE mcg tablet Practic 1 TABLET BY 1 TABLET BY TAKE 1 e MOUTH ONCE MOUTH ONCE TABLET BY DAILY DAILY MOUTH ONCE DAILY meloxicam meloxicam No meloxicam [facility] 15 mg 15 mg 15 mg [...] Ozempic 2 Ozempic 2 No Ozempic 2 [facility] mg/dose (8 mg/dose (8 mg/dose (8 Family mg/3 mL) mg/3 mL) mg/3 mL) Pra ctic subcutaneou subcutaneou subcutaneo e s pen s pen us pen injector injector injector INJECT 2 MG INJECT 2 MG INJECT 2 SUBCUTANEOU SUBCUTANEOU MG SLY ONCE A SLY ONCE A SUBCUTANEO WEEK WEEK USLY ONCE A WEEK tramadol 50 tramadol 50 No tramadol [place] mg tablet mg tablet 50 mg Fami ly TAKE 1 TAKE 1 tablet Practic TABLET BY TABLET BY TAKE 1 e MOUTH EVERY MOUTH EVERY TABLET BY 8 TO 10 8 TO 10 MOUTH HOURS HOURS EVERY 8 TO NEEDED NEEDED 10 HOURS NEEDED Trelegy Trelegy No 1puff(s Q1D Trelegy [place] [...] route. inhalation route. valsartan valsartan No valsartan [facility] 320 320 320 Family mg-hydrochl mg-hydrochl mg-hydroch Practic orothiazide orothiazide lorothiazi e 25 mg 25 mg de 25 mg tablet TAKE tablet TAKE tablet 1 TABLET BY 1 TABLET BY TAKE 1 MOUTH ONCE MOUTH ONCE TABLET BY DAILY DAILY MOUTH ONCE DAILY albuterol albuterol No albuterol [facility] sulfate HFA sulfate HFA sulfate Family 90 90 HFA 90 Practic mcg/actuati mcg/actuati mcg/actuat e on aerosol on aerosol ion inhaler inhaler aerosol Inhale 2 Inhale 2 inhaler puffs every puffs every Inhale 2 4 hours by 4 hours by puffs inhalation inhalation every 4 route as route as hours by needed. needed. inhalation route as needed. atorvastati atorvastati No atorvastat [facility] n 20 mg n 20 mg in 20 mg Famil y tablet TAKE tablet TAKE tablet Practic 1 TABLET BY 1 TABLET BY TAKE 1 e MOUTH ONCE MOUTH ONCE TABLET BY DAILY DAILY MOUTH ONCE DAILY azelastine azelastine No azelastine [facility] 137 mcg 137 mcg 137 mcg [facility] (0.1 %) (0.1 %) (0.1 %) Practi c nasal spray nasal spray nasal e aerosol aerosol spray [place] 2 [place] 2 aerosol sprays sprays [place] 2 twice a day twice a day sprays by by twice a intranasal intranasal day by route as route as intranasal needed. needed. route as needed. BD Lexy 2nd BD Lexy 2nd No BD Lexy [place] Gen Pen Gen Pen 2nd Gen Family Needle 32 Needle 32 Pen Needle Practic gauge x gauge x 32 gauge x e " USE " USE " USE DIRECTED DIRECTED TWICE DAILY TWICE DAILY DIRECTED TWICE DAILY clotrimazol clotrimazol No clotrimazo [facility] e-betametha e-betametha le-betamet Family sone 1 [...] TIMES PER DAY cyclobenzap cyclobenzap No cyclobenza [place] rine 5 mg rine 5 mg latosha 5 mg Family tablet TAKE tablet TAKE tablet Practic 1 TABLET BY 1 TABLET BY TAKE 1 e MOUTH THREE MOUTH THREE TABLET BY TIMES DAILY TIMES DAILY MOUTH NEEDED NEEDED THREE FOR MUSCLE FOR MUSCLE TIMES SPASM SPASM DAILY NEEDED FOR MUSCLE SPASM dexamethaso dexamethaso No dexamethas [facility] ne 1 mg ne 1 mg one 1 mg Famil y tablet TAKE tablet TAKE tablet Practic 1 TABLET BY 1 TABLET BY TAKE 1 e MOUTH AT MOUTH AT TABLET BY BEDTIME FOR BEDTIME FOR MOUTH AT 1 DAY 1 DAY BEDTIME FOR 1 DAY duloxetine duloxetine No duloxetine [facility] 60 mg 60 mg 60 mg Family capsule,del capsule,del capsule,de Practic ayed ayed layed e release release release TAKE 1 TAKE 1 TAKE 1 CAPSULE BY CAPSULE BY CAPSULE BY MOUTH ONCE MOUTH ONCE MOUTH ONCE DAILY DAILY DAILY [facility] propionate propionate e Fam alton 50 50 propionate Practic mcg/actuati mcg/actuati 50 e on nasal on nasal mcg/actuat spray,suspe spray,suspe ion nasal nsion [place] nsion [place] spray,susp 2 sprays 2 sprays ension every day every day [place] 2 by by sprays intranasal intranasal every day route as route as by needed. needed. intranasal route as needed. FreeStyle FreeStyle No FreeStyle [facility] Lancets 28 Lancets 28 Lancets 28 Family gauge USE A gauge USE A gauge USE Practic LANCET TO LANCET TO A LANCET e CHECK CHECK TO CHECK GLUCOSE GLUCOSE GLUCOSE ONCE DAILY ONCE DAILY ONCE DAILY . ROTATE . ROTATE . ROTATE BETWEEN BETWEEN BETWEEN FASTING FASTING FASTING BREAKFAST BREAKFAST BREAKFAST LUNCH LUNCH LUNCH DINNER DINNER DINNER FreeStyle FreeStyle No FreeStyle [facility] Lite Meter Lite Meter Lite Meter Family kit USE TO kit USE TO kit USE TO Practic CHECK SUGAR CHECK SUGAR CHECK e ONCE DAILY. ONCE DAILY. SUGAR ONCE ROTATE ROTATE DAILY. BETWEEN BETWEEN ROTATE FASTING FASTING BETWEEN BREAKFAST BREAKFAST FASTING LUNCH LUNCH BREAKFAST DINNER. DINNER. LUNCH DINNER. FreeStyle FreeStyle No FreeStyle [place] Lite Strips Lite Strips Lite F amily USE 1 STRIP USE 1 STRIP Strips USE Practic TO CHECK TO CHECK 1 STRIP TO e GLUCOSE GLUCOSE CHECK THREE TIMES THREE TIMES GLUCOSE DAILY DAILY THREE TIMES DAILY gabapentin gabapentin No gabapentin [facility] 300 mg 300 mg 300 mg Family capsule capsule capsule Practi c TAKE 1 TAKE 1 TAKE 1 e CAPSULE BY CAPSULE BY CAPSULE BY MOUTH THREE MOUTH THREE MOUTH TIMES DAILY TIMES DAILY THREE TIMES DAILY gabapentin gabapentin No gabapentin [facility] 600 mg 600 mg 600 mg Family tablet TAKE tablet TAKE tablet Practic 2 TABLETS 2 TABLETS TAKE 2 e BY MOUTH BY MOUTH TABLETS BY TWICE DAILY TWICE DAILY MOUTH TWICE DAILY glipizide glipizide No glipizide [facility] ER 10 mg ER 10 mg [...] Humulin R Humulin R No Humulin R [facility] U-500 U-500 U-500 [facility] (Conc) (Conc) (Conc) Practic Insulin Insulin Insulin e Kwikpen 500 Kwikpen 500 Kwikpen unit/mL (3 unit/mL (3 500 mL) mL) unit/mL (3 subcutaneou subcutaneou mL) s INJECT s INJECT subcutaneo 120 UNITS 120 UNITS us INJECT SUBCUTANEOU SUBCUTANEOU 120 UNITS SLY BEFORE SLY BEFORE SUBCUTANEO BREAKFAST BREAKFAST USLY AND 100 AND 100 BEFORE UNITS UNITS BREAKFAST BEFORE BEFORE AND 100 DINNER AND DINNER AND UNITS INCREASE INCREASE BEFORE DIRECTED. DIRECTED. DINNER AND TOTAL DAILY TOTAL DAILY INCREASE DOSE OF 250 DOSE OF 250 UNITS UNITS DIRECTED. TOTAL DAILY DOSE OF 250 UNITS hydrocodone hydrocodone No hydrocodon [facility] 5 5 e 5 Family mg-acetamin mg-acetamin mg-acetami Practic ophen 325 ophen 325 nophen 325 e mg tablet mg tablet mg tablet TAKE 1 TAKE 1 TAKE 1 TABLET BY TABLET BY TABLET BY MOUTH EVERY MOUTH EVERY MOUTH 8 HOURS 8 HOURS EVERY 8 NEEDED NEEDED HOURS NEEDED levothyroxi levothyroxi No levothyrox [facility] ne 100 mcg ne 100 mcg ine 100 Family tablet TAKE tablet TAKE mcg tablet Practic 1 TABLET BY 1 TABLET BY TAKE 1 e MOUTH ONCE MOUTH ONCE TABLET BY DAILY DAILY MOUTH ONCE DAILY meloxicam meloxicam No meloxicam [facility] 15 mg 15 mg 15 mg [...] pen us pen injector injector injector INJECT 2 MG INJECT 2 MG INJECT 2 SUBCUTANEOU SUBCUTANEOU MG SLY ONCE A SLY ONCE A SUBCUTANEO WEEK WEEK USLY ONCE A WEEK tramadol 50 tramadol 50 No tramadol [facility] tablet mg tablet 50 mg Fami ly TAKE 1 TAKE 1 tablet Practic TABLET BY TABLET BY TAKE 1 e MOUTH EVERY MOUTH EVERY TABLET BY 8 TO 10 8 TO 10 MOUTH HOURS HOURS EVERY 8 TO NEEDED NEEDED 10 HOURS NEEDED Trelegy Trelegy No 1puff(s Q1D Trelegy [place] [...] route. inhalation route. valsartan valsartan No valsartan [facility] 320 320 320 Family mg-hydrochl mg-hydrochl mg-hydroch Practic orothiazide orothiazide lorothiazi e 25 mg 25 mg de 25 mg tablet TAKE tablet TAKE tablet 1 TABLET BY 1 TABLET BY TAKE 1 MOUTH ONCE MOUTH ONCE TABLET BY DAILY DAILY MOUTH ONCE DAILY Meloxicam Meloxicam No 1{table QD Meloxicam 15 MG 15 MG t} 15 MG Atorvastati Atorvastati No 1{table QD Atorvastat n Calcium n Calcium t} in Calcium 20 MG 20 MG 20 MG Valsartan-h Valsartan-h No 1{table QD Valsartan- ydroCHLOROt ydroCHLOROt t} hydroCHLOR hiazide hiazide Othiazide 320-25 MG 320-25 MG 320-25 MG Valsartan Valsartan No 1{table QD Valsartan 320 MG 320 MG t} 320 MG Ozempic Ozempic No Ozempic HumuLIN N HumuLIN N No HumuLIN N Immunizations Ordered Immunization Filled Immunization Date Status Commen ts Source Name Name influenza, influenza, 2022-01-07 Completed [facility] recombinant, recombinant, 14:19:00 Family quadrIvalent,injecta quadrIvalent,injecta Practice ble, preservative ble, preservative free free influenza, influenza, 2022-01-07 Completed [facility] recombinant, recombinant, 14:19:00 Family quadrIvalent,injecta quadrIvalent,injecta Practice ble, preservative ble, preservative free free influenza, influenza, 2022-01-07 Completed [facility] recombinant, recombinant, 14:19:00 Family quadrIvalent,injecta quadrIvalent,injecta Practice ble, preservative ble, preservative free free influenza, influenza, 2022-01-07 Completed [facility] recombinant, recombinant, 14:19:00 Family quadrIvalent,injecta quadrIvalent,injecta Practice ble, preservative ble, preservative free free influenza, influenza, 2022-01-07 Completed [facility] recombinant, recombinant, 14:19:00 Family quadrIvalent,injecta quadrIvalent,injecta Practice ble, preservative ble, preservative free free influenza, influenza, 2022-01-07 Completed [facility] recombinant, recombinant, 14:19:00 Family quadrIvalent,injecta quadrIvalent,injecta Practice ble, preservative ble, preservative free free influenza, influenza, 2022-01-07 Completed [facility] recombinant, recombinant, 14:19:00 Family quadrIvalent,injecta quadrIvalent,injecta Practice ble, preservative ble, preservative free free influenza, influenza, 2022-01-07 Completed [facility] recombinant, recombinant, 14:19:00 Family quadrIvalent,injecta quadrIvalent,injecta Practice ble, preservative ble, preservative free free influenza, influenza, 2022-01-07 Completed [facility] recombinant, recombinant, 14:19:00 Family quadrIvalent,injecta quadrIvalent,injecta Practice ble, preservative ble, preservative free free influenza, influenza, 2022-01-07 Completed [facility] recombinant, recombinant, 14:19:00 Family quadrIvalent,injecta quadrIvalent,injecta Practice ble, preservative ble, preservative free free Pneumococcal Pneumococcal 2021-07-11 Completed [facility] conjugate PCV20, conjugate PCV20, 14:16:00 Fa [facility]i polysaccharide polysaccharide Practi ce [id number] conjugate, [id number] conjugate, adjuvant, PF adjuvant, PF Pneumococcal Pneumococcal 2021-07-11 Completed [facility] conjugate PCV20, conjugate PCV20, 14:16:00 Fa isi polysaccharide polysaccharide Practi ce [id number] conjugate, [id number] conjugate, adjuvant, PF adjuvant, PF Pneumococcal Pneumococcal 2021-07-11 Completed [facility] conjugate PCV20, conjugate PCV20, 14:16:00 Fa isi polysaccharide polysaccharide Practi ce [id number] conjugate, [id number] conjugate, adjuvant, PF adjuvant, PF Pneumococcal Pneumococcal 2021-07-11 Completed [facility] conjugate PCV20, conjugate PCV20, 14:16:00 Fa isi polysaccharide polysaccharide Practi ce [id number] conjugate, [id number] conjugate, adjuvant, PF adjuvant, PF Pneumococcal Pneumococcal 2021-07-11 Completed [facility] conjugate PCV20, conjugate PCV20, 14:16:00 Fa isi polysaccharide polysaccharide Practi ce [id number] conjugate, [id number] conjugate, adjuvant, PF adjuvant, PF Pneumococcal Pneumococcal 2021-07-11 Completed [facility] conjugate PCV20, conjugate PCV20, 14:16:00 Fa isi polysaccharide polysaccharide Practi ce [id number] conjugate, [id number] conjugate, adjuvant, PF adjuvant, PF Pneumococcal Pneumococcal 2021-07-11 Completed [facility] conjugate PCV20, conjugate PCV20, 14:16:00 Fa isi polysaccharide polysaccharide Practi ce [id number] conjugate, [id number] conjugate, adjuvant, PF adjuvant, PF Pneumococcal Pneumococcal 2021-07-11 Completed [facility] conjugate PCV20, conjugate PCV20, 14:16:00 Fa isi polysaccharide polysaccharide Practi ce [id number] conjugate, [id number] conjugate, adjuvant, PF adjuvant, PF Pneumococcal Pneumococcal 2021-07-11 Completed [facility] conjugate PCV20, conjugate PCV20, 14:16:00 Fa isi polysaccharide polysaccharide Practi ce [id number] conjugate, [id number] conjugate, adjuvant, PF adjuvant, PF Pneumococcal Pneumococcal 2021-07-11 Completed [facility] conjugate PCV20, conjugate PCV20, 14:16:00 Fa isi polysaccharide polysaccharide Practi ce [id number] conjugate, [id number] conjugate, adjuvant, PF adjuvant, PF Pneumococcal Pneumococcal 2021-07-11 Completed [facility] conjugate PCV20, conjugate PCV20, 14:16:00 Fa isi polysaccharide polysaccharide Practi ce [id number] conjugate, [id number] conjugate, adjuvant, PF adjuvant, PF Pneumococcal Pneumococcal 2021-07-11 Completed [facility] conjugate PCV20, conjugate PCV20, 14:16:00 Fa isi polysaccharide polysaccharide Practi ce [id number] conjugate, [id number] conjugate, adjuvant, PF adjuvant, PF Pneumococcal Pneumococcal 2021-07-11 Completed [facility] conjugate PCV20, conjugate PCV20, 14:16:00 Fa isi polysaccharide polysaccharide Practi ce [id number] conjugate, [id number] conjugate, adjuvant, PF adjuvant, PF influenza, influenza, 2021-01-07 Completed [facility] recombinant, recombinant, 17:20:00 Family quadrIvalent,injecta quadrIvalent,injecta Practice ble, preservative ble, preservative free free influenza, influenza, 2021-01-07 Completed [facility] recombinant, recombinant, 17:20:00 Family quadrIvalent,injecta quadrIvalent,injecta Practice ble, preservative ble, preservative free free influenza, influenza, 2021-01-07 Completed [facility] recombinant, recombinant, 17:20:00 Family quadrIvalent,injecta quadrIvalent,injecta Practice ble, preservative ble, preservative free free influenza, influenza, 2021-01-07 Completed [facility] recombinant, recombinant, 17:20:00 Family quadrIvalent,injecta quadrIvalent,injecta Practice ble, preservative ble, preservative free free influenza, influenza, 2021-01-07 Completed [facility] recombinant, recombinant, 17:20:00 Family quadrIvalent,injecta quadrIvalent,injecta Practice ble, preservative ble, preservative free free influenza, influenza, 2021-01-07 Completed [facility] recombinant, recombinant, 17:20:00 Family quadrIvalent,injecta quadrIvalent,injecta Practice ble, preservative ble, preservative free free influenza, influenza, 2021-01-07 Completed [facility] recombinant, recombinant, 17:20:00 Family quadrIvalent,injecta quadrIvalent,injecta Practice ble, preservative ble, preservative free free influenza, influenza, 2021-01-07 Completed [facility] recombinant, recombinant, 17:20:00 Family quadrIvalent,injecta quadrIvalent,injecta Practice ble, preservative ble, preservative free free influenza, influenza, 2021-01-07 Completed [facility] recombinant, recombinant, 17:20:00 Family quadrIvalent,injecta quadrIvalent,injecta Practice ble, preservative ble, preservative free free influenza, influenza, 2021-01-07 Completed [facility] recombinant, recombinant, 17:20:00 Family quadrIvalent,injecta quadrIvalent,injecta Practice ble, preservative ble, preservative free free influenza, influenza, 2021-01-07 Completed [facility] recombinant, recombinant, 17:20:00 Family quadrIvalent,injecta quadrIvalent,injecta Practice ble, preservative ble, preservative free free influenza, influenza, 2021-01-07 Completed [facility] recombinant, recombinant, 17:20:00 Family quadrIvalent,injecta quadrIvalent,injecta Practice ble, preservative ble, preservative free free influenza, influenza, 2021-01-07 Completed [facility] recombinant, recombinant, 17:20:00 Family quadrIvalent,injecta quadrIvalent,injecta Practice ble, preservative ble, preservative free free Non-US Vaccine Non-US Vaccine 2020-10-24 Completed [facility] COVID-19 PS 00:00:00 Family (EpiVacCorona) (EpiVacCorona) Practi ce Non-US Vaccine Non-US Vaccine 2020-10-24 Completed [facility] COVID-19 PS COVID-19 PS 00:00:00 Family (EpiVacCorona) (EpiVacCorona) Practi ce Non-US Vaccine Non-US Vaccine 2020-10-24 Completed [facility] COVID-19 PS COVID-19 PS 00:00:00 Family (EpiVacCorona) (EpiVacCorona) Practi ce Non-US Vaccine Non-US Vaccine 2020-10-24 Completed [facility] COVID-19 PS COVID-19 PS 00:00:00 Family (EpiVacCorona) (EpiVacCorona) Practi ce Non-US Vaccine Non-US Vaccine 2020-10-24 Completed [facility] COVID-19 PS COVID-19 PS 00:00:00 Family (EpiVacCorona) (EpiVacCorona) Practi ce Non-US Vaccine Non-US Vaccine 2020-10-24 Completed [facility] COVID-19 PS COVID-19 PS 00:00:00 Family (EpiVacCorona) (EpiVacCorona) Practi ce Non-US Vaccine Non-US Vaccine 2020-10-24 Completed [facility] COVID-19 PS COVID-19 PS 00:00:00 Family (EpiVacCorona) (EpiVacCorona) Practi ce Non-US Vaccine Non-US Vaccine 2020-10-24 Completed [facility] COVID-19 PS COVID-19 PS 00:00:00 Family (EpiVacCorona) (EpiVacCorona) Practi ce Non-US Vaccine Non-US Vaccine 2020-10-24 Completed [facility] COVID-19 PS COVID-19 PS 00:00:00 Family (EpiVacCorona) (EpiVacCorona) Practi ce Non-US Vaccine Non-US Vaccine 2020-10-24 Completed [facility] COVID-19 PS COVID-19 PS 00:00:00 Family (EpiVacCorona) (EpiVacCorona) Practi ce Non-US Vaccine Non-US Vaccine 2020-10-24 Completed [facility] COVID-19 PS COVID-19 PS 00:00:00 Family (EpiVacCorona) (EpiVacCorona) Practi ce Non-US Vaccine Non-US Vaccine 2020-10-24 Completed [facility] COVID-19 PS COVID-19 PS 00:00:00 Family (EpiVacCorona) (EpiVacCorona) Practi ce Non-US Vaccine Non-US Vaccine 2020-10-24 Completed [facility] COVID-19 PS COVID-19 PS 00:00:00 Family (EpiVacCorona) (EpiVacCorona) Practi ce COVID-19, mRNA, COVID-19, mRNA, 2020-10-21 Completed [facility] LNP-S, PF, 30 LNP-S, PF, 30 00:00:00 Family mcg/0.3 mL dose mcg/0.3 mL dose [facility]ac [facility] ([employer]) - (Pfizer-BioNTech) - ML ML COVID-19, mRNA, COVID-19, mRNA, 2020-10-21 Completed [facility] LNP-S, PF, 30 LNP-S, PF, 30 00:00:00 Family mcg/0.3 mL dose mcg/0.3 mL dose [facility]ac [facility] (Pfizer-BioNTech) - (Pfizer-BioNTech) - ML ML COVID-19, mRNA, COVID-19, mRNA, 2020-10-21 Completed [facility] LNP-S, PF, 30 LNP-S, PF, 30 00:00:00 Family mcg/0.3 mL dose mcg/0.3 mL dose Prac k[facility] (Pfizer-BioNTech) - (Pfizer-BioNTech) - ML ML COVID-19, mRNA, COVID-19, mRNA, 2020-10-21 Completed [facility] LNP-S, PF, 30 LNP-S, PF, 30 00:00:00 Family mcg/0.3 mL dose mcg/0.3 mL dose Prac [facility] (Pfizer-BioNTech) - (Pfizer-BioNTech) - ML ML COVID-19, mRNA, COVID-19, mRNA, 2020-10-21 Completed [facility] LNP-S, PF, 30 LNP-S, PF, 30 00:00:00 Family mcg/0.3 mL dose mcg/0.3 mL dose Prac [facility] (Pfizer-BioNTech) - (Pfizer-BioNTech) - ML ML COVID-19, mRNA, COVID-19, mRNA, 2020-10-21 Completed [facility] LNP-S, PF, 30 LNP-S, PF, 30 00:00:00 Family mcg/0.3 mL dose mcg/0.3 mL dose Prac k[facility] (Pfizer-BioNT[employer]) - (Pfizer-BioNTech) - ML ML COVID-19, mRNA, COVID-19, mRNA, 2020-10-21 Completed [facility] LNP-S, PF, 30 LNP-S, PF, 30 00:00:00 Family mcg/0.3 mL dose mcg/0.3 mL dose Prac k[facility] (Pfizer-BioNTech) - (Pfizer-BioNTech) - ML ML COVID-19, mRNA, COVID-19, mRNA, 2020-10-21 Completed [facility] LNP-S, PF, 30 LNP-S, PF, 30 00:00:00 Family mcg/0.3 mL dose mcg/0.3 mL dose Prac k[facility] (Pfizer-[employer]) - (Pfizer-BioNTech) - ML ML COVID-19, mRNA, COVID-19, mRNA, 2020-10-21 Completed [facility] LNP-S, PF, 30 LNP-S, PF, 30 00:00:00 Family mcg/0.3 mL dose mcg/0.3 mL dose Prac k[facility]a (Pfizer-BioNTech) - (Pfizer-BioNTech) - ML ML COVID-19, mRNA, COVID-19, mRNA, 2020-10-21 Completed [facility] LNP-S, PF, 30 LNP-S, PF, 30 00:00:00 Family mcg/0.3 mL dose mcg/0.3 mL dose Prac [facility] (Pfizer-BioNTech) - (Pfizer-BioNTech) - ML ML COVID-19, mRNA, COVID-19, mRNA, 2020-10-21 Completed [facility] LNP-S, PF, 30 LNP-S, PF, 30 00:00:00 Family mcg/0.3 mL dose mcg/0.3 mL dose Prac k[facility] (Pfizer-[employer]NT[employer]) - (Pfizer-BioNTech) - ML ML COVID-19, mRNA, COVID-19, mRNA, 2020-09-30 Completed [facility] LNP-S, PF, 30 LNP-S, PF, 30 00:00:00 Family mcg/0.3 mL dose mcg/0.3 mL dose Prac [facility] (Pfizer-BioNTech) - (Pfizer-BioNTech) - ML ML COVID-19, mRNA, COVID-19, mRNA, 2020-09-30 Completed [facility] LNP-S, PF, 30 LNP-S, PF, 30 00:00:00 Family mcg/0.3 mL dose mcg/0.3 mL dose Prac [facility] (Pfizer-BioNTech) - (Pfizer-BioNTech) - ML ML COVID-19, mRNA, COVID-19, mRNA, 2020-09-30 Completed [facility] LNP-S, PF, 30 LNP-S, PF, 30 00:00:00 Family mcg/0.3 mL dose mcg/0.3 mL dose Prac [facility] (Pfizer-BioNTech) - (Pfizer-BioNTech) - ML ML COVID-19, mRNA, COVID-19, mRNA, 2020-09-30 Completed [facility] LNP-S, PF, 30 LNP-S, PF, 30 00:00:00 Family mcg/0.3 mL dose mcg/0.3 mL dose Prac [facility] (Pfizer-BioNTech) - (Pfizer-BioNTech) - ML ML COVID-19, mRNA, COVID-19, mRNA, 2020-09-30 Completed [facility] LNP-S, PF, 30 LNP-S, PF, 30 00:00:00 Family mcg/0.3 mL dose mcg/0.3 mL dose Prac [facility] (Pfizer-BioNTech) - (Pfizer-BioNTech) - ML ML COVID-19, mRNA, COVID-19, mRNA, 2020-09-30 Completed [facility] LNP-S, PF, 30 LNP-S, PF, 30 00:00:00 Family mcg/0.3 mL dose mcg/0.3 mL dose Prac [facility] (Pfizer-BioNTech) - (Pfizer-BioNTech) - ML ML COVID-19, mRNA, COVID-19, mRNA, 2020-09-30 Completed [facility] LNP-S, PF, 30 LNP-S, PF, 30 00:00:00 Family mcg/0.3 mL dose mcg/0.3 mL dose Prac [facility] (Pfizer-BioNT[employer]) - (Pfizer-BioNTech) - ML ML COVID-19, mRNA, COVID-19, mRNA, 2020-09-30 Completed [facility] LNP-S, PF, 30 LNP-S, PF, 30 00:00:00 Family mcg/0.3 mL dose mcg/0.3 mL dose [facility] (Pfizer-BioNTech) - (Pfizer-BioNTech) - ML ML COVID-19, mRNA, COVID-19, mRNA, 2020-09-30 Completed [facility] LNP-S, PF, 30 LNP-S, PF, 30 00:00:00 Family mcg/0.3 mL dose mcg/0.3 mL dose [facility] (Pfizer-[employer]) - (Pfizer-BioNT[employer]) - ML ML COVID-19, mRNA, COVID-19, mRNA, 2020-09-30 Completed [facility] LNP-S, PF, 30 LNP-S, PF, 30 00:00:00 Family mcg/0.3 mL dose mcg/0.3 mL dose [facility] (Pfizer-BioNTech) - (Pfizer-BioNTech) - ML ML COVID-19, mRNA, COVID-19, mRNA, 2020-09-30 Completed [facility] LNP-S, PF, 30 LNP-S, PF, 30 00:00:00 Family mcg/0.3 mL dose mcg/0.3 mL dose [facility] (Pfizer-BioNT[employer]) - (Pfizer-BioNTech) - ML ML COVID-19, mRNA, COVID-19, mRNA, 2020-09-29 Completed [facility] LNP-S, PF, 100 LNP-S, PF, 100 00:00:00 Family mcg/0.5 mL dose mcg/0.5 mL dose [facility] (Moderna) (Moderna) COVID-19, mRNA, COVID-19, mRNA, 2020-09-29 Completed [facility] LNP-S, PF, 100 LNP-S, PF, 100 00:00:00 Family mcg/0.5 mL dose mcg/0.5 mL dose [facility] (Moderna) (Moderna) influenza, influenza, 2020-07-01 Completed [facility] injectable, injectable, 00:00:00 Family quadrivalent quadrivalent Practice influenza, influenza, 2020-07-01 Completed [facility] injectable, injectable, 00:00:00 Family quadrivalent quadrivalent Practice influenza, influenza, 2020-07-01 Completed [facility] injectable, injectable, 00:00:00 Family quadrivalent quadrivalent Practice influenza, influenza, 2020-07-01 Completed [facility] injectable, injectable, 00:00:00 Family quadrivalent quadrivalent Practice influenza, influenza, 2020-07-01 Completed [facility] inject[facility], injectable, 00:00:00 Family quadrivalent quadrivalent Practice influenza, influenza, 2020-07-01 Completed [facility] injectable, injectable, 00:00:00 Family quadrivalent quadrivalent Practice influenza, influenza, 2020-07-01 Completed [facility] injectable, injectable, 00:00:00 Family quadrivalent quadrivalent Practice influenza, influenza, 2020-07-01 Completed [facility] injectable, injectable, 00:00:00 Family quadrivalent quadrivalent Practice influenza, influenza, 2020-07-01 Completed [facility] injectable, injectable, 00:00:00 Family quadrivalent quadrivalent Practice influenza, influenza, 2020-07-01 Completed [facility] injectable, injectable, 00:00:00 Family quadrivalent quadrivalent Practice influenza, influenza, 2020-07-01 Completed [facility] injectable, injectable, 00:00:00 Family quadrivalent quadrivalent Practice influenza, influenza, 2020-07-01 Completed [facility] injectable, injectable, 00:00:00 Family quadrivalent quadrivalent Practice influenza, influenza, 2020-07-01 Completed [facility] injectable, injectable, 00:00:00 Family quadrivalent quadrivalent Practice influenza, influenza, 2020-01-23 Completed [facility] recombinant, recombinant, 20:07:17 Family quadrIvalent,injecta quadrIvalent,injecta Practice ble, preservative ble, preservative free free influenza, influenza, 2020-01-23 Completed [facility] recombinant, recombinant, 20:07:17 Family quadrIvalent,injecta quadrIvalent,injecta Practice ble, preservative ble, preservative free free influenza, influenza, 2020-01-23 Completed [facility] recombinant, recombinant, 20:07:17 Family quadrIvalent,injecta quadrIvalent,injecta Practice ble, preservative ble, preservative free free influenza, influenza, 2020-01-23 Completed [facility] recombinant, recombinant, 20:07:17 Family quadrIvalent,injecta quadrIvalent,injecta Practice ble, preservative ble, preservative free free influenza, influenza, 2020-01-23 Completed [facility] recombinant, recombinant, 20:07:17 Family quadrIvalent,injecta quadrIvalent,injecta Practice ble, preservative ble, preservative free free influenza, influenza, 2020-01-23 Completed [facility] recombinant, recombinant, 20:07:17 Family quadrIvalent,injecta quadrIvalent,injecta Practice ble, preservative ble, preservative free free influenza, influenza, 2020-01-23 Completed [facility] recombinant, recombinant, 20:07:17 Family quadrIvalent,injecta quadrIvalent,injecta Practice ble, preservative ble, preservative free free influenza, influenza, 2020-01-23 Completed [facility] recombinant, recombinant, 20:07:17 Family quadrIvalent,injecta quadrIvalent,injecta Practice ble, preservative ble, preservative free free influenza, influenza, 2020-01-23 Completed [facility] recombinant, recombinant, 20:07:17 Family quadrIvalent,injecta quadrIvalent,injecta Practice ble, preservative ble, preservative free free influenza, influenza, 2020-01-23 Completed [facility] recombinant, recombinant, 20:07:17 Family quadrIvalent,injecta quadrIvalent,injecta Practice ble, preservative ble, preservative free free influenza, influenza, 2020-01-23 Completed [facility] recombinant, recombinant, 20:07:17 Family quadrIvalent,injecta quadrIvalent,injecta Practice ble, preservative ble, preservative free free influenza, influenza, 2020-01-23 Completed [facility] recombinant, recombinant, 20:07:17 Family quadrIvalent,injecta quadrIvalent,injecta Practice ble, preservative ble, preservative free free influenza, influenza, 2020-01-23 Completed [facility] recombinant, recombinant, 20:07:17 Family quadrIvalent,injecta quadrIvalent,injecta Practice ble, preservative ble, preservative free free influenza, influenza, 2019-01-17 Completed [facility] injectable, injectable, 00:00:00 Family quadrivalent quadrivalent Practice influenza, influenza, 2019-01-17 Completed [facility] injectable, injectable, 00:00:00 Family quadrivalent quadrivalent Practice influenza, influenza, 2019-01-17 Completed [facility] injectable, injectable, 00:00:00 Family quadrivalent quadrivalent Practice influenza, influenza, 2019-01-17 Completed [facility] injectable, injectable, 00:00:00 Family quadrivalent quadrivalent Practice influenza, influenza, 2019-01-17 Completed [facility] injectable, injectable, 00:00:00 Family quadrivalent quadrivalent Practice influenza, influenza, 2019-01-17 Completed [facility] injectable, injectable, 00:00:00 Family quadrivalent quadrivalent Practice influenza, influenza, 2019-01-17 Completed [facility] injectable, injectable, 00:00:00 Family quadrivalent quadrivalent Practice influenza, influenza, 2019-01-17 Completed [facility] injectable, injectable, 00:00:00 Family quadrivalent quadrivalent Practice influenza, influenza, 2019-01-17 Completed [facility] injectable, injectable, 00:00:00 Family quadrivalent quadrivalent Practice influenza, influenza, 2019-01-17 Completed [facility] injectable, injectable, 00:00:00 Family quadrivalent quadrivalent Practice influenza, influenza, 2019-01-17 Completed [facility] injectable, injectable, 00:00:00 Family quadrivalent quadrivalent Practice influenza, influenza, 2019-01-17 Completed [facility] injectable, injectable, 00:00:00 Family quadrivalent quadrivalent Practice influenza, influenza, 2019-01-17 Completed [facility] injectable, injectable, 00:00:00 Family quadrivalent quadrivalent Practice pneumococcal pneumococcal 2013-03-01 Completed [facility] polysaccharide PPV23 polysaccharide PPV23 00:00:00 Family Practice pneumococcal pneumococcal 2013-03-01 Completed [facility] polysaccharide PPV23 polysaccharide PPV23 00:00:00 Family Practice pneumococcal pneumococcal 2013-03-01 Completed [facility] polysaccharide PPV23 polysaccharide PPV23 00:00:00 Family Practice pneumococcal pneumococcal 2013-03-01 Completed [facility] polysaccharide PPV23 polysaccharide PPV23 00:00:00 Family Practice pneumococcal pneumococcal 2013-03-01 Completed [facility] polysaccharide PPV23 polysaccharide PPV23 00:00:00 Family Practice pneumococcal pneumococcal 2013-03-01 Completed [facility] polysaccharide PPV23 polysaccharide PPV23 00:00:00 Family Practice pneumococcal pneumococcal 2013-03-01 Completed [facility] polysaccharide PPV23 polysaccharide PPV23 00:00:00 Family Practice pneumococcal pneumococcal 2013-03-01 Completed [facility] polysaccharide PPV23 polysaccharide PPV23 00:00:00 Family Practice pneumococcal pneumococcal 2013-03-01 Completed [facility] polysaccharide PPV23 polysaccharide PPV23 00:00:00 Family Practice pneumococcal pneumococcal 2013-03-01 Completed [facility] polysaccharide PPV23 polysaccharide PPV23 00:00:00 Family Practice pneumococcal pneumococcal 2013-03-01 Completed [facility] polysaccharide PPV23 polysaccharide PPV23 00:00:00 Family Practice pneumococcal pneumococcal 2013-03-01 Completed [facility] polysaccharide PPV23 polysaccharide PPV23 00:00:00 Family Practice pneumococcal pneumococcal 2013-03-01 Completed [facility] polysaccharide PPV23 polysaccharide PPV23 00:00:00 Family Practice influenza, influenza, Unknown Completed [facility] recombinant, recombinant, Family quadrIvalent,injecta quadrIvalent,injecta Practice ble, preservative ble, preservative free free Pneumococcal Pneumococcal Unknown Completed [facility] conjugate PCV20, conjugate PCV20, Fa isi polysaccharide polysaccharide Practi ce [id number] conjugate, [id number] conjugate, adjuvant, PF adjuvant, PF influenza, influenza, Unknown Completed [facility] recombinant, recombinant, Family quadrIvalent,injecta quadrIvalent,injecta Practice ble, preservative ble, preservative free free influenza, influenza, Unknown Completed [facility] recombinant, recombinant, Family quadrIvalent,injecta quadrIvalent,injecta Practice ble, preservative ble, preservative free free Non-US Vaccine Non-US Vaccine Unknown Completed [facility] COVID-19 PS COVID-19 PS Family (EpiVacCorona) (EpiVacCorona) Practi ce COVID-19, mRNA, COVID-19, mRNA, Unknown Completed Vill age LNP-S, PF, 30 LNP-S, PF, 30 Family mcg/0.3 mL dose mcg/0.3 mL dose Prac kaela (Pfizer-BioNTech) - (AcademixDirectNTech) - ML ML COVID-19, mRNA, COVID-19, mRNA, Unknown Completed Vill age LNP-S, PF, 30 LNP-S, PF, 30 Family mcg/0.3 mL dose mcg/0.3 mL dose Prac kaela (PURE H20 BIO TECHNOLOGIES-BioNTech) - (PURE H20 BIO TECHNOLOGIES-Function SpaceNTech) - ML ML influenza, influenza, Unknown Completed [facility] injectable, injectable, Family quadrivalent quadrivalent Practice influenza, influenza, Unknown Completed [facility] injectable, injectable, Family quadrivalent quadrivalent Practice pneumococcal pneumococcal Unknown Completed [facility] polysaccharide PPV23 polysaccharide PPV23 Family Practice influenza, influenza, Unknown Completed [facility] recombinant, recombinant, Family quadrIvalent,injecta quadrIvalent,injecta Practice ble, preservative ble, preservative free free Pneumococcal Pneumococcal Unknown Completed [facility] conjugate PCV20, conjugate PCV20, Fa isi polysaccharide polysaccharide [facility] [id number] conjugate, [id number] conjugate, adjuvant, PF adjuvant, PF influenza, influenza, Unknown Completed [facility] recombinant, recombinant, Family quadrIvalent,injecta quadrIvalent,injecta Practice ble, preservative ble, preservative free free influenza, influenza, Unknown Completed [facility] recombinant, recombinant, Family quadrIvalent,injecta quadrIvalent,injecta Practice ble, preservative ble, preservative free free Non-US Vaccine Non-US Vaccine Unknown Completed [facility] COVID-19 PS COVID-19 PS Family (EpiVacCorona) (EpiVacCorona) Practi ce COVID-19, mRNA, COVID-19, mRNA, Unknown Completed Vill age LNP-S, PF, 30 LNP-S, PF, 30 Family mcg/0.3 mL dose mcg/0.3 mL dose Prac kaela (PURE H20 BIO TECHNOLOGIES-BioNTech) - (Pfizer-BioNTech) - ML ML COVID-19, mRNA, COVID-19, mRNA, Unknown Completed Vill age LNP-S, PF, 30 LNP-S, PF, 30 Family mcg/0.3 mL dose mcg/0.3 mL dose Prac kaela (InformaatBioNTech) - (PURE H20 BIO TECHNOLOGIES-BioNTech) - ML ML influenza, influenza, Unknown Completed [facility] injectable, injectable, Family quadrivalent quadrivalent Practice influenza, influenza, Unknown Completed [facility] injectable, injectable, Family quadrivalent quadrivalent Practice pneumococcal pneumococcal Unknown Completed [facility] polysaccharide PPV23 polysaccharide PPV23 Family Practice influenza, influenza, Unknown Completed [facility] recombinant, recombinant, Family quadrIvalent,injecta quadrIvalent,injecta Practice ble, preservative ble, preservative free free Pneumococcal Pneumococcal Unknown Completed [facility] conjugate PCV20, conjugate PCV20, Fa isi polysaccharide polysaccharide Practi ce [id number] conjugate, [id number] conjugate, adjuvant, PF adjuvant, PF influenza, influenza, Unknown Completed [facility] recombinant, recombinant, Family quadrIvalent,injecta quadrIvalent,injecta Practice ble, preservative ble, preservative free free influenza, influenza, Unknown Completed [facility] recombinant, recombinant, Family quadrIvalent,injecta quadrIvalent,injecta Practice ble, preservative ble, preservative free free Non-US Vaccine Non-US Vaccine Unknown Completed [facility] COVID-19 PS COVID-19 PS Family (EpiVacCorona) (EpiVacCorona) Practi ce COVID-19, mRNA, COVID-19, mRNA, Unknown Completed Vill age LNP-S, PF, 30 LNP-S, PF, 30 Family mcg/0.3 mL dose mcg/0.3 mL dose Prac kaela (InformaatBioNTech) - (PURE H20 BIO TECHNOLOGIES-BioNTech) - ML ML COVID-19, mRNA, COVID-19, mRNA, Unknown Completed Vill age LNP-S, PF, 30 LNP-S, PF, 30 Family mcg/0.3 mL dose mcg/0.3 mL dose Prac kaela (InformaatBioNTech) - (PURE H20 BIO TECHNOLOGIES-BioNTech) - ML ML influenza, influenza, Unknown Completed [facility] injectable, injectable, Family quadrivalent quadrivalent Practice influenza, influenza, Unknown Completed [facility] injectable, injectable, Family quadrivalent quadrivalent Practice pneumococcal pneumococcal Unknown Completed [facility] polysaccharide PPV23 polysaccharide PPV23 Family Practice Vital Signs Vital Name Observation Time Observation Value Comments Source BP Diastolic 2022-12-22 00:00:00 79 mm[Hg] [facility] Body Weight 2022-12-22 00:00:00 329 [lb_av] [facility] BMI (Body Mass 2022-12-22 00:00:00 58.3 kg/m2 [facility] Practice BP Systolic 2022-12-22 00:00:00 130 mm[Hg] [facility] Height 2022-12-22 00:00:00 63 [in_i] [facility] BP Systolic 2022-10-13 00:00:00 109 mm[Hg] [facility] BP Diastolic 2022-10-13 00:00:00 65 mm[Hg] [facility] BMI (Body Mass 2022-10-13 00:00:00 56.7 kg/m2 [facility] Practice Body Weight 2022-10-13 00:00:00 320 [lb_av] [facility] Height 2022-10-13 00:00:00 63 [in_i] [facility] BP Diastolic 2022-09-22 00:00:00 82 mm[Hg] [facility] Height 2022-09-22 00:00:00 63 [in_i] [facility] BMI (Body Mass 2022-09-22 00:00:00 57.4 kg/m2 [facility] Practice BP Systolic 2022-09-22 00:00:00 132 mm[Hg] [facility] Body Weight 2022-09-22 00:00:00 324 [lb_av] [facility] BP Diastolic 2022-07-14 00:00:00 76 mm[Hg] [facility] Height 2022-07-14 00:00:00 63 [in_i] [facility] BMI (Body Mass 2022-07-14 00:00:00 56.3 kg/m2 [facility] BP Systolic 2022-07-14 00:00:00 115 mm[Hg] [facility] Body Weight 2022-07-14 00:00:00 318 [lb_av] [facility] BP Diastolic 2022-05-27 00:00:00 77 mm[Hg] Village [...] 2021-02-06 16:46:00 129 mm[Hg] [facility] Diastolic blood 2021-02-06 16:46:00 69 mm[Hg] Unive rsity [facility] Heart rate 2021-02-06 16:46:00 80 /min [facility] Respiratory rate 2021-02-06 16:46:00 18 /min [facility] 2021-02-06 16:46:00 160 cm [facility] Body weight 2021-02-06 16:46:00 139.254 kg [facility] BMI 2021-02-06 16:46:00 54.38 kg/m2 [facility] Height 2021-01-07 00:00:00 63 [in_i] [facility] [...] BMI (Body Mass 2019-02-09 00:00:00 58.2 kg/m2 [facility] Practice BP Systolic 2019-02-09 00:00:00 130 mm[Hg] [facility] Body Weight 2019-02-09 00:00:00 328.6 [lb_av] [facility] Practice Procedures Procedure Date / Time Performing Clinician Source Performed MAMMO, screening, 2022-07-14 00:00:00 osmar cShwartz Practice LDCT, chest, for lung 2022-03-04 00:00:00 [facility] cancer screening Practice LDCT, chest, for lung 2022-01-07 00:00:00 [facility] cancer screening Practice MAMMO, screening, 2021-07-11 00:00:00 Pema zuñiga bilateral Practice EXTERNAL PROVIDER 2021-07-08 05:01:00 Doctor [...] X-RAY OF SHOULDER 2 VIEW 2020-10-15 00:00:00 Chuy [facility] US, duplex, venous, 2020-10-15 00:00:00 [facility] upper extremity, Practice unilateral ANKLE BRACHIAL INDEX 2020-01-23 00:00:00 [facility] DONE ON BOTH LEGS WITH Practice QUANTAFLO MACHINE WITH PATIENT AT REST X-RAY HIP UNLIATERAL 2020-01-23 00:00:00 [facility] (2-3 VIEWS) Practice X-RAY OF CHEST 2 VIEW 2020-01-23 00:00:00 [facility] MAMMO, screening, 2020-01-23 00:00:00 [facility] Norma zuñiga bilateral Practice ankle brachial index 2019-07-07 00:00:00 [facility] MAMMO, screening, 2019-02-09 00:00:00 [facility] Norma snowden digital, bilateral Practice Tonsillectomy [facility] Hysterectomy (Total) [facility] Nigel alton Practice Plan of Care Planned Activity Planned Date Details Comments Source Diagnostic Test 2022-12-22 glucose, Pema sanders Pending 00:00:00 fingerstick, blood Practice [code = glucose, fingerstick, blood] Diagnostic Test 2022-12-22 hemoglobin A1C, Pema helms Pending 00:00:00 fingerstick [code = Practice hemoglobin A1C, fingerstick] Future Appointment 2023-03-24 Marybel Pastoravinash delgado [facility] 00:00:[id number], [place] [address] Future Appointment 2023-03-11 David Carter Arguelles danny [facility] 11:00:00 [id number], [place] [address] Instructions [facility] Encounters Start End Encounter Admission Attending Care Care Encounter Source Date/Time Date/Time Type Type Clinicians Facility Department ID 2022-07-09 Outpatient [facility] [id number] Common 11:32:00 [id number] [facility] 2022-06-25 Outpatient [facility] [id number] Common 09:53:01 [id number] [facility] 2022-04-01 Outpatient [facility] [id number] [place] 08:54:28 [id number] [facility] 2022-03-30 Outpatient [facility] [id number] [place] 13:40:56 [id number] [facility] 2022-03-27 Outpatient [facility] [id number] [place] 06:52:49 [id number] [facility] 2022-03-13 Outpatient [facility] [id number] [place] 14:33:52 [id number] [facility] 2022-03-10 Outpatient [facility] [id number] [place] 08:46:26 [id number] [facility] 2022-12-22 2022-12-22 Outpatient Bui_Q_HOU_M VFP VFP [id number] [facility] 00:00:00 00:00:00 D 93239 Family [facility] 2022-12-22 2022-12-22 Outpatient Bui_Q_HOU_M VFP VFP [id number] [facility] 00:00:00 00:00:00 D [id number] Family Practic e 2022-12-22 2022-12-22 Outpatient Bui_Q_HOU_M VFP VFP [id number] [facility] 00:00:00 00:00:00 D [id number] Family Practic e 2022-12-22 2022-12-22 Outpatient Bui_Q_WAGDN VFP VFP [id number] [facility] 00:00:00 00:00:00 U [id number] Family Practic e 2022-12-22 2022-12-22 Outpatient Bui_Q_HOU_M VFP VFP [id number] [facility] 00:00:00 00:00:00 D 17687 Family Practic e 2022-12-22 2022-12-22 Outpatient Bui_Q_WAGDN VFP VFP [id number] [facility] 00:00:00 00:00:00 U 64261 Family Practic e 2022-12-22 2022-12-22 Outpatient Bui_Q_HOU_M VFP VFP [id number] [facility] 00:00:00 00:00:00 D 39270 Family Practic e 2022-12-22 2022-12-22 David VFP [place] - [id number] V illage 00:00:00 00:00:00 Leora [facility] Family ArguellesFaisal - Bob huerta MD: [id number] [place] - e Shadow VM_HOU_Shad [facility], [address] [address] , Ph. [phone] 2022-10-13 2022-10-13 Javad Owens VFP [place] - [id number] [address] [place] [address] 00:00:00 00:00:00 MD Yennifer: Pema Nafisa y [id number] Faisal huerta Shadow [place] - e [place] [address]HOU[address], [address] [address] , Ph. 2022-09-29 2022-09-29 Outpatient Bui_Q_HOU_M VFP VFP [id number] [facility] 00:00:00 00:00:00 D 01845 Family Practic e 2022-09-29 2022-09-29 Outpatient Bui_Q_HOU_M VFP VFP [id number] [facility] 00:00:00 00:00:00 D 70532 Family Practic e 2022-09-22 2022-09-22 David VFP [place] - [id number] V illage 00:00:00 00:00:00 Leora [facility] Family ArguellesFaisal - Pracbrad huerta MD: [id number] [place] - e Shadow VM_ELIESERU_Pedro Luis [address] [address] [address] , Ph. 2022-09-16 2022-09-16 Outpatient Bui_Q_HOU_M VFP VFP [id number] [facility] 00:00:00 00:00:00 D 07037 Family Practic e 2022-09-16 2022-09-16 Outpatient Bui_Q_HOU_M VFP VFP [id number] [facility] 00:00:00 00:00:00 D 62799 Family Practic e 2022-07-14 2022-07-14 Javad Owens VFP [place] - [id number] 6 [facility] 00:00:00 00:00:00 MD Yennifer: Pema torres [id number] Faisal - Bob huerta Shadow [place] - e [place] ODALYS_TIAN_Pedro Luis [facility], [address] [address] , Ph. 2022-07-08 2022-07-08 Outpatient Bui_Q VFP VFP [id number] [facility] 00:00:00 00:00:00 [id number] Family Practic e 2022-07-08 2022-07-08 Outpatient Bui_Q VFP VFP [id number] [facility] 00:00:00 00:00:00 32792 Family Practic e 2022-06-29 2022-06-29 Outpatient Bui_Q VFP VFP [id number] [facility] 00:00:00 00:00:00 69916 Family Practic e 2022-06-25 2022-06-25 (TEL) ST[facility] STLC [id number] Co mmon 00:00:00 00:00:00 [facility] 2022-06-22 2022-06-22 Outpatient Bui_Q_WAGDN VFP VFP [id number] [facility] 00:00:00 00:00:00 U 70576 Family Practic e 2022-06-22 2022-06-22 Outpatient Bui_Q_WAGDN VFP VFP [id number] [facility] 00:00:00 00:00:00 U 91595 Family Practic e 2022-06-22 2022-06-22 Outpatient Bui_Q_WAGDN VFP VFP [id number] [facility] 00:00:00 00:00:00 U 83676 Family Practic e 2022-06-22 2022-06-22 Outpatient Bui_Q_WAGDN VFP VFP [id number] Village 00:00:00 00:00:00 U 59741 Family Practic e 2022-06-22 2022-06-22 Outpatient Bui_Q_WAGDN VFP VFP [id number] [facility] 00:00:00 00:00:00 U 69431 Family Practic e 2022-06-22 2022-06-22 Outpatient Bui_Q_WAGDN VFP VFP [id number] [facility] 00:00:00 00:00:00 U 10815 Family Practic e 2022-06-22 2022-06-22 Outpatient Bui_Q_WAGDN VFP VFP [id number] [facility] 00:00:00 00:00:00 U 64593 Family Practic e 2022-06-22 2022-06-22 Outpatient Bui_Q_WAGDN VFP VFP [id number] [facility] 00:00:00 00:00:00 U 78090 Family Practic e 2022-06-22 2022-06-22 Outpatient Bui_Q_WAGDN VFP VFP [id number] [facility] 00:00:00 00:00:00 U 58684 Family Practic e 2022-06-22 2022-06-22 David VFP [place] - [id number] V illage 00:00:00 00:00:00 [facility] Faisal Arguelles - Pracbrad huerta MD: [id number] [place] - e Shadow VM_HOU_Pedro Luis [facility], [address] [address] , Ph. 2022-06-03 2022-06-03 Outpatient Bui_Q VFP VFP [id number] [facility] 00:00:00 00:00:00 [id number] Family Practic e 2022-06-03 2022-06-03 Outpatient Bui_Q VFP VFP [id number] [facility] 00:00:00 00:00:00 03831 Family Practic e 2022-06-03 2022-06-03 Outpatient Bui_Q VFP VFP [id number] [facility] 00:00:00 00:00:00 06944 Family Practic e 2022-05-27 2022-05-27 Outpatient Bui_Q VFP VFP [id number] [facility] 00:00:00 00:00:00 56854 Family Practic e 2022-05-27 2022-05-27 Javad Owens VFP [place] - [id number] 9 [facility] 00:00:00 00:00:00 MD Yennifer: [facility] F[facility] y 485[address] Medical - Practi c Shadow [place] - e [facility]_TIAN_Pedro Luis [facility], [facility] [address] [address] , Ph. 2022-05-23 2022-05-23 Outpatient Bui_Q VFP VFP [id number] [facility] 00:00:00 00:00:00 [id number] Family Practic e 2022-05-04 2022-05-04 Outpatient Bui_Q VFP VFP [id number] [facility] 00:00:00 00:00:00 13278 Family Practic e 2022-05-04 2022-05-04 Outpatient Bui_Q VFP VFP [id number] [facility] 00:00:00 00:00:00 [id number] Family Practic e 2022-05-04 2022-05-04 Outpatient Bui_Q VFP VFP [id number] [facility] 00:00:00 00:00:00 [id number] Family Practic e 2022-04-13 2022-04-13 Javad Owens VFP [place] - [id number] 3 [facility] 00:00:00 00:00:00 MD Yennifer: [facility] Famil y 69267 Medical - Practi c [place] - e [place] ODALYS_ELIESERLisbeth_Fabianoneisha [address], [facility] [address], [place] [address] , Ph. 2022-04-09 2022-04-09 Outpatient Bui_Q VFP VFP [id number] [facility] 00:00:00 00:00:00 81471 Family Practic e 2022-04-09 2022-04-09 Outpatient Bui_Q VFP VFP [id number] [facility] 00:00:00 00:00:00 [id number] Family Practic e 2022-03-30 2022-03-30 Outpatient [facility] [id number] [place] 14:00:00 15:06:08 Health 2022-03-30 2022-03-30 Office Blaisewilber [facility] [id number] [place] 14:00:00 15:05:14 [facility] [id number] [facility] MEDICAL [id number] [id number] 2022-03-17 2022-03-17 David VFP [place] - [id number] V illage 00:00:00 00:00:00 [facility] Family Arguelles, Medical - Practi c MD: [id number] [place] - e Shadow VM_TIAN_Pedro Luis [facility] [place] [facility], [address], [place] [address] , Ph. 2022-03-16 2022-03-16 Outpatient FOG_Taba_Ho AOSM AOSM [id number] Na 00:00:00 00:00:00 Kourtney [id number] Orthop e dic Sports Medicin e 2022-03-05 2022-03-05 Outpatient Bui_Q VFP VFP [id number] [facility] 00:00:00 00:00:00 34463 Family Practic e 2022-03-05 2022-03-05 Outpatient Bui_Q VFP VFP [id number] [facility] 00:00:00 00:00:00 67045 Family Practic e 2022-03-04 2022-03-04 Javad Owens VFP [place] - [id number] 4 [facility] 00:00:00 00:00:00 MD Yennifer: [facility] [address] Medical - Practi c [place] - e [place] VM_TIAN[address], [facility] [address], [place] [address] , Ph. 2022-03-03 2022-03-03 Michelle VFP [place] - [id number] [facility] 00:00:00 00:00:00 [facility] Famil y TELEPHONE MAINTENANCE MECHANIC: [id number] Medical - Prac tic [place] - e [place] VM_ELIESERU_[address], [facility] [address], [place] [address] , Ph. 2022-02-26 2022-02-26 Outpatient Bui_Q VFP VFP [id number] [facility] 00:00:00 00:00:00 [id number] Family Practic e 2022-02-26 2022-02-26 Outpatient Bui_Q VFP VFP [id number] [facility] 00:00:00 00:00:00 89227 Family Practic e 2022-02-04 2022-02-04 Outpatient Bui_Q_WAGDN VFP VFP [id number] [facility] 00:00:00 00:00:00 U 41039 Family Practic e 2022-02-04 2022-02-04 Outpatient Bui_Q_WAGDN VFP VFP [id number] [facility] 00:00:00 00:00:00 U 03886 Family Practic e 2022-02-04 2022-02-04 Outpatient Bui_Q_WAGDN VFP VFP [id number] [facility] 00:00:00 00:00:00 U 10855 Family Practic e 2022-02-04 2022-02-04 Outpatient Bui_Q_WAGDN VFP VFP [id number] [facility] 00:00:00 00:00:00 U 93575 Family Practic e 2022-02-04 2022-02-04 Outpatient Bui_Q_WAGDN VFP VFP [id number] [facility] 00:00:00 00:00:00 U 45504 Family Practic e 2022-01-14 2022-01-14 Outpatient Bui_Q VFP VFP [id number] [facility] 00:00:00 00:00:00 67809 Family Practic e 2022-01-07 2022-01-07 Outpatient Bui_Q_WAGDN VFP VFP [id number] [facility] 00:00:00 00:00:00 U 51033 Family Practic e 2022-01-07 2022-01-07 Javad Owens VFP [place] - [id number] 9 [facility] 00:00:00 00:00:00 MD Yennifer: Pema Skel[place] y [address] Medical - Practi c Shadow [place] - e [place] VM_HOU[address], [facility] [place] [address] [address] , Ph. 2021-12-12 2021-12-12 David VFP [place] - [id number] V illage 00:00:00 00:00:00 [facility] Family Dupontfranklin Medical - Practi deanna STILL: 245[address] [place] - e Shadow VM_ELIESERU_Fabianod [place] [address], [address] [address] , Ph. 2021-11-26 2021-11-26 Outpatient Bui_Q VFP VFP [id number] [facility] 00:00:00 00:00:00 84735 Family Practic e 2021-11-11 2021-11-11 David VFP [place] - [id number] V illage 00:00:00 00:00:00 [facility] Family Arguelles Medical - Practi c MD: [id number] ODALYS_HOU_Shad e Shadow ow [place] [address] [address] , Ph. 2021-10-30 2021-10-30 Outpatient Bui_Q VFP VFP [id number]- [id number] [facility] 00:00:00 00:00:00 35092 Family Practic e 2021-10-14 2021-10-14 Outpatient Bui_Q_WAGDN VFP VFP [id number] [facility] 00:00:00 00:00:00 U 99316 Family Practic e 2021-10-13 2021-10-13 Outpatient Bui_Q VFP VFP [id number] [facility] 00:00:00 00:00:00 03636 Family Practic e 2021-10-13 2021-10-13 Javad Owens VFP [place] - [id number] 5 [facility] 00:00:00 00:00:00 MD Yennifer: [facility] Nafisa y 24320 Medical - Practi c Shadow VM_HOU_Shad e [facility] [address] [address] , Ph. 2021-09-20 2021-09-20 Outpatient Bui_Q VFP VFP [id number] [facility] 00:00:00 00:00:00 66166 Family Practic e 2021-09-01 2021-09-01 Outpatient Bui_Q_WAGDN VFP VFP [id number] [facility] 00:00:00 00:00:00 U 17306 Family Practic e 2021-08-13 2021-08-13 Outpatient Bui_Q VFP VFP [id number] [facility] 01:59:00 01:59:00 [id number] Family Practic e 2021-08-13 2021-08-13 David VFP [place] - [id number] V illage 00:00:00 00:00:00 [facility] Family Arguelles, Medical - Pracbrad huerta MD: [id number] VM_HOU_Shad e Shadow [facility], [address] [address] , Ph. 2021-08-01 2021-08-01 Outpatient Bui_Q VFP VFP [id number] [facility] 02:53:00 02:53:00 73265 Family Practic e 2021-07-30 2021-07-30 Outpatient Bui_Q_WAGDN VFP VFP [id number] [facility] 08:20:00 08:20:00 U 26763 Family Practic e 2021-07-30 2021-07-30 Outpatient Bui_Q_WAGDN VFP VFP [id number] [facility] 08:20:00 08:20:00 U Family Practic e 2021-07-21 2021-07-21 Outpatient Bui_Q VFP VFP [id number] [facility] 02:33:00 02:33:00 Family Practic e 2021-07-11 2021-07-11 Outpatient Bui_Q VFP VFP [id number]- [facility] 05:47:00 05:47:00 Family Practic e 2021-07-11 2021-07-11 Javad Yipg VFP [place] - [id number] [address] [place] [address] 00:00:00 00:00:00 MD Yennifer: [facility] Famil y 04932 Medical - Practi c Shadow VM_HOU_Shad e [place] [facility] [place] [facility], [address], [place] [address] , Ph. 2021-07-08 2021-07-08 Orders Doctor DENNY [id number] Univers 00:00:00 00:00:00 Only Unassigned, KEVIN [id number] ity [facility] [id number] Allan as [phone] [facility] romy [address] 2021-07-02 2021-07-02 Outpatient Bui_Q VFP VFP [id number] [facility] 02:15:00 02:15:00 Family Practic e 2021-06-30 2021-06-30 Outpatient Bui_Q_WAGDN VFP VFP [id number] [facility] 07:47:00 07:47:00 U Family Practic e 2021-06-30 2021-06-30 Outpatient Bui_Q_WAGDN VFP VFP [id number] [facility] 07:47:00 07:47:00 U 95378 Family Practic e 2021-06-26 2021-06-26 Orders Doctor DENNY [id number] Univers 00:00:00 00:00:00 Only Unassigned, KEVNI [id number] ity [facility] [id number] Allan as [phone] [facility] romy [address] 2021-06-23 2021-06-23 Outpatient Bui_Q VFP VFP [id number] [facility] 02:03:00 02:03:00 06104 Family Practic e 2021-06-21 2021-06-21 Outpatient Bui_Q VFP VFP [id number] [facility] 01:19:00 01:19:00 95888 Family Practic e 2021-06-19 2021-06-19 Kimberlyn VFP [place] - [id number] [facility] 00:00:00 00:00:00 Shiber: [facility] Family Angel Cat [facility], VM_HOU_Care e [address], [place] [address] , Ph. 2021-06-17 2021-06-17 Outpatient Bui_Q VFP VFP [id number]- 202 [facility] 04:26:00 04:26:00 [id number] Family Practic e 2021-06-17 2021-06-17 Ronnalyn VFP [place] - [id number] [facility] 00:00:00 00:00:00 Jordon, [facility] Famil y TELEPHONE MAINTENANCE MECHANIC: [id number] Medical - [facility] tic Shadow VM_HOU_Shad e [place] [address], [place] [address] , Ph. 2021-06-16 2021-06-16 Kimberlyn VFP [place] - [id number] [facility] 00:00:00 00:00:00 Shiber: [facility] Family Angel Cat [facility], VM_HOU_Care e [address], [place] [address] , Ph. 2021-06-12 2021-06-12 Outpatient Bui_Q_WAGDN VFP VFP [id number] 582-202 [facility] 11:31:00 11:31:00 U [id number] Family Practic e 2021-06-12 2021-06-12 Outpatient Bui_Q VFP VFP [id number]- 202 [facility] 04:21:00 04:21:00 [id number] Family Practic e 2021-06-03 2021-06-03 Outpatient Bui_Q VFP VFP [id number]- 202 [facility] 05:42:00 05:42:00 [id number] Family Practic e 2021-06-032021-06-03 David VFP [place] - [id number] V illage 00:00:00 00:00:00 [facility] Family ArguellesFaisal - Bob huerta MD: [id number] ODALYS_TIAN_Pedro Luis danny Shadow ow [place] [address], [place] [address] , Ph. 2021-05-30 2021-05-30 Outpatient Bui_Q VFP VFP [id number]- 202 [facility] 11:16:00 11:16:00 [id number] Family Practic e 2021-05-30 2021-05-30 Outpatient Bui_Q_WAGDN VFP VFP [id number]- [facility] 11:16:00 11:16:00 Family Practic e 2021-05-23 2021-05-23 Orders Doctor DENNY 1.2.840.114 [id number] 00:00:00 00:00:00 Only Unassigned, KEVIN [id number] ity of [facility] [id number] Allan as [phone] [facility] romy [address] 2021-05-02 2021-05-02 Orders Doctor DENNY 1.2.840.[id number] [facility] 00:00:00 00:00:00 Only Unassigned, KEVIN [id number] ity of [facility] [id number] Allan as [phone] [facility] romy [address] 2021-04-23 2021-04-23 Outpatient Bui_Q VFP VFP [id number]- 202 [facility] 01:43:00 01:43:00 [id number] Family Practic e 2021-04-21 2021-04-21 Outpatient Bui_Q VFP VFP [id number]- 202 [facility] 11:27:00 11:27:00 [id number] Family Practic e 2021-04-21 2021-04-21 David VFP [place] - [id number] V illage 00:00:00 00:00:00 [facility] Family ArguellesFaisal MD: [id number] ODALYS_TIAN_Pedro Luis delgado Shadow ow [place] [facility], [address], [place] [address] , Ph. 2021-04-17 2021-04-17 Orders Doctor DENNY Friend2.840.[id number] [facility] 00:00:00 00:00:00 Only Unassigned, KEVIN [id number] ity of [facility] [id number] Allan as [phone] [facility] [address] 2021-04-16 2021-04-16 Outpatient Bui_Q VFP VFP [id number]- [facility] 12:34:00 12:34:00 [id number] Family Practic e 2021-04-15 2021-04-15 Outpatient Bui_Q VFP VFP [id number]- [facility] 02:31:00 02:31:00 [id number] Family Practic e 2021-04-14 2021-04-14 Outpatient Bui_Q VFP VFP [id number]- [facility] 11:58:00 11:58:00 [id number] Family Practic e 2021-04-14 2021-04-14 Javad Owens VFP [place] - [id number] [address] [place] [address] 00:00:00 00:00:00 MD Yennifer: [facility] Famil y [address] [place] [address], ([facility]) [place] [address] , Ph. 2021-03-06 2021-03-06 Orders Doctor DENNY Friend2.840.[id number] [facility] 00:00:00 00:00:00 Only UnassignedKEVIN 350.1.13.10 ity of [facility] [id number] Allan as [phone] [place] [address] [address] 2021-02-15 2021-02-15 Outpatient Bui_Q VFP VFP [id number]- [facility] 10:53:00 10:53:00 [id number] Family Practic e 2021-02-15 2021-02-15 Outpatient Bui_Q VFP VFP [id number]- [facility] 10:53:00 10:53:00 [id number] Family Practic e 2021-02-12 2021-02-12 Orders Doctor DENNY Friend2.840.114 [id number] [facility] 00:00:00 00:00:00 Only Unassigned, KEVIN 350.1.13.10 ity of [facility] [id number] Allan as [phone] [address] 2021-02-10 2021-02-10 Outpatient Bui_Q_WAGDN VFP VFP [id number] [facility] 11:28:00 11:28:00 U [id number] Family Practic e 2021-02-10 2021-02-10 Outpatient Bui_Q_WAGDN VFP VFP [id number] [facility] 11:28:00 11:28:00 U 30583 Family Practic e 2021-02-06 2021-02-06 Office Faraz Mccarthy [facility] 1.2.840.114 [id number] Univers 10:33:27 11:48:59 Visit Oren Ponce [facility] [id number] ity of [facility] [id number] Allan as WILMAN?BLEA [phone] [address] MEDICAL OFFICE [facility] 2021-02-06 2021-02-06 Outpatient R [facility] [id number] Univers 10:30:00 11:48:59 OREN [facility] 2021-02-06 2021-02-06 Outpatient [facility] [id number] Univers 10:30:00 10:30:00 OREN [facility] 2021-01-31 2021-01-31 Outpatient Bui_Q_WAGDN VFP VFP [id number] [facility] 08:53:00 08:53:00 U [id number] Family Practic e 2021-01-14 2021-01-14 Orders Doctor DENNY 1.2.840.114 [id number] Univers 00:00:00 00:00:00 Only Unassigned, KEVIN 350.1.13.10 ity of [facility] [id number] Allan as [phone] [address] 2021-01-07 2021-01-07 Outpatient Bui_Q VFP VFP [id number]- 202 [facility] 01:09:00 01:09:00 [id number] Family Practic e 2021-01-07 2021-01-07 Javad Owens VFP [place] - [id number] 9 Village 00:00:00 00:00:00 MD Yennifer: Pema torres 6122 Medical - Practi c Carp[place] VM_HOU_[address], [facility] [address], ([facility]) [place] [address] , Ph. 2020-12-11 2020-12-11 Outpatient Bui_Q_WAG VFP VFP [id number] 2-202 [facility] 01:03:00 01:03:00 [id number] Family Practic e 2020-12-06 2020-12-06 Outpatient Bui_Q_WAG VFP VFP [id number] 2-202 [facility] 05:07:00 05:07:00 [id number] Family Practic e 2020-11-21 2020-11-21 Outpatient Bui_Q VFP VFP [id number]- 202 [facility] 03:22:00 03:22:00 [id number] Family Practic e 2020-11-21 2020-11-21 David VFP [place] - [id number] V illage 00:00:00 00:00:00 [facility] Family Blane Medical - Practi deanna STILL: 25173 VM_TIAN_Pedro Luis e Shadow [facility], [facility] [address] [place] [address] , Ph. 2020-11-12 2020-11-12 Outpatient Bui_Q_WAG VFP VFP [id number] 2-202 [facility] 02:36:00 02:36:00 [id number] Family Practic e 2020-10-19 2020-10-19 Outpatient Bui_Q VFP VFP [id number]- 202 [facility] 05:18:00 05:18:00 [id number] Family Practic e 2020-10-19 2020-10-19 Outpatient Bui_Q VFP VFP [id number]- 202 [facility] 05:18:00 05:18:00 [id number] Family Practic e 2020-10-19 2020-10-19 Outpatient Bui_Q VFP VFP [id number]- 202 [facility] 05:18:00 05:18:00 [id number] Family Practic e 2020-10-19 2020-10-19 Outpatient Bui_Q VFP VFP [id number]- 202 [facility] 05:18:00 05:18:00 [id number] Family Practic e 2020-10-15 2020-10-15 Outpatient Bui_Q_WAG VFP VFP [id number] 2-202 [facility] 01:23:00 01:23:00 [id number] Family Practic e 2020-10-15 2020-10-15 Javad Owens VFP [place] - [id number] 7 [facility] 00:00:00 00:00:00 MD Yennifer: [facility] Famil y 6122 Medical - Practi deanna [place] VM_HOU_[address] e , [address], ([facility]) [place] [address] , Ph. 2020-09-20 2020-09-20 Outpatient Bui_Q VFP VFP [id number]- 202 [facility] 02:01:00 02:01:00 [id number] Family Practic e 2020-09-20 2020-09-20 Outpatient Bui_Q VFP VFP [id number]- 202 [facility] 02:01:00 02:01:00 [id number] Family Practic e 2020-08-31 2020-08-31 Outpatient Bui_Q VFP VFP [id number]- 202 [facility] 04:58:00 04:58:00 35902 Family Practic e 2020-08-29 2020-08-29 Outpatient Bui_Q VFP VFP [id number]- 202 [facility] 03:22:00 03:22:00 [id number] Family Practic e 2020-08-29 2020-08-29 David VFP [place] - [id number] V illage 00:00:00 00:00:00 [facility] Family Arguelles Medical - Practi deanna STILL: 24851 VM_HOU_Shad e Shadow [place] [facility], [facility] [address], [place] [address] , Ph. 2020-08-12 2020-08-12 Outpatient Bui_Q_WAG VFP VFP [id number] 2-202 [facility] 10:00:00 10:00:00 [id number] Family Practic e 2020-08-06 2020-08-06 Outpatient Bui_Q_WAG VFP VFP [id number] 2-202 [facility] 06:29:00 06:29:00 [id number] Family Practic e 2020-08-01 2020-08-01 Outpatient Bui_Q VFP VFP [id number]- 202 [facility] 03:51:00 03:51:00 [id number] Family Practic e 2020-08-01 2020-08-01 David VFP [place] - [id number] V illage 00:00:00 00:00:00 Leora [facility] Family ArguellesFaisal - Bob huerta MD: [id number] VM_TIAN_Pedro Luis e Shadow [facility], [facility] [address] [place] [address] , Ph. 2020-07-31 2020-07-31 Outpatient Bui_Q VFP VFP [id number]- 202 [facility] 03:24:00 03:24:00 [id number] Family Practic e 2020-07-22 2020-07-22 Outpatient Bui_Q_WAG VFP VFP [id number] 2202 [facility] 07:15:00 07:15:00 [id number] Family Practic e 2020-07-22 2020-07-22 Outpatient Bui_Q_WAG VFP VFP [id number] 2202 [facility] 07:15:00 07:15:00 [id number] Family Practic e 2020-07-20 2020-07-20 Outpatient Bui_Q_WAG VFP VFP [id number] 2202 [facility] 02:21:00 02:21:00 [id number] Family Practic e 2020-07-16 2020-07-16 Outpatient Bui_Q_WAG VFP VFP [id number] 2202 [facility] 02:14:00 02:14:00 13845 Family Practic e 2020-07-16 2020-07-16 Javad Owens VFP [place] - [id number] 8 [facility] 00:00:00 00:00:00 MD Yennifer: ePma Skelton y 6122 Faisal - Bob huerta Carp[place] [address], [facility] 100, ([facility]) [place] [address] , Ph. 2020-07-15 2020-07-15 Outpatient Bui_Q_WAG VFP VFP [id number] 2 [facility] 05:51:00 05:51:00 [id number] Family Practic e 2020-05-02 2020-05-02 Outpatient Bui_Q_WAG VFP VFP [id number] 2202 [facility] 12:12:00 12:12:00 [id number] Family Practic e 2020-05-02 2020-05-02 Outpatient Bui_Q_WAG VFP VFP [id number] 2202 [facility] 12:12:00 12:12:00 58505 Family Practic e 2020-05-02 2020-05-02 Outpatient VFP VFP [id number]- 202 [facility] 12:12:00 12:12:00 [id number] Family Practic e 2020-04-22 2020-04-22 Outpatient Bui_Q_WAG VFP VFP [id number] [facility] 08:16:00 08:16:00 25662 Family Practic e 2020-04-22 2020-04-22 Javad Owens VFP [place] - [id number] [address] [place] [address] 00:00:00 00:00:00 MD Yennifer: [facility] Famil y [address] [place] [address], ([facility]) [place] [address] , Ph. 2020-02-27 2020-02-27 Outpatient Bui_Q_WAG VFP VFP [id number] 2 [facility] 09:37:00 09:37:00 [id number] Family Practic e 2020-02-27 2020-02-27 Outpatient Bui_Q_WAG VFP VFP [id number] 2202 [facility] 09:37:00 09:37:00 45074 Family Practic e 2020-02-27 2020-02-27 Outpatient Bui_Q_WAG VFP VFP [id number] 2202 [facility] 09:37:00 09:37:00 [id number] Family Practic e 2020-02-27 2020-02-27 Outpatient VFP VFP [id number]- 202 [facility] 09:37:00 09:37:00 [id number] Family Practic e 2020-02-27 2020-02-27 Outpatient VFP VFP [id number] 202 [facility] 09:37:00 09:37:00 [id number] Family Practic e 2020-02-27 2020-02-27 Outpatient Bui_Q_WAG VFP VFP [id number] 2-202 [facility] 09:37:00 09:37:00 [id number] Family Practic e 2020-01-23 2020-01-23 Outpatient Bui_Q_WAG VFP VFP [id number] 2-202 [facility] 05:44:00 05:44:00 [id number] Family Practic e 2020-01-23 2020-01-23 Outpatient Bui_Q_WAG VFP VFP [id number] 2-202 [facility] 05:44:00 05:44:00 [id number] Family Practic e 2020-01-23 2020-01-23 Outpatient Bui_Q_WAG VFP VFP [id number] 2202 [place] 05:44:00 05:44:00 22871 Family Practic e 2020-01-23 2020-01-23 Outpatient Bui_Q_WAG VFP VFP [id number] 2202 [facility] 05:44:00 05:44:00 [id number] Family Practic e 2020-01-23 2020-01-23 Outpatient Bui_Q_WAG VFP VFP [id number] 2202 [facility] 05:44:00 05:44:00 [id number] Family Practic e 2020-01-23 2020-01-23 Jaavd Owens VFP [place] - [id number] [address] [place] [address] 00:00:00 00:00:00 MD Yennifer: [facility] Famil y [address] [facility] [place] [facility] [address], ([place] [address] , Ph. 2019-12-14 2019-12-14 Outpatient Bui_Q_WAG VFP VFP [id number] 2 [facility] 10:19:00 10:19:00 22749 Family Practic e 2019-12-14 2019-12-14 Outpatient Bui_Q_WAG VFP VFP [id number] 2202 [facility] 10:19:00 10:19:00 57758 Family Practic e 2019-10-25 2019-10-25 Outpatient Bui_Q_WAG VFP VFP [id number] 2202 [facility] 02:17:00 02:17:00 [id number] Family Practic e 2019-10-25 2019-10-25 Outpatient Bui_Q_WAG VFP VFP [id number] 2202 [facility] 02:17:00 02:17:00 [id number] Family Practic e 2019-10-19 2019-10-19 Outpatient Bui_Q_WAG VFP VFP [id number] 202 [facility] 12:37:00 12:37:00 [id number] Family Practic e 2019-10-19 2019-10-19 Javad Owens VFP [place] - [id number] 0 [facility] 00:00:00 00:00:00 MD Yennifer: [facility] Famil y 6[address] Medical - Practi [place] [address], ([facility]) [place] [address] , Ph. 2019-10-18 2019-10-18 Outpatient Bui_Q_WAG VFP VFP [id number] [place] [address] 09:32:00 09:32:00 05659 Family Practic e 2019-10-13 2019-10-13 Outpatient Bui_Q_WAG VFP VFP [id number] [place] [address] 04:23:00 04:23:00 09075 Family Practic e 2019-10-13 2019-10-13 Porchae B VFP [place] - [id number] [facility] 00:00:00 00:00:00 Fitzpatrick, [facility] Famil y TELEPHONE MAINTENANCE MECHANIC: 6122 Medical - Pract [place] [address], ([facility]) [place] [address] , Ph. 2019-07-26 2019-07-26 Outpatient Bui_Q_WAG VFP VFP [id number] [place] [address] 02:06:00 02:06:00 09170 Family Practic e 2019-07-07 2019-07-07 Outpatient Bui_Q_WAG VFP VFP [id number] 11:49:00 11:49:00 54174 Family Practic e 2019-07-07 2019-07-07 Outpatient VFP VFP [id number]- 202 [facility] 11:49:00 11:49:00 [id number] Family Practic e 2019-07-07 2019-07-07 Outpatient Bui_Q_WAG VFP VFP [id number] 11:49:00 11:49:00 75001 Family Practic e 2019-07-07 2019-07-07 Javad Owens VFP [place] - [id number] 8 [facility] 00:00:00 00:00:00 MD Yennifer: [facility] Famil y 6[address] Medical - Practi [place] [address], ([facility]) [place] [address] , Ph. 2019-05-18 2019-05-18 Outpatient Bui_Q_WAG VFP VFP [id number] 2-202 [facility] 03:23:00 03:23:00 [id number] Family Practic e 2019-04-14 2019-04-14 Outpatient Bui_Q_WAG VFP VFP [id number] 2-202 [facility] 02:34:00 02:34:00 10394 Family Practic e 2019-04-14 2019-04-14 Outpatient Bui_Q_WAG VFP VFP [id number] 2-202 [facility] 02:34:00 02:34:00 [id number] Family Practic e 2019-04-14 2019-04-14 Outpatient VFP VFP [id number]- 202 [facility] 02:34:00 02:34:00 [id number] Family Practic e 2019-04-14 2019-04-14 Outpatient Bui_Q_WAG VFP VFP [id number] 2-202 [facility] 02:34:00 02:34:00 25881 Family Practic e 2019-04-11 2019-04-11 Outpatient Bui_Q_WAG VFP VFP [id number] 2-202 [facility] 08:37:00 08:37:00 [id number] Family Practic e 2019-04-10 2019-04-10 Outpatient Bui_Q_WAG VFP VFP [id number] 2-202 [facility] 03:30:00 03:30:00 [id number] Family Practic e 2019-04-10 2019-04-10 Javad Owens VFP [place] - [id number] 0 [place] 00:00:00 00:00:00 MD Yennifer: [facility] Famil y 6[address] Medical - Pr[address] [place] [address], ([facility]) [place] [address] , Ph. 2019-03-08 2019-03-08 Outpatient VFP VFP [id number]- 202 [facility] 12:08:00 12:08:00 [id number] Family Practic e 2019-02-09 2019-02-09 Javad Owens [facility] [place] - [id number] 2 Village 00:00:00 00:00:00 MD Yennifer: [facility] Nafisa y 6122 Medical - Practi [facility]HOU_[facility], [address] [place] [address], ([facility]) [place] [address] , Ph. 2018-09-27 2018-09-27 Outpatient [facility] [id number] Common 09:45:00 09:45:00 t Specialty/U Sp teresa Specialty rology - [facility] 2018-09-13 2018-09-13 Out[facility] [id number] Common 10:00:00 10:00:00 t Specialty/U Sp teresa Specialty rology - [facility] 2018-08-22 2018-08-22 Outpatient [facility] [id number] Common 10:45:00 10:45:00 t Specialty/U Sp teresa Specialty rology - [facility] 2018-05-17 2018-05-17 Outpatient [facility] 24 [id number] Common 13:30:00 13:30:00 t Bone Bone and Spiri t and Joint Joint - [facility] 2018-05-02 2018-05-02 Out[facility] 24 [id number] Common 13:30:00 13:30:00 t Bone Bone and Spiri t and Joint Joint - [facility] 2018-04-29 2018-04-29 Out[facility] [id number] Common 09:58:00 09:58:00 t Bone Bone and Spiri t and Joint Joint - [facility] 2018-04-25 2018-04-25 Outpatient [facility] [id number] Common 13:30:00 13:30:00 t Bone Bone and Spiri t and Joint Joint - [facility] 2018-04-14 2018-04-14 Outpatient [facility] [id number] Common 10:00:00 10:00:00 t Bone Bone and Spiri t and Joint Joint - [facility] 2018-03-29 2018-03-29 Outpatient Wenceslao Billyt 23 [id number] Common 14:29:00 14:29:00 t Bone Bone and Spiri t and Joint Joint - [facility] 2018-03-24 2018-03-24 Outpatient Wenceslao Billyt 23 [id number] Common 14:30:00 14:30:00 t Bone Bone and Spiri t and Joint Joint - [facility] 2018-03-04 2018-03-04 Outpatient Wenceslao Billyt 23 [id number] Common 08:00:00 08:00:00 t Bone Bone and Spiri t and Joint [facility] - [facility] Results Test Description Test Time Test Comments Results Result Comments Source Hemoglobin A1c measurement device panel 2022-12-22 10:19:39 Test Item Value Reference Range Interpretation Comme nts Hemoglobin A1c/Hemoglobin.total in Blood (test code = 4548-4) 8.6 % 4.0-6.4 [facility] PracticeHemoglobin A1c measurement device [id number] 10:19:39 Test Item Value Reference Range Interpretation Comments Hemoglobin A1c/Hemoglobin.total in 8.6 % 4.0-6.4 Blood (test code = 4548-4) [facility] PracticeHemoglobin A1c measurement device [id number] 10:19:39 Test Item Value Reference Range Interpretation Comments Hemoglobin A1c/Hemoglobin.total in 8.6 % 4.0-6.4 Blood (test code = 4548-4) [facility] PracticeGlucose [Mass/volume] in Capillary [id number] 10:15:28 Test Item Value Reference Range Interpretation Comments Blood Glucose: mg/dl (test code = Blood 212 Glucose: mg/dl) [facility] PracticeGlucose [Mass/volume] in Capillary [id number] 10:15:28 Test Item Value Reference Range Interpretation Comments Blood Glucose: mg/dl (test code = Blood 212 Glucose: mg/dl) [facility] PracticeGlucose [Mass/volume] in Capillary [id number] 10:15:28 Test Item Value Reference Range Interpretation Comments Blood Glucose: mg/dl (test code = Blood 212 Glucose: mg/dl) [facility] 1999 panel - Serum or Plasma 2022-09-30 00:00:00 Test Item Value Reference Range Interpretation Comments glucose (test code = 225 mg/dL 70-99 H glucose) creatinine (test code = 1.07 mg/dL 0.57-1.11 creatinine) BUN (test code = BUN) 20.6 mg/dL 9.8-25.0 eGFR (test code = eGFR) 53 mL/min/1.73m2 A sodium (test code = sodium) 142 mEq/L 135-145 potassium (test code = 5.1 mEq/L 3.5-5.3 potassium) CO2 (test code = CO2) 27.4 mmol/L 20.0-32.0 chloride (test code = 102 mmol/L 98-110 chloride) anion gap (test code = anion 13 calc gap) calcium (test code = 9.5 mg/dL 8.4-10.4 calcium) total protein (test code = 7.5 g/dL 6.1-8.2 total protein) albumin (test code = 3.6 g/dL 3.4-5.1 albumin) total bilirubin (test code = 0.3 mg/dL 0.2-1.2 total bilirubin) alk phos (test code = alk 142 unit/L 40-150 phos) ALT (test code = ALT) 32 U/L 0-55 AST (test code = AST) 35 U/L 5-34 H [facility] 1995 panel - Serum or [id number] 00:00:00 Test Item Value Reference Range Interpretation Comments triglyceride (test code = 124 mg/dL <150 triglyceride) cholesterol (test code = 131 mg/dL <200 cholesterol) HDL (test code = HDL) 30 mg/dL L VLDL (calculated) (test code = VLDL 25 mg/dL (calculated)) cholesterol/HDL ratio (test code = 4.4 mg/dL cholesterol/HDL ratio) Cholesterol in LDL [Mass/volume] in 76 mg/dL <130 Serum or Plasma (test code = 2089-1) non-HDL cholesterol (calculated) 101 mg/dL <160 (test code = non-HDL cholesterol (calculated)) [facility] CenterThyroxine (T4) free [Mass/volume] in Serum or Plasma 2022-09-30 00:00:00 Test Item Value Reference Range Interpretation Comments T4 free (test code = T4 free) 0.66 NG/dL 0.70-1.48 L [facility] CenterThyrotropin [Units/volume] in Serum or [id number] 00:00:00 Test Item Value Reference Range Interpretation Comments TSH (test code = TSH) 1.328 uIU/mL 0.350-4.940 [facility] CenterCortisol [Mass/volume] in Serum or Plasma --AM peak [id number] 00:00:00 Test Item Value Reference Range Interpretation Comments cortisol - AM (test code = cortisol 1.3 ug/dL 6.2-19.4 L - AM) [facility] CenterMicroalbumin/Creatinine [Mass Ratio] in [id number] 00:00:00 Test Item Value Reference Range Interpretation Comments creatinine random urine 35.9 mg/dL 20.0-320.0 (test code = creatinine random urine) microalbumin random result IS <5 ug/mL. urine (test code = result IS less than microalbumin random the sensitivity of the urine) instrument. microalbumin/creatinine (random urine) ratio calculated (test code = microalbumin/creatinine (random urine) ratio calculated) [facility] CenterCB W Auto Differential panel - [id number] 00:00:00 Test Item Value Reference Range Interpretation Comments WBC (test code = WBC) 10.53 x10*3/?L 4.00-11.00 RBC (test code = RBC) 4.62 10*12/L 3.93-5.22 hemoglobin (test code = 14.30 g/dL 11.20-15.70 hemoglobin) hematocrit (test code = 43.6 % 34.1-44.9 hematocrit) MCV (test code = MCV) 94.4 fL 80.0-100.0 MCH (test code = MCH) 31.0 pg 25.6-32.2 MCHC (test code = MCHC) 32.8 g/dL 32.2-35.5 platelet count (test code = 248.0 k/uL 150.0-400.0 platelet count) RDW-SD (test code = RDW-SD) 55.0 fL 36.4-46.3 H MPV (test code = MPV) 11.4 fL 7.5-11.5 neut% (test code = neut%) 80.8 % 34.0-71.1 H lymph% (test code = lymph%) 13.4 % 19.3-51.7 L mon% (test code = mon%) 3.9 % 4.7-12.5 L eos% (test code = eos%) 0.9 % 0.7-5.8 baso% (test code = baso%) 0.6 % 0.1-1.2 neut# (test code = neut#) 8.5 x10*3/?L 1.6-6.1 H lymph# (test code = lymph#) 1.4 x10*3/?L 1.2-3.7 mon# (test code = mon#) 0.4 x10*3/?L 0.2-0.9 eos# (test code = eos#) 0.10 x10*3/?L 0.04-0.36 baso# (test code = baso#) 0.06 x10*3/?L 0.01-0.08 [facility] [id number] 09:37:44 Test Item Value Reference Range Interpretation Comments Hemoglobin A1c/Hemoglobin.total in 8.6 % 4.0-6.4 Blood (test code = 4548-4) [facility] [id number] 09:37:44 Test Item Value Reference Range Interpretation Comments Hemoglobin A1c/Hemoglobin.total in 8.6 % 4.0-6.4 Blood (test code = 4548-4) [facility]Glucose [Mass/volume] in Capillary [id number] 09:33:49 Test Item Value Reference Range Interpretation Comments Blood Glucose: mg/dl (test code = Blood 201 Glucose: mg/dl) [facility] [Mass/volume] in Capillary [id number] 09:33:49 Test Item Value Reference Range Interpretation Comments Blood Glucose: mg/dl (test code = Blood 201 Glucose: mg/dl) [facility] A[facility] device [id number] 09:33:38 Test Item Value Reference Range Interpretation Comments Hemoglobin A1c/Hemoglobin.total in 9.6 % 4.0-5.6 Blood (test code = 4548-4) [facility] [id number] 09:33:38 Test Item Value Reference Range Interpretation Comments Hemoglobin A1c/Hemoglobin.total in 9.6 % 4.0-5.6 Blood (test code = 4548-4) [facility]Glucose [Mass/volume] in Capillary [id number] 09:29:49 Test Item Value Reference Range Interpretation Comments Blood Glucose: mg/dl (test code = Blood 187 Glucose: mg/dl) [facility] [Mass/volume] in Capillary [id number] 09:29:49 Test Item Value Reference Range Interpretation Comments Blood Glucose: mg/dl (test code = Blood 187 Glucose: mg/dl) [facility] CenterHemoglobin A1c measurement device [id number] 09:51:47 Test Item Value Reference Range Interpretation Comments Hemoglobin A1c/Hemoglobin.total in 9.7 % 5.7-6.4 Blood (test code = 4548-4) [facility] CenterHemoglobin A1c measurement device [id number] 09:51:47 Test Item Value Reference Range Interpretation Comments Hemoglobin A1c/Hemoglobin.total in 9.7 % 5.7-6.4 Blood (test code = 4548-4) [facility] CenterGlucose [Mass/volume] in Capillary [id number] 09:47:09 Test Item Value Reference Range Interpretation Comments Blood Glucose: mg/dl (test code = Blood 244 Glucose: mg/dl) [facility]Glucose [Mass/volume] in Capillary [id number] 09:47:09 Test Item Value Reference Range Interpretation Comments Blood Glucose: mg/dl (test code = Blood 244 Glucose: mg/dl) [facility] CenterUrinalysis macro (dipstick) panel - [id number] 16:16:56 Test Item Value Reference Range Interpretation Comments Interpretation UA test Automated performed using: (test device/analyzer code = Interpretation UA (90438,QW) test performed using:) Interpretation Color Yellow (test code = Interpretation Color) Interpretation Clarity Clear (test code = Interpretation Clarity) Interpretation Glucose 250 (mg/dL) (test code = Interpretation Glucose (mg/dL)) Interpretation Bilirubin Negative (test code = Interpretation Bilirubin) Interpretation Ketone Negative (mg/dL) (test code = Interpretation Ketone (mg/dL)) Interpretation Specific 1.025 [place] (test code = Interpretation Specific [place]) Interpretation Occult Negative Blood (test code = Interpretation Occult Blood) Interpretation pH (test 6.5 code = Interpretation pH) Interpretation Protein Negative (test code = Interpretation Protein) Interpretation 0.2 Urobilinogen (test code = Interpretation Urobilinogen) Interpretation Nitrites Negative (test code = Interpretation Nitrites) Interpretation Leukocytes Negative (test code = Interpretation Leukocytes) [facility] - [id number] 16:16:56 Test Item Value Reference Range Interpretation Comments Interpretation UA test Automated performed using: (test device/analyzer code = Interpretation UA (40395,QW) test performed using:) Interpretation Color Yellow (test code = Interpretation Color) Interpretation Clarity Clear (test code = Interpretation Clarity) Interpretation Glucose 250 (mg/dL) (test code = Interpretation Glucose (mg/dL)) Interpretation Bilirubin Negative (test code = Interpretation Bilirubin) Interpretation Ketone Negative (mg/dL) (test code = Interpretation Ketone (mg/dL)) Interpretation Specific 1.025 [place] (test code = Interpretation Specific [place]) Interpretation Occult Negative Blood (test code = Interpretation Occult Blood) Interpretation pH (test 6.5 code = Interpretation pH) Interpretation Protein Negative (test code = Interpretation Protein) Interpretation 0.2 Urobilinogen (test code = Interpretation Urobilinogen) Interpretation Nitrites Negative (test code = Interpretation Nitrites) Interpretation Leukocytes Negative (test code = Interpretation Leukocytes) [facility] ([facility]) panel - [id number] 16:16:56 Test Item Value Reference Range Interpretation Comments Interpretation UA test Automated performed using: (test device/analyzer code = Interpretation UA (58895,QW) test performed using:) Interpretation Color Yellow (test code = Interpretation Color) Interpretation Clarity Clear (test code = Interpretation Clarity) Interpretation Glucose 250 (mg/dL) (test code = Interpretation Glucose (mg/dL)) Interpretation Bilirubin Negative (test code = Interpretation Bilirubin) Interpretation Ketone Negative (mg/dL) (test code = Interpretation Ketone (mg/dL)) Interpretation Specific 1.025 [place] (test code = Interpretation Specific [place]) Interpretation Occult Negative Blood (test code = Interpretation Occult Blood) Interpretation pH (test 6.5 code = Interpretation pH) Interpretation Protein Negative (test code = Interpretation Protein) Interpretation 0.2 Urobilinogen (test code = Interpretation Urobilinogen) Interpretation Nitrites Negative (test code = Interpretation Nitrites) Interpretation Leukocytes Negative (test code = Interpretation Leukocytes) [facility]Ur[facility] macro (dipstick) panel - [id number] 16:16:56 Test Item Value Reference Range Interpretation Comments Interpretation UA test Automated performed using: (test device/analyzer code = Interpretation UA (58552,QW) test performed using:) Interpretation Color Yellow (test code = Interpretation Color) Interpretation Clarity Clear (test code = Interpretation Clarity) Interpretation Glucose 250 (mg/dL) (test code = Interpretation Glucose (mg/dL)) Interpretation Bilirubin Negative (test code = Interpretation Bilirubin) Interpretation Ketone Negative (mg/dL) (test code = Interpretation Ketone (mg/dL)) Interpretation Specific 1.025 [place] (test code = Interpretation Specific [place]) Interpretation Occult Negative Blood (test code = Interpretation Occult Blood) Interpretation pH (test 6.5 code = Interpretation pH) Interpretation Protein Negative (test code = Interpretation Protein) Interpretation 0.2 Urobilinogen (test code = Interpretation Urobilinogen) Interpretation Nitrites Negative (test code = Interpretation Nitrites) Interpretation Leukocytes Negative (test code = Interpretation Leukocytes) [facility] CenterGlucose [Mass/volume] in Capillary [id number] 10:50:51 Test Item Value Reference Range Interpretation Comments Blood Glucose: mg/dl (test code = Blood 147 Glucose: mg/dl) [facility] CenterGl[facility] [Mass/volume] in Capillary [id number] 10:50:51 Test Item Value Reference Range Interpretation Comments Blood Glucose: mg/dl (test code = Blood 147 Glucose: mg/dl) [facility] CenterHemoglobin A1c measurement device [id number] 10:29:20 Test Item Value Reference Range Interpretation Comments Hemoglobin A1c/Hemoglobin.total in 9.0 % 5.7-6.4 Blood (test code = 4548-4) [facility] CenterHemoglobin A1c measurement device [id number] 11:59:36 Test Item Value Reference Range Interpretation Comments Hemoglobin A1C Fingerstick: (test code 8.6 = Hemoglobin A1C Fingerstick:) [facility] CenterGlucose [Mass/volume] in Capillary [id number] 11:54:04 Test Item Value Reference Range Interpretation Comments Blood Glucose: mg/dl (test code = Blood 134 Glucose: mg/dl) [facility] CenterUrinalysis macro (dipstick) panel - [id number] 15:27:00 Test Item Value Reference Range Interpretation Comments Color Color (test code = Color light yellow Color) Color Appearance (test code = clear Color Appearance) Color Glucose (test code = Color negative Glucose) Color Bilirubin (test code = negative Color Bilirubin) Color Ketones (test code = Color negative Ketones) Color Specific [place] (test 1.020 code = Color Specific [place]) Color Blood (test code = Color trace Blood) Color PH (test code = Color PH) 6.0 Color Protein (test code = Color negative Protein) Color Urobilinogen (test code = 0.2 Color Urobilinogen) Color Nitrites (test code = negative Color Nitrites) Color Leukocytes (test code = negative Color Leukocytes) [facility] CenterUrinalysis macro (dipstick) panel - [id number] 15:27:00 Test Item Value Reference Range Interpretation Comments Color Color (test code = Color light yellow Color) Color Appearance (test code = clear Color Appearance) Color Glucose (test code = Color negative Glucose) Color Bilirubin (test code = negative Color Bilirubin) Color Ketones (test code = Color negative Ketones) Color Specific [place] (test 1.020 code = Color Specific [place]) Color Blood (test code = Color trace Blood) Color PH (test code = Color PH) 6.0 Color Protein (test code = Color negative Protein) Color Urobilinogen (test code = 0.2 Color Urobilinogen) Color Nitrites (test code = negative Color Nitrites) Color Leukocytes (test code = negative Color Leukocytes) [facility] CenterGlucose [Mass/volume] in Capillary [id number] 15:29:53 Test Item Value Reference Range Interpretation Comments Blood Glucose: mg/dl (test code = Blood 152 Glucose: mg/dl) [facility] PracticeGl[facility] [Mass/volume] in Capillary [id number] 15:29:53 Test Item Value Reference Range Interpretation Comments Blood Glucose: mg/dl (test code = Blood 152 Glucose: mg/dl) [facility] CenterGl[facility] [Mass/volume] in Capillary [id number] 15:29:53 Test Item Value Reference Range Interpretation Comments Blood Glucose: mg/dl (test code = Blood 152 Glucose: mg/dl) [facility] PracticeGlucose [Mass/volume] in Capillary [id number] 15:29:53 Test Item Value Reference Range Interpretation Comments Blood Glucose: mg/dl (test code = Blood 152 Glucose: mg/dl) [facility] PracticeGlucose [Mass/volume] in Capillary [id number] 15:29:53 Test Item Value Reference Range Interpretation Comments Blood Glucose: mg/dl (test code = Blood 152 Glucose: mg/dl) [facility] PracticeGlucose [Mass/volume] in Capillary [id number] 09:13:06 Test Item Value Reference Range Interpretation Comments Blood Glucose: mg/dl (test code = Blood 283 Glucose: mg/dl) [facility] CenterC peptide [Mass/volume] in Serum or [id number] 15:51:00 Test Item Value Reference Range Interpretation Comments C-peptide (test code = C-peptide) 5.24 NG/mL 0.80-3.85 [facility] Practicediabetes panel, [id number] 15:51:00 Test Item Value Reference Range Interpretation Comments glutamic acid decarboxylase 65 Ab (test <5 <5 code = glutamic acid decarboxylase 65 Ab) ia-2 antibody (test code = ia-2 <5.4 <5.4 antibody) insulin autoantibody (test code = <0.4 <0.4 insulin autoantibody) [facility]C peptide [Mass/volume] in Serum or [id number] 15:51:00 Test Item Value Reference Range Interpretation Comments C-peptide (test code = C-peptide) 5.24 NG/mL 0.80-3.85 [facility] Practicediabetes panel, [id number] 15:51:00 Test Item Value Reference Range Interpretation Comments glutamic acid decarboxylase 65 Ab (test <5 <5 code = glutamic acid decarboxylase 65 Ab) ia-2 antibody (test code = ia-2 <5.4 <5.4 antibody) insulin autoantibody (test code = <0.4 <0.4 insulin autoantibody) [facility]
--- NOTE | 2023-01-31 22:50 | RAD REPORT ---
EXAM DESCRIPTION: CT - Abdomen Pelvis Wo Contrast - 01/31/2023 10:04 pm CLINICAL HISTORY: Abdominal pain COMPARISON: None TECHNIQUE: Computed axial tomography of the abdomen and pelvis was obtained. IV and oral contrast we re not requested. All CT scans are performed using dose optimization technique as appropriate and may include automated exposure control or mA/KV adjustment according to patient size. FINDINGS: The evaluation of solid organs, vessels and bowel is limited secondary to the lack of con trast administration. Cholelithiasis. No gallbladder wall thickening. The liver, spleen, pancreas, right adrenal and kidneys appear grossly normal. 2.2 centimeter left adrenal mass. Hounsfield unit 4. This probably is an adenoma No evidence of diverticulitis. Right ventral hernia mid pelvis contains fat. The neck measures 2 centimeters. The hernia sac measure s 5.7 centimeters. An additional right ventral hernia lower pelvis. The neck measures 3 centimeters. The sac contains several loops of nondilated small bowel. The sac measures 5.6 centimeters. IMPRESSION: Right ventral hernias Cholelithiasis without evidence of cholecystitis
--- NOTE | 2023-01-31 23:32 | EDPHYS ---
Physician Documentation [facility] Name: Homa Delgado Age: 57 yrs Sex: Female : 1965 Arrival Date: 01/31/2023 Time: 20:23 Bed 12 Private MD: ED Physician Delfino Miller HPI: 01/31 23:42 This 57 yrs old Female presents to ER via Wheelchair with complaints of PATIENT STATES ms3 SHE HAS A HERNIA AND SHE COUGHED AND FELT LIKE SOMTHING POPPED AND HAS A LOT OF PAIN IN THE AREA. 23:42 57-year-old female with past medical history of hypertension, hypothyroidism, diabetes, ms3 arthritis presents to the emergency department for abdominal hernia, cough and feeling like something popped in her hernia. Patient states she feels as if something is rolling around in the hernia. Patient states her discomfort is an 8/10. Patient denies alleviating factors. Patient states the pain is worse with coughing. Historical: - Allergies: 20:34 Ampicillin; kl 20:34 Clindamycin; kl 20:38 Iodine; kl - Home Meds: 20:34 gabapentin Oral [Active]; Simvastatin Oral [Active]; Metformin Oral [Active]; kl lisinopril Oral [Active]; levothyroxine oral [Active]; diclofenac Oral [Active]; Insulin: Regular Sub-Q [Active]; - PMHx: 20:34 Diabetes - NIDDM; High Cholesterol; Hypertension; Nerve damage; Thyroid problem; kl - PSHx: 20:34 Total abdominal hysterectomy; Tonsillectomy; kl - Immunization history:: Adult Immunizations Pneumococcal vaccine is up to date, Flu vaccine is up to date. - Social history:: Smoking status: Patient reports the use of cigarette tobacco products, smokes one pack cigarettes per day. ROS: 23:42 Constitutional: Negative for fever, and chills. Neck: Negative for injury, pain, and ms3 swelling, Cardiovascular: Negative for chest pain, and palpitations. Respiratory: Negative for shortness of breath, cough, wheezing, and pleuritic chest pain, MS/Extremity: Negative for injury and deformity, Skin: Negative for injury, rash, and discoloration, 23:42 Abdomen/GI: Positive for abdominal pain, 23:42 All other systems are negative, Exam: 23:42 Constitutional: This is a well developed, well nourished patient who is awake, alert, ms3 and in no acute distress. Head/Face: Normocephalic, atraumatic. Chest/axilla: Normal chest wall appearance and motion. Nontender with no deformity. Cardiovascular: Regular rate and rhythm with a normal S1 and S2. No gallops, murmurs, or rubs. Normal PMI, no JVD. No pulse deficits. Respiratory: Lungs have equal breath sounds bilaterally, clear to auscultation and percussion. No rales, rhonchi or wheezes noted. No increased work of breathing, no retractions or nasal flaring. Skin: Warm, dry with normal turgor. Normal color with no rashes, no lesions, and no evidence of cellulitis. MS/ Extremity: Pulses equal, no cyanosis. Neurovascular intact. Full, normal range of motion. 23:42 Abdomen/GI: Inspection: abdomen appears normal, Bowel sounds: normal, Palpation: moderate abdominal tenderness, in the abdomen, Hernia: tenderness, that is moderate, Vital Signs: 20:30 BP 145 / 85; Pulse 93; Resp 18; Temp 97.3; Pulse Ox 95% on R/A; Weight 145.15 kg (R); kl Height 5 ft. 3 in. ; Pain 8/10; 23:53 BP 157 / 87; Pulse 88; Resp 18; Pulse Ox 94% on R/A; cm10 20:30 Body Mass Index 56.68 (145.15 kg, 160.02 cm) kl 20:30 Pain Scale: Adult kl MDM: 21:03 Patient medically screened. ms3 23:42 Differential diagnosis: non-specific abd pain, Incarcerated hernia versus ventral ms3 hernia. Data reviewed: vital signs, nurses notes, radiologic studies, and as a result, I will discharge patient. Care significantly affected by the following chronic conditions: Obesity. Counseling: I had a detailed discussion with the patient and/or guardian regarding the historical points, exam findings, and any diagnostic results supporting the discharge/admit diagnosis, radiology results, the need for outpatient follow up, to return to the emergency department if symptoms worsen or persist or if there are any questions or concerns that arise at home. Special discussion: I discussed with the patient/guardian in detail that at this point there is no indication for admission to the hospital. It is understood, however, that if the symptoms persist or worsen the patient needs to return immediately for re-evaluation. ED course: Discussed CT findings with patient. Patient to follow-up with Dr. Ríos in 2 to 3 days. Patient understands agrees with plan. All questions were answered. Return precautions discussed include worsening symptoms, or any other concerns. 01/31 21:03 Order name: CT Abd/Pelvis - Without Contrast; Complete Time: 22:52 ms3 Administered Medications: No medications were administered Disposition Summary: 01/31/23 23:32 Discharge Ordered Notes: Location: Home ms3 Condition: Stable ms3 Diagnosis - Ventral hernia without obstruction or gangrene ms3 Followup: ms3 - With: Geoffrey Ríos MD - When: 2 - 3 days - Reason: Recheck today's complaints Discharge Instructions: - Discharge Summary Sheet ms3 - Hernia, Adult ms3 Forms: - Medication Reconciliation Form ms3 - Thank You Letter ms3 - Antibiotic Education ms3 - Prescription Opioid Use ms3 - Patient Portal Instructions ms3 - Leadership Thank You Letter ms3 Signatures: Dispatcher [employer] Brittney Crawford, BETZAIDA RN Delfino Hutchison DO DO ms3
--- NOTE | 2023-01-31 23:32 | ER ---
Nurse's Notes [facility] Name: Homa Delgado Age: 57 yrs Sex: Female : 1965 Arrival Date: 01/31/2023 Time: 20:23 Bed 12 Private MD: Diagnosis: Ventral hernia without obstruction or gangrene Presentation: 01/31 20:30 Chief complaint: Patient states: abdominal pain began at 3 has hernia coughed and felt kl a sharp pain like something tore no improvement in pain reports pain as an 8 denies vomiting. Coronavirus screen: Vaccine status: Patient reports receiving the 2nd dose of the covid vaccine. Ebola Screen: Patient negative for fever greater than or equal to 101.5 degrees Fahrenheit, and additional compatible Ebola Virus Disease symptoms. Initial Sepsis Screen: Does the patient meet any 2 criteria? No. Patient's initial sepsis screen is negative. Does the patient have a suspected source of infection? No. Patient's initial sepsis screen is negative. Risk Assessment: Do you want to hurt yourself or someone else? Patient reports no desire to harm self or others. Onset of symptoms was January 31, 2023 at 15:00. 20:30 Method Of Arrival: Wheelchair 20:30 Acuity: IVANA 3 kl Triage Assessment: 20:37 General: Appears distressed, uncomfortable, obese, Behavior is calm, cooperative. Pain: kl Complains of pain in abdomen Pain currently is 8 out of 10 on a pain scale. Aggravated by increased activity. EENT: No deficits noted. Neuro: No deficits noted. Cardiovascular: No deficits noted. Respiratory: No deficits noted. GI: Reports upper abdominal pain, nausea. : No deficits noted. No signs and/or symptoms were reported regarding the genitourinary system. Derm: No deficits noted. No signs and/or symptoms reported regarding the dermatologic system. Historical: - Allergies: 20:34 Ampicillin; kl 20:34 Clindamycin; kl 20:38 Iodine; kl - Home Meds: 20:34 gabapentin Oral [Active]; Simvastatin Oral [Active]; Metformin Oral [Active]; kl lisinopril Oral [Active]; levothyroxine oral [Active]; diclofenac Oral [Active]; Insulin: Regular Sub-Q [Active]; - PMHx: 20:34 Diabetes - NIDDM; High Cholesterol; Hypertension; Nerve damage; Thyroid problem; kl - PSHx: 20:34 Total abdominal hysterectomy; Tonsillectomy; kl - Immunization history:: Adult Immunizations Pneumococcal vaccine is up to date, Flu vaccine is up to date. - Social history:: Smoking status: Patient reports the use of cigarette tobacco products, smokes one pack cigarettes per day. Screenin:53 [facility] ED Fall Risk Assessment (Adult) History of falling in the last 3 months, cm10 including since admission No falls in past 3 months (0 pts) Confusion or Disorientation No (0 pts) Intoxicated or Sedated No (0 pts) Impaired Gait Yes (1 pt) Mobility Assist Device Used Yes (1 pt) Altered Elimination No (0 pt) Score/Fall Risk Level 0 - 2 = Low Risk Oriented to surroundings, Maintained a safe environment, Hourly rounding (assess needs \T\ fall precautionary measures) done. Abuse screen: Denies threats or abuse. Abuse screen: Denies injuries from another. Nutritional screening: No deficits noted. Tuberculosis screening: No symptoms or risk factors identified. Vital Signs: 20:30 BP 145 / 85; Pulse 93; Resp 18; Temp 97.3; Pulse Ox 95% on R/A; Weight 145.15 kg (R); kl Height 5 ft. 3 in. ; Pain 8/10; 23:53 BP 157 / 87; Pulse 88; Resp 18; Pulse Ox 94% on R/A; cm10 20:30 Body Mass Index 56.68 (145.15 kg, 160.02 cm) kl 20:30 Pain Scale: Adult ED Course: 20:25 Patient arrived in ED. [id number] 20:34 Triage completed. kl 20:34 Delfino Miller DO is Attending Physician. ms3 22:06 CT Abd/Pelvis - Without Contrast In Process Unspecified. EDMS 23:32 Geoffrey Ríos MD is Referral Physician. ms3 23:53 Arm band placed on Patient placed in an exam room. cm10 23:54 Patient has correct armband on for positive identification. Provided Education on: cm10 FOLLOW UP PROCEDURES.. 23:54 No provider procedures requiring assistance completed. Patient did not have IV access cm10 during this emergency room visit. Administered Medications: No medications were administered Medication: 23:54 VIS not applicable for this client. cm10 Outcome: 23:32 Discharge ordered by . ms3 23:54 Discharged to home via wheelchair, with family, chaz 23:54 Condition: good 23:54 Discharge instructions given to patient, Instructed on discharge instructions, follow up and referral plans. Demonstrated understanding of instructions, follow-up care, 23:54 Patient left the ED. chaz Signatures: Dispatcher [employer] Brittney Crawford, RN Delfino López DO DO ms3 Joanna Smith6 Alison Galvez, BETZAIDA RN cm10
[2023-02-01 01:42] VITALS: TEMP 97.3
[2023-02-01 01:44] VITALS: BP 157/87; O2SAT 94
== END 2023-01-31 23:54 | disposition home or self-care (01) ==
LOC: ER 20:23
DX: K43.9 Ventral hernia without obstruction or gangrene (principal)
CPT/HCPCS: 74176; 99282

== ENCOUNTER 2024-03-07 21:17 | Inpatient (IN) | payer OTHER ==
--- OUTSIDE RECORDS SUMMARY | 2024-03-07 21:22 | XMS REPORT | Continuity of Care Document ---
Author Name Unknown Address [address] [place] [address] [facility] thconnect Address 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 Role Phone Javad De Oliveira Primary Care Physician [phone] DENNY MILES Attending Clinician Unavailable Jojo Attending Clinician Unavailable Johnny Jerome RN Attending Clinician Unavail able TAJ FENTON Attending Clinician Unavailable Fritz Kirkland MD Attending Clinician [phone] Vinay Sidhu MD Attending Clinician [phone] Taj Fenton DO Attending Clinician [phone] Juan_WAGDNU Attending Clinician Unavailable BRIELLE GUTIERREZ Attending Clinician Unavailable Juani Hernández MD Attending Clinician [phone] Rosendo Attending Clinician Unavailab HERBER Holbrook Attending Clinician Un available Doctor Unassigned, [place] Attending Clinician U KELSIE Hanna Attending Clinician Unavailable Faraz Sawant Attending Clinician [phone] Oren Ponce MD Attending Clinician [phone] OREN PONCE Attending Clinician UnavailBHAVESH Sheppard Attending Clinician Unavailable Jojo Admitting Clinician Unavailable VINAY SIDHU Admitting Clinician Unavailable Vinay Sidhu MD Admitting Clinician [phone] Juan_DESHAWNGDNU Admitting Clinician Unavailable Rosendo Admitting Clinician Unavailab KELSIE Boyd Admitting Clinician Unavailable Payers Payer Name Policy Type Policy Number Effective Date Expirati on Date Source [place] [id number] 2017 00:00:00 [employer] [id number] 2017 00:00:00 2022 00:00:[place]AC[place] - HMO) [id number] 2018 00:00:00 [employer] (HMO) [id number] 2017 00:00:00 Problems Condition Name Condition Details Condition Category Status Onset Date Resolution Date Last Treatment Date Treating Clinician Comments Source Congestive heart failure stage B Congestive Heart Failure Stage B Problem Active 2023-03 00:00: 00 [facility] Diastolic dysfunctio n Diastolic Dysfunctio n Problem Active 2023-03 00:00: 00 [facility] 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 Advance care planning Advance Care Planning Problem Active 00:00: 00 [facility] Atheroscle rosis of aorta Atheroscle rosis of Aorta Problem Active 112 00:00: 00 [facility] Gallstone Gallstone Problem Active 03-12 00:00: 00 [facility] Secondary immune deficiency disorder Secondary Immune Deficiency Disorder Problem Active 213 00:00: 00 [facility] Opioid dependence Opioid Dependence Problem Active 104 00:00: 00 [facility] Long-term current use of insulin Long-term Current Use of Insulin Problem Active 104 00:00: 00 [facility] Type 2 diabetes mellitus Type 2 Diabetes Mellitus Problem Active 6 00:00: 00 [facility] Multiple complicati ons due to type 2 diabetes mellitus Multiple Complicati ons Due to Type 2 Diabetes Mellitus Problem Active 05-09 00:00: 00 [facility] Diabetes mellitus Diabetes Mellitus Problem Active 04-22 00:00: 00 [facility] Hyperlipid emia due to type 2 diabetes mellitus Hyperlipid emia Due to Type 2 Diabetes Mellitus Problem Active 03-18 00:00: 00 [facility] Type 2 diabetes mellitus with peripheral angiopathy Type 2 Diabetes Mellitus with Peripheral Angiopathy Problem Active 03-18 00:00: 00 [facility] Tobacco dependence syndrome Tobacco Dependence Syndrome Problem Active 2019-03 00:00: 00 [facility] Peripheral vascular disease Peripheral Vascular Disease Problem Active 2019-03 00:00: 00 [facility] Chronic obstructiv e pulmonary disease Chronic Obstructiv e Pulmonary Disease Problem Active 2019-03 00:00: 00 [facility] Urinary incontinen ce Urinary Incontinen ce Problem Active 2019-03 00:00: 00 [facility] Venous insufficie ncy of leg Venous Insufficie ncy of Leg Problem Active 10-18 00:00: 00 [facility] Morbid obesity Morbid Obesity Problem Active 10-17 00:00: 00 [facility] Chronic kidney disease due to hypertensi on Chronic Kidney Disease Due to Hypertensi on Problem Active 07-26 00:00: 00 [facility] Chronic kidney disease due to type 2 diabetes mellitus Chronic Kidney Disease Due to Type 2 Diabetes Mellitus Problem Active 07-26 00:00: 00 [facility] Chronic kidney disease stage 3 Chronic Kidney Disease Stage 3 Problem Active 05-20 00:00: 00 [facility] Hypothyroi dism Hypothyroi dism Problem Active 2018-03 00:00: 00 [facility] Neuropathy due to diabetes mellitus Neuropathy Due to Diabetes Mellitus Problem Active 2018-03 00:00: 00 [facility] Vitamin D deficiency Vitamin D Deficiency Problem Active 2018-03 00:00: 00 [facility] Dyslipidem ia Dyslipidem ia Problem Active 2018-03 00:00: 00 [facility] Obstructiv e sleep apnea syndrome Obstructiv e Sleep Apnea Syndrome Problem Active 2018-03 00:00: 00 [facility] Osteoarthr itis Osteoarthr itis Problem Active 2018-03 00:00: 00 [facility] Sciatica Sciatica Problem Active 2018-03 00:00: 00 [facility] Endometria l cancer Endometria l cancer Disease Active 07-27 00:00: 00 [facility] S/P MAHAD-BSO S/P MAHAD-BSO Disease Active 07-27 00:00: 00 [facility] Wound drainage Wound drainage Disease Active 07-24 00:00: 00 [facility] Adnexal mass Adnexal mass Disease Active 06-18 00:00: 00 [facility] Essential hypertensi on Essential hypertensi on Disease Active 06-18 00:00: 00 [facility] Hypertensi on Hypertensi on Disease Active 03-26 00:00: 00 [facility] Type II or unspecifie d type diabetes mellitus with unspecifie d complicati on, uncontroll ed Type II or unspecifie d type diabetes mellitus with unspecifie d complicati on, uncontroll ed Disease Active 03-26 00:00: 00 [facility] Lymphedema Lymphedema Disease Active 03-26 00:00: 00 [facility] Hypothyroi dism Hypothyroi dism Disease Active 03-26 00:00: 00 [facility] Peripheral vascular disease Peripheral vascular disease Disease Active 03-26 00:00: 00 [facility] ELLEN favor benign ELLEN favor benign Disease Active 03-26 00:00: 00 [facility] Smoking addiction Smoking addiction Disease Active 03-26 00:00: 00 [facility] Morbid obesity with BMI of 50.0-59.9, adult Morbid obesity with BMI of 50.0-59.9, adult Disease Active 03-26 00:00: 00 [facility] Menorrhagi a Menorrhagi a Disease Active 03-26 00:00: 00 [facility] [id number] Primary osteoarthr itis of left hip Problem [facility] [id number] Primary osteoarthr itis of right knee Problem [facility] Allergies, Adverse Reactions, Alerts Allergy Name Allergy Type Status Severity Reaction(s) Onset Date Inactive Date Treating Clinician Comments Source Penicill ins Propensi ty to adverse reaction s Active Unknown - See comments 09-24 00:00: 00 [facility] Penicill ins Propensi ty to adverse reaction s Active Unknown - See comments 09-24 00:00: 00 [facility] Penicill ins Propensi ty to adverse reaction s Active Unknown - See comments 09-24 00:00: 00 [facility] PENICILL INS Drug Class Active Unknown-Cmnt 09-24 00:00: 00 [facility] Iodine Propensi ty to adverse reaction s to drug Active Rash 03-26 00:00: 00 Reports breaking out in a rash after last CT when she was given IV contrast [facility] IODINE DRUG INGREDI Active Rash 03-26 00:00: 00 [facility] Ampicill in Propensi ty to adverse reaction s to drug Active Rash 03-23 00:00: 00 [facility] Clarithr omycin Propensi ty to adverse reaction s to drug Active Rash 03-23 00:00: 00 [facility] AMPICILL IN DRUG INGREDI Active Med Rash 03-23 00:00: 00 [facility] CLARITHR OMYCIN DRUG INGREDI Active Med Rash 03-23 00:00: 00 [facility] Clarithr omycin Allergy to substanc e Active Rash 03-23 00:00: 00 [facility] Penicill ins Allergy to substanc e Active Rash 05-17 00:00: 00 Other reaction( s): Unknown - See commentsD costa migrated from [employer] on 06/29/14. Originall y documente d as AMPICILLI N.Data migrated from [employer] y on 06/29/14. Originall y documente d as AMPICILLI N.Data migrated from [employer] on 06/29/14. Originall y documente d as AMPICILLI N. [facility] Ampicill in Allergy to substanc e Active Hives [facility] Clindamy golden Allergy to substanc e Active Hives [facility] Iodine Allergy to substanc e Active Rash [facility] 0 Drug allergy Active Unknown [facility] 463 Drug allergy Active Unknown [facility] ampicill in ampicill in Active Unknown [facility] clarithr omycin clarithr omycin Active Unknown [facility] Social History Social Habit Start Date Stop Date Quantity Comments Source Sex Assigned At [facility] of tobacco use Passive smoker [facility] Cigarettes smoked current (pack per day) - Reported 2023-06-06 00:00:00 2023-06-06 00:00:00 [facility] Tobacco use and exposure 2023-06-06 00:00:00 2023-06-06 00:00:00 Smokeless tobacco non-user [facility] Tobacco Comment 2023-06-06 00:00:00 2023-06-06 00:00:00 6-[address] [facility] Exposure to SARS-CoV-2 (event) 2022-03-20 00:00:00 2022-03-30 13:37:00 Not sure [facility] Alcohol intake 2022-03-30 00:00:00 2022-03-30 00:00:00 Lifetime non-drinker (finding) [facility] History of Social function 2018-09-08 00:00:00 2018-09-08 00:00:00 [facility] Smoking Status Start Date Stop Date Source Heavy Tobacco Smoker [facility] Smokes tobacco daily 2023-06-06 00:00:00 [facility] Never Smoker [facility] Medications Ordered Medication Name Filled Medication Name Start Date Stop Date Current Medication? Ordering Clinician Indication Dosage Frequency Signature (SIG) Comments Components Source predniSONE (DELTASONE) tablet 40 mg 06-09 14:00: 00 Yes 40mg 40 mg, Oral, DAILY, First dose on Wed06/10/23 at 0900, Until Discontinu ed, Routine [facility] gabapentin (NEURONTIN) 300 mg capsule 06-09 13:07: 42 Yes [id number] 600mg Take 2 capsules by mouth in the morning and 2 capsules at noon and 2 capsules in the evening. [facility] metFORMIN (GLUCOPHAGE ) 500 mg tablet 06-09 13:07: 42 Yes [id number] 500mg Take 500 mg by mouth 2 (two) times daily. [facility] simvastatin (ZOCOR) 40 mg tablet 06-09 13:07: 42 Yes [id number] 40mg Take 40 mg by mouth at bedtime. [facility] lisinopril 5 mg tablet 06-09 13:07: 42 Yes 5mg Take 5 mg by mouth daily. [facility] solifenacin (VESICARE) 5 mg tablet 06-09 13:07: 42 Yes 5mg Take 5 mg by mouth daily. [facility] insulin degludec-li raglutide (XULTOPHY 100/3.6) 100 unit-3.6 mg /mL (3 mL) InPn 06-09 13:07: 42 Yes 46U inject 46 Units under the skin daily. [facility] doxycycline hyclate 100 mg capsule 06-09 00:00: 00 06-16 04:59 :00 No [id number] 100mg Take 1 capsule by mouth every 12 (twelve) hours for [address] [facility] cefdinir 300 mg capsule 06-09 00:00: 00 06-16 04:59 :00 No [id number] 300mg Take 1 capsule by mouth in the morning and 1 capsule in the evening. Do all this for [address] [facility] insulin lispro (human) (HumaLOG U-100) injection 8 Units 06-08 22:00: 00 Yes 8U 8 Units, Subcutaneo us, TID MEALS, First dose (after last modificati on) on Wed06/09/23 at 1700, Until Discontinu ed, Routine [facility] acetaminoph en-codeine (TYLENOL #3) 300-30 mg tablet 1 tablet 06-08 17:15: 00 06-08 17:05 :00 No 1{tbl} 1 tablet, Oral, ONCE, 1 dose, On Wed06/09/23 at 1215, Routine [facility] guaiFENesin 100 mg/5 mL solution 200 mg 06-07 22:00: 00 Yes 200mg 200 mg, Oral, Q4HPRN, Starting on Wed06/08/23 at 1700, Until Discontinu ed, Routine, Cough [facility] insulin lispro (human) (HumaLOG U-100) injection 5 Units 06-07 22:00: 00 06-08 20:38 :50 No 5U 5 Units, Subcutaneo us, TID MEALS, First dose on Wed06/08/23 at 1700, Until Discontinu ed, Routine [facility] cefTRIAXone (ROCEPHIN) 2,000 mg in NaCl 0.9% (NS) 100 mL MINI-BAG 06-07 20:00: 00 06-12 19:59 :00 No 2000mg 2,000 mg, IV Piggyback, Q24H ABX, 5 doses, First dose (after last modificati on) on Wed06/08/23 at 1500, Last dose on Wed06/12/23 at 1500, Administer over 30 Minutes, 100 mL
Reas on for Anti-Infec tive: Documented Infection< br>Documen pam Infection Site: Respirator y
Durat ion of Therapy: [address] [facility] insulin glargine (LANTUS U-100) injection 60 Units 06-07 14:00: 00 Yes 60U 60 Units, Subcutaneo us, DAILY, First dose (after last modificati on) on Wed06/08/23 at 0900, Until Discontinu ed, Routine [facility] lactated ringers IV infusion 1,000 mL 06-06 23:30: 00 06-07 22:52 :58 No 1000mL at 75 mL/hr, 1,000 mL, IV Infusion, CONTINUOUS , Starting on Wed06/07/23 at 1830, Until Wed06/08/23 at 1752, Routine [facility] lactated ringers IV infusion 1,000 mL 06-06 17:00: 00 06-06 23:21 :02 No 1000mL at 75 mL/hr, 1,000 mL, IV Infusion, CONTINUOUS , Starting on Wed06/07/23 at 1200, Until Wed06/07/23 at 1821, Routine [facility] perflutren protein-A microsphr (OPTISON) injection 3 mL 06-06 15:30: 00 06-06 15:30 :00 No [id number] 3mL 3 mL, IV Push, ONCE, 1 dose, On Wed06/07/23 at 1030, Routine [facility] methylPREDN ISolone sod succ (SOLU-MEDRO L (PF)) injection 40 mg 06-06 14:00: 00 06-08 20:40 :35 No 40mg 40 mg, Intravenou s, DAILY, 4 doses, First dose on Wed06/07/23 at 0900, Last dose on Wed06/10/23 at 0900, [address] [facility] doxycycline hyclate (Vibramycin ) capsule 100 mg 06-06 13:00: 00 06-11 12:59 :00 No 100mg 100 mg, Oral, Q12H, 10 doses, First dose on Wed06/07/23 at 0800, Last dose on Wed06/11/23 at 2000, Routine
Reason for Anti-Infec tive: Documented Infection< br>Documen pam Infection Site: Respirator y
Durat ion of Therapy: [address] [facility] levothyroxi ne (SYNTHROID) 75 mcg tablet 06-06 11:00: 00 Yes 75ug Take 75 mcg by mouth every morning. [facility] lactated ringers IV infusion 1,000 mL 06-06 05:00: 00 06-06 16:59 :02 No 1000mL at 150 mL/hr, 1,000 mL, IV Infusion, CONTINUOUS , Starting on Wed06/07/23 at 0000, Until Wed06/07/23 at 1159, Routine [facility] NaCl 0.9% (NS) bolus infusion 1,000 mL 06-06 04:30: 00 06-06 04:06 :40 No 1000mL at 999 mL/hr, 1,000 mL, IV Piggyback, ONCE, 1 dose, On Wed06/06/23 at 2330, STAT [facility] baclofen (LIORESAL) 10 mg tablet 06-06 03:27: 26 Yes 10mg Take 10 mg by mouth 2 (two) times daily. [facility] heparin (porcine) injection 5,000 Units 06-06 03:00: 00 Yes 5000U 5,000 Units, Subcutaneo us, Q8H, First dose on Wed06/06/23 at 2200, Until Discontinu ed, Routine [facility] gabapentin (NEURONTIN) 300 mg/6 mL oral solution 300 mg 06-06 01:00: 00 Yes 300mg 300 mg, Oral, TID, First dose on Wed06/06/23 at 2000, Until Discontinu ed, Routine [facility] Sliding Scale Insulin - Lispro (HumaLOG) 06-05 22:00: 00 Yes Subcutaneo us, TID MEALS+HS, First dose on Wed06/06/23 at 1700, Until Discontinu ed, [facility]ine [facility] glucagon (GLUCAGEN DIAGNOSTIC KIT) injection 1 mg 06-05 21:44: 20 Yes 1mg 1 mg, Intramuscu lar, PRN, Starting on Wed06/06/23 at 1644, Until Discontinu ed, TAMY, Blood Glucose < or = 70 mg/dL and patient is NPO, unable to swallow or has mental changes. [facility] dextrose 50 % in water (D50W) injection 25 mL 06-05 21:44: 19 Yes 25mL 25 mL, Slow IV Push, PRN, Starting on Wed06/06/23 at 1644, Until Discontinu ed, TAMY, Blood Glucose < or = 70 mg/dL and patient is NPO, unable to swallow or has mental status changes. [facility] ipratropium -albuteroL (DUONEB) 0.5 mg-3 mg(2.5 mg base)/3 mL nebulizer solution 3 mL 06-05 21:00: 00 Yes 3mL 3 mL, Inhalation , Q4H, First dose on Wed06/06/23 at 1600, Until Discontinu ed, [facility] mg/5 mL solution 200 mg 06-05 21:00: 00 06-07 21:53 :27 No 200mg 200 mg, Oral, Q4H, First dose on Wed06/06/23 at 1600, Until Discontinu ed, Routine [facility] insulin glargine (LANTUS U-100) injection 40 Units 06-05 20:30: 00 06-06 21:50 :39 No 40U 40 Units, Subcutaneo us, DAILY, First dose on Wed06/06/23 at 1530, Until Discontinu ed, Routine [facility] doxycycline (VIBRAMYCIN ) 100 mg in NaCl 0.9% (NS) 100 mL MINI-BAG 06-05 20:15: 00 06-05 21:12 :00 No 100mg 100 mg, IV Piggyback, ONCE, 1 dose, On Wed06/06/23 at 1515, Administer over 60 Minutes, 100 mL
Reas on for Anti-Infec tive: Documented Infection< br>Documen pam Infection Site: Respirator y
Durat ion of Therapy: Once (ED) [facility] ondansetron (ZOFRAN (PF)) injection 4 mg 06-05 20:14: 38 Yes 4mg 4 mg, Slow IV Push, Q6HPRN, Starting on Wed06/06/23 at 1514, Until Discontinu ed, Routine, Nausea and Vomiting (N/V) [facility] acetaminoph en (TYLENOL) tablet 650 mg 06-05 20:14: 26 Yes 650mg 650 mg, Oral, Q6HPRN, Starting on Wed06/06/23 at 1514, Until Discontinu ed, Routine, Pain (scale 1-3), Temp > [address] [facility] cefTRIAXone (ROCEPHIN) 1,000 mg in NaCl 0.9% (NS) 100 mL MINI-BAG 06-05 19:30: 00 06-05 20:31 :00 No 1000mg 1,000 mg, IV Piggyback, ONCE, 1 dose, On Wed06/06/23 at 1430, Administer over 30 Minutes, 100 mL
Reas on for Anti-Infec tive: Documented Infection< br>Documen pam Infection Site: Respirator y
Durat ion of Therapy: Once (ED) [facility] ipratropium -albuteroL (DUONEB) 0.5 mg-3 mg(2.5 mg base)/3 mL nebulizer solution 3 mL 06-05 18:45: 00 06-05 18:15 :00 No 3mL 3 mL, Inhalation , ONCE, 1 dose, On Wed06/06/23 at 1345, TAMY [facility] acetaminoph en (TYLENOL) tablet 975 mg 06-05 18:45: 00 06-05 18:06 :00 No 975mg 975 mg, Oral, ONCE, 1 dose, On 06/06/23 at 1345, TAMY [facility] methylpredn isolone sod succ (SOLU-MEDRO L) injection 125 mg 06-05 18:45: 00 06-05 18:06 :00 No 125mg 125 mg, Slow IV Push, ONCE NOW, 1 dose, On 06/06/23 at 1345, TAMY [facility] Synvisc Synvisc 2022-0 8- 00:00: 00 No 2mL [facility] Synvisc Synvisc 2022-0 8-24 00:00: 00 No 2mL [facility] Synvisc Synvisc 0 24 00:00: 00 No 2mL [facility] Synvisc Synvisc 2022-0 24 00:00: 00 No 2mL [facility] Synvisc Synvisc 2022-0 8-24 00:00: 00 No 2mL [facility] Synvisc Synvisc 2022-0 8-17 00:00: 00 No 2mL [facility] Synvisc Synvisc 2022-0 8-17 00:00: 00 No 2mL [facility] Synvisc Synvisc 2022-0 8-17 00:00: 00 No 2mL [facility] Synvisc Synvisc 2022-0 8-17 00:00: 00 No 2mL [facility] Synvisc Synvisc 2022-0 8-17 00:00: 00 No 2mL [facility] Synvisc Synvisc 3-0 8-10 00:00: 00 No 2mL [facility] Synvisc Synvisc 3-0 8-10 00:00: 00 No 2mL [facility] Synvisc Synvisc 3-0 8-10 00:00: 00 No 2mL [facility] Synvisc Synvisc 3-0 8-10 00:00: 00 No 2mL [facility] Synvisc Synvisc 10 00:00: 00 No 2mL [facility] gabapentin (Neurontin) 300 MG capsule 03-30 14:26: 13 Yes gabapentin 300 mg capsule [facility] metFORMIN (Glucophage ) 500 MG tablet 03-30 14:26: 13 Yes metformin 500 mg tablet [facility] meloxicam 15 mg tablet 2020-03 00:00: 00 03-09 05:59 :00 No [id number] 15mg Take 1 tablet by mouth daily for [address] [facility] Hyalgan 20 mg Hyalgan 20 mg 05-17 00:00: 00 No 20mg [facility] Hyalgan 20 mg Hyalgan 20 mg 05-17 00:00: 00 No 20mg [facility] Hyalgan 20 mg Hyalgan 20 mg 05-17 00:00: 00 No 20mg [facility] Hyalgan 20 mg Hyalgan 20 mg 05-17 00:00: 00 No 20mg [facility] Hyalgan 20 mg Hyalgan 20 mg 05-17 00:00: 00 No 20mg [facility] Hyalgan 20 mg Hyalgan 20 mg 05-02 00:00: 00 No 20mg [facility] Hyalgan 20 mg Hyalgan 20 mg 3 00:00: 00 No 20mg [facility] Hyalgan 20 mg Hyalgan 20 mg 3- 00:00: 00 No 20mg [facility] Hyalgan 20 mg Hyalgan 20 mg 3 00:00: 00 No 20mg [facility] Hyalgan 20 mg Hyalgan 20 mg 3 00:00: 00 No 20mg [facility] Hyalgan 20 mg Hyalgan 20 mg 2-25 00:00: 00 No 20mg [facility] Hyalgan 20 mg Hyalgan 20 mg 04-25 00:00: 00 No 20mg [facility] Hyalgan 20 mg Hyalgan 20 mg 04-25 00:00: 00 No 20mg [facility] Hyalgan 20 mg Hyalgan 20 mg 04-25 00:00: 00 No 20mg [facility] Hyalgan 20 mg Hyalgan 20 mg 04-25 00:00: 00 No 20mg [facility] Levothyroxi ne Sodium Levothyroxi ne Sodium 03-04 00:00: 00 Yes Pam Kovacev 1 tablet on an empty stomach in the morning [facility] Simvastatin Simvastatin 03-04 00:00: 00 Yes Pam Kovacev 1 tablet in the evening [facility] Metformin HCl Metformin HCl 03-04 00:00: 00 Yes Pam Quiñonesvacsurya 1 tablet with a meal [facility] Duloxetine HCl Duloxetine HCl 03-04 00:00: 00 Yes Pam Quiñonesvacsurya 1 capsule [facility] Ibuprofen Ibuprofen 03-04 00:00: 00 Yes Pam Kovacev 1 tablet po prn pain [facility] Gabapentin Gabapentin 03-04 00:00: 00 Yes Pam Quiñonesvacsurya 1 tablet [facility] VESIcare VESIcare 03-04 00:00: 00 Yes Pam Quiñonesvacev 1 tablet [facility] Xultophy Xultophy 03-04 00:00: 00 Yes Pam Drummond as directed [facility] Lisinopril Lisinopril 03-04 00:00: 00 Yes Pam Quiñonesvacev 1 tablet [facility] Lisinopril 5 MG Lisinopril 5 MG 03-04 00:00: 00 No 1{table t} QD Lisinopril 5 MG Levothyroxi ne Sodium 75 MCG Levothyroxi ne Sodium 75 MCG 03-04 00:00: 00 No QD Levothyrox ine Sodium 75 MCG metFORMIN HCl 500 MG metFORMIN HCl 500 MG 03-04 00:00: 00 No 1{table t_with_ a_meal} QD metFORMIN HCl 500 MG Ibuprofen 800 MG Ibuprofen 800 MG 03-04 00:00: 00 No TID Ibuprofen 800 MG Xultophy 100-3.6 UNIT-MG/ML Xultophy 100-3.6 UNIT-MG/ML 03-04 00:00: 00 No Xultophy 100-3.6 UNIT-MG/ML Gabapentin 600 MG Gabapentin 600 MG 03-04 00:00: 00 No 1{table t} QD Gabapentin 600 MG DULoxetine HCl 60 MG DULoxetine HCl 60 MG 03-04 00:00: 00 No 1{capsu le} QD DULoxetine HCl 60 MG Simvastatin 40 MG Simvastatin 40 MG 03-04 00:00: 00 No 1{table t_in_th e_eveni ng} QD Simvastati n 40 MG VESIcare 5 MG VESIcare 5 MG 03-04 00:00: 00 No 1{table t} QD VESIcare 5 MG Xultophy 100-3.6 UNIT-MG/ML Xultophy 100-3.6 UNIT-MG/ML 03-04 00:00: 00 No Xultophy 100-3.6 UNIT-MG/ML Lisinopril 5 MG Lisinopril 5 MG 03-04 00:00: 00 No 1{table t} QD Lisinopril 5 MG Levothyroxi ne Sodium 75 MCG Levothyroxi ne Sodium 75 MCG 03-04 00:00: 00 No QD Levothyrox ine Sodium 75 MCG metFORMIN HCl 500 MG metFORMIN HCl 500 MG 03-04 00:00: 00 No 1{table t_with_ a_meal} QD metFORMIN HCl 500 MG Ibuprofen 800 MG Ibuprofen 800 MG 03-04 00:00: 00 No TID Ibuprofen 800 MG Gabapentin 600 MG Gabapentin 600 MG 03-04 00:00: 00 No 1{table t} QD Gabapentin 600 MG DULoxetine HCl 60 MG DULoxetine HCl 60 MG 03-04 00:00: 00 No 1{capsu le} QD DULoxetine HCl 60 MG Simvastatin 40 MG Simvastatin 40 MG 03-04 00:00: 00 No 1{table t_in_ e_eveni ng} QD Simvastati n 40 MG VESIcare 5 MG VESIcare 5 MG 03-04 00:00: 00 No 1{table t} QD VESIcare 5 MG Lisinopril 5 MG Lisinopril 5 MG 03-04 00:00: 00 No 1{table t} QD Lisinopril 5 MG Levothyroxi ne Sodium 75 MCG Levothyroxi ne Sodium 75 MCG 03-04 00:00: 00 No QD Levothyrox ine Sodium 75 MCG metFORMIN HCl 500 MG metFORMIN HCl 500 MG 03-04 00:00: 00 No 1{table t_with_ a_meal} QD metFORMIN HCl 500 MG Ibuprofen 800 MG Ibuprofen 800 MG 03-04 00:00: 00 No TID Ibuprofen 800 MG Xultophy 100-3.6 UNIT-MG/ML Xultophy 100-3.6 UNIT-MG/ML 03-04 00:00: 00 No Xultophy 100-3.6 UNIT-MG/ML Gabapentin 600 MG Gabapentin 600 MG 03-04 00:00: 00 No 1{table t} QD Gabapentin 600 MG DULoxetine HCl 60 MG DULoxetine HCl 60 MG 03-04 00:00: 00 No 1{capsu le} QD DULoxetine HCl 60 MG Simvastatin 40 MG Simvastatin 40 MG 03-04 00:00: 00 No 1{table t_in_ e_eveni ng} QD Simvastati n 40 MG VESIcare 5 MG VESIcare 5 MG 03-04 00:00: 00 No 1{table t} QD VESIcare 5 MG Lisinopril 5 MG Lisinopril 5 MG 03-04 00:00: 00 No 1{table t} QD Lisinopril 5 MG Levothyroxi ne Sodium 75 MCG Levothyroxi ne Sodium 75 MCG 03-04 00:00: 00 No QD Levothyrox ine Sodium 75 MCG metFORMIN HCl 500 MG metFORMIN HCl 500 MG 03-04 00:00: 00 No 1{table t_with_ a_meal} QD metFORMIN HCl 500 MG Ibuprofen 800 MG Ibuprofen 800 MG 03-04 00:00: 00 No TID Ibuprofen 800 MG Xultophy 100-3.6 UNIT-MG/ML Xultophy 100-3.6 UNIT-MG/ML 03-04 00:00: 00 No Xultophy 100-3.6 UNIT-MG/ML Gabapentin 600 MG Gabapentin 600 MG 03-04 00:00: 00 No 1{table t} QD Gabapentin 600 MG DULoxetine HCl 60 MG DULoxetine HCl 60 MG 03-04 00:00: 00 No 1{capsu le} QD DULoxetine HCl 60 MG Simvastatin 40 MG Simvastatin 40 MG 03-04 00:00: 00 No 1{table t_in e_eveni ng} QD Simvastati n 40 MG VESIcare 5 MG VESIcare 5 MG 03-04 00:00: 00 No 1{table t} QD VESIcare 5 MG Lisinopril 5 MG Lisinopril 5 MG 03-04 00:00: 00 No 1{table t} QD Lisinopril 5 MG Levothyroxi ne Sodium 75 MCG Levothyroxi ne Sodium 75 MCG 03-04 00:00: 00 No QD Levothyrox ine Sodium 75 MCG metFORMIN HCl 500 MG metFORMIN HCl 500 MG 03-04 00:00: 00 No 1{table t_with_ a_meal} QD metFORMIN HCl 500 MG Ibuprofen 800 MG Ibuprofen 800 MG 03-04 00:00: 00 No TID Ibuprofen 800 MG Xultophy 100-3.6 UNIT-MG/ML Xultophy 100-3.6 UNIT-MG/ML 03-04 00:00: 00 No Xultophy 100-3.6 UNIT-MG/ML Gabapentin 600 MG Gabapentin 600 MG 03-04 00:00: 00 No 1{table t} QD Gabapentin 600 MG DULoxetine HCl 60 MG DULoxetine HCl 60 MG 03-04 00:00: 00 No 1{capsu le} QD DULoxetine HCl 60 MG Simvastatin 40 MG Simvastatin 40 MG 03-04 00:00: 00 No 1{table t_in e_eveni ng} QD Simvastati n 40 MG VESIcare 5 MG VESIcare 5 MG 03-04 00:00: 00 No 1{table t} QD VESIcare 5 MG ibuprofen 800 mg tablet 2017-03 00:00: 00 Yes 800mg Take 1 tablet by mouth every 6 (six) hours as needed for Pain (scale 4-6). [facility] gabapentin (NEURONTIN) 300 mg capsule 10-11 08:49: 01 Yes [id number] 600mg Take 600 mg by mouth 3 (three) times daily. [facility] metFORMIN (GLUCOPHAGE ) 500 mg tablet 10-11 08:49: 01 Yes [id number] 500mg Take 500 mg by mouth 2 (two) times daily. [facility] simvastatin (ZOCOR) 40 mg tablet 10-11 08:49: 01 Yes [id number] 40mg Take 40 mg by mouth at bedtime. [facility] baclofen (LIORESAL) 10 mg tablet 10-11 08:49: 01 Yes 10mg Take 10 mg by mouth 2 (two) times daily. [facility] levothyroxi ne (SYNTHROID) 75 mcg tablet 10-11 08:49: 01 Yes 75ug Take 75 mcg by mouth every morning. [facility] lisinopril 5 mg tablet 10-11 08:49: 01 Yes 5mg Take 5 mg by mouth daily. [facility] solifenacin (VESICARE) 5 mg tablet 10-11 08:49: 01 Yes 5mg Take 5 mg by mouth daily. [facility] insulin degludec-li raglutide (XULTOPHY 100/3.6) 100 unit-3.6 mg /mL (3 mL) InPn 10-11 08:49: 01 Yes 46U inject 46 Units under the skin daily. [facility] DULoxetine 60 mg capsule 2016-03 0 00:00: 00 Yes 60mg Take 60 mg by mouth daily. [facility] albuterol sulfate HFA 90 mcg/actuati on aerosol inhaler Inhale 2 puffs every 4 hours by inhalation route as needed. albuterol sulfate HFA 90 mcg/actuati on aerosol inhaler Inhale 2 puffs every 4 hours by inhalation route as needed. No 2puff(s ) Q4H albuterol sulfate HFA 90 mcg/actuat ion aerosol inhaler Inhale 2 puffs every 4 hours by inhalation route as needed. [facility] atorvastati n 20 mg tablet TAKE 1 TABLET BY MOUTH ONCE DAILY atorvastati n 20 mg tablet TAKE 1 TABLET BY MOUTH ONCE DAILY No atorvastat in 20 mg tablet TAKE 1 TABLET BY MOUTH ONCE DAILY [facility] BD Lexy 2nd Gen Pen Needle 32 gauge x 5/32" USE DIRECTED TWICE DAILY BD Lexy 2nd Gen Pen Needle 32 gauge x 5/32" USE DIRECTED TWICE DAILY No BD Lexy 2nd Gen Pen Needle 32 gauge x 5/32" USE DIRECTED TWICE DAILY [facility] clotrimazol e-betametha sone 1 %-0.05 % topical cream APPLY TO THE AFFECTED AND SURROUNDING AREAS OF SKIN BY TOPICAL ROUTE 2 TIMES PER DAY clotrimazol e-betametha sone 1 %-0.05 % topical cream APPLY TO THE AFFECTED AND SURROUNDING AREAS OF SKIN BY TOPICAL ROUTE 2 TIMES PER DAY No clotrimazo le-betamet hasone 1 %-0.05 % topical cream APPLY TO THE AFFECTED AND SURROUNDIN G AREAS OF SKIN BY TOPICAL ROUTE 2 TIMES PER DAY [facility] duloxetine 60 mg capsule,del ayed release TAKE 1 CAPSULE BY MOUTH TWICE DAILY duloxetine 60 mg capsule,del ayed release TAKE 1 CAPSULE BY MOUTH TWICE DAILY No 1capsul e(s) Q1D duloxetine 60 mg capsule,de layed release TAKE 1 CAPSULE BY MOUTH TWICE DAILY [facility] FreeStyle Lite Strips USE 1 STRIP TO CHECK GLUCOSE THREE TIMES DAILY FreeStyle Lite Strips USE 1 STRIP TO CHECK GLUCOSE THREE TIMES DAILY No FreeStyle Lite Strips USE 1 STRIP TO CHECK GLUCOSE THREE TIMES DAILY [facility] gabapentin 600 mg tablet TAKE 2 TABLETS BY MOUTH TWICE DAILY gabapentin 600 mg tablet TAKE 2 TABLETS BY MOUTH TWICE DAILY No gabapentin 600 mg tablet TAKE 2 TABLETS BY MOUTH TWICE DAILY [facility] Humulin R U-500 (Conc) Insulin Kwikpen 500 unit/mL (3 mL) subcutaneou s Give 120units before breakfast and 100 units before dinner and increase as directed: TDD 250 Humulin R U-500 (Conc) Insulin Kwikpen 500 unit/mL (3 mL) subcutaneou s Give 120units before breakfast and 100 units before dinner and increase as directed: TDD 250 No Humulin R U-500 (Conc) Insulin Kwikpen 500 unit/mL (3 mL) subcutaneo us Give 120units before breakfast and 100 units before dinner and increase as directed: TDD 250 [facility] hydrocodone 5 mg-acetamin ophen 325 mg tablet Take 1 tablet every 8 hours by oral route as needed. hydrocodone 5 mg-acetamin ophen 325 mg tablet Take 1 tablet every 8 hours by oral route as needed. No 1 Q8H hydrocodon e 5 mg-acetami nophen 325 mg tablet Take 1 tablet every 8 hours by oral route as needed. [facility] levothyroxi ne 100 mcg tablet Take 1 tablet every day by oral route. levothyroxi ne 100 mcg tablet Take 1 tablet every day by oral route. No 1 Q1D levothyrox ine 100 mcg tablet Take 1 tablet every day by oral route. [facility] meloxicam 15 mg tablet Take 1 tablet every day by oral route as needed. meloxicam 15 mg tablet Take 1 tablet every day by oral route as needed. No 1 Q1D meloxicam 15 mg tablet Take 1 tablet every day by oral route as needed. [facility] metformin ER 500 mg tablet,exte nded release 24 hr Take 2 tablets every day by oral route with meal(s) for 90 days. metformin ER 500 mg tablet,exte nded release 24 hr Take 2 tablets every day by oral route with meal(s) for 90 days. No 2 Q1D metformin ER 500 mg tablet,ext ended release 24 hr Take 2 tablets every day by oral route with meal(s) for 90 days. [facility] metoprolol succinate ER 50 mg tablet,exte nded release 24 hr Take 1 tablet every day by oral route. metoprolol succinate ER 50 mg tablet,exte nded release 24 hr Take 1 tablet every day by oral route. No 1 Q1D metoprolol succinate ER 50 mg tablet,ext ended release 24 hr Take 1 tablet every day by oral route. [facility] Ozempic 2 mg/dose (8 mg/3 mL) subcutaneou s pen injector Inject 2 mg every week by subcutaneou s route for 30 days. Ozempic 2 mg/dose (8 mg/3 mL) subcutaneou s pen injector Inject 2 mg every week by subcutaneou s route for 30 days. No 2mg Q1W Ozempic 2 mg/dose (8 mg/3 mL) subcutaneo us pen injector Inject 2 mg every week by subcutaneo us route for 30 days. [facility] Trelegy Ellipta 100 mcg-62.5 mcg-25 mcg powder for inhalation Inhale 1 puff every day by inhalation route. Trelegy Ellipta 100 mcg-62.5 mcg-25 mcg powder for inhalation Inhale 1 puff every day by inhalation route. No 1puff(s ) Q1D Trelegy Ellipta 100 mcg-62.5 mcg-25 mcg powder for inhalation Inhale 1 puff every day by inhalation route. [facility] valsartan 320 mg-hydrochl orothiazide 25 mg tablet Take 1 tablet every day by oral route. valsartan 320 mg-hydrochl orothiazide 25 mg tablet Take 1 tablet every day by oral route. No 1 Q1D valsartan 320 mg-hydroch lorothiazi de 25 mg tablet Take 1 tablet every day by oral route. [facility] permethrin 5 % topical cream APPLY (THOROUGHLY MASSAGE INTO SKIN FROM HEAD TO SOLES OF FEET) BY TOPICAL ROUTE ONCE LEAVE ON FOR 8-14 HR, THEN REMOVE BY THOROUGH WASHING permethrin 5 % topical cream APPLY (THOROUGHLY MASSAGE INTO SKIN FROM HEAD TO SOLES OF FEET) BY TOPICAL ROUTE ONCE LEAVE ON FOR 8-14 HR, THEN REMOVE BY THOROUGH WASHING No permethrin 5 % topical cream APPLY (THOROUGHL Y MASSAGE INTO SKIN FROM HEAD TO SOLES OF FEET) BY TOPICAL ROUTE ONCE LEAVE ON FOR 8-14 HR, THEN REMOVE BY THOROUGH WASHING [facility] Valsartan 320 MG Valsartan 320 MG No 1{table t} QD Valsartan 320 MG Ozempic Ozempic No Ozempic Meloxicam 15 MG Meloxicam 15 MG No 1{table t} QD Meloxicam 15 MG Atorvastati n Calcium 20 MG Atorvastati n Calcium 20 MG No 1{table t} QD Atorvastat in Calcium 20 MG Valsartan-h ydroCHLOROt hiazide 320-25 MG Valsartan-h ydroCHLOROt hiazide 320-25 MG No 1{table t} QD Valsartan- hydroCHLOR Othiazide 320-25 MG Valsartan 320 MG Valsartan 320 MG No 1{table t} QD Valsartan 320 MG Ozempic Ozempic No Ozempic Meloxicam 15 MG Meloxicam 15 MG No 1{table t} QD Meloxicam 15 MG Atorvastati n Calcium 20 MG Atorvastati n Calcium 20 MG No 1{table t} QD Atorvastat in Calcium 20 MG Valsartan-h ydroCHLOROt hiazide 320-25 MG Valsartan-h ydroCHLOROt hiazide 320-25 MG No 1{table t} QD Valsartan- hydroCHLOR Othiazide 320-25 MG Valsartan 320 MG Valsartan 320 MG No 1{table t} QD Valsartan 320 MG Ozempic Ozempic No Ozempic Meloxicam 15 MG Meloxicam 15 MG No 1{table t} QD Meloxicam 15 MG Atorvastati n Calcium 20 MG Atorvastati n Calcium 20 MG No 1{table t} QD Atorvastat in Calcium 20 MG Valsartan-h ydroCHLOROt hiazide 320-25 MG Valsartan-h ydroCHLOROt hiazide 320-25 MG No 1{table t} QD Valsartan- hydroCHLOR Othiazide 320-25 MG Valsartan 320 MG Valsartan 320 MG No 1{table t} QD Valsartan 320 MG Ozempic Ozempic No Ozempic Meloxicam 15 MG Meloxicam 15 MG No 1{table t} QD Meloxicam 15 MG Atorvastati n Calcium 20 MG Atorvastati n Calcium 20 MG No 1{table t} QD Atorvastat in Calcium 20 MG Valsartan-h ydroCHLOROt hiazide 320-25 MG Valsartan-h ydroCHLOROt hiazide 320-25 MG No 1{table t} QD Valsartan- hydroCHLOR Othiazide 320-25 MG Valsartan 320 MG Valsartan 320 MG No 1{table t} QD Valsartan 320 MG Ozempic Ozempic No Ozempic Meloxicam 15 MG Meloxicam 15 MG No 1{table t} QD Meloxicam 15 MG Atorvastati n Calcium 20 MG Atorvastati n Calcium 20 MG No 1{table t} QD Atorvastat in Calcium 20 MG Valsartan-h ydroCHLOROt hiazide 320-25 MG Valsartan-h ydroCHLOROt hiazide 320-25 MG No 1{table t} QD Valsartan- hydroCHLOR Othiazide 320-25 MG Immunizations Ordered Immunization Name Filled Immunization Name Date Status Comments Source influenza, recombinant, quadrIvalent,injectabl e, preservative free influenza, recombinant, quadrIvalent,injectab le, preservative free Unknown Completed [facility] Pneumococcal conjugate PCV20, polysaccharide [id number] conjugate, adjuvant, PF Pneumococcal conjugate PCV20, polysaccharide [id number] conjugate, adjuvant, PF Unknown Completed [facility] Non-US Vaccine COVID-19 PS (EpiVacCorona) Non-US Vaccine COVID-19 PS (EpiVacCorona) Unknown Completed [facility] COVID-19, mRNA, LNP-S, PF, 30 mcg/0.3 mL dose (Pfizer-BioNTech) - ML COVID-19, mRNA, LNP-S, PF, 30 mcg/0.3 mL dose (Pfizer-BioNTech) - ML Unknown Completed [facility] influenza, injectable, quadrivalent influenza, injectable, quadrivalent Unknown Completed [facility] pneumococcal polysaccharide PPV23 pneumococcal polysaccharide PPV23 Unknown Completed [facility] influenza, seasonal, injectable, preservative free influenza, seasonal, injectable, preservative free Unknown Completed [facility] Vital Signs Vital Name Observation Time Observation Value Comments S ource Height 2024-01-25 00:00:00 63 [in_i] [facility] BP Diastolic 2024-01-25 00:00:00 75 mm[Hg] [facility] BP Systolic 2024-01-25 00:00:00 131 mm[Hg] [facility] BP Systolic 2023-10-21 00:00:00 124 mm[Hg] [facility] Height 2023-10-21 00:00:00 63 [in_i] [facility] Body Weight 2023-10-21 00:00:00 345 [lb_av] [facility] BP Diastolic 2023-10-21 00:00:00 80 mm[Hg] [facility] BMI (Body Mass Index) 2023-10-21 00:00:00 61.1 kg/m2 [facility] BP Systolic 2023-07-22 00:00:00 100 mm[Hg] [facility] BMI (Body Mass Index) 2023-07-22 00:00:00 61.1 kg/m2 [facility] Body Weight 2023-07-22 00:00:00 345 [lb_av] [facility] Height 2023-07-22 00:00:00 63 [in_i] [facility] BP Diastolic 2023-07-22 00:00:00 65 mm[Hg] [facility] Body Weight 2023-06-28 00:00:00 345 [lb_av] [facility] BMI (Body Mass Index) 2023-06-28 00:00:00 61.1 kg/m2 [facility] Height 2023-06-28 00:00:00 63 [in_i] [facility] BP Systolic 2023-06-28 00:00:00 97 mm[Hg] [facility] BP Diastolic 2023-06-28 00:00:00 62 mm[Hg] [facility] Height 2023-06-14 00:00:00 63 [in_i] [facility] Body Weight 2023-06-14 00:00:00 345 [lb_av] [facility] BP Systolic 2023-06-14 00:00:00 111 mm[Hg] [facility] BP Diastolic 2023-06-14 00:00:00 63 mm[Hg] [facility] BMI (Body Mass Index) 2023-06-14 00:00:00 61.1 kg/m2 [facility] Heart rate 2023-06-10 17:36:00 85 /min [facility] Respiratory rate 2023-06-10 17:36:00 16 /min [facility] Oxygen saturation in Arterial blood by Pulse oximetry 2023-06-10 17:36:00 90 /min [facility] Systolic blood pressure 2023-06-10 16:12:00 128 mm[Hg] [facility] Diastolic blood pressure 2023-06-10 16:12:00 77 mm[Hg] [facility] Body temperature 2023-06-10 16:12:[address] [facility] Body weight 2023-06-09 09:23:00 158.986 kg [facility] BMI 2023-06-09 09:23:00 62.09 kg/m2 [facility] Body height 2023-06-06 21:19:00 160 cm [facility] Height 2023-04-29 00:00:00 63 [in_i] [facility] BMI (Body Mass Index) 2023-04-29 00:00:00 61.6 kg/m2 [facility] BP Diastolic 2023-04-29 00:00:00 79 mm[Hg] [facility] Weight 2023-04-29 00:00:00 348 [lb_av] [facility] BP Systolic 2023-04-29 00:00:00 148 mm[Hg] [facility] BP Diastolic 2023-03-12 00:00:00 72 mm[Hg] [facility] BMI (Body Mass Index) 2023-03-12 00:00:00 61.6 kg/m2 [facility] Body Weight 2023-03-12 00:00:00 348 [lb_av] [facility] Height 2023-03-12 00:00:00 63 [in_i] [facility] BP Systolic 2023-03-12 00:00:00 157 mm[Hg] [facility] BMI (Body Mass Index) 2023-03-11 00:00:00 61.6 kg/m2 [facility] Body Weight 2023-03-11 00:00:00 348 [lb_av] [facility] BP Diastolic 2023-03-11 00:00:00 63 mm[Hg] [facility] Height 2023-03-11 00:00:00 63 [in_i] [facility] BP Systolic 2023-03-11 00:00:00 115 mm[Hg] [facility] BMI (Body Mass Index) 2023-01-27 00:00:00 58.3 kg/m2 [facility] Height 2023-01-27 00:00:00 63 [in_i] [facility] Body Weight 2023-01-27 00:00:00 329 [lb_av] [facility] BP Diastolic 2023-01-27 00:00:00 79 mm[Hg] [facility] BP Systolic 2023-01-27 00:00:00 150 mm[Hg] [facility] BP Diastolic 2022-12-22 00:00:00 79 mm[Hg] [facility] Body Weight 2022-12-22 00:00:00 329 [lb_av] [facility] BMI (Body Mass Index) 2022-12-22 00:00:00 58.3 kg/m2 [facility] BP Systolic 2022-12-22 00:00:00 130 mm[Hg] [facility] Height 2022-12-22 00:00:00 63 [in_i] [facility] height 2022-10-22 10:30:00 64 [in_i] Commo n [facility] weight 2022-10-22 10:30:00 318 [lb_av] Comm on [facility] temperature 2022-10-22 10:30:00 98.3 [degF] Com mon [facility] bmi 2022-10-22 10:30:00 54.58 kg/m2 [facility] blood pressure systolic 2022-10-22 10:30:00 126 mm[Hg] [facility] blood pressure diastolic 2022-10-22 10:30:00 76 mm[Hg] [facility] height 2022-10-15 10:30:00 64 [in_i] Commo n [facility] weight 2022-10-15 10:30:00 318 [lb_av] Comm on [facility] temperature 2022-10-15 10:30:00 98.6 [degF] Com [facility] bmi 2022-10-15 10:30:00 54.58 kg/m2 Comm on [facility] blood pressure systolic 2022-10-15 10:30:00 127 mm[Hg] [facility] blood pressure diastolic 2022-10-15 10:30:00 75 mm[Hg] [facility] BP Systolic 2022-10-13 00:00:00 109 mm[Hg] [facility] BP Diastolic 2022-10-13 00:00:00 65 mm[Hg] [facility] BMI (Body Mass Index) 2022-10-13 00:00:00 56.7 kg/m2 [facility] Body Weight 2022-10-13 00:00:00 320 [lb_av] [facility] Height 2022-10-13 00:00:00 63 [in_i] [facility] height 2022-10-08 10:30:00 64 [in_i] Commo n [facility] weight 2022-10-08 10:30:00 318 [lb_av] Comm on [facility] temperature 2022-10-08 10:30:00 98.0 [degF] Com mon [facility] bmi 2022-10-08 10:30:00 54.58 kg/m2 Comm on [facility] blood pressure systolic 2022-10-08 10:30:00 136 mm[Hg] [facility] blood pressure diastolic 2022-10-08 10:30:00 86 mm[Hg] [facility] BP Diastolic 2022-09-22 00:00:00 82 mm[Hg] [facility] Height 2022-09-22 00:00:00 63 [in_i] [facility] BMI (Body Mass Index) 2022-09-22 00:00:00 57.4 kg/m2 [facility] BP Systolic 2022-09-22 00:00:00 132 mm[Hg] [facility] Body Weight 2022-09-22 00:00:00 324 [lb_av] [facility] BP Diastolic 2022-07-14 00:00:00 76 mm[Hg] [facility] Height 2022-07-14 00:00:00 63 [in_i] [facility] BMI (Body Mass Index) 2022-07-14 00:00:00 56.3 kg/m2 [facility] BP Systolic 2022-07-14 00:00:00 115 mm[Hg] [facility] Body Weight 2022-07-14 00:00:00 318 [lb_av] [facility] BP Diastolic 2022-05-27 00:00:00 77 mm[Hg] [facility] Height 2022-05-27 00:00:00 63 [in_i] [facility] BP Systolic 2022-05-27 00:00:00 137 mm[Hg] [facility] BP Diastolic 2022-04-13 00:00:00 84 mm[Hg] [facility] Height 2022-04-13 00:00:00 63 [in_i] [facility] BP Systolic 2022-04-13 00:00:00 149 mm[Hg] [facility] Body height 2022-03-30 20:03:00 [facility] Body weight 2022-03-30 20:03:00 142.429 [facility] BMI 2022-03-30 20:03:00 55.62 kg/m2 [facility] BP Diastolic 2022-03-17 00:00:00 79 mm[Hg] [facility] Height 2022-03-17 00:00:00 63 [in_i] [facility] BMI (Body Mass Index) 2022-03-17 00:00:00 55.3 kg/m2 [facility] BP Systolic 2022-03-17 00:00:00 124 mm[Hg] [facility] Body Weight 2022-03-17 00:00:00 312 [lb_av] [facility] BP Diastolic 2022-03-04 00:00:00 68 mm[Hg] [facility] Height 2022-03-04 00:00:00 63 [in_i] [facility] BMI (Body Mass Index) 2022-03-04 00:00:00 54 kg/m2 [facility] Practice BP Systolic 2022-03-04 00:00:00 126 mm[Hg] [facility] Body Weight 2022-03-04 00:00:00 305 [lb_av] [facility] BP Diastolic 2022-03-03 00:00:00 77 mm[Hg] [facility] Height 2022-03-03 00:00:00 63 [in_i] [facility] BMI (Body Mass Index) 2022-03-03 00:00:00 54 kg/m2 [facility] BP Systolic 2022-03-03 00:00:00 139 mm[Hg] [facility] Body Weight 2022-03-03 00:00:00 305 [lb_av] [facility] BP Diastolic 2022-01-07 00:00:00 80 mm[Hg] [facility] Height 2022-01-07 00:00:00 63 [in_i] [facility] BMI (Body Mass Index) 2022-01-07 00:00:00 53.8 kg/m2 [facility] BP Systolic 2022-01-07 00:00:00 138 mm[Hg] [facility] Body Weight 2022-01-07 00:00:00 303.8 [lb_av] [facility] BP Diastolic 2021-12-12 00:00:00 79 mm[Hg] [facility] Height 2021-12-12 00:00:00 63 [in_i] [facility] BMI (Body Mass Index) 2021-12-12 00:00:00 53.1 kg/m2 [facility] BP Systolic 2021-12-12 00:00:00 131 mm[Hg] [facility] Body Weight 2021-12-12 00:00:00 300 [lb_av] [facility] BP Diastolic 2021-11-11 00:00:00 77 mm[Hg] [facility] Height 2021-11-11 00:00:00 63 [in_i] [facility] BMI (Body Mass Index) 2021-11-11 00:00:00 54.6 kg/m2 [facility] BP Systolic 2021-11-11 00:00:00 115 mm[Hg] [facility] Body Weight 2021-11-11 00:00:00 308 [lb_av] [facility] BP Diastolic 2021-10-13 00:00:00 81 mm[Hg] [facility] Height 2021-10-13 00:00:00 63 [in_i] [facility] BMI (Body Mass Index) 2021-10-13 00:00:00 54.6 kg/m2 [facility] BP Systolic 2021-10-13 00:00:00 161 mm[Hg] [facility] Body Weight 2021-10-13 00:00:00 308.2 [lb_av] [facility] BP Diastolic 2021-08-13 00:00:00 84 mm[Hg] [facility] Height 2021-08-13 00:00:00 63 [in_i] [facility] BMI (Body Mass Index) 2021-08-13 00:00:00 53.6 kg/m2 [facility] BP Systolic 2021-08-13 00:00:00 128 mm[Hg] [facility] Body Weight 2021-08-13 00:00:00 302.8 [lb_av] [facility] BP Diastolic 2021-07-11 00:00:00 81 mm[Hg] [facility] Height 2021-07-11 00:00:00 63 [in_i] [facility] BMI (Body Mass Index) 2021-07-11 00:00:00 53.4 kg/m2 [facility] BP Systolic 2021-07-11 00:00:00 151 mm[Hg] [facility] Body Weight 2021-07-11 00:00:00 301.6 [lb_av] [facility] BP Diastolic 2021-06-17 00:00:00 90 mm[Hg] [facility] Height 2021-06-17 00:00:00 63 [in_i] [facility] BMI (Body Mass Index) 2021-06-17 00:00:00 53.4 kg/m2 [facility] BP Systolic 2021-06-17 00:00:00 149 mm[Hg] [facility] Body Weight 2021-06-17 00:00:00 301.6 [lb_av] [facility] BP Diastolic 2021-06-03 00:00:00 68 mm[Hg] [facility] Height 2021-06-03 00:00:00 63 [in_i] [facility] BMI (Body Mass Index) 2021-06-03 00:00:00 53 kg/m2 [facility] BP Systolic 2021-06-03 00:00:00 109 mm[Hg] [facility] Body Weight 2021-06-03 00:00:00 299 [lb_av] [facility] BP Diastolic 2021-04-21 00:00:00 66 mm[Hg] [facility] Height 2021-04-21 00:00:00 63 [in_i] [facility] BMI (Body Mass Index) 2021-04-21 00:00:00 53.7 kg/m2 [facility] BP Systolic 2021-04-21 00:00:00 119 mm[Hg] [facility] Body Weight 2021-04-21 00:00:00 303 [lb_av] [facility] BP Diastolic 2021-04-14 00:00:00 85 mm[Hg] [facility] Height 2021-04-14 00:00:00 63 [in_i] [facility] BMI (Body Mass Index) 2021-04-14 00:00:00 54.6 kg/m2 [facility] BP Systolic 2021-04-14 00:00:00 162 mm[Hg] [facility] Body Weight 2021-04-14 00:00:00 308 [lb_av] [facility] Systolic blood pressure 2021-02-06 16:46:00 129 mm[Hg] [facility] Diastolic blood pressure 2021-02-06 16:46:00 69 mm[Hg] [facility] Heart rate 2021-02-06 16:46:00 80 /min [facility] Respiratory rate 2021-02-06 16:46:00 18 /min [facility] Body height 2021-02-06 16:46:00 160 cm [facility] Body weight 2021-02-06 16:46:00 139.254 kg [facility] BMI 2021-02-06 16:46:00 54.38 kg/m2 [facility] Height 2021-01-07 00:00:00 63 [in_i] [facility] BMI (Body Mass Index) 2021-01-07 00:00:00 54 kg/m2 [facility] Body Weight 2021-01-07 00:00:00 305 [lb_av] [facility] BP Diastolic 2020-11-21 00:00:00 60 mm[Hg] [facility] Height 2020-11-21 00:00:00 63 [in_i] [facility] BMI (Body Mass Index) 2020-11-21 00:00:00 54.4 kg/m2 [facility] BP Systolic 2020-11-21 00:00:00 116 mm[Hg] [facility] Body Weight 2020-11-21 00:00:00 307.2 [lb_av] [facility] BP Diastolic 2020-10-15 00:00:00 73 mm[Hg] [facility] Height 2020-10-15 00:00:00 63 [in_i] [facility] BMI (Body Mass Index) 2020-10-15 00:00:00 54.9 kg/m2 [facility] BP Systolic 2020-10-15 00:00:00 120 mm[Hg] [facility] Body Weight 2020-10-15 00:00:00 310 [lb_av] [facility] BP Diastolic 2020-08-29 00:00:00 75 mm[Hg] [facility] Height 2020-08-29 00:00:00 63 [in_i] [facility] BMI (Body Mass Index) 2020-08-29 00:00:00 54.9 kg/m2 [facility] BP Systolic 2020-08-29 00:00:00 126 mm[Hg] [facility] Body Weight 2020-08-29 00:00:00 310.2 [lb_av] [facility] BP Diastolic 2020-08-01 00:00:00 57 mm[Hg] [facility] Height 2020-08-01 00:00:00 63 [in_i] [facility] BMI (Body Mass Index) 2020-08-01 00:00:00 56.8 kg/m2 [facility] BP Systolic 2020-08-01 00:00:00 101 mm[Hg] [facility] Body Weight 2020-08-01 00:00:00 320.4 [lb_av] [facility] BP Diastolic 2020-07-16 00:00:00 85 mm[Hg] [facility] Height 2020-07-16 00:00:00 63 [in_i] [facility] BMI (Body Mass Index) 2020-07-16 00:00:00 55.8 kg/m2 [facility] BP Systolic 2020-07-16 00:00:00 129 mm[Hg] [facility] Body Weight 2020-07-16 00:00:00 315 [lb_av] [facility] BP Diastolic 2020-04-22 00:00:00 68 mm[Hg] [facility] Height 2020-04-22 00:00:00 63 [in_i] [facility] BMI (Body Mass Index) 2020-04-22 00:00:00 60.9 kg/m2 [facility] BP Systolic 2020-04-22 00:00:00 104 mm[Hg] [facility] Body Weight 2020-04-22 00:00:00 344 [lb_av] [facility] BP Diastolic 2020-01-23 00:00:00 77 mm[Hg] [facility] Height 2020-01-23 00:00:00 63 [in_i] [facility] BMI (Body Mass Index) 2020-01-23 00:00:00 60.2 kg/m2 [facility] BP Systolic 2020-01-23 00:00:00 115 mm[Hg] [facility] Body Weight 2020-01-23 00:00:00 340 [lb_av] [facility] Height 2019-10-19 00:00:00 63 [in_i] [facility] Height 2019-10-13 00:00:00 63 [in_i] [facility] BMI (Body Mass Index) 2019-10-13 00:00:00 60.2 kg/m2 [facility] Body Weight 2019-10-13 00:00:00 340 [lb_av] [facility] Height 2019-07-07 00:00:00 63 [in_i] [facility] BMI (Body Mass Index) 2019-07-07 00:00:00 58.8 kg/m2 [facility] Body Weight 2019-07-07 00:00:00 332 [lb_av] [facility] Practice BP Diastolic 2019-04-10 00:00:00 67 mm[Hg] [facility] Height 2019-04-10 00:00:00 63 [in_i] [facility] Practice BMI (Body Mass Index) 2019-04-10 00:00:00 58.9 kg/m2 [facility] BP Systolic 2019-04-10 00:00:00 101 mm[Hg] [facility] Practice Body Weight 2019-04-10 00:00:00 332.6 [lb_av] [facility] BP Diastolic 2019-02-09 00:00:00 83 mm[Hg] [facility] Height 2019-02-09 00:00:00 63 [in_i] [facility] Practice BMI (Body Mass Index) 2019-02-09 00:00:00 58.2 kg/m2 [facility] BP Systolic 2019-02-09 00:00:00 130 mm[Hg] [facility] Practice Body Weight 2019-02-09 00:00:00 328.6 [lb_av] [facility] Procedures Procedure Date / Time Performed Performing Clinician Source POCT GLUCOSE (AUTOMATED) 2023-06-10 16:25:[address] [facility] POCT GLUCOSE (AUTOMATED) 2023-06-10 12:29:[address] [facility] MAGNESIUM 2023-06-10 09:27:[address] [facility] BASIC METABOLIC PANEL (NA, K, CL, CO2, GLUCOSE, BUN, CREATININE, CA) 2023-06-10 09:27:[address] [facility] CBC WITH DIFF 2023-06-10 09:27:00 Beronica Borges [facility] POCT GLUCOSE (AUTOMATED) 2023-06-10 01:12:[address] [facility] POCT GLUCOSE (AUTOMATED) 2023-06-09 21:28:[address] [facility] POCT GLUCOSE (AUTOMATED) 2023-06-09 17:22:[address] [facility] POCT GLUCOSE (AUTOMATED) 2023-06-09 12:59:[address] [facility] BASIC METABOLIC PANEL (NA, K, CL, CO2, GLUCOSE, BUN, CREATININE, CA) 2023-06-09 08:29:00 Phoebe Carl [facility] CBC WITH DIFF 2023-06-09 08:29:[address] [facility] POCT GLUCOSE (AUTOMATED) 2023-06-09 05:01:[address] [facility] POCT GLUCOSE (AUTOMATED) 2023-06-09 02:14:[address] [facility] POCT GLUCOSE (AUTOMATED) 2023-06-08 21:35:[address] [facility] POCT GLUCOSE (AUTOMATED) 2023-06-08 16:47:00 Olayinka Sidhu [facility] POCT GLUCOSE (AUTOMATED) 2023-06-08 13:01:[address] [facility] BASIC METABOLIC PANEL (NA, K, CL, CO2, GLUCOSE, BUN, CREATININE, CA) 2023-06-08 08:49:00 Phoebe Carl [facility] CBC WITH DIFF 2023-06-08 08:49:[address] [facility] POCT GLUCOSE (AUTOMATED) 2023-06-08 05:20:[address] [facility] POCT GLUCOSE (AUTOMATED) 2023-06-08 01:26:[address] [facility] POCT GLUCOSE (AUTOMATED) 2023-06-07 21:44:00 Olayinka Sidhu [facility] BLOOD CULTURE SCREEN 2023-06-07 18:38:00 Siddhartha Phoebe [facility] MRSA / MSSA SCREEN BY JAVAD BOWLING 2023-06-07 18:38:[address] [facility] POCT GLUCOSE (AUTOMATED) 2023-06-07 16:43:[address] [facility] TRANSTHORACIC ECHO (TTE) COMPLETE W/ CONTRAST 2023-06-07 14:34:[address] [facility] POCT GLUCOSE (AUTOMATED) 2023-06-07 12:43:[address] [facility] CT ABDOMEN PELVIS WO CONTRAST 2023-06-07 09:21:[address] [facility] HEPATIC FUNCTION PANEL (85329) (ALB,T.PRO,BILI T,BU/BC,ALT,AST,ALK PHOS) 2023-06-07 08:35:00 [facility]OLIC PANEL (NA, K, CL, CO2, GLUCOSE, BUN, CREATININE, CA) 2023-06-07 08:35:[address] [facility] CBC WITH DIFF 2023-06-07 08:35:00 Sloan Sidhulandiana Rodríguez [facility] POCT GLUCOSE (AUTOMATED) 2023-06-07 01:59:[address] [facility] POCT GLUCOSE (AUTOMATED) 2023-06-06 21:26:[address] [facility] URINALYSIS 2023-06-06 19:59:00 Fritz Kirkland [facility] AC PANEL 20 + LACTIC ACID 2023-06-06 18:16:[address] [facility] XR CHEST 1 VW 2023-06-06 17:53:37 Fritz Kirkland [facility] RAPID INFLUENZA A/B 2023-06-06 17:53:[address] [facility] RAPID RSV 2023-06-06 17:53:00 Fritz Kirkland [facility] COVID-19 (ID NOW RAPID TESTING) 2023-06-06 17:53:[address] [facility] LAB ONLY COVID INTERPRETATION 2023-06-06 17:53:[address] [facility] BLOOD CULTURE SCREEN 2023-06-06 17:50:[address] [facility] TROPONIN I 2023-06-06 17:50:00 Fritz Kirkland [facility] COMP. METABOLIC PANEL (32640) 2023-06-06 17:50:[address] [facility] CBC WITH DIFF 2023-06-06 17:50:00 Fritz Kirkland [facility] GLYCOSYLATED HEMOGLOBIN (A1C) 2023-06-06 17:50:[address] [facility] N-TERMINAL PRO-BNP 2023-06-06 17:50:[address] [facility] BLOOD CULTURE WORKUP 2023-06-06 17:50:[address] [facility] BLOOD CULTURE WORKUP 2023-06-06 17:50:00 Margaret Kirkland [facility] GRAM NEGATIVE BLOOD PATHOGENS DNA PROBE-AEROBIC 2023-06-06 17:50:[address] [facility] EKG-12 LEAD 2023-06-06 17:39:01 Vinay Sidhu [facility] CRITICAL CARE 2023-06-06 17:33[facility] 2 OR 3 VIEW 2023-01-27 00:00:00 [facility] MAMMO, screening, digital, bilateral 2022-07-14 00:00:00 [facility] LDCT, chest, for lung cancer screening 2022-03-04 00:00:00 [facility] LDCT, chest, for lung cancer screening 2022-01-07 00:00:00 [facility] MAMMO, screening, digital, bilateral 2021-07-11 00:00:00 [facility] EXTERNAL PROVIDER RECORDS 2021-07-08 05:01:00 Do ctor Unassigned, [place] [facility] PHYSICIAN ORDERS 2021-06-26 05:01:00 Doctor Elvi signed, [place] [facility] PHYSICIAN ORDERS 2021-05-23 05:01:00 Doctor Elvi signed, [place] [facility] PHYSICIAN ORDERS 2021-05-02 06:01:00 Doctor Elvi signed, [place] [facility] REFERRAL- REQUEST/RESPONSE 2021-04-17 06:01:00 Doctor Unassigned, [place] [facility] REFERRAL- REQUEST/RESPONSE 2021-03-06 06:01:00 Doctor Unassigned, [place] [facility] REFERRAL- REQUEST/RESPONSE 2021-02-12 06:01:00 Doctor Unassigned, [place] [facility] X-RAY OF SHOULDER 2 VIEW 2020-10-15 00:00:00 [facility] US, duplex, venous, upper extremity, unilateral 2020-10-15 00:00:00 [facility] ANKLE BRACHIAL INDEX DONE ON BOTH LEGS WITH [employer] MACHINE WITH PATIENT AT REST 2020-01-23 00:00:00 [facility] X-RAY HIP UNLIATERAL (2-3 VIEWS) 2020-01-23 00:00:00 [facility] X-RAY OF CHEST 2 VIEW 2020-01-23 00:00:00 [facility] MAMMO, screening, digital, bilateral 2020-01-23 00:00:00 [facility] ankle brachial index 2019-07-07 00:00:00 [facility] MAMMO, screening, digital, bilateral 2019-02-09 00:00:00 [facility] Tonsillectomy [facility] Hysterectomy (Total) [facility] Encounters Start Date/Time End Date/Time Encounter Type Admission Type Attending Clinicians Care Facility Care Department Encounter ID Source 2022-07-09 11:32:00 Outpatient [facility] [id number] [facility] 2022-06-25 09:53:01 Outpatient [facility] [id number] [facility] 2022-04-01 08:54:28 Outpatient [facility] [id number] [facility] 2022-03-30 13:40:56 Outpatient [facility] [id number] [facility] 2022-03-27 06:52:49 Outpatient [facility] [id number] [facility] 2022-03-13 14:33:52 Outpatient [facility] [id number] [facility] 2022-03-10 08:46:26 Outpatient [facility] [id number] [facility] 2024-01-25 00:00:00 2024-01-25 00:00:00 Javad De Oliveira MD: [id number], [address], [place] [address] , Ph. [facility] Medical - [place] - VM_HOU_Fabianod ow [place] [id number] [facility] e 2023-11-17 01:45:00 2023-11-17 06:13:00 Emergency E DENNY MILES [facility] [id number] [address] [place] [address] 2023-10-21 00:00:00 2023-10-21 00:00:00 Javad De Oliveira MD: [id number], [address] [place] [address] , Ph. [facility] - [place] - VM_HOU_Fabianod [place] [id number] [facility] e 2023-07-22 00:00:00 2023-07-22 00:00:00 Javad De Oliveira MD: [id number], [address], [place] [address] , Ph. [facility] - [place] - VM_HOU_Fabianod [place] [id number] [facility] e 2023-06-28 00:00:00 2023-06-28 00:00:00 Javad De Oliveira MD: [id number], [address], [place] [address] , Ph. [facility] - [place] - VM_HOU_Fabian[place] [id number] [facility] 2023-06-14 00:00:00 2023-06-14 00:00:00 Javad De Oliveira MD: [id number], [address], [place] [address] , Ph. [facility] - [place] - VM_HOU_Shad ow [place] [id number] [facility] 2023-06-11 00:00:00 2023-06-11 00:00:00 Outpatient Bui_Q_HOU_M D VFP VFP [id number] [facility] 2023-06-11 00:00:00 2023-06-11 00:00:00 Transition of Care Johnny Jerome 1..[id number] [facility] 2023-06-06 12:35:00 2023-06-10 16:10:00 Inpatient X TAJ FENTON [facility] TONI [id number] [facility] 2023-06-06 12:35:00 2023-06-10 16:10:00 Hospital Encounter Fritz Kirkland, Taj Garay [facility] ..[id number] [facility] 2023-04-29 00:00:00 2023-04-29 00:00:00 Javad De Oliveira MD: [id number], [address], [place] [address] , Ph. [facility] - [place] - VM_HOU_Shad [place] [id number] [facility] 2023-04-23 00:00:00 2023-04-23 00:00:00 Outpatient Bui_Q_HOU_M D VFP VFP [id number] [facility] 2023-03-12 00:00:00 2023-03-12 00:00:00 Javad De Oliveira MD: [id number], [address], [place] [address] , Ph. [facility] - [place] - VM_HOU_Shad [place] [id number] [facility] 2023-03-11 00:00:00 2023-03-11 00:00:00 Outpatient Bui_Q_WAGDN U VFP VFP [id number] [facility] 2023-03-11 00:00:00 2023-03-11 00:00:00 David Arguelles MD: [id number], [address], [place] [address] , Ph. VFP [place] - [facility] - [place] - VM_HOU_Shad [place] [id number] [facility] 2023-02-26 14:42:00 2023-02-26 19:39:00 Emergency E BRIELLE GUTIERREZ [facility] [id number] [facility] 2023-01-27 00:00:00 2023-01-27 00:00:00 Javad De Oliveira MD: [id number] [place] [facility], [address], [place] [address] , Ph. VFP [place] - [facility] - [place] - VM_HOU_Shad [place] [id number] [facility] 2022-12-22 00:00:00 2022-12-22 00:00:00 Outpatient Bui_Q_WAGDN U VFP VFP [id number] [facility] 2022-12-22 00:00:00 2022-12-22 00:00:00 Outpatient Bui_Q_HOU_M D VFP VFP [id number] [facility] 2022-12-22 00:00:00 2022-12-22 00:00:00 Outpatient Bui_Q_HOU_M D VFP VFP [id number] [facility] 2022-12-22 00:00:00 2022-12-22 00:00:00 Outpatient Bui_Q_WAGDN U VFP VFP [id number] [facility] 2022-12-22 00:00:00 2022-12-22 00:00:00 Outpatient Bui_Q_HOU_M D VFP VFP [id number] [facility] 2022-12-22 00:00:00 2022-12-22 00:00:00 Outpatient Bui_Q_WAGDN U VFP VFP [id number] [facility] 2022-12-22 00:00:00 2022-12-22 00:00:00 Outpatient Bui_Q_HOU_M D VFP VFP [id number] [facility] 2022-12-22 00:00:00 2022-12-22 00:00:00 Outpatient Bui_Q_WAGDN U VFP VFP [id number] [facility] 2022-12-22 00:00:00 2022-12-22 00:00:00 David Arguelles MD: [id number] [facility] [address], [place] [address] , Ph. [phone] VFP [facility] [place] - [place] - VM_HOU_Shad [place] [id number] [facility] 2022-10-22 00:00:00 2022-10-22 00:00:00 (IN/ASP) [facility] [id number] [facility] 2022-10-15 00:00:00 2022-10-15 00:00:00 (IN/ASP) INJ ASP [facility] [id number] [facility] 2022-10-13 00:00:00 2022-10-13 00:00:00 Javad De Oliveira MD: [id number] [facility] [address], [place] [address] , Ph. VFP [facility] [place] - [place] - VM_HOU_Shad [place] [id number] [facility] 2022-10-08 00:00:00 2022-10-08 00:00:00 OFFICE VISIT ESTAB PT LEVEL [facility] [id number] [facility] [facility] 2022-09-29 00:00:00 2022-09-29 00:00:00 Outpatient Bui_Q_HOU_M D VFP VFP [id number] [facility] 2022-09-29 00:00:00 2022-09-29 00:00:00 Outpatient Bui_Q_HOU_M D VFP VFP [id number] [facility] 2022-09-22 00:00:00 2022-09-22 00:00:00 David Arguelles MD: [address], [address], [place] [address] , Ph. VFP [place] - [facility] - [place] - VM_HOU_Shad ow [place] [id number] [facility] 2022-09-16 00:00:00 2022-09-16 00:00:00 Outpatient Bui_Q_HOU_M D VFP VFP [id number] [facility] 2022-09-16 00:00:00 2022-09-16 00:00:00 Outpatient Bui_Q_HOU_M D VFP VFP [id number] [facility] 2022-07-14 00:00:00 2022-07-14 00:00:00 Javad De Oliveira MD: [address], [address], [place] [address] , Ph. VFP [facility] [place] - [place] - VM_HOU_Shad ow [place] [id number] [facility] 2022-07-09 00:00:00 2022-07-09 00:00:00 (TEL) [facility] [id number] [facility] 2022-07-08 00:00:00 2022-07-08 00:00:00 Outpatient Bui_Q VFP VFP [id number] [facility] 2022-07-08 00:00:00 2022-07-08 00:00:00 Outpatient Bui_Q VFP VFP [id number] [facility] 2022-06-29 00:00:00 2022-06-29 00:00:00 Outpatient Bui_Q VFP VFP [id number] [facility] 2022-06-25 00:00:00 2022-06-25 00:00:00 (TEL) STLMLC STLMLC [id number] [facility] 2022-06-22 00:00:00 2022-06-22 00:00:00 Outpatient Bui_Q_WAGDN U VFP VFP [id number] [facility] 2022-06-22 00:00:00 2022-06-22 00:00:00 Outpatient Bui_Q_WAGDN U VFP VFP [id number] [facility] 2022-06-22 00:00:00 2022-06-22 00:00:00 Outpatient Bui_Q_WAGDN U VFP VFP [id number] [facility] 2022-06-22 00:00:00 2022-06-22 00:00:00 Outpatient Bui_Q_WAGDN U VFP VFP [id number] [facility] 2022-06-22 00:00:00 2022-06-22 00:00:00 Outpatient Bui_Q_WAGDN U VFP VFP [id number] [facility] 2022-06-22 00:00:00 2022-06-22 00:00:00 Outpatient Bui_Q_WAGDN U VFP VFP [id number] [facility] 2022-06-22 00:00:00 2022-06-22 00:00:00 Outpatient Bui_Q_WAGDN U VFP VFP [id number] [facility] 2022-06-22 00:00:00 2022-06-22 00:00:00 Outpatient Bui_Q_WAGDN U VFP VFP [id number] [facility] 2022-06-22 00:00:00 2022-06-22 00:00:00 Outpatient Bui_Q_WAGDN U VFP VFP [id number] [facility] 2022-06-22 00:00:00 2022-06-22 00:00:00 David Arguelles MD: [id number] [facility], [address], [place] [address] , Ph. VFP [place] - [facility] - [place] - VM_Yarelis ow [place] [id number] [facility] 2022-06-03 00:00:00 2022-06-03 00:00:00 Outpatient Bui_Q VFP VFP [id number] [facility] 2022-06-03 00:00:00 2022-06-03 00:00:00 Outpatient Bui_Q VFP VFP [id number] [facility] 2022-06-03 00:00:00 2022-06-03 00:00:00 Outpatient Bui_Q VFP VFP [id number] [facility] 2022-05-27 00:00:00 2022-05-27 00:00:00 Outpatient Bui_Q VFP VFP [id number] [facility] 2022-05-27 00:00:00 2022-05-27 00:00:00 Javad De Oliveira MD: [address] [facility], [address], [place] [address] , Ph. VFP [facility] - [place] - VM_Yarelis ow [place] [id number] [facility] 2022-05-23 00:00:00 2022-05-23 00:00:00 Outpatient Bui_Q VFP VFP [id number] [facility] 2022-05-04 00:00:00 2022-05-04 00:00:00 Outpatient Bui_Q VFP VFP [id number] [facility] 2022-05-04 00:00:00 2022-05-04 00:00:00 Outpatient Bui_Q VFP VFP [id number] [facility] 2022-05-04 00:00:00 2022-05-04 00:00:00 Outpatient Bui_Q VFP VFP [id number] [facility] 2022-04-13 00:00:00 2022-04-13 00:00:00 Javad De Oliveira MD: [id number], [address], [place] [address] , Ph. [facility] - [place] - VM_TIAN_Pedro Luis ow [place] [id number] [facility] 2022-04-09 00:00:00 2022-04-09 00:00:00 Outpatient Bui_Q VFP VFP [id number] [facility] e 2022-04-09 00:00:00 2022-04-09 00:00:00 Outpatient Bui_Q VFP VFP [id number] [facility] e 2022-03-30 14:00:00 2022-03-30 15:06:08 Outpatient [facility] [id number] [facility] 2022-03-30 14:00:00 2022-03-30 15:05:14 Office Visit Juani Hernández [facility] 1 1.2.840.114 350.1.13.58 [id number] [id number] [facility] 2022-03-17 00:00:00 2022-03-17 00:00:00 David Arguelles MD: [address], [address], [place] [address] , Ph. P [facility] - [place] - VM_TIAN_Pedro Luis [place] [id number] [facility] e 2022-03-16 00:00:00 2022-03-16 00:00:00 Outpatient FOG_Grace Oconnell AOSM AOSM [id number] [facility] 2022-03-05 00:00:00 2022-03-05 00:00:00 Outpatient Bui_Q VFP VFP [id number] [facility] 2022-03-05 00:00:00 2022-03-05 00:00:00 Outpatient Bui_Q VFP VFP [id number] [facility] 2022-03-04 00:00:00 2022-03-04 00:00:00 Javad De Oliveira MD: [address], [address], [place] [address] , Ph. VFP [facility] - [place] - VM_HOU_Fabianod ow [place] [id number] [facility] 2022-03-03 00:00:00 2022-03-03 00:00:00 Michelle Ruvalcaba NP: [address], [address], [place] [address] , Ph. VFP [facility] - [place] - VM_HOU_Shad [place] [id number] [facility] 2022-03-01 14:52:00 2022-03-01 20:29:00 Emergency E HERBER FERNANDEZ [facility] 2022-02-26 00:00:00 2022-02-26 00:00:00 Outpatient Bui_Q VFP VFP [id number] [facility] 2022-02-26 00:00:00 2022-02-26 00:00:00 Outpatient Bui_Q VFP VFP [id number] [facility] 2022-02-04 00:00:00 2022-02-04 00:00:00 Outpatient Bui_Q_WAGDN U VFP VFP [id number] [facility] 2022-02-04 00:00:00 2022-02-04 00:00:00 Outpatient Bui_Q_WAGDN U VFP VFP [id number] [facility] 2022-02-04 00:00:00 2022-02-04 00:00:00 Outpatient Bui_Q_WAGDN U VFP VFP [id number] [facility] 2022-02-04 00:00:00 2022-02-04 00:00:00 Outpatient Bui_Q_WAGDN U VFP VFP [id number] [facility] 2022-02-04 00:00:00 2022-02-04 00:00:00 Outpatient Bui_Q_WAGDN U VFP VFP [id number] [facility] 2022-01-14 00:00:00 2022-01-14 00:00:00 Outpatient Bui_Q VFP VFP [id number] [facility] 2022-01-07 00:00:00 2022-01-07 00:00:00 Outpatient Bui_Q_WAGDN U VFP VFP [id number] [facility] 2022-01-07 00:00:00 2022-01-07 00:00:00 Javad De Oliveira MD: [address], [address], [place] [address] , Ph. VFP [place] - [facility] - [place] - VM_HOU_Shad [place] [id number] [facility] 2021-12-12 00:00:00 2021-12-12 00:00:00 David Arguelles MD: [address], [address], [place] [address] , Ph. VFP [place] - [facility] - [place] - VM_HOU_Shad [place] [id number] [facility] 2021-11-26 00:00:00 2021-11-26 00:00:00 Outpatient Bui_Q VFP VFP [id number] [facility] 2021-11-11 00:00:00 2021-11-11 00:00:00 David Arguelles MD: [address], [address], [place] [address] , Ph. VFP [place] - [facility] - VM_HOU_Shad ow [place] [id number] [facility] 2021-10-30 00:00:00 2021-10-30 00:00:00 Outpatient Bui_Q VFP VFP [id number] [facility] 2021-10-14 00:00:2021-10-14 00:00:00 Outpatient Bui_Q_WAGDN U VFP VFP [id number] [facility] 2021-10-13 00:00:00 2021-10-13 00:00:00 Outpatient Bui_Q VFP VFP [id number] [facility] 2021-10-13 00:00:00 2021-10-13 00:00:00 Javad De Oliveira MD: [address], [address], [place] [address] , Ph. VFP [place] [facility]_HOU_Shad [place] [id number] [facility] 2021-09-20 00:00:00 2021-09-20 00:00:00 Outpatient Bui_Q VFP VFP [id number] [facility] 2021-09-01 00:00:00 2021-09-01 00:00:00 Outpatient Bui_Q_WAGDN U VFP VFP [id number] [facility] 2021-08-13 01:59:00 2021-08-13 01:59:00 Outpatient Bui_Q VFP VFP [id number] [facility] 2021-08-13 00:00:00 2021-08-13 00:00:00 David Arguelles MD: [address], [address], [place] [address] , Ph. VFP [place] - [facility] - VM_HOU_Shad ow [place] [id number] [facility] 2021-08-01 02:53:00 2021-08-01 02:53:00 Outpatient Bui_Q VFP VFP [id number] [facility] 2021-07-30 08:20:00 2021-07-30 08:20:00 Outpatient Bui_Q_WAGDN U VFP VFP [id number] [facility] 2021-07-30 08:20:00 2021-07-30 08:20:00 Outpatient Bui_Q_WAGDN U VFP VFP [id number] [facility] 2021-07-21 02:33:00 2021-07-21 02:33:00 Outpatient Bui_Q VFP VFP [id number] [facility] 2021-07-11 05:47:00 2021-07-11 05:47:00 Outpatient Bui_Q VFP VFP [id number] [facility] 2021-07-11 00:00:00 2021-07-11 00:00:00 Javad De Oliveira MD: [address] [facility] [address] [facility], [address], [place] [address] , Ph. P [place] - [facility] - VM_TIAN_Pedro Luis [facility] [id number] [facility] 2021-07-08 00:00:00 2021-07-08 00:00:00 Orders Only Doctor Unassigned, [place] [facility] 1.2.840.114 350.1.13.10 4.2.7.2.[id number] [facility] 2021-07-02 02:15:00 2021-07-02 02:15:00 Outpatient Bui_Q VFP VFP [id number] [facility] 2021-06-30 07:47:00 2021-06-30 07:47:00 Outpatient Bui_Q_WAGDN U VFP VFP [id number] [facility] 2021-06-30 07:47:00 2021-06-30 07:47:00 Outpatient Bui_Q_WAGDN U VFP VFP [id number] [facility] 2021-06-26 00:00:00 2021-06-26 00:00:00 Orders Only Doctor Unassigned, [place] [facility] 1.2.840.114 350.1.13.10 4.2.7.2.[id number] [facility] 2021-06-23 02:03:00 2021-06-23 02:03:00 Outpatient Bui_Q VFP VFP [id number] [facility] 2021-06-21 01:19:00 2021-06-21 01:19:00 Outpatient Bui_Q VFP VFP [id number] [facility] 2021-06-19 00:00:00 2021-06-19 00:00:00 Kimberlyn Messina: [address] [facility], [address], [place] [address] , Ph. VFP [place] - [facility] - VM_HOU_Care Management [id number] [facility] 2021-06-17 04:26:00 2021-06-17 04:26:00 Outpatient Bui_Q VFP VFP [id number] [facility] 2021-06-17 00:00:00 2021-06-17 00:00:00 Michelle Ruvalcaba, SERVICE WORKER: [address] [facility], [address], [place] [address] , Ph. VFP [place] - [facility] - VM_HOU_Shad ow [place] [id number] [facility] 2021-06-16 00:00:00 2021-06-16 00:00:00 Kimberlyn Messina: [address] [facility], [address], [place] [address] , Ph. VFP [place] - [facility] - VM_HOU_Care Management [id number] [facility] 2021-06-09 17:09:00 2021-06-12 17:30:00 Inpatient E KELSIE SHUKLA [facility] [id number] BL 2021-06-12 11:31:00 2021-06-12 11:31:00 Outpatient Bui_Q_WAGDN U VFP VFP [id number] [facility] 2021-06-12 04:21:00 2021-06-12 04:21:00 Outpatient Bui_Q VFP VFP [id number] [facility] 2021-06-03 05:42:00 2021-06-03 05:42:00 Outpatient Bui_Q VFP VFP [id number] [facility] 2021-06-03 00:00:00 2021-06-03 00:00:00 David Arguelles MD: [address], [address], [place] [address] , Ph. VFP [place] - [facility] - VM_HOU_Shad ow [place] [id number] [facility] 2021-05-30 11:16:00 2021-05-30 11:16:00 Outpatient Bui_Q VFP VFP [id number] [facility] 2021-05-30 11:16:00 2021-05-30 11:16:00 Outpatient Bui_Q_WAGDN U VFP VFP [id number] [facility] 2021-05-23 00:00:00 2021-05-23 00:00:00 Orders Only Doctor Unassigned, [place] [facility] 1.2.840.114 350.1.13.10 4.2.7.2.[id number] [facility] 2021-05-02 00:00:00 2021-05-02 00:00:00 Orders Only Doctor Unassigned, [place] [facility] 1.2.840.114 350.1.13.10 4.2.7.2.[id number] [facility] 2021-04-23 01:43:00 2021-04-23 01:43:00 Outpatient Bui_Q VFP VFP [id number] [facility] 2021-04-21 11:27:00 2021-04-21 11:27:00 Outpatient Bui_Q VFP VFP [id number] [facility] 2021-04-21 00:00:00 2021-04-21 00:00:00 David Arguelles MD: [address], [address], [place] [address] , Ph. VFP [place] - [facility] - VM_HOU_Pedro Luis Pack [id number] [facility] 2021-04-17 00:00:00 2021-04-17 00:00:00 Orders Only Doctor Unassigned, [place] [facility] 1.2.840.114 350.1.13.10 4.2.7.2.[id number] [facility] 2021-04-16 12:34:00 2021-04-16 12:34:00 Outpatient Bui_Q VFP VFP [id number] [facility] 2021-04-15 02:31:00 2021-04-15 02:31:00 Outpatient Bui_Q VFP VFP [id number] [facility] 2021-04-14 11:58:00 2021-04-14 11:58:00 Outpatient Bui_Q VFP VFP [id number] [facility] 2021-04-14 00:00:00 2021-04-14 00:00:00 Javad De Oliveira MD: [address] [place] [address], [address] [address] , Ph. VFP [place] - [facility] - VM_HOU_[facility] (WAG) [id number] [facility] 2021-03-06 00:00:00 2021-03-06 00:00:00 Orders Only Doctor Unassigned, [place] [facility] 1.2.840.114 350.1.13.10 4.2.7.2.[id number] [facility] 2021-02-15 10:53:00 2021-02-15 10:53:00 Outpatient Bui_Q VFP VFP [id number] [facility] 2021-02-15 10:53:00 2021-02-15 10:53:00 Outpatient Bui_Q VFP VFP [id number] [facility] 2021-02-12 00:00:00 2021-02-12 00:00:00 Orders Only Doctor Unassigned, [place] [facility] 1..840.114 350.1.13.10 4.2.7.2.[id number] [facility] 2021-02-10 11:28:00 2021-02-10 11:28:00 Outpatient Bui_Q_WAGDN U VFP VFP [id number] [facility] 2021-02-10 11:28:00 2021-02-10 11:28:00 Outpatient Bui_Q_WAGDN U VFP VFP [id number] [facility] 2021-02-06 10:33:27 2021-02-06 11:48:59 Office Visit Faraz Mccarthy Craig L [facility] 1..840.114 350.1.13.10 4.2.7.2.[id number] [facility] 2021-02-06 10:30:00 2021-02-06 11:48:59 Outpatient R OREN PONCE [facility] [id number] [facility] 2021-02-06 10:30:00 2021-02-06 10:30:00 Outpatient OREN RODRIGUEZ [facility] [id number] [facility] 2021-01-31 08:53:00 2021-01-31 08:53:00 Outpatient Bui_Q_WAGDN U VFP VFP [id number] [facility] 2021-01-14 00:00:00 2021-01-14 00:00:00 Orders Only Doctor Unassigned, [place] [facility] 1..840.114 350.1.13.10 4.2.7.2.[id number] [facility] 2021-01-07 01:09:00 2021-01-07 01:09:00 Outpatient Bui_Q VFP VFP [id number] [facility] 2021-01-07 00:00:00 2021-01-07 00:00:00 Javad De Oliveira MD: [address] [facility], [address], [place] [address] , Ph. VFP [place] - [facility] - VM_HOU_[facility] (WAG) [id number] [facility] 2020-12-11 01:03:00 2020-12-11 01:03:00 Outpatient Bui_Q_WAG VFP VFP [id number] [facility] 2020-12-06 05:07:00 2020-12-06 05:07:00 Outpatient Bui_Q_WAG VFP VFP [id number] [facility] 2020-11-21 03:22:00 2020-11-21 03:22:00 Outpatient Bui_Q VFP VFP [id number] [facility] 2020-11-21 00:00:00 2020-11-21 00:00:00 David Arguelles MD: [address] [facility], [address], [place] [address] , Ph. VFP [place] - [facility] - VM_HOU_Pedro Luis [place] [id number] [facility] 2020-11-12 02:36:00 2020-11-12 02:36:00 Outpatient Bui_Q_WAG VFP VFP [id number] [facility] 2020-10-19 05:18:00 2020-10-19 05:18:00 Outpatient Bui_Q VFP VFP [id number] [facility] 2020-10-19 05:18:00 2020-10-19 05:18:00 Outpatient Bui_Q VFP VFP [id number] [facility] 2020-10-19 05:18:00 2020-10-19 05:18:00 Outpatient Bui_Q VFP VFP [id number] [facility] 2020-10-19 05:18:00 2020-10-19 05:18:00 Outpatient Bui_Q VFP VFP [id number] [facility] 2020-10-15 01:23:00 2020-10-15 01:23:00 Outpatient Bui_Q_WAG VFP VFP [id number] [facility] 2020-10-15 00:00:00 2020-10-15 00:00:00 Javad De Oliveira MD: [address] [facility], [address], [place] [address] , Ph. VFP [place] - [facility] - VM_HOU_[facility] (WAG) [id number] [facility] 2020-09-20 02:01:00 2020-09-20 02:01:00 Outpatient Bui_Q VFP VFP [id number] [facility] 2020-09-20 02:01:00 2020-09-20 02:01:00 Outpatient Bui_Q VFP VFP [id number] [facility] 2020-08-31 04:58:00 2020-08-31 04:58:00 Outpatient Bui_Q VFP VFP [id number] [facility] 2020-08-29 03:22:00 2020-08-29 03:22:00 Outpatient Bui_Q VFP VFP [id number] [facility] 2020-08-29 00:00:00 2020-08-29 00:00:00 David Arguelles MD: [address] [facility] [place] [facility], [address], [place] [address] , Ph. VFP [place] [facility] - VM_HOU_Shad ow [place] [id number] [facility] 2020-08-12 10:00:00 2020-08-12 10:00:00 Outpatient Bui_Q_WAG VFP VFP [id number] [facility] 2020-08-06 06:29:00 2020-08-06 06:29:00 Outpatient Bui_Q_WAG VFP VFP [id number] [facility] 2020-08-01 03:51:00 2020-08-01 03:51:00 Outpatient Bui_Q VFP VFP [id number] [facility] 2020-08-01 00:00:00 2020-08-01 00:00:00 David Arguelles MD: [address] [facility], [facility] [address], [place] [address] , Ph. VFP [place] [facility] - VM_HOU_Fabianoneisha ow [place] [id number] [facility] 2020-07-31 03:24:00 2020-07-31 03:24:00 Outpatient Bui_Q VFP VFP [id number] [facility] 2020-07-22 07:15:00 2020-07-22 07:15:00 Outpatient Bui_Q_WAG VFP VFP [id number] [facility] 2020-07-22 07:15:00 2020-07-22 07:15:00 Outpatient Bui_Q_WAG VFP VFP [id number] [facility] 2020-07-20 02:21:00 2020-07-20 02:21:00 Outpatient Bui_Q_WAG VFP VFP [id number] [facility] 2020-07-16 02:14:00 2020-07-16 02:14:00 Outpatient Bui_Q_WAG VFP VFP [id number] [facility] 2020-07-16 00:00:00 2020-07-16 00:00:00 Javad De Oliveira MD: [address] [facility], [address], [place] [address] , Ph. VFP [place] - [facility] - VM_HOU_[facility] (WAG) [id number] [facility] 2020-07-15 05:51:00 2020-07-15 05:51:00 Outpatient Bui_Q_WAG VFP VFP [id number] [facility] 2020-05-14 14:15:00 2020-05-14 15:40:00 Emergency E BHAVESH HORVATH [facility] [facility] 2020-05-02 12:12:00 2020-05-02 12:12:00 Outpatient Bui_Q_WAG VFP VFP [id number] [facility] 2020-05-02 12:12:00 2020-05-02 12:12:00 Outpatient Bui_Q_WAG VFP VFP [id number] [facility] 2020-05-02 12:12:00 2020-05-02 12:12:00 Outpatient VFP VFP [id number] [facility] 2020-04-22 08:16:00 2020-04-22 08:16:00 Outpatient Bui_Q_WAG VFP VFP [id number] [facility] 2020-04-22 00:00:00 2020-04-22 00:00:00 Javad De Oliveira MD: [address] [place] [address] , Ph. VFP [place] - [facility] - VM_HOU_[facility] (WAG) [id number] [facility] 2020-02-27 09:37:00 2020-02-27 09:37:00 Outpatient Bui_Q_WAG VFP VFP [id number] [facility] 2020-02-27 09:37:00 2020-02-27 09:37:00 Outpatient Bui_Q_WAG VFP VFP [id number] [facility] 2020-02-27 09:37:00 2020-02-27 09:37:00 Outpatient Bui_Q_WAG VFP VFP [id number] [facility] 2020-02-27 09:37:00 2020-02-27 09:37:00 Outpatient VFP VFP [id number] [facility] 2020-02-27 09:37:00 2020-02-27 09:37:00 Outpatient VFP VFP [id number] [facility] 2020-02-27 09:37:00 2020-02-27 09:37:00 Outpatient [facility] VFP VFP [id number] [facility] 2020-01-23 05:44:00 2020-01-23 05:44:00 Outpatient [facility] VFP VFP [id number] [facility] 2020-01-23 05:44:00 2020-01-23 05:44:00 Outpatient [facility] VFP VFP [id number] [facility] 2020-01-23 05:44:00 2020-01-23 05:44:00 Outpatient [facility] VFP VFP [id number] [facility] 2020-01-23 05:44:00 2020-01-23 05:44:00 Outpatient [facility] VFP VFP [id number] [facility] 2020-01-23 05:44:00 2020-01-23 05:44:00 Outpatient [facility] VFP VFP [id number] [facility] 2020-01-23 00:00:00 2020-01-23 00:00:00 Javad De Oliveira MD: [address] [phone] , Ph. VFP [place] - [facility] - VM_HOU_[facility] ([facility]) [id number] [facility] 2019-12-14 10:19:00 2019-12-14 10:19:00 Outpatient [facility] VFP VFP [id number] [facility] 2019-12-14 10:19:00 2019-12-14 10:19:00 Outpatient [facility] VFP VFP [id number] [facility] 2019-10-25 02:17:00 2019-10-25 02:17:00 Outpatient [facility] VFP VFP [id number] [facility] 2019-10-25 02:17:00 2019-10-25 02:17:00 Outpatient [facility] VFP VFP [id number] [facility] 2019-10-19 12:37:00 2019-10-19 12:37:00 Outpatient [facility] VFP VFP [id number] [facility] 2019-10-19 00:00:00 2019-10-19 00:00:00 Javad De Oliveira MD: [address] [phone] , Ph. VFP [place] - [id number] 2019-10-18 09:32:00 2019-10-18 09:32:00 Outpatient [facility] VFP VFP [id number] [facility] 2019-10-13 04:23:00 2019-10-13 04:23:00 Outpatient [facility] VFP VFP [id number] [facility] 2019-10-13 00:00:00 2019-10-13 00:00:00 Melisa Fitzpatrick, SERVICE WORKER: [address] [phone] , Ph. VFP [place] - [id number] 2019-07-26 02:06:00 2019-07-26 02:06:00 Outpatient [facility] VFP VFP [id number] [facility] 2019-07-07 11:49:00 2019-07-07 11:49:00 Outpatient [facility] VFP VFP [id number] [facility] 2019-07-07 11:49:00 2019-07-07 11:49:00 Outpatient VFP VFP [id number] [facility] 2019-07-07 11:49:00 2019-07-07 11:49:00 Outpatient [facility] VFP VFP [id number] [facility] 2019-07-07 00:00:00 2019-07-07 00:00:00 Javad De Oliveira MD: [address] [address] , Ph. VFP [place] [facility] ([facility]) [id number] [facility] 2019-05-18 03:23:00 2019-05-18 03:23:00 Outpatient Bui_Q_WAG VFP VFP [id number] [facility] 2019-04-14 02:34:00 2019-04-14 02:34:00 Outpatient Bui_Q_WAG VFP VFP [id number] [facility] 2019-04-14 02:34:00 2019-04-14 02:34:00 Outpatient Bui_Q_WAG VFP VFP [id number] [facility] 2019-04-14 02:34:00 2019-04-14 02:34:00 Outpatient VFP VFP [id number] [facility] 2019-04-14 02:34:00 2019-04-14 02:34:00 Outpatient Bui_Q_WAG VFP VFP [id number] [facility] 2019-04-11 08:37:00 2019-04-11 08:37:00 Outpatient Bui_Q_WAG VFP VFP [id number] [facility] 2019-04-10 03:30:00 2019-04-10 03:30:00 Outpatient Bui_Q_WAG VFP VFP [id number] [facility] 2019-04-10 00:00:00 2019-04-10 00:00:00 Javad De Oliveira MD: [address] [address] , Ph. [place]FP [place] [facility] () [id number] [facility] 2019-03-08 12:08:00 2019-03-08 12:08:00 Outpatient VFP VFP [id number] [facility] 2019-02-09 00:00:00 2019-02-09 00:00:00 Javad De Oliveira MD: [address] [place] [address] , Ph. P [place] - [facility] - [facility] ([facility]) [id number] [facility] 2018-09-27 09:45:00 2018-09-27 09:45:00 [facility] [id number] [facility] 2018-09-13 10:00:00 2018-09-13 10:00:00 [facility] [id number] [facility] 2018-08-22 10:45:00 2018-08-22 10:45:00 [facility] [id number] [facility] 2018-05-17 13:30:00 2018-05-17 13:30:00 [facility] [id number] [facility] 2018-05-02 13:30:00 2018-05-02 13:30:00 [facility] [id number] [facility] 2018-04-29 09:58:00 2018-04-29 09:58:00 [facility] [id number] [facility] 2018-04-25 13:30:00 2018-04-25 13:30:00 [facility] [id number] [facility] 2018-04-14 10:00:00 2018-04-14 10:00:00 [facility] [id number] [facility] 2018-03-29 14:29:00 2018-03-29 14:29:00 [facility] [place] [facility] [id number] [facility] 2018-03-24 14:30:00 2018-03-24 14:30:00 [facility] [id number] [facility] 2018-03-04 08:00:00 2018-03-04 08:00:00 [facility] [id number] [facility] Results Test Description Test Time Test Comments Results Result Co mments Source [facility] in Capillary [id number] 14:58:54* Test Item Value Reference Range Interpretation Comme nts Blood Glucose: mg/dl (test c ode = Blood Glucose: mg/dl) 162 [facility] GLUCOSE (AUTOMATED)2023-06-10 16:26:44* Test Item Value Reference Range Interpretation Comme nts POCT GLU (test code = 0804769870) 168 mg/dL 70-110 H Lab Interpretation (test cod e = 39248-0) Abnormal [facility]2023-06-10 12:32:20* Test Item Value Reference Range Interpretation Comme nts POCT GLU (test code = 7053986423) 120 mg/dL 70-110 H Lab Interpretation (test cod e = 75785-5) Abnormal [facility]2023-06-10 01:13:26* Test Item Value Reference Range Interpretation Comme nts POCT GLU (test code = 4484051492) 132 mg/dL 70-110 H Lab Interpretation (test cod e = 91039-3) [facility] 21:29:12* Test Item Value Reference Range Interpretation Comme nts POCT GLU (test code = 3460364597) 169 mg/dL 70-110 H Lab Interpretation (test cod e = 17157-2) [facility]2023-06-09 17:23:35* Test Item Value Reference Range Interpretation Comme nts POCT GLU (test code = 6187557550) 248 mg/dL 70-110 H Lab Interpretation (test cod e = 07975-8) Abnormal [facility]2023-06-09 13:00:13* Test Item Value Reference Range Interpretation Comme [facility] POCT GLU (test code = 2020412984) 196 mg/dL 70-110 H Lab Interpretation (test cod e = 45002-8) Abnormal [facility] Metabolic Panel (NA, K, CL, CO2, GLUCOSE, BUN, CREATININE, CA)2023-06-09 09:52:53* Test Item Value Reference Range Interpretation Comme [facility] NA (test code = 4267201723) 136 mmol/L 135-145 K (test code = 6637693915) 4.3 mmol/L 3.5-5.0 CL (test code = 2257725937) 100 mmol/L 98-108 CO2 TOTAL (test code = 8715545528) 30 mmol/L 23-31 AGAP (test code = 2185364685) 6 2-16 BUN (test code = 1248990882) 35 mg/dL 7-23 H GLUCOSE (test code = 0863859255) 273 mg/dL 70-110 H CREATININE (test code = 2160-0) 1.17 mg/dL 0.50-1.04 H CALCIUM (test code = 5157275707) 8.7 mg/dL 8.6-10.6 eGFR (test code = 86040-5) 53.9 mL/min/1.73m2 CKD-EPI eGFR (2020). Assuming creatinine has been stable day-to-day for at least three months, the eGFR indicates Category G3a (45 - 59 mL/min/1.73 m2) Lab Interpretation (test code = 56681-7) Abnormal [facility] with [id number] 09:30:31* Test Item Value Reference Range Interpretation Comme [facility] WBC (test code = 6690-2) 17.42 4.30-11.10 H RBC (test code = 789-8) 4.61 3.93-5.25 HGB (test code = 718-7) 14.0 g/dL 11.6-15.0 HCT (test code = 4544-3) 43.7 % 35.7-45.2 MCV (test code = 787-2) 94.8 fL 80.6-95.5 MCH (test code = 785-6) 30.4 pg 25.9-32.8 MCHC (test code = 786-4) 32.0 g/dL 31.6-35.1 RDW-SD (test code = 02277-3) 57.4 fL 39.0-49.9 H RDW-CV (test code = 788-0) 16.5 % 12.0-15.5 H PLT (test code = 777-3) 236 166-358 MPV (test code = 26181-1) 10.2 fL 9.5-12.9 NRBC/100 WBC (test code = 1855182990) 0.0 0.0-10.0 NRBC x10^3 (test code = 7230537002) See_Comment [Automated message] The system which generated this result transmitted reference range: 10*3/?L. The reference range was not used to interpret this result as normal/abnormal. GRAN MAT (NEUT) % (test code = 770-8) 84.5 % IMM GRAN % (test code = 4181550749) 1.40 % LYMPH % (test code = 736-9) 7.6 % MONO % (test code = 5905-5) 6.1 % EOS % (test code = 713-8) 0.1 % BASO % (test code = 706-2) 0.3 % GRAN MAT x10^3(ANC) (test code = 8801727538) 14.74 10*3/uL 1.88-7.09 H IMM GRAN x10^3 (test code = 3499921128) 0.24 10*3/uL 0.00-0.06 H LYMPH x10^3 (test code = 731-0) 1.32 10*3/uL 1.32-3.29 MONO x10^3 (test code = 742-7) 1.06 10*3/uL 0.33-0.92 H EOS x10^3 (test code = 711-2) 0.03-0.39 L BASO x10^3 (test code = 704-7) 0.05 10*3/uL 0.01-0.07 Lab Interpretation (test code = 46693-0) Abnormal [facility] GLUCOSE (AUTOMATED)2023-06-09 05:01:47* Test Item Value Reference Range Interpretation Comme nts POCT GLU (test code = 1479248184) 380 mg/dL 70-110 H Lab Interpretation (test cod e = 68868-3) Abnormal [facility] GLUCOSE (AUTOMATED)2023-06-09 02:15:15* Test Item Value Reference Range Interpretation Comme nts POCT GLU (test code = 8609718088) 398 mg/dL 70-110 H Lab Interpretation (test cod e = 00164-8) Abnormal [facility] GLUCOSE (AUTOMATED)2023-06-08 21:36:10* Test Item Value Reference Range Interpretation Comme nts POCT GLU (test code = 9515472166) 399 mg/dL 70-110 H Lab Interpretation (test cod e = 23248-0) Abnormal [facility] GLUCOSE (AUTOMATED)2023-06-08 16:49:05* Test Item Value Reference Range Interpretation Comme nts POCT GLU (test code = 6927639935) 347 mg/dL 70-110 H Lab Interpretation (test cod e = 59934-7) Abnormal [facility] GLUCOSE (AUTOMATED)2023-06-08 13:01:57* Test Item Value Reference Range Interpretation Comme nts POCT GLU (test code = 7546977127) 340 mg/dL 70-110 H Lab Interpretation (test cod e = 49724-4) Abnormal [facility] with Tfuy9776-10-30 11:22:06* Test Item Value Reference Range Interpretation Comme nts WBC (test code = 6690-2) 21.87 4.30-11.10 H RBC (test code = 789-8) 4.56 3.93-5.25 HGB (test code = 718-7) 14.1 g/dL 11.6-15.0 HCT (test code = 4544-3) 43.0 % 35.7-45.2 MCV (test code = 787-2) 94.3 fL 80.6-95.5 MCH (test code = 785-6) 30.9 pg 25.9-32.8 MCHC (test code = 786-4) 32.8 g/dL 31.6-35.1 RDW-SD (test code = 52133-5) 58.1 fL 39.0-49.9 H RDW-CV (test code = 788-0) 16.8 % 12.0-15.5 H PLT (test code = 777-3) 240 166-358 MPV (test code = 74512-6) 10.2 fL 9.5-12.9 NRBC/100 WBC (test code = 2617220937) 0.0 0.0-10.0 NRBC x10^3 (test code = 1348368064) See_Comment [Automated message] The system which generated this result transmitted reference range: 10*3/?L. The reference range was not used to interpret this result as normal/abnormal. GRAN MAT (NEUT) % (test code = 770-8) 89.2 % IMM GRAN % (test code = 2527865143) 1.30 % LYMPH % (test code = 736-9) 3.8 % MONO % (test code = 5905-5) 5.4 % EOS % (test code = 713-8) 0.0 % BASO % (test code = 706-2) 0.3 % GRAN MAT x10^3(ANC) (test code = 1742808520) 19.51 10*3/uL 1.88-7.09 H IMM GRAN x10^3 (test code = 8531938836) 0.28 10*3/uL 0.00-0.06 H LYMPH x10^3 (test code = 731-0) 0.83 10*3/uL 1.32-3.29 L MONO x10^3 (test code = 742-7) 1.18 10*3/uL 0.33-0.92 H EOS x10^3 (test code = 711-2) 0.03-0.39 L BASO x10^3 (test code = 704-7) 0.07 10*3/uL 0.01-0.07 Lab Interpretation (test code = 89911-7) Abnormal [facility] Metabolic Panel (NA, K, CL, CO2, GLUCOSE, BUN, CREATININE, CA)2023-06-08 09:51:26* Test Item Value Reference Range Interpretation Comme nts NA (test code = 9969320549) 135 mmol/L 135-145 K (test code = 1904027282) 4.8 mmol/L 3.5-5.0 CL (test code = 7739138692) 100 mmol/L 98-108 CO2 TOTAL (test code = 9154129491) 30 mmol/L 23-31 AGAP (test code = 8165782913) 5 2-16 BUN (test code = 4378933905) 39 mg/dL 7-23 H GLUCOSE (test code = 7298697316) 380 mg/dL 70-110 H CREATININE (test code = 2160-0) 1.43 mg/dL 0.50-1.04 H CALCIUM (test code = 0262361110) 8.5 mg/dL 8.6-10.6 L eGFR (test code = 82004-7) 42.3 mL/min/1.73m2 CKD-EPI eGFR (2020). Assuming creatinine has been stable day-to-day for at least three months, the eGFR indicates Category G3b (30 - 44 mL/min/1.73 m2) Lab Interpretation (test code = 92634-7) Abnormal [facility] GLUCOSE (AUTOMATED)2023-06-08 05:21:43* Test Item Value Reference Range Interpretation Comme nts POCT GLU (test code = 1240026659) 364 mg/dL 70-110 H Lab Interpretation (test cod e = 58876-6) Abnormal [facility] GLUCOSE (AUTOMATED)2023-06-08 01:27:26* Test Item Value Reference Range Interpretation Comme nts POCT GLU (test code = 6073477843) 407 mg/dL 70-110 H Lab Interpretation (test cod e = 00197-7) Abnormal [facility] GLUCOSE (AUTOMATED)2023-06-07 21:46:17* Test Item Value Reference Range Interpretation Comme nts POCT GLU (test code = 4566228049) 400 mg/dL 70-110 H Lab Interpretation (test cod e = 80230-0) Abnormal [facility] GLUCOSE (AUTOMATED)2023-06-07 16:44:17* Test Item Value Reference Range Interpretation Comme nts POCT GLU (test code = 1259860342) 370 mg/dL 70-110 H Lab Interpretation (test cod e = 44645-3) Abnormal [facility] (TTE)2023-06-07 16:32:53* Test Item Value Reference Range Interpretation Comme nts Height (test code = 2694818454) 63 in Weight (test code = 2769295146) 345 lbs Systolic BP (test code = 9159557164) 109 mmHg Diastolic BP (test code = 3434059649) 72 mmHg Heart Rate (test code = 4356475805) 97 bpm BSA (test code = 3759349706) 2.44 m2 Ao root diam (test code = 5889838718) 3.20 cm Aortic root (test code = 3804099378) 3.2 cm Ao root annulus (test code = 3506566928) 3.2 cm LVOT diameter (test code = 7694448237) 1.97 cm LVOT area (test code = 9979865506) 3.00 cm2 LA size (test code = 2624328468) 3.9 cm E wave decelartion time (test code = 4837607319) 0.18 s MV Peak E Rhiannon (test code = 3804478004) 121.5 cm/s MV stenosis pressure 1/2 time (test code = 0763994402) 53.9 ms MV Peak A Rhiannon (test code = 5158851589) 119.4 cm/s E/A ratio (test code = 4198268874) 1.02 ratio MV Prop V (test code = 2313181407) 93.70 cm/s MV E/e' septal (test code = 3632142540) 9.7 cm/s LAV(MOD-sp4) (test code = 1884906947) 98.10 mL Tapse (test code = 7091580526) 2.14 cm LVOT stroke volume (test code = 0025069586) 65.20 cm3 LVOT peak rhiannon (test code = 0737054680) 116.9 cm/s LVOT mn grad (test code = 9882441068) 2.9 mmHg AV LVOT peak gradient (test code = 2566004005) 5.5 mmHg LVOT peak VTI (test code = 4324959686) 21.4 cm LV V1 mean (test code = 9247741261) 80.00 cm/s Aortic valve mean velocity (test code = 0503390876) 124.1 cm/s Ao peak rhiannon (test code = 8578545862) 173.2 cm/s Ao VTI (test code = 9004730543) 30.2 cm AV area by cont VTI (test code = 4750828109) 2.2 cm2 AV area peak rhiannon (test code = 5382797994) 2.1 cm2 Ao max PG (test code = 3885968176) 12.00 mm[Hg] AV peak gradient (test code = 4365055504) 12.0 mmHg AV valve area (test code = 0887226781) 2.16 cm2 AV mean gradient (test code = 1404196216) 6.7 mmHg LVIDD (test code = 8914423107) 4.40 cm Left Ventricular End Diastolic Volume by Teichholz Method (test code = 0553471) 87.0 mL IVS (test code = 8693655872) 0.96 cm Interventricular Septum Diastolic Thickness by 2D (test code = 6537117) 0.96 cm LVPWD (test code = 6402613872) 0.97 cm PW (test code = 2863888724) 0.97 cm 0.6-1.1 EF(Teich) (test code = 8546956452) 61.80 % LVIDS (test code = 6192046721) 2.90 cm Left Ventricular End Systolic Volume by Teichholz Method (test code = 1800116) 33.3 mL FS (test code = 4298495993) 33 % EF - 2D (test code = 34017176) 61.80 % Radiology Study observation (narrative) (test code = 75575-2) ARABELLA (test code = ARABELLA) ?Left?Ventricle: Left ventricle size is normal. Normal wall thickness. Normal wall motion. Normal systolic function with a visually estimated EF of 60 - 65%. Indeterminate diastolic function. ?Right?Ventricle: Right ventricle size is normal. Normal systolic function. ?Tricuspid?Valve: Insufficient tricuspid regurgitation jet to estimate RVSP . ?RA pressure is 0-5 mmHg. ?Pericardium: Trivial pericardial effusion present. Left VentricleLeft ventricle size is normal. Normal wall thickness. Normal wall motion. Normal systolic function with a visually estimated EF of 60 - 65%. Indeterminate diastolic function.Right VentricleRight ventricle size is normal. Normal systolic function.Left AtriumLeft atrium size is normal.Right AtriumRight atrium size is normal.IVC/SVCIVC diameter is less than or equal to 21 mm and decreases greater than 50% during inspiration; therefore the estimated right atrial pressure is normal (~0-5 mmHg).Mitral ValveMild annular dilation. Trace transvalvular regurgitation.Tricusp id ValveTricuspid valve structure is normal. Trace transvalvular regurgitation. Insufficient tricuspid regurgitation jet to estimate RVSP . RA pressure is 0-5 mmHg.Aortic ValveTricuspid. Mildly thickened cusps.Pulmonic ValveValve structure is normal.Ascending AortaNormal sized aorta.PericardiumTriv ial pericardial effusion present.Study DetailsStudy quality experienced technical difficulty. A complete echocardiogram was performed using 2D, color flow Doppler and spectral Doppler. 3 mL of Optison ultrasound enhancing agent used. [facility] ABDOMEN PELVIS WO [id number] 14:27:52EXAM: CT ABDOMEN PELVIS WO CONTRAST 06/07/2023 4:20 AM HISTORY: 57 years- old Female with elevated LFTs,UTI. r/o bililarypathology, r/o pyelonephritis . COMPARISON: None. TECHNIQUE: Contiguous axial imaging from the level of the lung basesthrough the proximal thighs was performed without the intravenou sadministration of contrast. Corresponding coronal and sagittal MPRreconstructions were obtained. ?Auto mA and/or iterative reconstructionwere used to reduce radiation dose. FINDINGS:Limited evaluation of abdominal and pelvic organs due to lack ofintravenous contrast. LOWER THORAX: Basilar atelectasis and groundglass opacities. LIVER: Liver measures 18 cm in length. Slightly lobulated borders of theliver may be related to hepatocellular disease. GALLBLADDER AND BILIARY TREE: Multiple gallstonesin the gallbladder. SPLEEN: Unremarkable. PANCREAS: Normal unenhanced CT appearance. ADRENAL GLANDS: 2.7 cm left adrenal nodule is enlarged from previous exam,previously measuring 2.1 cm. Otherwise left adrenal nodular thickeningagain noted. Noncontrast Hounsfield units are 21.5. Right adrenal gland isnormal. KIDNEYS: Slight enlargement of the left kidney with perinephric stranding.Trace right perinephric stranding, to a lesser degree. No hydronephrosis,renal or ureteral calculi. No drainable pe rinephric fluid collection. Leftperiureteral stranding. PERITONEUM AND RETROPERITONEUM: No free airor free fluid. LYMPH NODES: Few minimally prominent left para-aortic/retroperitoneal lymphnodes adjacent to the left kidney. GI TRACT: A few scattered diverticula in the colon without definitediverticulitis. No bowel wall thickening or obstruction. PELVIS/BLADDER: Kraus catheter and air within decompressed bladder. Bladderwall thickening is not excluded. VESSELS: Atherosclerotic change is presentwithin the aorta and iliacarteries without aneurysmal dilatation. BONES AND SOFT TISSUES: Degenerative change involving the spine, sacroiliacjoints and hips is present. Advanced left hip osteoarthritic change hassignificantly worsened since prior exam There has been interval developmentof complex right infraumbilical hernia containing fat and small bowel.[facility] GLUCOSE (AUTOMATED)2023-06-07 12:44:04* Test Item Value Reference Range Interpretation Comme nts POCT GLU (test code = 8118819743) 269 mg/dL 70-110 H Lab Interpretation (test cod e = 62340-9) Abnormal [facility] GLUCOSE (AUTOMATED)2023-06-07 02:01:00* Test Item Value Reference Range Interpretation Comme nts POCT GLU (test code = 4728474723) 299 mg/dL 70-110 H Lab Interpretation (test cod e = 57597-1) Abnormal [facility] GLUCOSE (AUTOMATED)2023-06-06 21:37:30* Test Item Value Reference Range Interpretation Comme nts POCT GLU (test code = 1121816052) 303 mg/dL 70-110 H Lab Interpretation (test cod e = 93273-5) Abnormal [facility]XR CHEST 1 [id number] 18:50:28ORDERING PROVIDER: FRITZ KIRKLAND HISTORY: dyspnea TECHNIQUE: Frontal views of the chest. COMPARISON: none FINDINGS:Mild bilateral interstitial and groundglass opacities. No pleural effusionor pneumothorax. Cardiac silhouette is moderately enlarged. No acute bony abnormalities.[facility] [id number] 17:33:00Fritz Kirkland MD ? ? 06/06/2023 11:51 PMCritical Care Performed by: Fritz Kirkland MDAuthorized by: Fritz Kirkland MD ?Critical care provider statement: ?Critical care time (minutes): ?45 ?Critical care time was exclusive of: ?Separately billable procedures and treating other patients and teaching time ?Critical care was necessary to treat or prevent imminent or life-threatening deterioration of the following conditions: ?Respiratory failure ?Critical care was time spent personally by me on the following activities: ?Development of treatment plan with patient or surrogate, evaluation of p atient's response to treatment, examination of patient, obtaining history from patient or surrogate, ordering and performing treatments and interventions, ordering and review of laboratory studies, ordering and review of radiographic studies, pulse oximetry, re-evaluation of patient's condition andreview of old charts ?Care discussed with: admitting provider ?Comments: ? Due to a high probability of clinically significant, life threatening deterioration, the patient required my highest level of preparedness to intervene emergently and I personally spent this critical care time directly and personally managing the patient. This critical care time included obtaining a history; examining the p atient; pulse oximetry; ordering and review of studies; arranging urgent treatment with developmentof a management plan; evaluation of patient's response to treatment; frequent reassessment; and, discussions with other providers.This critical care time was performed to assess and manage the high probability of imminent, life-threatening deterioration that could result in multi-organ failure. It was exclusive of separately billable procedures and treating other patients.[facility] CenterHemoglobin A1c measurement device [id number] 11:37:20* Test Item Value Reference Range Interpretation Comme [facility] Hemoglobin A1c/Hemoglobin.to deshawn in Blood (test code = 4548-4) 8.3 % 4.0-6.4 [facility] [Mass/volume] in Capillary [id number] 11:33:13* Test Item Value Reference Range Interpretation Comme [facility] Blood Glucose: mg/dl (test c ode = Blood Glucose: mg/dl) 82 [facility]Hem[facility] A1c measurement device [id number] 10:19:39* Test Item Value Reference Range Interpretation Comme [facility] Hemoglobin A1c/Hemoglobin.to deshawn in Blood (test code = 4548-4) 8.6 % 4.0-6.4 [facility]Gl[facility] [Mass/volume] in Capillary [id number] 10:15:28* Test Item Value Reference Range Interpretation Comme nts Blood Glucose: mg/dl (test c ode = Blood Glucose: mg/dl) 212 [facility]Com[facility] 1999 panel - Serum or Plasma 2022-09-30 00:00:00* Test Item Value Reference Range Interpretation Comme nts glucose (test code = glucose) 225 mg/dL 70-99 H creatinine (test code = creatinine) 1.07 mg/dL 0.57-1.11 BUN (test code = BUN) 20.6 mg/dL 9.8-25.0 eGFR (test code = eGFR) 53 mL/min/1.73m2 A sodium (test code = sodium) 142 mEq/L 135-145 potassium (test code = potassium) 5.1 mEq/L 3.5-5.3 CO2 (test code = CO2) 27.4 mmol/L 20.0-32.0 chloride (test code = chloride) 102 mmol/L 98-110 anion gap (test code = anion gap) 13 calc calcium (test code = calcium) 9.5 mg/dL 8.4-10.4 total protein (test code = total protein) 7.5 g/dL 6.1-8.2 albumin (test code = albumin) 3.6 g/dL 3.4-5.1 total bilirubin (test code = total bilirubin) 0.3 mg/dL 0.2-1.2 alk phos (test code = alk phos) 142 unit/L 40-150 ALT (test code = ALT) 32 U/L 0-55 AST (test code = AST) 35 U/L 5-34 H [facility] HospitalLip[facility] 1995 panel - Serum or [id number] 00:00:00* Test Item Value Reference Range Interpretation Comme [facility] triglyceride (test code = triglyceride) 124 mg/dL <150 cholesterol (test code = cholesterol) 131 mg/dL <200 HDL (test code = HDL) 30 mg/dL L VLDL (calculated) (test code = VLDL (calculated)) 25 mg/dL cholesterol/HDL ratio (test code = cholesterol/HDL ratio) 4.4 mg/dL Cholesterol in LDL [Mass/vol ume] in Serum or Plasma (test code = 2089-1) 76 mg/dL <130 non-HDL cholesterol (calcula pam) (test code = non-HDL cholesterol (calculated)) 101 mg/dL <160 [facility] HospitalThyroxine (T4) free [Mass/volume] in Serum or Plasma 2022-09-30 00:00:00* Test Item Value Reference Range Interpretation Comme [facility] T4 free (test code = T4 free) 0.66 NG/dL 0.70-1.48 L [facility] [Units/volume] in Serum or [id number] 00:00:00* Test Item Value Reference Range Interpretation Comme nts TSH (test code = TSH) 1.328 uIU/mL 0.350-4.940 [facility]ort[facility] [Mass/volume] in Serum or Plasma --AM peak [id number] 00:00:00* Test Item Value Reference Range Interpretation Comme nts cortisol - AM (test code = c ortisol - AM) 1.3 ug/dL 6.2-19.4 L [facility]Microalbumin/Creatinine [Mass Ratio] in [id number] 00:00:00* Test Item Value Reference Range Interpretation Comme nts creatinine random urine (test code = creatinine random urine) 35.9 mg/dL 20.0-320.0 microalbumin random urine (test code = microalbumin random urine) result IS <5 ug/mL. result IS less than the sensitivity of the instrument. microalbumin/creatinine (random urine) ratio calculated (test code = microalbumin/creatinine (random urine) ratio calculated) [facility] Auto Differential panel - [id number] 00:00:00 * Test Item Value Reference Range Interpretation Comme nts WBC (test code = WBC) 10.53 x10*3/?L 4.00-11.00 RBC (test code = RBC) 4.62 10*12/L 3.93-5.22 hemoglobin (test code = hemoglobin) 14.30 g/dL 11.20-15.70 hematocrit (test code = hematocrit) 43.6 % 34.1-44.9 MCV (test code = MCV) 94.4 fL 80.0-100.0 MCH (test code = MCH) 31.0 pg 25.6-32.2 MCHC (test code = MCHC) 32.8 g/dL 32.2-35.5 platelet count (test code = platelet count) 248.0 k/uL 150.0-400.0 RDW-SD (test code = RDW-SD) 55.0 fL [...] (test code = baso#) 0.06 x10*3/?L 0.01-0.08 [facility]Hemoglobin A1c measurement device [id number] 09:37:44* Test Item Value Reference Range Interpretation Comme [facility] Hemoglobin A1c/Hemoglobin.to deshawn in Blood (test code = 4548-4) 8.6 % 4.0-6.4 [facility]Glucose [Mass/volume] in Capillary [id number] 09:33:49* Test Item Value Reference Range Interpretation Comme [facility] Blood Glucose: mg/dl (test c ode = Blood Glucose: mg/dl) 201 [facility]Hemoglobin A1c measurement device [id number] 09:33:38* Test Item Value Reference Range Interpretation Comme [facility] Hemoglobin A1c/Hemoglobin.to deshawn in Blood (test code = 4548-4) 9.6 % 4.0-5.6 [facility]Glucose [Mass/volume] in Capillary [id number] 09:29:49* Test Item Value Reference Range Interpretation Comme [facility] Blood Glucose: mg/dl (test c ode = Blood Glucose: mg/dl) 187 [facility]Hemoglobin A1c measurement device [id number] 09:51:47* Test Item Value Reference Range Interpretation Comme nts Hemoglobin A1c/Hemoglobin.to deshawn in Blood (test code = 4548-4) 9.7 % 5.7-6.4 [facility]Glucose [Mass/volume] in Capillary [id number] 09:47:09* Test Item Value Reference Range Interpretation Comme nts Blood Glucose: mg/dl (test c ode = Blood Glucose: mg/dl) 244 [facility] HospitalUrinalysis macro (dipstick) panel - [id number] 16:16:56* Test Item Value Reference Range Interpretation Comme nts Interpretation UA test performed using: (test code = Interpretation UA test performed using:) Automated device/analyzer (10003,Covarity) Interpretation Color (test code = Interpretation Color) Yellow Interpretation Clarity (test code = Interpretation Clarity) Clear Interpretation Glucose (mg/dL) (test code = Interpretation Glucose (mg/dL)) 250 Interpretation Bilirubin (test code = Interpretation Bilirubin) Negative Interpretation Ketone (mg/dL) (test code = Interpretation Ketone (mg/dL)) Negative Interpretation Specific Rifle (test code = Interpretation Specific Rifle) 1.025 Interpretation Occult Blood (test code = Interpretation Occult Blood) Negative Interpretation pH (test code = Interpretation pH) 6.5 Interpretation Protein (test code = Interpretation Protein) Negative Interpretation Urobilinogen (test code = Interpretation Urobilinogen) 0.2 Interpretation Nitrites (test code = Interpretation Nitrites) Negative Interpretation Leukocytes (test code = Interpretation Leukocytes) Negative [facility]Glucose [Mass/volume] in Capillary [id number] 10:50:51* Test Item Value Reference Range Interpretation Comme nts Blood Glucose: mg/dl (test c ode = Blood Glucose: mg/dl) 147 [facility] HospitalHemoglobin A1c measurement device [id number] 10:29:20* Test Item Value Reference Range Interpretation Comme nts Hemoglobin A1c/Hemoglobin.to deshawn in Blood (test code = 4548-4) 9.0 % 5.7-6.4 [facility]Hemoglobin A1c measurement device [id number] 11:59:36* Test Item Value Reference Range Interpretation Comme nts Hemoglobin A1C Fingerstick: (test code = Hemoglobin A1C Fingerstick:) 8.6 [facility] HospitalGlucose [Mass/volume] in Capillary [id number] 11:54:04* Test Item Value Reference Range Interpretation Comme nts Blood Glucose: mg/dl (test c ode = Blood Glucose: mg/dl) 134 [facility] HospitalUrinalysis macro (dipstick) panel - [id number] 15:27:00* Test Item Value Reference Range Interpretation Comme nts Color Color (test code = Col or Color) light yellow Color Appearance (test code = Color Appearance) clear Color Glucose (test code = C olor Glucose) negative Color Bilirubin (test code = Color Bilirubin) negative Color Ketones (test code = C olor Ketones) negative Color Specific Rifle (test code = Color Specific Rifle) 1.020 Color Blood (test code = Col or Blood) trace Color PH (test code = Color PH) 6.0 Color Protein (test code = C olor Protein) negative Color Urobilinogen (test cod e = Color Urobilinogen) 0.2 Color Nitrites (test code = Color Nitrites) negative Color Leukocytes (test code = Color Leukocytes) negative [facility]Glucose [Mass/volume] in Capillary [id number] 15:29:53* Test Item Value Reference Range Interpretation Comme nts Blood Glucose: mg/dl (test c ode = Blood Glucose: mg/dl) 152 [facility]Glucose [Mass/volume] in Capillary [id number] 09:13:06* Test Item Value Reference Range Interpretation Comme nts Blood Glucose: mg/dl (test c ode = Blood Glucose: mg/dl) 283 [facility] HospitalC peptide [Mass/volume] in Serum or [id number] 15:51:00* Test Item Value Reference Range Interpretation Comme nts C-peptide (test code = C-peptide) 5.24 NG/mL 0.80-3.85 [facility] [id number] 15:51:00* Test Item Value Reference Range Interpretation Comme nts glutamic acid decarboxylase 65 Ab (test code = glutamic acid decarboxylase 65 Ab) <5 <5 ia-2 antibody (test code = i a-2 antibody) <5.4 <5.4 insulin autoantibody (test c ode = insulin autoantibody) <0.4 <0.4 [facility] Consult Notes Date/Time Note Provider Source 2023-06-09 11:59:47 Associated Order(s): CONSULT ADULT PHYSICAL THERAPY Patient agreeable to working with physical therapy. Patient met semi reclined in bed. Recommend nursing max/TA to safely assist patient with mobility out of the bed or chair. PHYSICAL THERAPY EVALUATION Consult received, chart reviewed and evaluation complete this date. Patient is referred to PT for evaluation and treatment. Patient is a 57 year old female who presents to hospital for Dyspnea, unspecified type [R06.00] . Discharge Recommendations: Therapy Needs and Potential: Patient would benefit from continued physical therapy services to address: decline in bed mobility decline in transfers decline w/c mobility decreased strength decreased endurance Challenges to Home Transition: increased risk of falls environmental barriers Equipment recommendations: Patient has or access to necessary equipment Current Functional Status and/or Treatment: AM-PAC 6 Clicks (Raw Score 0=Dependent, 24=Independent; Low function Raw Score 0= Dependent, 32=Independent): Raw Score - Basic Mobility : 8 T-Scale Score - Basic Mobility : 22.61 Bed Mobility: Rolling: Minimal Assistance Supine to sit EOB: max a Cued on proper sequencing for supine to sit EOB. Patient got close to sitting EOB position however , unable to get to complete upright sitting position . Patient was assisted back to supine. Dizziness No Transfers: Deferred : due to inability to assume sitting position/tolerance Ambulation: NA, patient non ambulatory about almost a year now. Therapeutic exercise: B LE AAROM 10x 2 sets in supine all available planes and range After session, patient semi reclined in bed. Call button provided. PLAN OF CARE: While in the hospital, PT will follow patient at least 5 times per week,once or twice a day, per patient's tolerance and needs. See below for complete details. Admit Date: 06/06/2023 Hospital Diagnosis:Dyspnea, unspecified type [R06.00] PT Diagnosis: Weakness and Abnormality of balance Weight Bearing Precaution: NA General Precautions: General, Fall, Lines/Tubes, catheter,IV telemetry, Bracing/Cast present or required:N/A PMH: Past Medical History: Diagnosis Date Bulging lumbar disc Cancer hx endometrial Diabetes mellitus 2006 type 2 Hypertension Lymph edema 2014 bilateral legs; history of cellulitis requiring IV ABX; reports nearly need amputation Morbid obesity with BMI of 50.0-59.9, adult 03/2014 BMI 59.7 Other and unspecified hyperlipidemia Peripheral neuropathy Peripheral vascular disease Thyroid disease hypothyroid PSH: Past Surgical History: Procedure Laterality Date ABDOMINAL SALPINGOOPHORECTOMY Bilateral 07/18/2014 Surgeon: Shivam Hartley; Location: [facility] LUMBAR EPIDURAL STEROID INJECTION N/A 09/27/2017 Surgeon: Garett Donald MD; Location[facility] LUMBAR EPIDURAL STEROID INJECTION N/A 10/04/2017 Surgeon: Garett Donald MD; Location: [facility] LUMBAR EPIDURAL STEROID INJECTION N/A 10/11/2017 Surgeon: Garett Donald MD; [facility] TONSILLECTOMY childhood TOTAL ABDOMINAL HYSTERECTOMY N/A 07/18/2014 Surgeon: Shivam Hartley; Location: [facility] Prior Living Situation: lives alone and but her brother currently living with her in an APT on the ground floor. Tub shower with a make foldable chair in the tub for her to sit. Patient expressed that she will need a proper shower chair coz she needs from her brother get get in and out of tub and that chair is not stable as well. DME: patient in need of a TUB TRANSFER bench. Prior level of Mobility: uses w/c primarily, I with bed mobility and tranfers from recline<>WC; WC <>toilet seat; needs assitance to get in and out of tub. Suspected ischemic or hemorraghic stroke:No Subjective: "pain in by back 10/10" Patient/Family Goals: " go home" Patient/Family verbalizes understanding of condition: Yes PAIN: Lower back pain 10/10 at rest per patient COMMUNICATION Primary Language: Fijian Able to Verbalize needs: Yes Vision:good; no issues reported Hearing:good; no issues reported ORIENTATION/COGNITION: Oriented to: person, place, date/time, and situation Awake: Yes Alert: Yes Dizzy: No Follows Commands: Yes 1-Step Yes Multi-Step Yes Inconsistent: No NEUROLOGICAL Light Touch: within functional limits bilateral LE, except L knee that's painful with ROM , limited Heel to jones: unable BALANCE: Sitting: Static: Poor Dynamic: NT Standing: Static: NT Dynamic: NT RANGE OF MOTION: within functional limits bilateral LE, except L knee that's painful with ROM , limited bilateral LE, STRENGTH: 2+/5 (P+), bilateral LE ENDURANCE: Poor, Nasal canula SKIN INTEGRITY: pls see RN notes , PROBLEM LIST: Decline in bed mobility, Decline in transfers, Decreased strength, Decreased endurance, Decreased balance, decline in wheel chair mobiliity, and ROM deficits ASSESSMENT: Patient is a 57 year old female seen secondary to the above listed diagnosis. Patient would benefit from continued PT to address the above listed deficits to maximize independence and safety with functional mobility. Rehabilitation Potential: guarded Goals: The following goals are to maximize independence and safety with functional mobility to eventually return to prior living situation and prior functional status. 1. Supine-sit: Independent Sit to supine: Independent 2. Stand pivot transfer: Supervision 3. Sit on EOB for 10 mins without assistance. Treatment Plan: Therapeutic exercise, Transfer training, Balance training, Bed mobility training, Equipment needs assessment, Wheelchair mobility training, and Neuromuscular Re-Education PATIENT EDUCATION: Patient provided with preferred teaching of verbal information on role of PT, plan of care, . Shows readiness to learn. Verbal instruction teaching provided. Individual verbalizes understanding of teaching provided. Total Time Tx Codes in Minutes: 17 min Total Treatment Time in Minutes: 25 min Donis Goode PT [place] license # [id number] Physical Therapist [facility] health [facility] [phone] Donis Goode PT [facility] - Health History and Physical Notes Date/Time Note Provider Source 2023-06-06 19:27:00 Medicine History & Physical Date of Service: 06/07/2023 Pt presents from: Home CC: Shortness of breath History of Present Illness: Homa Delgado is a 57 year old female with a PMH of NOY on CPAP, obesity, hypertension, diabetes, COPD, tobacco use, peripheral vascular disease, chronic kidney disease, hypothyroidism who presented to the ED for shortness of breath. Is been experiencing dyspnea for the past 2 to 3 days. She has been profoundly weak. She states that she falls asleep easily, and every time she tries to hold something she drops it. Family called EMS. Upon arrival she was noted to be 88% on room air. She was brought in for further evaluation. She also reports taking too much baclofen and opioids at home. She denies aspiration/choking. She denies loss of consciousness. ROS: Pt denies fever / chills / nausea / vomiting / diarrhea / constipation / chest pain / abdominal pain / dysuria / hematuria / melena / hematochezia / rashes / suicidal or homicidal ideation / All others negative Review of Hx/Meds: Current Facility-Administered Medications on File Prior to Encounter Medication Dose Route Frequency Provider Last Rate Last Admin bupivacaine (preserv free) (SENSORCAINE MPF) 0.25 % (2.5 mg/mL) injection PRGarett Garcia MD 10 mL at 10/11/17 0758 lidocaine 1% (XYLOCAINE) 10 mg/mL (1 %) injection PRGarett Garcia MD 6 mL at 10/11/17 0758 triamcinolone acetonide (KENALOG) injection PRGarett Garcia MD 40 mg at 10/11/17 0758 bupivacaine (preserv free) (SENSORCAINE MPF) 0.25 % (2.5 mg/mL) injection PRGarett Garcia MD 10 mL at 09/27/17 0758 iohexol (OMNIPAQUE 300-50 mL)) injection PRGarett Garcia MD 3 mL at 09/27/17 0758 lidocaine 1% (XYLOCAINE) 10 mg/mL (1 %) injection PRGarett Garcia MD 6 mL at 09/27/17 0757 triamcinolone acetonide (KENALOG) injection PRGarett Garcia MD 40 mg at 09/27/17 0759 Current Outpatient Medications on File Prior to Encounter Medication Sig Dispense Refill ibuprofen 800 mg tablet Take 1 tablet by mouth every 6 (six) hours as needed for Pain (scale 4-6). 14 tablet 0 insulin degludec-liraglutide (XULTOPHY 100/3.6) 100 unit-3.6 mg /mL (3 mL) InPn inject 46 Units under the skin daily. lisinopril 5 mg tablet Take 5 mg by mouth daily. solifenacin (VESICARE) 5 mg tablet Take 5 mg by mouth daily. DULoxetine 60 mg capsule Take 60 mg by mouth daily. baclofen (LIORESAL) 10 mg tablet Take 10 mg by mouth 2 (two) times daily. levothyroxine (SYNTHROID) 75 mcg tablet Take 75 mcg by mouth every morning. gabapentin (NEURONTIN) 300 mg capsule Take 2 capsules by mouth in the morning and 2 capsules at noon and 2 capsules in the evening. metFORMIN (GLUCOPHAGE) 500 mg tablet Take 500 mg by mouth 2 (two) times daily. simvastatin (ZOCOR) 40 mg tablet Take 40 mg by mouth at bedtime. I have reviewed the patient's home medications PMH: Past Medical History: Diagnosis Date Bulging lumbar disc Cancer hx endometrial Diabetes mellitus 2006 type 2 Hypertension Lymph edema 2014 bilateral legs; history of cellulitis requiring IV ABX; reports nearly need amputation Morbid obesity with BMI of 50.0-59.9, adult 03/2014 BMI 59.7 Other and unspecified hyperlipidemia Peripheral neuropathy Peripheral vascular disease Thyroid disease hypothyroid PSH: has a past surgical history that includes tonsillectomy; abdominal salpingoophorectomy (Bilateral, 07/18/2014); total abdominal hysterectomy (N/A, 07/18/2014); lumbar epidural steroid injection (N/A, 09/27/2017); lumbar epidural steroid injection (N/A, 10/04/2017); and lumbar epidural steroid injection (N/A, 10/11/2017). Family Hx: Social History Tobacco Use Smoking status: Every Day Packs/day: 1 Types: Cigarettes Passive exposure: Current Smokeless tobacco: Never Tobacco comments: 6-7 daily Substance Use Topics Alcohol use: No Alcohol/week: 0.0 standard drinks of alcohol Drug use: No Current Scheduled Medications Current IV Current Facility-Administered Medications: acetaminophen (TYLENOL) tablet 650 mg, 650 mg, Oral, Q6HPRN, Vinay Sidhu MD atorvastatin (LIPITOR) tablet 20 mg, 20 mg, Oral, QHS, Vinay Sidhu MD baclofen (LIORESAL) tablet 10 mg, 10 mg, Oral, BIDPRN, Chad Dash MD cefTRIAXone (ROCEPHIN) 1,000 mg in NaCl 0.9% (NS) 100 mL MINI-BAG, 1,000 mg, IV Piggyback, Q24H ABX, Vinay Sidhu MD dextrose 50 % in water (D50W) injection 25 mL, 25 mL, Slow IV Push, PRN, Phoebe Carl FNP doxycycline hyclate (Vibramycin) capsule 100 mg, 100 mg, Oral, Q12H, Vinay Sidhu MD gabapentin (NEURONTIN) 300 mg/6 mL oral solution 300 mg, 300 mg, Oral, TID, Vinay Sidhu MD glucagon (GLUCAGEN DIAGNOSTIC KIT) injection 1 mg, 1 mg, Intramuscular, PRN, Phoebe Carl FNP guaiFENesin 100 mg/5 mL solution 200 mg, 200 mg, Oral, Q4H, Vinay Sidhu MD, 200 mg at 06/07/23 0501 heparin (porcine) injection 5,000 Units, 5,000 Units, Subcutaneous, Q8H, Vinay Sidhu MD, 5,000 Units at 06/07/23 0501 insulin glargine (LANTUS U-100) injection 40 Units, 40 Units, Subcutaneous, DAILY, Vinay Sidhu MD, 40 Units at 06/06/23 1649 ipratropium-albuteroL (DUONEB) 0.5 mg-3 mg(2.5 mg base)/3 mL nebulizer solution 3 mL, 3 mL, Inhalation, Q4H, Vinay Sidhu MD, 3 mL at 06/07/23 0723 lactated ringers IV infusion 1,000 mL, 1,000 mL, IV Infusion, CONTINUOUS, Chad Dash MD, Last Rate: 150 mL/hr at 06/07/23 0045, 1,000 mL at 06/07/23 0045 levothyroxine (SYNTHROID) tablet 75 mcg, 75 mcg, Oral, QAM-0600, Vinay Sidhu MD, 75 mcg at 06/07/23 0501 methylPREDNISolone sod succ (SOLU-MEDROL (PF)) injection 40 mg, 40 mg, Intravenous, DAILY, Vinay Sidhu MD ondansetron (ZOFRAN (PF)) injection 4 mg, 4 mg, Slow IV Push, Q6HPRN, Vinay Sidhu MD Sliding Scale Insulin - Lispro (HumaLOG), , Subcutaneous, TID MEALS+HS, Phoebe Carl FNP, 8 Units at 06/06/23 2109 Facility-Administered Medications Ordered in Other Encounters: bupivacaine (preserv free) (SENSORCAINE MPF) 0.25 % (2.5 mg/mL) injection, , , PRShabana Zaidi Manjit S, MD, 10 mL at 10/11/17 0758 lidocaine 1% (XYLOCAINE) 10 mg/mL (1 %) injection, , , Shabana ZARCO Manjit S, MD, 6 mL at 10/11/17 0758 triamcinolone acetonide (KENALOG) injection, , , Shabana ZARCO Manjit S, MD, 40 mg at 10/11/17 0758 bupivacaine (preserv free) (SENSORCAINE MPF) 0.25 % (2.5 mg/mL) injection, , , Shabana ZARCO Manjit S, MD, 10 mL at 09/27/17 0758 iohexol (OMNIPAQUE 300-50 mL)) injection, , , Shabana ZARCO Manjit S, MD, 3 mL at 09/27/17 0758 lidocaine 1% (XYLOCAINE) 10 mg/mL (1 %) injection, , , Shabana ZARCO Manjit S, MD, 6 mL at 09/27/17 0757 triamcinolone acetonide (KENALOG) injection, , , Shabana ZARCO Manjit S, MD, 40 mg at 09/27/17 0759 Objective: Vitals: Vitals: 06/07/23 0309 06/07/23 0435 06/07/23 0445 06/07/23 0723 BP: 109/72 Pulse: 98 100 97 Resp: 20 16 Temp: 36.1 ?C (96.9 ?F) TempSrc: Temporal Artery SpO2: 93% 95% 95% 92% Weight: 345 lb (156.5 kg) Height: I/O's: Intake/Output Summary (Last 24 hours) at 06/07/2023 0727 Last data filed at 06/07/2023 0708 Gross per 24 hour Intake 648.04 ml Output 1275 ml Net -626.96 ml Physical Exam: Constitutional: drowsy, well-developed, well-nourished, and in no distress. Head: Normocephalic and atraumatic. Eyes: PERRL. Conjunctivae and EOM are normal. Neck: Normal range of motion. Neck supple. No JVD present. Cardiovascular: Normal rate, regular rhythm, normal heart sounds Pulmonary/Chest: Effort normal and breath sounds normal. No respiratory distress. Rhonchi. Abdominal: Soft. Bowel sounds are normal. No TTP, non-distended and no masses. No rebound or guarding. Musculoskeletal: Normal range of motion. No edema or tenderness. Lymphadenopathy: No cervical adenopathy. Neurological: A&O x3. No focal deficits. Gait normal. Skin: Skin is warm and dry. No rash noted. No erythema. No pallor. Labs: BMP:BMP NA Date Value 06/07/2023 136 mmol/L 06/06/2023 136 mmol/L 03/09/2015 138 mmol/L 07/23/2014 142 mmol/L 07/20/2014 134 mmol/L (L) 03/23/2014 141 MMOL/L K Date Value 06/07/2023 4.3 mmol/L 06/06/2023 4.6 mmol/L 03/09/2015 4.3 mmol/L 07/23/2014 4.5 mmol/L 07/20/2014 4.2 mmol/L 03/23/2014 4.8 MMOL/L CALCIUM Date Value 06/07/2023 8.4 mg/dL (L) 06/06/2023 9.0 mg/dL 03/09/2015 9.8 mg/dL 07/23/2014 8.7 mg/dL 07/20/2014 7.6 mg/dL (L) 03/23/2014 10.4 MG/DL CL Date Value 06/07/2023 99 mmol/L 06/06/2023 95 mmol/L (L) 03/09/2015 96 mmol/L (L) 07/23/2014 102 mmol/L 07/20/2014 100 mmol/L 03/23/2014 98 MMOL/L BUN Date Value 06/07/2023 34 mg/dL (H) 06/06/2023 35 mg/dL (H) 03/09/2015 17 mg/dL 07/23/2014 13 mg/dL 07/20/2014 8 mg/dL 03/23/2014 13 MG/DL CREATININE Date Value 06/07/2023 1.74 mg/dL (H) 06/06/2023 2.09 mg/dL (H) 03/09/2015 0.80 mg/dL 07/23/2014 0.81 mg/dL 07/20/2014 0.78 mg/dL 03/23/2014 0.68 MG/DL GLUCOSE Date Value 06/07/2023 337 mg/dL (H) 06/06/2023 230 mg/dL (H) 03/09/2015 148 mg/dL (H) 07/23/2014 111 mg/dL (H) 07/20/2014 149 mg/dL (H) 03/23/2014 104 MG/DL CO2 TOTAL Date Value 06/07/2023 27 mmol/L 06/06/2023 32 mmol/L (H) 03/09/2015 31 mmol/L (H) 07/23/2014 27 mmol/L 07/20/2014 25 mmol/L 03/23/2014 31 MMOL/L CBC:CBC WBC x10 3 (/uL) Date Value 06/15/2014 13.4 (H) WBC (10*3/?L) Date Value 06/07/2023 24.85 (H) RBC x10 6 (/uL) Date Value 06/15/2014 4.92 RBC (10*6/?L) Date Value 06/07/2023 4.66 PLT x10 3 (/uL) Date Value 06/15/2014 278 PLT (10*3/?L) Date Value 06/07/2023 243 HGB Date Value 06/07/2023 14.6 g/dL 06/15/2014 13.0 G/DL HCT (%) Date Value 06/07/2023 44.1 06/15/2014 40.9 BMP:Hepatic Function Panel ALBUMIN Date Value 06/07/2023 3.6 g/dL 03/23/2014 4.2 G/DL T PROTEIN Date Value 06/07/2023 7.9 g/dL 03/23/2014 8.0 G/DL TOTAL BILI Date Value 06/07/2023 0.6 mg/dL 03/23/2014 0.4 MG/DL BILI UNCON (mg/dL) Date Value 06/07/2023 0.1 BILI CONJ (mg/dL) Date Value 06/07/2023 0.0 ALT(SGPT) (U/L) Date Value 07/23/2014 44 03/23/2014 28 ALTv (U/L) Date Value 06/07/2023 27 AST(SGOT) (U/L) Date Value 06/07/2023 31 03/23/2014 29 ALK PHOS (U/L) Date Value 06/07/2023 164 (H) 03/23/2014 92 Troponin: Recent Labs 06/06/23 1250 TROPNI 0.004 I have reviewed all relevant labs Imaging: XR CHEST 1 VW Result Date: 06/06/2023 ORDERING PROVIDER: FRITZ KIRKLAND HISTORY: dyspnea TECHNIQUE: Frontal views of the chest. COMPARISON: none FINDINGS: Mild bilateral interstitial and groundglass opacities. No pleural effusion or pneumothorax. Cardiac silhouette is moderately enlarged. No acute bony abnormalities. Mild pulmonary edema versus atypical pneumonia. RL: [id number] End of report Assessment and plan: Principal Problem: Dyspnea, unspecified type 57 y/o F with a PMH of morbid obesity, HTN, DM II, HLD, COPD, tobacco abuse, PVD, CKD III, hypothyroidism and opioid use/chronic pain who presented with ARMAND on CKD III, fever, and acute respiratory failure with hypoxia due to COPD exacerbation and atypical pneumonia. She self-reported to the nurses that she thinks she may have taken too much of her home opioids and baclofen which may contribute to some of her symptoms. Blood cultures + GNR Sepsis Multiple potential sources. UTI, bacteremia, multifocal pneumonia. COPD Multifocal pneumonia Acute hypoxic respiratory failure Blood count gas on admission notable for 7.4 9/49/60. Patient with rhonchi, audible wheezing on exam. Tachycardic, leukocytosis. Acute kidney injury. - On bolus IVF, followed by LR at 150/h -. Doxycycline, ceftriaxone - Solu-Medrol - DuoNebs every 4 - As needed antitussives Bacteremia Blood cultures positive for gram-negative organisms. Follow blood cultures. Empiric antibiotics. UTI Urinalysis with pyuria, nitrites, leuk esterase. Empiric antibiotics. Elevated LFTs Follow-up CT abdomen/pelvis Acute kidney injury Monitor for improvement with IVF DM2: Lantus 40 units. SSI, Accu-Cheks. Hold home metformin Hypothyroidism: Synthroid Obstructive sleep apnea: CPAP for sleep Chronic pain syndrome: Gabapentin 3 times daily. Switch baclofen 10 mg to as needed DVT prophylaxis: [facility] Advanced Care Planning ( Z71.89 ) Above assessment and plan discussed at length with patient, patient expressed full understanding. Questions and concerns addressed I spent 18 minutes discussing the advance care planning. Advanced Directive Maker: Self Level of comfort: N/A Code Status: Full Tobacco user (Z71.6) Patient counseled at length and Pt expressed full understanding, Time discussed 3 minutes Disposition: Admit to inpatient IM-INTERNAL MEDICINE STAFF [facility]
--- NOTE | 2024-03-07 22:32 | RAD REPORT ---
EXAMINATION: ONE VIEW CHEST XR CLINICAL INDICATION: CHEST PAIN TECHNIQUE: Frontal chest projection is submitted. Examination is limited by patient positioning and t echnique. COMPARISON: 10/28/2018 FINDINGS: [id number] bilateral pulmonary opacities may represent pneumonia or pulmonary edema. The heart is mildly prominent. No displaced fractures identified.
[2024-03-07] MEDS ORDERED: ALBUTEROL 2.5 MG/3 ML NEB SOL ONE (22:55)
[2024-03-07] MEDS ORDERED: CEFTRIAXONE 1000 MG/VIAL ONE (22:55)
[2024-03-07] MEDS ORDERED: METHYLPREDNISOLONE 125 MG INJ ONE (22:56)
[2024-03-07] MEDS ORDERED: AZITHROMYCIN 500 MG INJ IVPB ONE (22:56)
[2024-03-07] MEDS ORDERED: IPRATROPIUM BROM 0.5MG/2.5ML ONE (22:56)
[2024-03-07] MEDS ORDERED: HYDROCODONE/APAP 10/325 TAB ONE (22:56)
[2024-03-07] MEDS ORDERED: NA CHLORIDE 0.9% 250 ML ONE (22:56)
[2024-03-07] MEDS ORDERED: ONDANSETRON 4 MG/2 ML VIAL ONE (22:56)
[2024-03-07] MEDS ORDERED: NA CHLORIDE 0.9% 50 ML ONE (22:57)
[2024-03-07 23:00] LABS: Absolute Basophils 0.1 K/uL (0-0.5); Absolute Eosinophils 0.4 K/uL (0-0.5); Absolute Lymphocytes (CBC) 1.5 K/uL (0.7-4.9); Absolute Monocytes 0.5 K/uL (0.1-1.3); Absolute Neutrophil 4.5 K/uL (1.8-8.0); Basophils % 1.1 % (0-1.3); Eosinophils % 5.9 % (0-4.4); Hematocrit 46.2 % (36.0-45.0); Hemoglobin 15.4 g/dL (12.0-15.0); Lymphocytes % 21.3 % (15.3-44.8); MCH 32.9 pg (27.0-35.0); MCHC 33.3 g/dL (32.0-36.0); MCV 98.6 fL (80-100); MPV 8.8 fL (7.6-11.3); Monocytes % 7.1 % (3.3-12.3); Neutrophils % 64.6 % (41.7-73.7); Nucleated Red Blood Cells % 0.1 % (0-0); Platelets 174 thou/uL (152-406); RBC Red Blood Cell Count 4.69 M/uL (3.86-4.86); Red Cell Distribution Width 16.3 % (12.1-15.2)
[2024-03-07 23:01] LABS: Protime INR 0.98
[2024-03-07 23:59] LABS: Albumin 2.9 g/dL (3.4-5.0); Albumin/Globulin Ratio 0.5 (1.1-1.8); Anion Gap 7.8 mEq/L (5.0-15.0); Bilirubin Direct 0.2 mg/dL (0-0.2); Bilirubin Indirect, Calculated 0.2 mg/dL (0.2-0.8); Bilirubin Total 0.4 mg/dL (0.2-1.0); C-Reactive Protein 12.3 mg/L (<3.00); Globulin 5.6 g/dL (2.3-3.5); Potassium 4.8 mEq/L (3.5-5.1); Protein, Total 8.5 g/dL (6.4-8.2); Troponin High Sensitivity 4.6 pg/mL (<58.9)
[2024-03-08 00:37] LABS: Arterial Blood Carboxyhemoglob 6.7 % (0-1.5); Blood Gas Oxyhemoglobin 85.5 % (94-97); Blood Gas THB 15.3 g/dl (12-18); Blood O2 Saturation 93.7 % (92-98.5)
--- NOTE | 2024-03-08 00:59 | ER ---
Nurse's Notes [facility] Name: Homa Delgado Age: 58 yrs Sex: Female : 1965 Arrival Date: 03/07/2024 Time: 21:17 Bed 7 Private MD: Diagnosis: COPD/ Chronic obstructive pulmonary disease with (acute) exacerbation;Acute Bilateral Pneumonia Presentation: 03/07 21:27 Chief complaint: Patient states: I have some kind of cold and its all in my head. My tm6 ears are stopped up, im coughing, can't breathe and it feels like someone is sitting on my chest. Coronavirus screen: Client presents with at least one sign or symptom that may indicate coronavirus-19. Ebola Screen: No symptoms or risks identified at this time. Initial Sepsis Screen: Does the patient meet any 2 criteria? No. Patient's initial sepsis screen is negative. Does the patient have a suspected source of infection? No. Patient's initial sepsis screen is negative. Risk Assessment: Do you want to hurt yourself or someone else? Patient reports no desire to harm self or others. Onset of symptoms was March 07, 2024. Transition of care: patient was not received from another setting of care. 21:27 Method Of Arrival: Wheelchair tm6 21:27 Acuity: IVANA 2 tm6 Triage Assessment: 21:29 General: Appears in no apparent distress. uncomfortable, Behavior is calm, cooperative, tm6 appropriate for age. Pain: Complains of pain in chest Pain does not radiate. Pain currently is 5 out of 10 on a pain scale. Quality of pain is described as pressure. Neuro: Level of Consciousness is awake, alert, obeys commands, Oriented to person, place, time, situation. Cardiovascular: Patient's skin is warm and dry. Respiratory: Airway is patent Respiratory effort is even, unlabored, Respiratory pattern is regular, symmetrical. Historical: - Allergies: 21:29 Ampicillin; tm6 21:29 Iodine; tm6 21:29 Clindamycin; tm6 - PMHx: 21:29 Nerve damage; Thyroid problem; Hypertension; High Cholesterol; Diabetes - NIDDM; COPD tm6 (Diabetes - NIDDM); - PSHx: 21:29 Total abdominal hysterectomy; Tonsillectomy; tm6 - Immunization history:: Adult Immunizations up to date. - Infectious Disease History:: Denies. - Social history:: Smoking status: Patient reports the use of cigarette tobacco products, smokes one pack cigarettes per day. - Family history:: not pertinent. Screenin:47 [facility] ED Fall Risk Assessment (Adult) History of falling in the last 3 months, dd2 including since admission No falls in past 3 months (0 pts) Confusion or Disorientation No (0 pts) Intoxicated or Sedated No (0 pts) Impaired Gait Yes (1 pt) Mobility Assist Device Used Yes (1 pt) Altered Elimination No (0 pt) Score/Fall Risk Level 0 - 2 = Low Risk Oriented to surroundings, Maintained a safe environment, Educated pt \T\ family on fall prevention, incl call for assistance when getting out of bed, Assessed \T\ reinforced patient's understanding of fall precautions, Hourly rounding (assess needs \T\ fall precautionary measures) done. Abuse screen: Denies threats or abuse. Nutritional screening: No deficits noted. Tuberculosis screening: No symptoms or risk factors identified. Assessment: 21:47 General: Appears in no apparent distress. uncomfortable, obese, Behavior is calm, dd2 cooperative, appropriate for age. Pain: Complains of pain in right ear and left ear and chest, head Pain does not radiate. Pain currently is 5 out of 10 on a pain scale. Neuro: Crook Agitation-Sedation Scale (RASS): 0 - Alert and Calm Level of Consciousness is awake, alert, obeys commands, Oriented to person, place, time, situation, Appropriate for age. Cardiovascular: Reports chest pain, Heart tones S1 S2 present Patient's skin is warm and dry. Chest pain is aggravated by coughing. Respiratory: Reports shortness of breath at rest on exertion cough that is non-productive, persistent pain with cough Airway is patent Respiratory effort is even, unlabored, Respiratory pattern is regular, symmetrical, Breath sounds with wheezes bilaterally. GI: Abdomen is non-distended, obese, Abd is soft and non tender. : No deficits noted. No signs and/or symptoms were reported regarding the genitourinary system. EENT: No deficits noted. No signs and/or symptoms were reported regarding the EENT system. Derm: Skin is dry, edema to BLE. Musculoskeletal: Circulation, motion, and sensation intact. Range of motion: intact in all extremities. Vital Signs: 21:27 BP 142 / 61; Pulse 84; Resp 18; Temp 98.2(O); Pulse Ox 99% on R/A; Weight 156.49 kg tm6 (R); Height 5 ft. 3 in. ; Pain 5/10; 23:06 BP 133 / 77; Pulse 82; Resp 19; Pulse Ox 95% on 2 lpm NC; dd2 03/08 00:00 BP 123 / 76; Pulse 85; Resp 18; Pulse Ox 100% on 2 lpm NC; dd2 00:45 BP 125 / 79; Pulse 88; Resp 18; Pulse Ox 93% on R/A; dd2 01:20 BP 117 / 74; Pulse 89; Resp 19; Pulse Ox 94% on 2 lpm NC; dd2 01:20 BP 116 / 66; Pulse 87; Resp 18; Pulse Ox 93% on 2 lpm NC; dd2 03/07 21:27 Body Mass Index 61.11 (156.49 kg, 160.02 cm) tm6 03/07 21:27 Pain Scale: Adult tm6 Keyon Coma Score: 03/07 21:47 Eye Response: spontaneous(4). Motor Response: obeys commands(6). Verbal Response: dd2 oriented(5). Total: 15. 23:12 Eye Response: spontaneous(4). Motor Response: obeys commands(6). Verbal Response: sp4 oriented(5). Total: 15. ED Course: 21:17 Patient arrived in ED. jj6 21:22 Brent Oakley MD is Attending Physician. sp4 21:29 Triage completed. tm6 21:30 Arm band placed on right wrist. tm6 21:47 Patient has correct armband on for positive identification. Bed in low position. Call dd2 light in reach. Side rails up X2. Client placed on continuous cardiac and pulse oximetry monitoring. NIBP monitoring applied. c software engineer on. Door closed. Noise minimized. Warm blanket given. Pillow given. Verbal reassurance given. 21:47 No provider procedures requiring assistance completed. Oxygen administration via nasal dd2 cannula \T\ 2L/min. 22:16 Missed attempt(s): 20 gauge in left forearm. Bleeding controlled, band aid applied, sa1 catheter tip intact. 22:24 XRAY Chest (1 view) In Process Unspecified. EDMS 22:33 Initial lab(s) drawn, by me, sent to lab. First set of blood cultures drawn by me. dd2 22:42 Inserted saline lock: 22 gauge in right antecubital area, using aseptic technique. dd2 Blood collected. Flushed with 10 mL NS. 22:48 VICTORIA BURNHAM RN is Primary Nurse. dd2 23:20 EKG done, by ED staff, reviewed by Brent Oakley MD. sa1 03/08 00:53 Dany Fitzpatrick MD is Hospitalizing Provider. sp4 02:06 Assisted nurse move patient up in the bed. sa1 02:31 Patient admitted, IV remains in place. dd2 02:32 Provided Education on: D/C EDUCATION. dd2 Administered Medications: 03/07 23:21 Drug: Rocephin - Rocephin (cefTRIAXone) IVPB 1 grams IVPB once over 30 mins; (mix in 50 dd2 mL NS) Route: IVPB; Infused Over: 30 mins; Site: right antecubital; 23:36 Follow up: Response: No adverse reaction dd2 23:51 Follow up: IV Status: Completed infusion; IV Intake: 50ml dd2 23:21 Drug: Zithromax IVPB 500 mg IVPB once over 1 hrs; mix in 250 mL NS Route: IVPB; Infused dd2 Over: 1 hrs; Site: right antecubital; 23:36 Follow up: Response: No adverse reaction dd2 03/08 00:21 Follow up: IV Status: Completed infusion; IV Intake: 250ml dd2 03/07 23:22 Drug: Albuterol Inhalation 2.5 mg Inhalation every 20 minutes x3 Route: Inhalation; dd2 23:22 Drug: Ipratropium Inhalation Aerosol 0.5 mg Inhalation once; Every 20 min for a total dd2 of 3 treatments x3 Route: Inhalation; 23:22 Drug: HYDROcodone-acetaminophen PO 10 mg-325 mg 1 tabs PO once Route: PO; dd2 23:52 Follow up: Response: No adverse reaction dd2 23:22 Drug: Ondansetron IVP 4 mg IVP once; over 2 minutes Route: IVP; Site: right antecubital;dd2 23:38 Follow up: Response: No adverse reaction dd2 23:23 Drug: MethylPrednisoLONE IVP 125 mg IVP once Route: IVP; Site: right antecubital; dd2 23:38 Follow up: Response: No adverse reaction dd2 23:43 Drug: Albuterol Inhalation 2.5 mg Inhalation every 20 minutes x3 Route: Inhalation; dd2 23:43 Drug: Ipratropium Inhalation Aerosol 0.5 mg Inhalation once; Every 20 min for a total dd2 of 3 treatments x3 Route: Inhalation; 03/08 00:17 Drug: Albuterol Inhalation 2.5 mg Inhalation every 20 minutes x3 Route: Inhalation; dd2 00:17 Drug: Ipratropium Inhalation Aerosol 0.5 mg Inhalation once; Every 20 min for a total dd2 of 3 treatments x3 Route: Inhalation; Medication: 03/07 21:47 VIS not applicable for this client. dd2 Intake: 23:51 IV: 50ml; Total: 50ml. dd2 03/08 00:21 IV: 250ml; Total: 300ml. dd2 Outcome: 00:59 Decision to Hospitalize by Provider. sp4 02:31 Admitted to Med/surg accompanied by tech, room 206, with chart, dd2 02:31 Condition: stable 02:31 Instructed on the need for admit, Demonstrated understanding of instructions, 03:16 Patient left the ED. dd2 Signatures: Dispatcher [employer] EDJoanna Linares Sergey, MD MD sp4 Reji Hendricks RN RN [address] [facility] VICTORIA BURNHAM RN RN dd2
--- NOTE | 2024-03-08 00:59 | EDPHYS ---
Physician Documentation [facility] Name: Homa Delgado Age: 58 yrs Sex: Female : 1965 Arrival Date: 03/07/2024 Time: 21:17 Bed 7 Private MD: ED Physician Brent Oakley HPI: 03/07 21:22 This 58 yrs old Female presents to ER via Unassigned with complaints of sp4 Cough, Congestion, Ear Pain, Headache, Chest Tightness. 23:12 Patient is a very pleasant 58-year-old female who complains of cough, congestion, sp4 headache, and chest tightness. All this started 3 days ago. Patient is an active smoker smokes half a pack a day. Patient is on oxygen at home as needed at night. Also she uses CPAP at night. Patient is suffering from morbid obesity, diabetes, COPD, dyslipidemia, depression, chronic pain, chronic bilateral knee arthritis, hypothyroidism, also hypertension.. . 03/08 01:03 Medications include acetaminophen codeine, albuterol, atorvastatin, clotrimazole sp4 betamethasone, duloxetine, gabapentin, Humulin R, hydrocodone as needed, ibuprofen 800 as needed, levothyroxine 100 mcg p.o. daily, meloxicam 15 mg p.o. daily, metformin 500 every 24, metoprolol succinate 50 mg every 24, Ozempic, Ozempic 8 mg injector, 2 mg once a week, Trelegy, valsartan hydrochlorothiazide.. Historical: - Allergies: 03/07 21:29 Ampicillin; tm6 21:29 Iodine; tm6 21:29 Clindamycin; tm6 - PMHx: 21:29 Nerve damage; Thyroid problem; Hypertension; High Cholesterol; Diabetes - NIDDM; COPD tm6 (Diabetes - NIDDM); - PSHx: 21:29 Total abdominal hysterectomy; Tonsillectomy; tm6 - Immunization history:: Adult Immunizations up to date. - Infectious Disease History:: Denies. - Social history:: Smoking status: Patient reports the use of cigarette tobacco products, smokes one pack cigarettes per day. - Family history:: not pertinent. ROS: 23:12 Constitutional: Negative for fever, chills, and weight loss, positive for cough, sp4 shortness of breath, congestion, headache, chest tightness. 23:12 All other systems are negative, Exam: 23:12 Constitutional: This is a well developed, well nourished patient who is awake, sp4 morbidly obese female who is physically deconditioned. Head/Face: Normocephalic, atraumatic. Eyes: Pupils equal round and reactive to light, extra-ocular motions intact. Lids and lashes normal. Conjunctiva and sclera are not injected. Cornea within normal limits. Periorbital areas with no swelling, redness, or edema. ENT: Nares patent. No nasal discharge, no septal abnormalities noted. Tympanic membranes are normal and external auditory canals are clear. Oropharynx with no redness, swelling, or masses, exudates, or evidence of obstruction, uvula midline. Mucous membranes moist. Neck: Trachea midline, no thyromegaly or masses palpated, and no cervical lymphadenopathy. Supple, full range of motion without nuchal rigidity, or vertebral point tenderness. Chest/axilla: Normal chest wall appearance and motion. Nontender with no deformity. No lesions are appreciated. Cardiovascular: Regular rate and rhythm with a normal S1 and S2. No gallops, murmurs, or rubs. Normal PMI, no JVD. No pulse deficits. Respiratory: Lungs have equal breath sounds bilaterally, clear to auscultation and percussion. No rales, rhonchi or wheezes noted. No increased work of breathing, no retractions or nasal flaring. Abdomen/GI: Soft, with normal bowel sounds. No distension or tympany. No guarding or rebound. No evidence of tenderness throughout. Back: No spinal tenderness. No costovertebral tenderness. Skin: Warm, dry with normal turgor. Normal color with no rashes, no lesions, and no evidence of cellulitis. MS/ Extremity: Pulses equal, no cyanosis. Neurovascular intact. Full, normal range of motion. Neuro: Awake and alert, GCS 15, oriented to person, place, time, and situation. Cranial nerves II-XII grossly intact. Motor strength 5/5 in all extremities. Sensory grossly intact. Psych: Awake, alert, with orientation to person, place and time. Behavior, mood, and affect are within normal limits 23:12 ECG was reviewed by the Attending Physician. EKG at 23 00 normal sinus rhythm rate 83. Normal EKG. Vital Signs: 21:27 BP 142 / 61; Pulse 84; Resp 18; Temp 98.2(O); Pulse Ox 99% on R/A; Weight 156.49 kg tm6 (R); Height 5 ft. 3 in. ; Pain 5/10; 23:06 BP 133 / 77; Pulse 82; Resp 19; Pulse Ox 95% on 2 lpm NC; dd2 03/08 00:00 BP 123 / 76; Pulse 85; Resp 18; Pulse Ox 100% on 2 lpm NC; dd2 00:45 BP 125 / 79; Pulse 88; Resp 18; Pulse Ox 93% on R/A; dd2 01:20 BP 117 / 74; Pulse 89; Resp 19; Pulse Ox 94% on 2 lpm NC; dd2 01:20 BP 116 / 66; Pulse 87; Resp 18; Pulse Ox 93% on 2 lpm NC; dd2 03/07 21:27 Body Mass Index 61.11 (156.49 kg, 160.02 cm) 6 03/07 21:27 Pain Scale: Adult 6 Keyon Coma Score: 03/07 21:47 Eye Response: spontaneous(4). Motor Response: obeys commands(6). Verbal Response: dd2 oriented(5). Total: 15. 23:12 Eye Response: spontaneous(4). Motor Response: obeys commands(6). Verbal Response: sp4 oriented(5). Total: 15. MDM: 21:22 Medical Screening Exam initiated sp4 23:20 ED course: EXAMINATION: ONE VIEW CHEST XR CLINICAL INDICATION: CHEST PAIN TECHNIQUE: sp4 Frontal chest projection is submitted. Examination is limited by patient positioning and technique. COMPARISON: 10/28/2018 FINDINGS: [id number] bilateral pulmonary opacities may represent pneumonia or pulmonary edema. The heart is mildly prominent. No displaced fractures identified.. 03/08 00:59 Differential Diagnosis: Obstructed Airway Bronchitis Influenza Upper Respiratory sp4 Infection Sinusitis Pharyngitis Allergic Rhinitis. Data reviewed: vital signs, nurses notes, lab test result(s), EKG, radiologic studies, plain films. ED course: EXAMINATION: ONE VIEW CHEST XR CLINICAL INDICATION: CHEST PAIN TECHNIQUE: Frontal chest projection is submitted. Examination is limited by patient positioning and technique. COMPARISON: 10/28/2018 FINDINGS: [id number] bilateral pulmonary opacities may represent pneumonia or pulmonary edema. The heart is mildly prominent. No displaced fractures identified. . 03/07 21:22 Order name: Influenza Screen (a \T\ B) sp4 03/07 21:44 Order name: Basic Metabolic Panel; Complete Time: 00:49 sp4 03/07 21:44 Order name: CBC with Diff; Complete Time: 23:07 sp4 03/07 21:44 Order name: LFT's; Complete Time: 00:49 sp4 03/07 21:44 Order name: Magnesium; Complete Time: 00:49 sp4 03/07 21:44 Order name: NT PRO-BNP; Complete Time: 00:49 sp4 03/07 21:44 Order name: PT-INR; Complete Time: 23:07 sp4 03/07 21:44 Order name: Troponin HS; Complete Time: 00:49 sp4 03/07 21:44 Order name: Blood Culture Adult (2) sp4 03/07 21:44 Order name: Lactate w/ 2H reflex if indic.; Complete Time: 00:49 sp4 03/07 21:44 Order name: CRP; Complete Time: 00:49 sp4 03/07 21:44 Order name: ABG; Complete Time: 00:49 sp4 03/07 21:48 Order name: Urinalysis W/Microscopic sp4 03/08 00:51 Order name: Influenza Screen (a \T\ B); Complete Time: 01:55 sp4 03/08 00:51 Order name: SARS RAPID; Complete Time: 01:55 sp4 03/08 00:51 Order name: RSV; Complete Time: 01:55 sp4 03/08 02:09 Order name: Thyroid Stimulating Hormone EDMS 03/08 02:09 Order name: Urinalysis w/ reflexes EDMS 03/08 02:09 Order name: CBC with Automated Diff EDMS 03/08 02:09 Order name: CBC with Automated Diff EDMS 03/08 02:09 Order name: Comprehensive Metabolic Panel EDMS 03/08 02:09 Order name: Comprehensive Metabolic Panel EDMS 03/07 21:44 Order name: XRAY Chest (1 view); Complete Time: 22:48 sp4 03/07 21:44 Order name: Cardiac monitoring; Complete Time: 22:49 sp4 03/07 21:44 Order name: EKG - Nurse/Tech; Complete Time: 23:23 sp4 03/07 21:44 Order name: IV Saline Lock; Complete Time: 22:49 sp4 03/07 21:44 Order name: Labs collected and sent; Complete Time: 22:49 sp4 03/07 21:44 Order name: O2 Per Protocol; Complete Time: 22:49 sp4 03/07 21:44 Order name: O2 Sat Monitoring; Complete Time: 22:49 sp4 EC/07 23:00 Rate is 83 beats/min. Rhythm is regular, Normal Sinus Rhythm. QRS Edwards is Normal. [place] sp4 interval is normal. QRS interval is normal. QT interval is normal. No Q waves. T waves are Normal. No ST changes noted. Clinical impression: No evidence of ischemia. Interpreted by me. Reviewed by me. Administered Medications: 23:21 Drug: Rocephin - Rocephin (cefTRIAXone) IVPB 1 grams IVPB once over 30 mins; (mix in 50 dd2 mL NS) Route: IVPB; Infused Over: 30 mins; Site: right antecubital; 23:36 Follow up: Response: No adverse reaction dd2 23:51 Follow up: IV Status: Completed infusion; IV Intake: 50ml dd2 23:21 Drug: Zithromax IVPB 500 mg IVPB once over 1 hrs; mix in 250 mL NS Route: IVPB; Infused dd2 Over: 1 hrs; Site: right antecubital; 23:36 Follow up: Response: No adverse reaction dd2 03/08 00:21 Follow up: IV Status: Completed infusion; IV Intake: 250ml dd2 03/07 23:22 Drug: Albuterol Inhalation 2.5 mg Inhalation every 20 minutes x3 Route: Inhalation; dd2 23:22 Drug: Ipratropium Inhalation Aerosol 0.5 mg Inhalation once; Every 20 min for a total dd2 of 3 treatments x3 Route: Inhalation; 23:22 Drug: HYDROcodone-acetaminophen PO 10 mg-325 mg 1 tabs PO once Route: PO; dd2 23:52 Follow up: Response: No adverse reaction dd2 23:22 Drug: Ondansetron IVP 4 mg IVP once; over 2 minutes Route: IVP; Site: right antecubital;dd2 23:38 Follow up: Response: No adverse reaction dd2 23:23 Drug: MethylPrednisoLONE IVP 125 mg IVP once Route: IVP; Site: right antecubital; dd2 23:38 Follow up: Response: No adverse reaction dd2 23:43 Drug: Albuterol Inhalation 2.5 mg Inhalation every 20 minutes x3 Route: Inhalation; dd2 23:43 Drug: Ipratropium Inhalation Aerosol 0.5 mg Inhalation once; Every 20 min for a total dd2 of 3 treatments x3 Route: Inhalation; 03/08 00:17 Drug: Albuterol Inhalation 2.5 mg Inhalation every 20 minutes x3 Route: Inhalation; dd2 00:17 Drug: Ipratropium Inhalation Aerosol 0.5 mg Inhalation once; Every 20 min for a total dd2 of 3 treatments x3 Route: Inhalation; Disposition Summary: 03/08/24 00:59 Hospitalization Ordered Notes: Hospitalization Status: Inpatient Admission sp4 Provider: Dany Fitzpatrick Location: Telemetry/[facility]Sur (Inpatient) sp4 Condition: Fair sp4 Problem: new sp4 Symptoms: have improved sp4 Bed/Room Type: Standard sp4 Room Assignment: 206(03/08/24 02:15) Diagnosis - COPD/ Chronic obstructive pulmonary disease with (acute) exacerbation sp4 - Acute Bilateral Pneumonia sp4 Forms: - Medication Reconciliation Form sp4 - SBAR form sp4 - Leadership Thank You Letter sp4 Signatures: Dispatcher [employer] Cynthia Nieves, BETZAIDA RN Brent Oakley MD MD sp4 Reji Hendricks RN RN tm6 VICTORIA BURNHAM RN RN dd2 Corrections: (The following items were deleted from the chart) 03/07 21:44 21:44 BASIC METABOLIC PANEL+C.LAB.BRZ ordered. EDMS EDMS 21:44 21:44 CBC+H.LAB.BRZ ordered. EDMS EDMS 21:44 21:44 HEPATIC FUNCTION+C.LAB.BRZ ordered. EDMS EDMS 21:44 21:44 MAGNESIUM+C.LAB.BRZ ordered. EDMS EDMS 21:44 21:44 PROBNP+C.LAB.BRZ ordered. EDMS EDMS 21:44 21:44 PROTIME (+INR)+COAG.LAB.BRZ ordered. EDMS EDMS 21:44 21:44 Troponin High Sensitivity+C.LAB.BRZ ordered. EDMS EDMS 21:44 21:44 Chest Single View+RAD.RAD.BRZ ordered. EDMS EDMS : 21:45 LACTATE+C.LAB.BRZ ordered. EDMS EDMS 21:45 C-REACTIVE PROTEIN+C.LAB.BRZ ordered. EDMS EDMS 21:45 Arterial Blood Gas+RC.LAB.BRZ ordered. EDMS EDMS 03/08 01:48 01 21:48 Kraus ordered. sp4 dd2 03/08 02:15 00:59 sp4 cg
[2024-03-08 01:45] LABS: SARS-CoV-2 Antigen CONTROL BLUE LINE VIS/BG OK; SARS-CoV-2 Antigen Rapid Res Negative (Negative)
--- NOTE | 2024-03-08 01:57 | P.HP ---
Certification for Inpatient With expected LOS: >2 Midnights Practitioner: I am a practitioner with admitting privileges, knowledge of patient current condition, hospital course, and medical plan of care. Services: Services provided to patient in accordance with Admission requirements found in Title 42 Section 412.3 of the Code of Federal Regulations Patient History Date of Service: 03/08/24 Reason for admission: sob History of Present Illness: 58-year-old female history of COPD, tobacco use, diabetes presents to the ER with 3 days of progressive dyspnea. She reports that symptoms have progressed i n the last 3 days. Reports cough. Denies fevers. She does smoke half to 1 pack of cigarettes per day. Does report living with a roommate who has cold- like symptoms. She does use a CPAP for her obstructive sleep apnea and uses oxygen as needed. Allergies ampicillin Allergy (Verified 08/29/18 09:24) Hives clindamycin Allergy (Verified 08/29/18 09:24) Hives Iodinated Contrast Media [Iodinated Contrast- Oral and IV Dye] Allergy (Verified 08/29/18 09:24) Shortness of breath/rash Home Medications: Gabapentin Enacarbil [Horizant] 2 tab PO TID 02/02/14 Levothyroxine [Synthroid*] 88 mg PO DAILY 02/02/14 Metformin HCl [Glucophage*] 500 mg PO BID 02/02/14 Simvastatin 40 mg PO DAILY 02/02/14 Duloxetine HCl 60 mg PO DAILY 08/25/18 Insulin Degludec/Liraglutide [Xultophy 100 Unit-3.6 mg/ml] 50 units SQ DAILY 08/25/18 Lisinopril/Hydrochlorothiazide [Lisinopril-Hctz 10-12.5 mg Tab] 1 each PO DAILY 08/25/18 Solifenacin [Vesicare] 5 mg PO DAILY 08/25/18 - Past Medical/Surgical History Diabetic: Yes -: Diabetes -: Thyroid -: Lymphedema -: HTN -: Tonsilectomy - Social History Alcohol use: No Review of Systems 10-point ROS is otherwise unremarkable Respiratory: Shortness of Breath Physical Examination - Physical Exam General: Oriented x3, Obese Respiratory: Expiratory wheezes Cardiovascular: Regular rate/rhythm Gastrointestinal: Soft and benign, Non-distended Integumentary: Erythema, Other - Studies Laboratory Data (last 24 hrs) 0103/07/24 03/07/24 22:33 22:33 22:33 WBC 6.90 Hgb 15.4 H Hct 46.2 H Plt Count 174 PT 11.0 INR 0.98 Sodium 133 L Potassium 4.8 BUN 30 H Creatinine 1.48 H Glucose 278 H Magnesium 2.0 Total Bilirubin 0.4 AST 55 H ALT 55 Alkaline Phosphatase 286 H Microbiology Data (last 24 hrs): 03/08/24 01:05 Nasopharnyx Respiratory Syncytial Virus Ag Scrn - Final 03/08/24 01:05 Nasopharnyx Influenza Type A Antigen Screen - Final 03/08/24 01:05 Nasopharnyx Influenza Type B Antigen Screen - Final Assessment and Plan - Problems (Diagnosis) (1) COPD (chronic obstructive pulmonary disease) Current Visit: Yes Status: Acute - Plan 58-year-old female presents with 3-day history of progressive dyspnea COPD exacerbation Community Acquired pneumonia tobacco use NOY --O2, CPAP, nebs, steroids, rocephin , azithromycin Diabetes --restart basal insulin when med rec available, ssi fsbs Hypothyroidism --restart home thyroid replacement Acute on CKD --renal dose medications DVT:heparin - Advance Directives Does patient have a Living Will: No Does patient have a Durable POA for Healthcare: No
[2024-03-08] MEDS ORDERED: ALBUTEROL 2.5 MG/3 ML NEB SOL NEB PRN ×2 (02:05→17:52)
[2024-03-08] MEDS ORDERED: ACETAMINOPHEN 500 MG TAB PO PRN (02:05)
[2024-03-08] MEDS ORDERED: D10W 125 ML IV PRN ×2 (02:09→02:10)
[2024-03-08] MEDS ORDERED: GLUCAGON 1 MG/VIAL IM PRN ×2 (02:09→02:10)
[2024-03-08] MEDS: AZITHROMYCIN 250 MG TAB PO SCH (03:46)
[2024-03-08 03:48] VITALS: BMI 61.4
[2024-03-08] MEDS: INSULIN REGULAR (HUMAN) 100 UNIT/ML SQ SCH (07:30)
[2024-03-08 08:23] VITALS: O2SAT 92
[2024-03-08] MEDS: predniSONE 20 MG TAB PO SCH (08:46)
[2024-03-08] MEDS: INSULIN GLARGINE 100 UNIT/ML SQ SCH (08:46)
[2024-03-08] MEDS: HEPARIN 5000 UNIT/ML 1 ML VIAL SQ SCH (08:47)
[2024-03-08] MEDS: CEFTRIAXONE 1,000 MG in NA CHLORIDE 0.9% 50 ML IVPB SCH (08:47)
[2024-03-08] MEDS: INSULIN GLARGINE 100 UNIT/ML SQ ONE (13:19)
--- NOTE | 2024-03-08 13:39 | P.PN ---
Date of Service: 03/08/24 Patient seen and examined. She states she feels better compared to yesterday and reports improvement in her shortness of breath. Her blood sugar readings are severely elevated. Flu and RSV negative. COPD exacerbation DM type II with hyperglycemia Morbid obesity History of sleep apnea Plan: Continue bronchodilator Steroid Pulmonary consult Resume Lantus insulin at 40 units daily and titrate. CPAP at night. IV Rocephin Activity as tolerated.
[2024-03-08 16:52] VITALS: BP 134/59; TEMP 97.8
[2024-03-08] MEDS: GABAPENTIN 300 MG CAP PO ONE (17:51)
[2024-03-08] MEDS: CODEINE 30MG/APAP 300MG TAB PO ONE (17:54)
--- NOTE | 2024-03-08 19:21 | P.DS ---
Admission Date: 03/08/24 Discharge Date: 03/08/24 Disposition: AMA-LEFT AGAINST MEDICAL ADVIC Discharge Condition: FAIR Reason for Admission: sob Brief History of Present Illness: 58-year-old female history of COPD, tobacco use, diabetes presented to the ER with 3 days of progressive dyspnea. She reported shortness of breath is associated with nonproductive cough. She denied fever. She also reported upper respiratory symptoms including cold symptoms and nasal congestion. Patient reports history of sleep apnea and uses CPAP at home and uses oxygen. She does smoke half to 1 pack of cigarettes per day. Does report living with a roommate who has cold-like symptoms. Patient was evaluated in the ED, checks x-ray demonstrated bilateral infiltrates. Patient was placed on 2 L oxygen by nasal cannula and hospitalized for further management Hospital Course: Diagnosis COPD exacerbation Bilateral pneumonia Acute diastolic heart failure DM type II with hyperglycemia Morbid obesity History of sleep apnea Patient was admitted to the medical floor and treated with bronchodilators, oral steroid and IV Rocephin. Her flu and RSV screen were negative. Patient respiratory status improved and she was able to tolerate room air at rest with oxygen saturation of 90 to 92%. Patient states that she is mostly wheelchair-bound. Patient blood sugar readings were significantly elevated. She was placed on long-acting insulin and insulin sliding scale. Patient decided to sign out AGAINST MEDICAL ADVICE stating her pain is not being well-controlled here. I met with patient and family member and discussed her pain management and discussed the need to stay to continue treatment. Patient signed out AGAINST MEDICAL ADVICE. She is prescribed antibiotics to continue treatment for pneumonia and a trial of oral Lasix. She is informed to return to the ED if her respiratory symptoms worsen. Vital Signs/Physical Exam: Temp Pulse Resp BP Pulse Ox 97.8 F 107 H 20 134/59 L 92 03/08/24 16:00 03/08/24 16:00 03/08/24 17:54 03/08/24 16:00 03/08/24 17:54 Laboratory Data at Discharge: WBC 6.90 thou/uL (4.3-10.9) 03/07/24 22:33 Hgb 15.4 g/dL (12.0-15.0) H 03/07/24 22:33 Hct 46.2 % (36.0-45.0) H 03/07/24 22:33 Plt Count 174 thou/uL (152-406) 03/07/24 22:33 PT 11.0 SECONDS (9.4-12.5) 03/07/24 22:33 INR 0.98 03/07/24 22:33 Sodium 133 mEq/L (136-145) L 03/07/24 22:33 Potassium 4.8 mEq/L (3.5-5.1) 03/07/24 22:33 BUN 30 mg/dL (7-18) H 03/07/24 22:33 Creatinine 1.48 mg/dL (0.55-1.02) H 03/07/24 22:33 Glucose 278 mg/dL (74-106) H 03/07/24 22:33 Magnesium 2.0 mg/dL (1.6-2.4) 03/07/24 22:33 Total Bilirubin 0.4 mg/dL (0.2-1.0) 03/07/24 22:33 AST 55 U/L (15-37) H 03/07/24 22:33 ALT 55 U/L (13-56) 03/07/24 22:33 Alkaline Phosphatase 286 U/L (45-117) H 03/07/24 22:33 Home Medications: Levothyroxine [Synthroid*] 100 mcg PO DAILY 02/02/14 Metformin HCl [Glucophage*] 500 mg PO BID 02/02/14 Duloxetine HCl 60 mg PO BID 08/25/18 Atorvastatin Calcium 20 mg PO DAILY 03/08/24 Fluticasone/Umeclidin/Vilanter [Trelegy Ellipta 100-62.5-25] 1 puff IH DAILY 03/08/24 Furosemide [Lasix] 40 mg PO BIDL #10 tab 03/08/24 Gabapentin 2 tab PO BID 03/08/24 Hydrocodone Bit/Acetaminophen [Hydrocodon-Acetaminophen 5-325] 1 tab PO Q8H PRN 03/08/24 Insulin Regular, Human [Humulin R U-500 Kwikpen] 100 units SQ DAILY AT SUPPER 03/08/24 Insulin Regular, Human [Humulin R U-500 Kwikpen] 120 units SQ BREAKFAST 03/08/24 Meloxicam 1 tab PO DAILY 03/08/24 Metoprolol Succinate 1 tab PO DAILY 03/08/24 Semaglutide [Ozempic] 2 mg SQ EVERY 7TH DAY 03/08/24 Valsartan/Hydrochlorothiazide [Valsartan-Hctz 320-25 mg Tab] 1 each PO DAILY 03/08/24 levoFLOXacin [Levaquin] 750 mg PO DAILY #7 tab 03/08/24 predniSONE [Prednisone*] 20 mg PO DAILY #5 tab 03/08/24 New Medications: Furosemide [Lasix] 40 mg PO BIDL #10 tab levoFLOXacin [Levaquin] 750 mg PO DAILY #7 tab predniSONE [Prednisone*] 20 mg PO DAILY #5 tab Diet: ADA Activity: Fall precautions Followup: Sabrina De Oliveira DO, DO [Primary Care Provider] - 1 Week
[2024-03-09] MEDS ORDERED: INSULIN GLARGINE 100 UNIT/ML SQ SCH (09:00)
== END 2024-03-08 18:51 | disposition left against medical advice (07) | DRG 193 ==
LOC: ER 21:17 → ERHOLD 03-08 02:05 → 2ND 03-08 02:24
PROVIDERS: ADMIT Internal Medicine; ATTEND Internal Medicine
PROC: 4A033R1 Measurement of Arterial Saturation, Peripheral, Percutaneous Approach (ICD-10-PCS; principal; 2024-03-08)
DX: J18.9 Pneumonia, unspecified organism (principal); I50.31 Acute diastolic (congestive) heart failure; Z68.44 Body mass index [BMI] 60.0-69.9, adult; N17.9 Acute kidney failure, unspecified; I13.0 Hypertensive heart and chronic kidney disease with heart failure and stage 1 through stage 4 chronic kidney disease, or unspecified chronic kidney disease; J44.0 Chronic obstructive pulmonary disease with (acute) lower respiratory infection; J44.1 Chronic obstructive pulmonary disease with (acute) exacerbation; E11.22 Type 2 diabetes mellitus with diabetic chronic kidney disease; N18.9 Chronic kidney disease, unspecified; E66.01 Morbid (severe) obesity due to excess calories; I12.9 Hypertensive chronic kidney disease with stage 1 through stage 4 chronic kidney disease, or unspecified chronic kidney disease; Z79.4 Long term (current) use of insulin; E11.65 Type 2 diabetes mellitus with hyperglycemia
CPT/HCPCS: 36415; 71045; 80048; 80076; 82805; 82947; 83605; 83735; 83880; 84443; 84484; 85025; 85610; 86140; 87040; 87804; 87807; 87811; 94760; 96365; 96368; 96375; 99285; J0696; J1644; J2405; J2919; J7050; J7512; J7613; J7644